=== PATIENT | female | born 1940 | race Caucasian/White ===

== ENCOUNTER 2018-07-18 13:54 | Emergency (ER) | payer MEDICARE, OTHER, SELFPAY ==
[2018-07-18 13:56] VITALS: BP 142/82; PULSE 83; RESP 12; TEMP 36.9; O2SAT 95; BMI 24.3
--- NOTE | 2018-07-18 14:00 | ED_ITS ---
HPI - Extremity Problem <Juliette Christie PA-C - Last Filed: 07/18/18 14:54> General Chief complaint: Extremity Problem,Nontraumatic Stated complaint: right middle toe pain Time Seen by Provider: 07/18/18 13:56 Source: patient Mode of arrival: ambulatory Limitations: no limitations History of Present Illness HPI Narrative: This 78-year-old female comes to ED today with complaints of gradually worsening pain in her right middle toe for the last 3-4 months. She states that she has a history nerve pain in this toe for a long time. She had surgery on the 3rd and 4th toes last year and had improvement. Pain did gradually worsened again and states she had cortisone injections earlier this year to break up the scar tissue and this helped for a long time as well. She describes the pain as shooting down the sides of the toe, sometimes it feels like it moves up a little bit as well, but fairly localized. She states it happens as frequently as every 7 sec. She states it is keeping her up more frequently at night and she got no sleep last night due to the pain. She states she takes Aleve at bedtime for her arthritis pain, has also tried arnica , Aspercreme, Nupercaine, E stim, ice, heat without relief. She denies any new trauma. She has not had any swelling, redness, or fever. She denies any pain elsewhere in the extremities. No new chest pain, dyspnea, or other complaints on systems review. She is wondering about repeating steroid injection. She has a podiatry appointment in the next few weeks Related Data Home Medications Medication Instructions Recorded Confirmed [FIBER THERAPY] #0 04/07/11 [VITAMIN C] #0 04/07/11 CALCIUM CARBONATE (#CALCIUM 600) 1,200 mg PO Q DAY #0 06/01/11 CHOLECALCIFEROL (VITAMIN D3) 400 unit PO QDAY #0 04/04/13 (Vitamin D3) denosumab [Prolia] 60 mg SQ #0 07/20/13 Allergies Allergy/AdvReac Type Severity Reaction Status Date / Time adhesive Allergy Intermediate HIVES Verified 07/18/18 14:01 erythromycin base Allergy Mild RASH Verified 07/18/18 14:01 levofloxacin AdvReac Mild ANXIETY Verified 07/18/18 14:01 Review of Systems <Juliette Christie PA-C - Last Filed: 07/18/18 14:54> Review of Systems All systems reviewed & are unremarkable except as noted in HPI and below Exam <MAMIE Church Last Filed: 07/18/18 14:54> Narrative Exam Narrative: GENERAL APPEARANCE: Patient sitting comfortably, in no distress. LUNGS: Clear to auscultation bilaterally. HEART: Rate and rhythm regular without murmur, normal S1 and S2, no S3 or S4. EXTREMITIES: No cyanosis or edema, R. pedal pulses intact DERMATOLOGIC: Right middle toe no edema or open wounds. There are well-healed surgical scars MUSCULOSKELETAL: She has some DIP flexion deformities of all toes, R. 4th toe most pronounced, minimal on R. middle toe. No joint effusion. Normal AROM NEUROLOGIC: R. foot sensation grossly intact Initial Vital Signs Initial Vital Signs: Vital Signs Temperature 98.4 F 07/18/18 13:56 Pulse Rate 83 07/18/18 13:56 Respiratory Rate 12 07/18/18 13:56 Blood Pressure 142/82 H 07/18/18 13:56 Pulse Oximetry 95 07/18/18 13:56 <Diogo Ashraf DO - Last Filed: 07/18/18 15:05> Initial Vital Signs Initial Vital Signs: Vital Signs Temperature 98.4 F 07/18/18 13:56 Pulse Rate 83 07/18/18 13:56 Respiratory Rate 12 07/18/18 13:56 Blood Pressure 142/82 H 07/18/18 13:56 Pulse Oximetry 95 07/18/18 13:56 Course <MAMIE Church Last Filed: 07/18/18 14:54> Vital Signs - 8 hr 07/18/18 13:56 07/18/18 14:51 Temperature 98.4 F Pulse Rate 83 62 Respiratory Rate 12 15 Blood Pressure 142/82 H 126/68 H Pulse Oximetry 95 96 <DO Asa Larios Last Filed: 07/18/18 15:05> Vital Signs - 8 hr 07/18/18 13:56 07/18/18 14:51 Temperature 98.4 F Pulse Rate 83 62 Respiratory Rate 12 15 Blood Pressure 142/82 H 126/68 H Pulse Oximetry 95 96 Discharge Plan Departure Patient Disposition: Home Clinical Impression: Neuropathic pain of foot Discharge Date/Time: 07/18/18 14:53 Interventions: ED Discharge Assessment Last Done: 07/18/18 14:51 Instructions: Neuropathic Pain Activity Restrictions/Additional Instructions: I agree with you that the pain you described in your toe sounds like nerve pain. It might be related to scar tissue, arthritis, or other inflammation since last time you had a steroid injection it helped, and you should follow up with your podiatry office as planned. In the interim, please try increasing your gabapentin to 2-3 pills at bedtime (6-900 mg). Try 600 mg for a few days 1st to make sure it does not make you sleepy. Do not take any other sleeping pill. You can also try adding capsaicin cream which is available under the brand name Capzasin but there are also a number of drug store brand as well, so you may want to ask your pharmacist. It is also okay to try other over-the- counter topical such as icy Hot Prescriptions: No Action [FIBER THERAPY] Qty: 0 RF: 0 [VITAMIN C] Qty: 0 RF: 0 CALCIUM CARBONATE (#CALCIUM 600) 1,200 mg PO Q DAY Qty: 0 RF: 0 CHOLECALCIFEROL (VITAMIN D3) (Vitamin D3) 400 unit PO QDAY Qty: 0 RF: 0 denosumab [Prolia] 60 MG/1 ML syringe 60 mg SQ Qty: 0 RF: 0 Referrals: [facility] [Provider Group] Grayson Garces DPM [Non-Staff] - Je Davis MD [Primary Care Provider] - <Diogo Ashraf DO - Last Filed: 07/18/18 15:05> Cosign ED Attending Oliver Attestation: I was available for consultation during this patient's emergency department encounter
[2018-07-18 14:51] VITALS: BP 126/68; PULSE 62; RESP 15; O2SAT 96
== END 2018-07-18 14:53 | disposition home or self-care (01) ==
PROVIDERS: Emergency Provider Internal Medicine; PCP Internal Medicine
DX: G57.91 Unspecified mononeuropathy of right lower limb (principal)
CPT/HCPCS: 99282

== ENCOUNTER → 2018-12-13 09:35 | Outpatient (CLI) | payer MEDICARE, OTHER, SELFPAY ==
--- NOTE | 2018-12-13 | DI.MRI.S_ITS ---
BREAST MRI OF BOTH BREASTS: 12/13/2018 CLINICAL: Implant stability. PROCEDURE: MR BREAST BI WO/W CON INDICATIONS: SILICONE IMPLANT RUPTURE. Per chart review, the patient has a history of prior right breast cancer status post bilateral mastectomy and TRAM flap reconstruction in 2001, bilateral augmentation mammoplasty in 2004, and bilateral implant replacement in 2006. TECHNIQUE: The patient was placed prone in a dedicated breast imaging coil. Precontrast axial STIR and 3D FLASH without fat saturation sequences were obtained. Both before and after bolus injection of contrast, sequential 1-minute axial 3D FLASH with fat saturation sequences for 3 time points, with subtraction images and maximum intensity projections (MIP's) generated. Delayed sagittal FLASH images with fat saturation were also obtained. 20 ccs of Prohance intravenous contrast were utilized for this exam. Computer-aided detection, including computer algorithm analysis of MRI image data for lesion detection and characterization, pharmacokinetic analysis, with further physician review for interpretation, was performed. COMPARISON: [facility], CT, THORAX WITHOUT CONTRAST, 07/11/2013, 11:53. FINDINGS: Image quality: Excellent. There is no significant background parenchymal enhancement given post mastectomy status. Right breast: Extensive postsurgical changes of prior mastectomy and reconstruction are noted. There is a silicone implant that appears pre-pectoral and demonstrates intracapsular rupture. There is no STIR hyperintense extracapsular material to suggest extracapsular rupture. No suspicious masses or non-mass enhancement. Left breast: Extensive postsurgical changes of prior mastectomy and reconstruction are noted. There is a silicone implant that appears pre-pectoral and demonstrates intracapsular rupture. There is no STIR hyperintense extracapsular material to suggest extracapsular rupture. No suspicious masses or non-mass enhancement. Miscellaneous: There is a 1.0 cm oval circumscribed STIR hyperintense probable cyst on axial image 22 of series 2 which is difficult to localize but may represent an intrahepatic cyst or intrapulmonary cyst. No convincing correlate is seen on comparison CT of the chest 07/11/13. No axillary or internal mammary lymphadenopathy identified. IMPRESSION: 1. Right breast: Postsurgical changes with intracapsular implant rupture. Negative for malignancy. 2. Left breast: Postsurgical changes with intracapsular implant rupture. Negative for malignancy. 3. No axillary or internal mammary lymphadenopathy. 4. 1.0 cm probable cyst that is difficult to localize and may represent an intrahepatic or intrapulmonary cyst. Consider CT for further evaluation if there is continued clinical concern. BIRADS Right breast: BI-RADS 2. Recommend imaging followup as clinically appropriate. Left breast: BI-RADS 2. Recommend imaging followup as clinically appropriate. COMMENT: The imaging literature indicates that a negative contrast breast MRI examination has a high sensitivity and a moderate specificity for detecting and excluding invasive carcinomas to a detection threshold of 3-5 mm; nonetheless, appropriate clinical and mammographic follow-up are recommended. MRI is not sensitive for detecting DCIS (ductal carcinoma in situ) and may not detect large invasive neoplasms that show only minimal enhancement such as mucinous carcinoma. If there are suspicious calcifications or clinically worrisome palpable masses, then biopsy should still be considered. Invasive neoplasms can be hidden by co-existent and benign enhancement caused by mastitis, hormone therapy effects, radiation therapy, , and recent biopsy or surgery. False positive examinations can occur in a number of circumstances, including breasts that have recently been subject to invasive procedures and those that contain atypical ductal hyperplasia, hormonally stimulated glandular tissue, fat necrosis, or radial scars. This exam was interpreted at Station ID: [id number]. Electronically Signed By: Franko Huerta M.D. ecl/:12/15/2018 13:41:07 Entry: - 12/15/2018 13:41:07 ACR BI-RADS Category 2: Benign Finding(s) [id number]
[2018-12-13 10:25] LABS: Estimated Glomerular Filt Rate > 60.0 mL/min (>60)
== END ==
PROVIDERS: Family Provider Surgery Plastic and Reconstructive Surgery; PCP Internal Medicine; Visit Provider Registered Nurse
DX: Z85.3 Personal history of malignant neoplasm of breast (principal); Z90.13 Acquired absence of bilateral breasts and nipples; Z98.82 Breast implant status; Z98.890 Other specified postprocedural states
CPT/HCPCS: 36415; 77049; 82565; A9579

== ENCOUNTER → 2019-01-12 12:05 | Outpatient (CLI) | payer MEDICARE, OTHER, SELFPAY ==
--- NOTE | 2019-01-12 | DI.CT.S_ITS ---
PROCEDURE: CT ABDOMEN WO/W CON INDICATIONS: BREAST CANCER. LIVER MASS TECHNIQUE: 4 phase scanning was performed. Non-contrast 5 mm axial sections acquired from the diaphragm to the iliac crests. Following the administration of intravenous contrast, 5 mm thick arterial-phase, portal venous-phase, and 5-minute delayed phase images were acquired through the liver. 5 mm thick coronal and sagittal reformats were performed. For radiation dose reduction, the following was used: automated exposure control, adjustment of mA and/or kV according to patient size. COMPARISON: [facility], MR, MR BREAST BI WO/W CON, 12/13/2018, 10:57. [facility], MR, T-SPINE WITHOUT CONTRAST, 04/01/2013, 16:51. Prior pulmonary angiogram chest CT performed 04/18/12 and also prior 07/11/[address] without contrast reviewed.. FINDINGS: Image quality: Excellent. Lung bases: Lung bases are clear. Heart size is normal. There are bilateral intact appearing breast implants, with a very slight degree of fluid along the posterior border of each implant slightly greater on the left than the right. Liver: Within the liver parenchyma no solid mass lesion is seen. There are several scattered hypodensities that measure moderate in radiodensity, and appear to represent small cysts. There is an ovoid cyst measuring up to 1.5 x 0.9 cm at the subcapsular right hepatic dome (series 8 image 7) and more inferiorly within the subcapsular right anterior hepatic segment there is a 7 mm cyst seen on series 8 image 15. More inferiorly within the far posterior inferior border of the right posterior hepatic segment there is a subcapsular 2.3 cm water density cyst, series 8 image 31. Within the left lateral hepatic segment there is a 8mm water density cyst (series 8 image 23) and elsewhere no cystic or solid mass is suspected. Other solid organs: Gallbladder contains multiple hypodensities likely representing cholesterol stones, filling the gallbladder lumen. Biliary distention is not associated.. Biliary system is non dilated. Pancreas is normal in morphology. Spleen is normal in size and enhancement. No adrenal nodules. Both kidneys demonstrate normal size and enhancement, without hydronephrosis or nephrolithiasis. Nodes and vessels: No retroperitoneal or mesenteric adenopathy by size criteria. Aorta and inferior vena cava are normal in size. Bowel and peritoneum: Unenhanced bowel loops are normal in caliber. No free fluid or air. Bones: No suspicious bony lesions. No vertebral body compression fractures. Miscellaneous: No ventral hernias. IMPRESSION: 1. There are scattered hepatic water density cysts generally small in size and no evidence of a hepatic mass lesion is solid. No biliary distention is seen. 2. Gallbladder stone filled. No acute cholecystitis found. 3. Bilateral breast implants, reportedly prior bilateral mastectomy. A very slight degree of fluid is seen at the posterior border of each implant slightly greater on the left than the right without evidence of implant rupture. 4. Along the breast implant margins and within the axillary soft tissues and elsewhere through the chest no adenopathy or evidence of recurrent neoplasm is found. Dictated by: Lupillo Childers M.D. on 01/12/2019 at 15:11 Approved by: Lupillo Childers M.D. on 01/12/2019 at 15:20
--- NOTE | 2019-01-12 12:09 | DI.CT.S_ITS ---
PROCEDURE: CT CHEST W CON INDICATIONS: BREAST CANCER. LIVER MASS. Partial clinical history is available, indicating prior bilateral mastectomy and breast implant placement reportedly in 2000. TECHNIQUE: After the administration of intravenous contrast, 5 mm thick sections acquired from the pulmonary apices to the posterior costophrenic angles. 7 mm thick coronal and sagittal MIP reformats were acquired. For radiation dose reduction, the following was used: automated exposure control, adjustment of mA and/or kV according to patient size. COMPARISON: [facility], CT, THORAX WITHOUT CONTRAST, 07/11/2013, 11:53. [facility], CR, RIBS UNILATERAL WITH PA CXR, 11/09/2010, 18:11. [facility], MR, MR BREAST BI WO/W CON, 12/13/2018, 10:57. [facility], CT, CT ABDOMEN WO/W CON, 01/12/2019, 12:51. [facility], CT, PE STUDY (CTA CHEST), 04/18/2012, 17:00. FINDINGS: Image quality: Excellent. Lungs and pleura: No acute air space opacities. No pleural effusions or pneumothorax. Central and peripheral airways are patent and normal in caliber. Bilateral breast implants are partially visualized, no definite implant rupture is suspected. No breast mass or axillary adenopathy is seen. Mediastinum: Heart size is normal. No pericardial effusion. No mediastinal or hilar adenopathy by size criteria. Thoracic aorta and central pulmonary arteries are normal in size. Esophagus is normal in caliber. No hiatal hernia. Bones and chest wall: No suspicious bony lesions. No vertebral body compression fractures. No axillary or supraclavicular adenopathy by size criteria. Thyroid gland appears normal. Abdomen: Visualized upper abdominal solid organs appear free of solid mass lesion. Within the liver parenchyma there are several cysts, including cysts that have been present faintly visualized on prior noncontrast CT scanning from 07/12/12 and 07/11/13. Upper abdominal bowel loops are normal in caliber. IMPRESSION: 1. The comparison examinations from the past are not all available for review. There is clinical history provided indicates prior mastectomy bilaterally in 2000 with bilateral breast implants. The breast implants currently visualized show no evidence of rupture. No adjacent mass or adenopathy is seen. 2. Within the visualized portion of the upper abdomen the liver is partially included and demonstrates several sharply demarcated hypodensities which appear to have been faintly previously present on noncontrast CT scanning from 2011 and 2012. These appear to represent cysts. Please also refer to the dedicated abdominal CT scanning performed without and with contrast also from today. Dictated by: Lupillo Childers M.D. on 01/12/2019 at 14:57 Approved by: Lupillo Childers M.D. on 01/12/2019 at 15:11
[2019-01-12 12:33] LABS: BUN Creatinine Ratio 26.7 (6-22); Blood Urea Nitrogen 16 mg/dL (7-17); Estimated Glomerular Filt Rate > 60.0 mL/min (>60)
== END ==
PROVIDERS: Family Provider Surgery Plastic and Reconstructive Surgery; PCP Internal Medicine; Visit Provider Internal Medicine
DX: K76.89 Other specified diseases of liver (principal); K80.80 Other cholelithiasis without obstruction; Z85.3 Personal history of malignant neoplasm of breast; Z98.82 Breast implant status
CPT/HCPCS: 36415; 71260; 74170; 82565; 84520; Q9967

== ENCOUNTER 2019-02-03 12:15 | Day surgery (SDC) | payer MEDICARE, OTHER, SELFPAY ==
[2019-02-03] MEDS: PROPARACAINE 0.5% OPHTH SOL 2 DROPS EYE-OP (12:41)
[2019-02-03 12:42] VITALS: BMI 23.6
[2019-02-03 12:49] VITALS: BP 127/70; PULSE 68; RESP 15; TEMP 37; O2SAT 96
[2019-02-03] MEDS: CATARACT EYE COMPOUND (10 DROPS/SYRINGE) 3 DROPS EYE-OP (12:58)
--- NOTE | 2019-02-03 13:17 | PM.PREOP ---
Pre-operative Note Interval Note History & Physical reviewed/Exam performed by Physician: Yes Changes to H&P: No
[2019-02-03] MEDS: PHENYLEPHRINE/LIDOCAINE VIAL (OR) 0.2 ML EYE-OP (13:40)
[2019-02-03] MEDS: MOXIFLOXACIN OPHTH DROPS 3 ML BOTTLE 2 DROPS INJ (13:41)
[2019-02-03] MEDS: BALANCED SALT IRRIG SOLN NO.2 15 ML IRR (13:41)
[2019-02-03] MEDS: CHONDROIDTIN/SOD HYALURONATE 1.05 ML SYRINGE INTRAOCULA (13:41)
[2019-02-03] MEDS: TETRACAINE 0.5% OPHTH DROPS 4 ML 2 DROPS EYE-RIGHT (13:42)
[2019-02-03] MEDS: BALANCED SALT IRRIG SOLN NO.2 500 ML, EPINEPHrine 1 MG IRR (13:42)
[2019-02-03] MEDS: LIDOCAINE 2% INJ SDV 5 ML INJ (13:43)
[2019-02-03] MEDS: NEOMYCIN/POLY/BACITRACIN 3.5 GM OPHTH OINT 1 APPLIC EYE-RIGHT (14:01)
--- NOTE | 2019-02-03 14:09 | PM.OP.1 ---
Procedure & Clinicians Procedure: Cataract extraction with intraocular lens implant, right Indications: Visually significant cataract right Surgeon: Edi Parkinson Click Yes if Unassisted: Yes Anesthesia Type: MAC +/- Operative Notes Procedure in detail: The patient was brought to the operating suite. The correct patient, surgical site and lens were confirmed. 0.5 % tetracaine drops were placed in the right eye. The patient was prepped and draped in the typical sterile manner. A lid speculum was placed in the eye. 2% lidocaine was placed on the eye. A paracentesis port was created with a side-port blade. 0.1 mL of 1% preservative free lidocaine was injected into the anterior chamber. Viscoelastic was injected into the anterior chamber. A 2.6mm keratome was used to create a clear corneal temporal incision. Cystotome and Utrata forceps were used to create a continuous curvilinear capsulorrhexis. Balanced salt solution was used to hydrodissect the nucleus. Phacoemulsification was used to remove the lens. The capsular bag was inflated with viscoelastic. A Anguiano ZBOO +21.0D lens was inserted into the capsule. Viscoelastic was removed and the wound hydrated. The wound was found to be leak free and the eye was assessed to be at normal physiologic pressure. 0.1mL Vigamox was injected into the anterior chamber. The lid speculum was removed and the patient left the operating room in excellent condition. Complications: none Condition: stable Disposition: observation
[2019-02-03 14:12] VITALS: BP 129/85; PULSE 66; RESP 15; TEMP 36.1; O2SAT 97
== END 2019-02-03 14:45 ==
PROVIDERS: PCP Internal Medicine; Visit Provider Ophthalmology
DX: H25.11 Age-related nuclear cataract, right eye (principal); J45.909 Unspecified asthma, uncomplicated
CPT/HCPCS: J0171; J2250; J3010

== ENCOUNTER 2019-02-10 12:59 | Day surgery (SDC) | payer MEDICARE, OTHER, SELFPAY ==
[2019-02-10] MEDS: PROPARACAINE 0.5% OPHTH SOL 2 DROPS EYE-OP (13:45)
[2019-02-10 13:48] VITALS: BMI 23.2
[2019-02-10] MEDS: CATARACT EYE COMPOUND (10 DROPS/SYRINGE) 3 DROPS EYE-OP (13:51)
[2019-02-10 13:52] VITALS: BP 117/70; PULSE 64; RESP 20; TEMP 36.5; O2SAT 97
--- NOTE | 2019-02-10 14:40 | PM.PREOP ---
Pre-operative Note Interval Note History & Physical reviewed/Exam performed by Physician: Yes Changes to H&P: No
[2019-02-10] MEDS: PHENYLEPHRINE/LIDOCAINE VIAL (OR) 0.2 ML EYE-OP (14:53)
[2019-02-10] MEDS: TETRACAINE 0.5% OPHTH DROPS 4 ML 2 DROPS EYE-RIGHT (14:54)
[2019-02-10] MEDS: BALANCED SALT IRRIG SOLN NO.2 15 ML IRR (14:54)
[2019-02-10] MEDS: BALANCED SALT IRRIG SOLN NO.2 500 ML, EPINEPHrine 1 MG IRR (14:54)
--- NOTE | 2019-02-10 15:08 | PM.OP.1 ---
Procedure & Clinicians Procedure: lens repositioning, right eye Same procedure as scheduled: Yes Indications: dislocated lens, right Surgeon: Edi Parkinson Click Yes if Unassisted: Yes Anesthesia Type: MAC +/- Operative Notes Procedure in detail: The patient was brought to the operating suite. The correct patient, surgical site were confirmed. 0.5 % tetracaine drops were placed in the right eye. The patient was prepped and draped in the typical sterile manner. A lid speculum was placed in the eye. 2% lidocaine was placed on the eye. A paracentesis port was created with a 1.0mm side-port blade. 0.1 mL of 1% preservative free lidocaine with phenylephrine was injected into the anterior chamber. BSS on a long cannula was used to reposition the lens. The lens was found to be centered, in good position, and in the bag. The wound was hydrated, the eye was at normal physiologic pressure and the wound sealed. The lid speculum was removed and the patient left the operating room in excellent condition. Complications: none Condition: stable Disposition: same day surgery
[2019-02-10 15:10] VITALS: BP 129/65; PULSE 63; RESP 20; TEMP 36.1; O2SAT 97
== END 2019-02-10 15:25 ==
PROVIDERS: PCP Internal Medicine; Visit Provider Ophthalmology
PROC: (CPT 66825; principal; 2019-02-10 14:45)
DX: T85.22XA Displacement of intraocular lens, initial encounter (principal); J45.909 Unspecified asthma, uncomplicated
CPT/HCPCS: 66825; J0171; J2250; J3010

== ENCOUNTER 2019-02-24 07:29 | Day surgery (SDC) | payer MEDICARE, OTHER, SELFPAY ==
[2019-02-24 07:49] VITALS: BP 122/73; PULSE 76; RESP 16; TEMP 36.9; O2SAT 95; BMI 23.6
[2019-02-24] MEDS: PROPARACAINE 0.5% OPHTH SOL 2 DROPS EYE-OP (07:58)
[2019-02-24] MEDS: CATARACT EYE COMPOUND (10 DROPS/SYRINGE) 3 DROPS EYE-OP (08:00)
--- NOTE | 2019-02-24 09:15 | PM.PREOP ---
Pre-operative Note Interval Note History & Physical reviewed/Exam performed by Physician: Yes Changes to H&P: No
[2019-02-24] MEDS: MOXIFLOXACIN OPHTH DROPS 3 ML BOTTLE 2 DROPS INJ (09:52)
[2019-02-24] MEDS: CHONDROIDTIN/SOD HYALURONATE 1.05 ML SYRINGE INTRAOCULA (09:52)
[2019-02-24] MEDS: PHENYLEPHRINE/LIDOCAINE VIAL (OR) 0.2 ML EYE-OP (09:52)
[2019-02-24] MEDS: BALANCED SALT IRRIG SOLN NO.2 500 ML, EPINEPHrine 1 MG IRR (09:53)
[2019-02-24] MEDS: LIDOCAINE 2% INJ SDV 5 ML INJ (09:54)
--- NOTE | 2019-02-24 09:56 | PM.OP.1 ---
Operative Date/Time/Diagnoses Pre-op diagnosis: Cataract left eye Post-op diagnosis: same Procedure & Clinicians Procedure: Cataract extraction with intraocular lens implant, left Same procedure as scheduled: Yes Indications: Visually significant nuclear sclerosis Click Yes if Unassisted: Yes Anesthesia Type: MAC +/- Operative Notes Procedure in detail: The patient was brought to the operating suite. The correct patient, surgical site and lens were confirmed. 0.5 % tetracaine drops were placed in the left eye. The patient was prepped and draped in the typical sterile manner. A lid speculum was placed in the eye. 2% lidocaine was placed on the eye. A paracentesis port was created with a side-port blade. 0.1 mL of 1% preservative free lidocaine with phenylephrine was injected into the anterior chamber. Viscoelastic was injected into the anterior chamber. A 2.6mm keratome was used to create a clear corneal temporal incision. Cystotome and Utrata forceps were used to create a continuous curvilinear capsulorrhexis. Balanced salt solution was used to hydrodissect the nucleus. Phacoemulsification was used to remove the lens. The capsular bag was inflated with viscoelastic. A Anguiano ZBOO 21.0 D lens was inserted into the capsule. Viscoelastic was removed and the wound hydrated. The wound was found to be leak free and the eye was assessed to be at normal physiologic pressure. 0.1mL Vigamox was injected into the anterior chamber. The lid speculum was removed and the patient left the operating room in excellent condition. Complications: none Condition: stable Disposition: same day surgery
[2019-02-24 10:05] VITALS: BP 135/82; PULSE 72; RESP 15; TEMP 36.4; O2SAT 95
== END 2019-02-24 10:25 ==
LOC: OR 07:30
PROVIDERS: PCP Internal Medicine; Visit Provider Ophthalmology
DX: H25.11 Age-related nuclear cataract, right eye (principal); J45.909 Unspecified asthma, uncomplicated
CPT/HCPCS: J0171; J2250; J3010

== ENCOUNTER → 2019-08-31 18:56 | Outpatient (ROUT) | payer MEDICARE, OTHER, SELFPAY ==
[2019-08-31 19:29] LABS: Add Manual Diff / Slide Review NO; Basophils Absolute Auto 100 /uL (0-100); Basophils Percent Auto 1.2 % (0-2); Eosinophils Absolute Auto 100 /uL (0-450); Eosinophils Percent Auto 1.3 % (2-4); Hemoglobin 14.2 g/dL (12.0-16.0); Lymphocytes Absolute Auto 1100 /uL (1100-4500); Lymphocytes Percent Auto 18.2 % (25-40); Mean Corpuscular HGB Conc 33.9 % (30-36); Mean Corpuscular Hemoglobin 29.4 PG (26-34); Mean Corpuscular Volume 86.9 fL (80-100); Monocytes Absolute Auto 600 /uL (0-900); Neutrophils Absolute Auto 4000 /uL (1500-7000); Neutrophils Percent Auto 69.3 % (50-75); Platelet Count 258 X10^3/uL (150-400); Red Blood Cell Count 4.84 X10^6/uL (4.0-5.2); Red Cell Distribution Width 14.7 % (11.6-14.8); White Blood Cell Count 5.8 X10^3/uL (4.5-11.0)
[2019-08-31 19:36] LABS: Alanine Aminotransferase 25 IU/L (9-52); Albumin 4.3 g/dL (3.5-5.0); Albumin Globulin Ratio 1.7 (1.0-2.8); Alkaline Phosphatase 113 U/L (38-126); Aspartate Aminotransferase 28 IU/L (14-36); Bilirubin Total 0.9 mg/dL (0.2-1.3); Blood Urea Nitrogen 17 mg/dL (7-17); Calcium 10.8 mg/dL (8.4-10.2); Carbon Dioxide 25 mmol/L (22-32); Chloride 99 mmol/L (98-107); Estimated Glomerular Filt Rate > 60.0 mL/min (>60); Globulin 2.5 g/dL (1.7-4.1); Glucose 93 mg/dL (80-110); HEMOLYSIS < 15 (0-50); Potassium 4.3 mmol/L (3.4-5.1); Sodium 136 mmol/L (137-145); Total Protein 6.8 g/dL (6.3-8.2)
[2019-08-31 20:01] LABS: TSH w/ Reflex to FT4 1.71 uIU/mL (0.47-4.68)
== END ==
PROVIDERS: PCP Internal Medicine; Visit Provider Internal Medicine
DX: R63.4 Abnormal weight loss (principal)
CPT/HCPCS: 80053; 84443; 85025

== ENCOUNTER → 2019-09-06 13:37 | Outpatient (CLI) | payer MEDICARE, OTHER, SELFPAY ==
[2019-09-06 14:50] LABS: Add Manual Diff / Slide Review NO; Basophils Absolute Auto 100 /uL (0-100); Basophils Percent Auto 0.8 % (0-2); Eosinophils Absolute Auto 100 /uL (0-450); Eosinophils Percent Auto 1.8 % (2-4); Hematocrit 44.1 % (36-46); Hemoglobin 14.7 g/dL (12.0-16.0); Lymphocytes Absolute Auto 1100 /uL (1100-4500); Lymphocytes Percent Auto 16.1 % (25-40); Mean Corpuscular HGB Conc 33.3 % (30-36); Mean Corpuscular Hemoglobin 29.1 PG (26-34); Mean Corpuscular Volume 87.3 fL (80-100); Monocytes Absolute Auto 700 /uL (0-900); Monocytes Percent Auto 10.8 % (3-14); Neutrophils Absolute Auto 4600 /uL (1500-7000); Neutrophils Percent Auto 70.5 % (50-75); Platelet Count 205 X10^3/uL (150-400); Red Blood Cell Count 5.05 X10^6/uL (4.0-5.2); Red Cell Distribution Width 14.2 % (11.6-14.8); White Blood Cell Count 6.6 X10^3/uL (4.5-11.0)
[2019-09-06 15:29] LABS: Erythrocyte Sedimentation Rate 5 MM/HR (0-20)
[2019-09-06 15:38] LABS: Alanine Aminotransferase 19 IU/L (9-52); Albumin 4.4 g/dL (3.5-5.0); Albumin Globulin Ratio 1.9 (1.0-2.8); Alkaline Phosphatase 111 U/L (38-126); Aspartate Aminotransferase 27 IU/L (14-36); BUN Creatinine Ratio 28.3 (6-22); Bilirubin Total 0.7 mg/dL (0.2-1.3); Blood Urea Nitrogen 17 mg/dL (7-17); C-Reactive Protein Quant 1.1 mg/dL (<1.0); Calcium 9.3 mg/dL (8.4-10.2); Carbon Dioxide 28 mmol/L (22-32); Chloride 99 mmol/L (98-107); Estimated Glomerular Filt Rate > 60.0 mL/min (>60); Globulin 2.3 g/dL (1.7-4.1); Glucose 89 mg/dL (80-110); HEMOLYSIS < 15 (0-50); Potassium 4.5 mmol/L (3.4-5.1); Sodium 137 mmol/L (137-145); Total Protein 6.7 g/dL (6.3-8.2); Uric Acid 4.2 mg/dL (2.5-6.2)
[2019-09-08 14:34] LABS: Parathyroid Hormone Int 45 pg/mL (14-64)
[2019-09-08 15:16] LABS: Ionized Calcium 4.8 mg/dL (4.8-5.6)
== END ==
PROVIDERS: PCP Internal Medicine; Visit Provider Internal Medicine
DX: E83.52 Hypercalcemia (principal); M81.0 Age-related osteoporosis without current pathological fracture; M11.20 Other chondrocalcinosis, unspecified site
CPT/HCPCS: 36415; 80053; 82330; 83970; 84550; 85025; 85651; 86140

== ENCOUNTER → 2019-10-13 12:32 | Outpatient (CLI) | payer MEDICARE, OTHER, SELFPAY ==
[2019-10-13 13:46] LABS: TSH w/ Reflex to FT4 1.88 uIU/mL (0.47-4.68)
== END ==
PROVIDERS: PCP Internal Medicine; Visit Provider Internal Medicine
DX: E03.9 Hypothyroidism, unspecified (principal)
CPT/HCPCS: 36415; 84443

== ENCOUNTER → 2020-02-07 08:08 | Outpatient (CLI) | payer MEDICARE, OTHER, SELFPAY ==
--- NOTE | 2020-02-07 | DI.US.S_ITS ---
PROCEDURE: US ABDOMEN COMPLETE INDICATIONS: GENERALIZED ABDOMINAL PAIN TECHNIQUE: Real-time scanning was performed of the abdominal and retroperitoneal organs, with image documentation. COMPARISON: [facility], CT, CT ABDOMEN WO/W CON, 01/12/2019, 12:51. FINDINGS: Liver: Liver is normal in size at 18 cm craniocaudad, and homogeneous in echotexture (diffusely hyperechoic consistent with relatively prominent hepatic steatosis).. Gallbladder: The gallbladder contains multiple internal stones, the largest of which measures up to approximately 2.2 cm. Biliary ducts: Intrahepatic bile ducts are non-dilated. Extrahepatic bile duct caliber measures 6.0 mm. Normal is 6-7 mm or less in diameter, or 10 mm or less post-cholecystectomy. Pancreas: Visualized portions of the pancreas are sonographically normal. Spleen: Spleen is normal in size and homogeneous in echotexture. Kidneys: Kidneys are normal in size and echotexture. Right kidney measures 10.9 cm long; left kidney measures 11.0 cm long. No hydronephrosis or nephrolithiasis. No solid masses. Aorta: Visualized aorta is normal in caliber at less than 3 cm. Iliacs: Proximal common iliac arteries are normal in caliber at less than 2.5 cm. IVC: Intrahepatic inferior vena cava is patent. Miscellaneous: No free abdominal fluid. IMPRESSION: Prominent generalized hepatic steatosis, causing increased echotexture throughout the liver. No focal liver lesion is seen. Several scattered small hepatic cysts are incidentally noted. Multiple gallstones are present within the gallbladder lumen measuring up to 2.2 cm in maximal dimension, but there is no sign of associated biliary distention or acute cholecystitis. Dictated by: Lupillo Childers M.D. on 02/07/2020 at 12:50 Approved by: Lupillo Childers M.D. on 02/07/2020 at 12:53
== END ==
PROVIDERS: PCP Internal Medicine; Referring Provider Internal Medicine; Visit Provider Internal Medicine Gastroenterology
DX: R10.84 Generalized abdominal pain (principal); K76.0 Fatty (change of) liver, not elsewhere classified; K76.89 Other specified diseases of liver; K80.20 Calculus of gallbladder without cholecystitis without obstruction
CPT/HCPCS: 76700

== ENCOUNTER → 2020-06-20 12:36 | Outpatient (CLI) | payer MEDICARE, OTHER, SELFPAY ==
--- NOTE | 2020-06-20 12:39 | DI.CT.S_ITS ---
PROCEDURE: CT ABDOMEN PELVIS WO CON INDICATIONS: Intra-abdominal and pelvic swelling, mass and lump TECHNIQUE: Noncontrast 5 mm thick sections acquired from the diaphragms to the symphysis. 5 mm coronal and sagittal reformats were then performed. For radiation dose reduction, the following was used: automated exposure control, adjustment of mA and/or kV according to patient size. COMPARISON: [facility], CT, CT ABDOMEN WO/W CON, 01/12/2019, 12:51. FINDINGS: Image quality: Excellent. ABDOMEN: Lung bases: Lung bases are clear. Heart size is normal. Solid organs: Liver is normal in size. Gallbladder contains multiple peripherally calcified gallstones the largest of which measures up to 1.7 cm. . Pancreas is normal in contours. Spleen is normal in size. No adrenal nodules. Kidneys are normal in size, without hydronephrosis or nephrolithiasis. Peritoneum and bowel: Unenhanced bowel loops demonstrate normal wall thickness and caliber. No free fluid or air. Nodes and vessels: No retroperitoneal or mesenteric adenopathy by size criteria. Aorta and inferior vena cava are normal in caliber. Miscellaneous: No ventral hernias. PELVIS: Genitourinary: Bladder wall thickness is normal. Miscellaneous: No inguinal hernias or adenopathy. Bones: No suspicious bony lesions. No vertebral body compression fractures. IMPRESSION: The study is somewhat limited by absence of both oral and intravenous contrast. No abdominal mass or inflammation is found. There is, however, a finding of multiple faintly calcified and peripherally calcified gallstones filling much of the gallbladder lumen. Ultrasound would most accurately assess for gallbladder wall thickening and obtaining ultrasound follow-up may be warranted. Chronic cholecystitis with multiple gallstones within the gallbladder lumen can produce a palpable abnormality on physical examination. The inferior gallbladder extends into the right iliac fossa. Please correlate clinically. Clinical history obtained from the patient indicates some form of mesh repair of upper abdomen presumed hernia. No area of clustered mash or upper abdominal inflammatory change is found. Dictated by: Lupillo Childers M.D. on 06/20/2020 at 14:43 Approved by: Lupillo Childers M.D. on 06/20/2020 at 14:47
== END ==
PROVIDERS: PCP Internal Medicine; Referring Provider Surgery; Visit Provider Surgery
DX: R19.00 Intra-abdominal and pelvic swelling, mass and lump, unspecified site (principal); K80.20 Calculus of gallbladder without cholecystitis without obstruction
CPT/HCPCS: 74176

== ENCOUNTER → 2020-07-08 14:06 | Outpatient (CLI) | payer MEDICARE, OTHER, SELFPAY ==
[2020-07-09 17:47] LABS: COVID19 Sendout Not Detected (Not Detect)
== END ==
PROVIDERS: PCP Internal Medicine; Visit Provider Physician Assistant
DX: Z11.59 Encounter for screening for other viral diseases (principal)
CPT/HCPCS: 87635

== ENCOUNTER 2020-07-11 10:46 | Day surgery (SDC) | payer MEDICARE, OTHER, SELFPAY ==
[2020-07-03 08:04] VITALS: BMI 20.7
[2020-07-11] VITALS (14 sets, daily range): BP systolic 109–144; BP diastolic 55–79; PULSE 55–76; RESP 12–18; TEMP 36.3–36.9; O2SAT 94–100; BMI 20.7
--- NOTE | 2020-07-11 | PATH_ITS ---
[facility] Accession Number: [id number] . 01 Material submitted: . gallbladder - GALLBLADDER AND CONTENTS . 02 Diagnosis: Gallbladder and Contents, Cholecystectomy: Gallbladder with cholelithiasis. MRV 07/13/2020 1046 Local . 02 Electronically signed: . Linda Mejia MD, Pathologist NPI- [id number] . 01 Gross description: . Received in formalin, labeled with the patient's name, MRN and gallbladder and contents, is an intact 15.0 x 4.5 x 4.0 cm gallbladder with a 0.3 cm in length by 0.3 cm in diameter cystic duct. The serosal surface is pink-zimmerman and smooth. The gallbladder is opened to reveal green viscous bile admixed with multiple yellow-brown calculi ranging in size from 0.8 cm to 2.5 cm in greatest dimension. The mucosal surface is zimmerman-green and trabeculated. The gallbladder wall measures 0.2 cm in thickness. No discrete lesion are identified. No lymph nodes are identified. The shave of the cystic duct margin (inked blue) and auto service representative sections from the gallbladder body and gallbladder fundus are submitted in cassette A1. (SD/cmc10 [id number]) /MRV 07/12/2020 1200 Local . 02 Pathologist provided ICD-10: K80.70, K80.20 . 02 CPT . 599035 Performed at: 01 [facility] [address], [place], [place] [id number] MD Finesse Hays MD Phone: [phone] Performed at: 02 [facility] [address] [place], [place] [id number] MD Loli Calderon MD Phone: [phone]
[2020-07-11] MEDS: LACTATED RINGERS 1,000 ML 42 ML IV ×2 (11:25→13:30)
[2020-07-11] MEDS: Non-Formulary Medication (Indocyanine 25 MG) 25 EACH IV (11:32)
--- NOTE | 2020-07-11 12:05 | PM.PREOP ---
Pre-operative Note COVID-19 COVID-19 status: Negative Result date/Date tested (Pos, Neg/Pending): 07/08/20 Interval Note History & Physical reviewed/Exam performed by Physician: Yes Changes to H&P: Yes H&P completed within 30 days and has changed as indicated here:: bloating, constipation
[2020-07-11] MEDS: PIPERACILLIN-TAZO 3.375 GM/50 ML FROZ.PIGGY IV (12:25)
--- NOTE | 2020-07-11 12:49 | SUR.OPER ---
Supine on padded OR bed, head on pillow, arms secured on padded arm boards at <90 degrees abduction, legs uncrossed, safety belt at thigh, tape over blanket over lower legs.
[2020-07-11] MEDS: BUPIVACAINE 0.25% W/ EPI 30 ML VIAL INJ (13:42)
--- NOTE | 2020-07-11 14:30 | PM.OP.1 ---
Operative Date/Time/Diagnoses Date of procedure: 07/11/20 Time of procedure: 14:37 Pre-op diagnosis: Symptomatic cholelithiasis Post-op diagnosis: same Procedure & Clinicians Procedure: Laparoscopic cholecystectomy, indocyanine green cholangiography Same procedure as scheduled: Yes Indications: This is a 80-year-old woman with symptomatic cholelithiasis. She has an elongated gallbladder and 2 cm [address]stones on her CT scan. She has had a previous abdominal wall reconstruction with Marlex mesh many years ago. Surgeon: Gerda Allison Click Yes if Unassisted: Yes Anesthesia Type: General Operative Notes Findings: Elongated gallbladder, thickened gallbladder wall, large gallstones, adhesions Specimen(s): other (Gallbladder) Estimated Blood Loss (mL): 1 Procedure in detail: The patient was brought into the operating room and placed supine on the OR table. Sequential compression devices were placed on both legs and turned on. Appropriate perioperative antibiotics were given prior to the start of surgery. General anesthesia was induced the patient was intubated. The abdomen was prepped and draped in sterile fashion. Surgical time-out was conducted. Local anesthetic was injected under the skin just inferior to the umbilicus and a 5 mm vertical incision was made at this site. The abdominal wall was grasped with a Kris and elevated. A Veress needle was passed through the fascia into proper position. The position was tested with a saline drop test which was appropriate for intra-abdominal Veress needle placement. The abdomen was then insufflated in the usual fashion. Once insufflated to 15 mm Hg the Veress needle was removed and a 5 mm optical trocar was placed under direct vision using a 5 mm 30 degree scope. There was no significant difficulty with passing the port through her abdominal wall, although we did have to put the port through her old mesh. Once the camera was inside the abdomen I took a look around. There was no injury from port placement. I could see that the old mesh reached all the way up to nearly the margin of her ribs. Two additional ports were placed in a similar fashion in the right upper quadrant in the usual position. This required placing them through the old mesh. Additionally a 11 mm port was placed in the epigastrium in the usual fashion. A very large, elongated gallbladder was seen extending below the edge of the liver and down into the pelvis. It was grasped and elevated and pushed over top of the liver in order to view the infundibulum and hilum. There were some overlying omental adhesions, which were taken down with cautery. We were then able to position the gallbladder with atraumatic graspers through the 2 lateral port sites. The gallbladder was elevated cranially and to the patient's right. The infundibulum was grasped and retracted laterally so that the hilum was exposed. Careful dissection was undertaken to expose the cystic duct and cystic artery. The patient was given indocyanine in the preop area, so that at this point were able to turn on the fluorescent camera, and use indocyanine cholangiography to identify the cystic duct and common duct. There was a long narrow cystic duct, and the common duct was not in the immediate vicinity, and so we were able to continue safe dissection of the cystic duct, and ultimately doubly clip the patient's side, and clipped the gallbladder side, and divided between using laparoscopic Metzenbaum scissors. The artery was also identified, running parallel to the duct, with liver seen behind in between with no other structures in the way. This give a good critical view of safety. The artery was doubly clipped on the patient's side and clipped again on the gallbladder side, and divided with laparoscopic Metzenbaum scissors. Dissection was then carried along the gallbladder fossa, dividing the gallbladder away from the liver. Once entirely freed from the liver, the gallbladder was placed inside an Endo-Catch bag. It was a very large gallbladder with very large stones of at least 2 cm in size. Because of this, the epigastric port site had to be enlarged in order to remove the gallbladder inside the Endo-Catch bag from the abdomen. Once it was removed was passed off the field. We then placed the epigastric port back inside and clamp the skin closed with a piercing towel clamp. We went back and took a final look at the subhepatic space. There was no active bleeding, or leaking of bile. The clips were in good position on the cystic duct and artery. Any remaining blood or fluid was suctioned clean from the area. Because the patient's abdominal wall was very thin, and I had to put holes in her old mesh in order to get the ports in, I closed each individual port site using a Josh-Fay and 0 Vicryl suture to reduce the risk of hernia formation at the port sites. The epigastric port site had to be closed anteriorly with an 0 Vicryl suture in the fascia on a UR 6 needle. Additional local anesthetic was given in each port site. 3 O Vicryl suture was used in the subcutaneous layers, and 4 Monocryl in the skin. Each port site was sealed with Dermabond. Local anesthetic was given at each of the port sites and in the fascia. This concluded the procedure. At this point the needle sponge and instrument counts were correct. The gallbladder was passed off the table for pathology. Patient was awakened from anesthesia and extubated. She was transferred to the postanesthesia care unit in stable condition. Complications: none Post-operative Condition: stable Disposition: PACU
[2020-07-11] MEDS: fentaNYL 100 MCG/2 ML INJ IV (14:34)
[2020-07-11] MEDS: LORazepam 2 MG/ML INJ 0.25 MG IV (14:47)
[2020-07-11] MEDS: HYDROCODONE/ACET 5/325 TABLET 1 TAB PO (15:55)
== END 2020-07-11 16:20 | disposition home or self-care (01) ==
LOC: OR 10:57
PROVIDERS: PCP Internal Medicine; Referring Provider Surgery; Visit Provider Surgery
PROC: 0FT44ZZ Resection of Gallbladder, Percutaneous Endoscopic Approach (ICD-10-PCS; CPT 47562; principal; 2020-07-11 12:15)
DX: K80.20 Calculus of gallbladder without cholecystitis without obstruction (principal); K66.0 Peritoneal adhesions (postprocedural) (postinfection); J45.909 Unspecified asthma, uncomplicated
CPT/HCPCS: 47563; J0330; J1100; J2060; J2405; J2543; J2704; J3010

== ENCOUNTER 2020-07-20 11:40 | Emergency (ER) | payer MEDICARE, OTHER, SELFPAY ==
[2020-07-20] VITALS (10 sets, daily range): BP systolic 131–191; BP diastolic 68–113; PULSE 66–88; RESP 12–45; TEMP 37; O2SAT 95–98; BMI 21.4
--- NOTE | 2020-07-20 11:45 | DI.RAD.S_ITS ---
PROCEDURE: XR CHEST 1V INDICATIONS: chest pain TECHNIQUE: One view of the chest was acquired. COMPARISON: [facility], CT, CT CHEST W CON, 01/12/2019, 12:51. [facility], CT, CT ABDOMEN PELVIS WO CON, 06/20/2020, 12:44. [facility], CR, CHEST 2 VIEW, 03/19/2016, 15:44. [facility], CR, CHEST 2 VIEW, 09/27/2015, 15:52. FINDINGS: Surgical changes and devices: Prior bilateral humeral arthroplasty.. Lungs and pleura: Lungs are clear. No pleural effusions or pneumothorax. Mediastinum: Mediastinal contours appear normal. Heart size is normal. Bones and chest wall: No suspicious bony lesions. Overlying soft tissues appear unremarkable. IMPRESSION: Source of chest pain not found. Dictated by: Lupillo Childers M.D. on 07/20/2020 at 13:06 Approved by: Lupillo Childers M.D. on 07/20/2020 at 13:07
[2020-07-20 12:06] LABS: Add Manual Diff / Slide Review NO; Basophils Absolute Auto 100 /uL (0-100); Eosinophils Absolute Auto 100 /uL (0-450); Hematocrit 46.3 % (36-46); Hemoglobin 15.2 g/dL (12.0-16.0); Lymphocytes Absolute Auto 900 /uL (1100-4500); Lymphocytes Percent Auto 15.2 % (25-40); Mean Corpuscular HGB Conc 32.8 % (30-36); Mean Corpuscular Hemoglobin 29.2 PG (26-34); Monocytes Absolute Auto 500 /uL (0-900); Monocytes Percent Auto 8.3 % (3-14); Neutrophils Absolute Auto 4400 /uL (1500-7000); Neutrophils Percent Auto 73.5 % (50-75); Platelet Count 205 X10^3/uL (150-400); Red Blood Cell Count 5.21 X10^6/uL (4.0-5.2)
[2020-07-20 12:13] LABS: PTT Partial Thromboplastin Tim 32 SECONDS (26.4-36.2)
[2020-07-20 12:15] LABS: Alanine Aminotransferase 21 IU/L (<35); Albumin 4.6 g/dL (3.5-5.0); Albumin Globulin Ratio 1.5 (1.0-2.8); Alkaline Phosphatase 93 U/L (38-126); Aspartate Aminotransferase 27 IU/L (14-36); Bilirubin Total 0.7 mg/dL (0.2-1.3); Blood Urea Nitrogen 13 mg/dL (7-17); Calcium 9.3 mg/dL (8.4-10.2); Carbon Dioxide 26 mmol/L (22-32); Chloride 101 mmol/L (98-107); Creatine Kinase 56 U/L (30-135); Estimated Glomerular Filt Rate > 60.0 mL/min (>60); Glucose 139 mg/dL (80-110); HEMOLYSIS < 15 (0-50); Lipase 32 U/L (23-300); Sodium 136 mmol/L (137-145); Total Protein 7.6 g/dL (6.3-8.2)
--- NOTE | 2020-07-20 12:16 | ED_ITS ---
HPI - Chest Pain General Chief Complaint: Chest Pain Stated Complaint: SHORT OF BREATH,CHEST PAIN,RAPID PULSE Time Seen by Provider: 07/20/20 12:16 History of Present Illness HPI narrative: 80-year-old woman with a distant history of breast cancer, asthma and rare PET mall seizures presents with exertional dyspnea that is been present since this morning. She woke when was feeling well but noticed that she had a sensation over the midportion of her chest which she describes as a fullness pressure that was worsened with walking through her house at her usual fairly rapid pace but seem to schuyler as she slow down and was alleviated completely at rest. She has no prior history of chest pain or cardiac disease. Of note she had a laparoscopic cholecystectomy last week and seems to be recovering nicely from that Related Data Home Medications Medication Instructions Recorded Confirmed Vitamin C 1 g PO BID #0 04/07/11 07/05/20 calcium carbonate [Calcium 600] 600 mg PO BID #0 06/01/11 07/11/20 vitamin D3-vitamin K2 1,000 unit PO QDAY #0 04/04/13 07/05/20 Prolia 60 mg SQ DIRECTED #0 07/20/13 07/05/20 Glucosamine Sulf-Chondroitin 1 tab PO BID 02/03/19 07/11/20 PreserVision AREDS 1 tab PO BID 02/03/19 07/11/20 gabapentin 300 mg PO DAILY 02/03/19 07/11/20 montelukast 10 mg PO BEDTIME 02/03/19 07/11/20 multivitamin 1 cap PO DAILY 02/03/19 07/11/20 fluticasone propion-salmeterol 1 puff INHALATION BID 02/10/19 07/05/20 albuterol sulfate [Ventolin HFA] 2 puff INHALATION Q4-6H PRN 07/03/20 07/05/20 fluticasone propionate 1 spray INTRANASAL BID 07/03/20 07/11/20 Previous Rx's Medication Instructions Recorded docusate sodium 100 mg capsule 100 mg PO BID #20 cap 07/09/20 hydrocodone 7.5 mg-acetaminophen 1 tab PO Q4-6H PRN #30 tab 07/09/20 325 mg tablet Allergies Allergy/AdvReac Type Severity Reaction Status Date / Time adhesive Allergy Intermediate HIVES Verified 07/05/20 10:18 erythromycin base Allergy Mild RASH Verified 07/05/20 10:18 levofloxacin AdvReac Mild ANXIETY Verified 07/05/20 10:18 Review of Systems Review of Systems Narrative: Pertinent positive and negative findings as per HPI Remainder of review of systems is otherwise unremarkable for Constitutional: Fevers, chills, weakness ENT: No sore throat, neck pain, ear pain GI: Nausea, vomiting, diarrhea, change in bowel habits, black or bloody stools : Dysuria, hematuria, flank pain MS: Muscle weakness, numbness, joint swelling or warmth Neuro: Syncope, dizziness, tingling Patient History Medical History Anemia (Acute) Anesthesia complication (Acute) Arthritis (Acute) Asthma (Chronic) Breast cancer (Acute) Compression fracture (Acute 2002) Easy bruisability (Acute) Epilepsy (Acute) Former smoker (Acute) History of breast cancer (Resolved) History of transfusion (Acute ~2001) Migraines (Acute) Osteoarthritis (Chronic) Osteoporosis (Chronic) Rib fractures (Acute) Sinus drainage (Acute) Surgical History History of foot surgery (Resolved) History of surgery (Acute 04/2019) Hx of appendectomy (Acute 1961) Hx of arthroscopy of shoulder (Acute 03/2005) Hx of lumpectomy (Acute 04/2001) Hx of repair of right rotator cuff (Acute 06/2006) Hx of toe surgery (Acute) Hx of tonsillectomy (Acute 1948) S/P bilateral mastectomy (Resolved 12/2001) Status post appendectomy (Resolved) Status post breast reconstruction (Resolved 07/2019) Status post replacement of both shoulder joints (Resolved) Status post right knee replacement (Resolved 10/2012) Status post tonsillectomy (Resolved) Social History household members: none Smoking Status: Former smoker Smoking Status: Former smoker alcohol intake frequency: 0-2 drinks per day Substance Use Type: does not use Exam Narrative Exam Narrative: General: Healthy appearing, in no acute distress. Able to give a complete and coherent history. Well-nourished well-developed HEENT: Moist mucous membranes, normal sclera with reactive pupils, Neck: No JVD, supple Respiratory: Lungs are clear to auscultation, no wheezing no rales no rhonchi. Full and symmetrical air movement, no reproducible chest pain with AP compression of the chest lateral compression of the chest or palpation along sternal borders Cardiac: Regular rate and rhythm no murmurs no bruits Abdomen: Soft nontender good bowel tones, no flank pain Skin: Warm and dry, no rashes Neurologic: Grossly neurologically intact with no obvious asymmetries or abnormalities Extremities: No trauma, well perfused Psych: Cooperative, appropriate insight and affect Initial Vital Signs Initial Vital Signs: Vital Signs Temperature 98.6 F 07/20/20 12:00 Pulse Rate 72 07/20/20 12:00 Respiratory Rate 18 07/20/20 12:00 Blood Pressure 191/89 H 07/20/20 12:00 Pulse Oximetry 98 07/20/20 12:00 Course Orders Ordered: ED Orders 07/20/20 11:45 XR chest 1V Stat Complete Blood Count AUTO DIFF Stat Comprehensive Metabolic Panel Stat D Dimer Stat Lipase Stat Partial Thromboplastin Time Stat Prothrombin Time INR Stat Troponin & CK Cardiac Panel Stat EKG-12 Lead Stat 07/20/20 14:40 Troponin I Stat Discontinued Medications Aspirin (Aspirin Chew) 243 mg PO NOW ONE Stop: 07/20/20 12:19 Last Admin: 07/20/20 12:27 Dose: 243 mg Documented by: WATSON Vital Signs Vital signs: Vital Signs - 8 hr 07/20/20 12:00 07/20/20 12:04 07/20/20 12:30 Temperature 98.6 F Pulse Rate 72 79 74 Respiratory Rate 18 45 H 43 H Blood Pressure 191/89 H 147/73 H Pulse Oximetry 98 98 96 07/20/20 12:52 07/20/20 13:00 07/20/20 13:30 Temperature Pulse Rate 69 70 71 Respiratory Rate 19 38 H 12 Blood Pressure 153/113 H 139/74 131/75 Pulse Oximetry 95 96 96 07/20/20 14:00 07/20/20 14:30 Temperature Pulse Rate 67 66 Respiratory Rate 19 22 Blood Pressure 138/75 144/68 H Pulse Oximetry 96 96 MDM - Chest Pain Medical Records Data Attestation: I reviewed the patient's medical records. Lab Data Attestation: I reviewed the patient's lab results. Result diagrams: 07/20/20 11:45 07/20/20 11:45 Labs: Lab Results 07/20/20 07/20/20 07/20/20 Range/Units 11:45 11:45 11:45 WBC 6.0 (4.5-11.0) X10^3/uL RBC 5.21 H (4.0-5.2) X10^6/uL Hgb 15.2 (12.0-16.0) g/dL Hct 46.3 H (36-46) % MCV 89.0 (80-100) fL MCH 29.2 (26-34) PG MCHC 32.8 (30-36) % RDW 14.0 (11.6-14.8) % Plt Count 205 (150-400) X10^3/uL Neut % (Auto) 73.5 (50-75) % Lymph % (Auto) 15.2 L (25-40) % [place] % (Auto) 8.3 (3-14) % Eos % (Auto) 2.0 (2-4) % Baso % (Auto) 1.0 (0-2) % Neut # (Auto) 4400 (6672-1427) /uL Lymph # (Auto) 900 L (1948-2986) /uL [place] # (Auto) 500 (0-900) /uL Eos # (Auto) 100 (0-450) /uL Baso # (Auto) 100 (0-100) /uL PT 11.0 (10.1-12.7) SECONDS INR 1.0 (0.9-1.3) APTT 32 (26.4-36.2) SECONDS D-Dimer (<230) ng/mL Sodium 136 L (137-145) mmol/L Potassium 4.0 (3.4-5.1) mmol/L Chloride 101 (98-107) mmol/L Carbon Dioxide 26 (22-32) mmol/L BUN 13 (7-17) mg/dL Creatinine 0.50 L (0.52-1.04) mg/dL Estimated GFR > 60.0 (>60) mL/min BUN/Creatinine Ratio 26.0 H (6-22) Glucose 139 H (80-110) mg/dL Calcium 9.3 (8.4-10.2) mg/dL Total Bilirubin 0.7 (0.2-1.3) mg/dL AST 27 (14-36) IU/L ALT 21 (<35) IU/L Alkaline Phosphatase 93 (38-126) U/L Total Creatine Kinase 56 (30-135) U/L CK-MB (CK-2) TNP CK-MB (CK-2) Rel Index TNP Troponin I < 0.012 (0.01-0.034) ng/mL Total Protein 7.6 (6.3-8.2) g/dL Albumin 4.6 (3.5-5.0) g/dL Globulin 3.0 (1.7-4.1) g/dL Albumin/Globulin Ratio 1.5 (1.0-2.8) Lipase 32 (23-300) U/L 07/20/20 07/20/20 Range/Units 11:45 14:40 WBC (4.5-11.0) X10^3/uL RBC (4.0-5.2) X10^6/uL Hgb (12.0-16.0) g/dL Hct (36-46) % MCV (80-100) fL MCH (26-34) PG MCHC (30-36) % RDW (11.6-14.8) % Plt Count (150-400) X10^3/uL Neut % (Auto) (50-75) % Lymph % (Auto) (25-40) % [place] % (Auto) (3-14) % Eos % (Auto) (2-4) % Baso % (Auto) (0-2) % Neut # (Auto) (9397-4242) /uL Lymph # (Auto) (4725-3113) /uL [place] # (Auto) (0-900) /uL Eos # (Auto) (0-450) /uL Baso # (Auto) (0-100) /uL PT (10.1-12.7) SECONDS INR (0.9-1.3) APTT (26.4-36.2) SECONDS D-Dimer 386 H (<230) ng/mL Sodium (137-145) mmol/L Potassium (3.4-5.1) mmol/L Chloride (98-107) mmol/L Carbon Dioxide (22-32) mmol/L BUN (7-17) mg/dL Creatinine (0.52-1.04) mg/dL Estimated GFR (>60) mL/min BUN/Creatinine Ratio (6-22) Glucose (80-110) mg/dL Calcium (8.4-10.2) mg/dL Total Bilirubin (0.2-1.3) mg/dL AST (14-36) IU/L ALT (<35) IU/L Alkaline Phosphatase (38-126) U/L Total Creatine Kinase (30-135) U/L CK-MB (CK-2) CK-MB (CK-2) Rel Index Troponin I 0.014 (0.01-0.034) ng/mL Total Protein (6.3-8.2) g/dL Albumin (3.5-5.0) g/dL Globulin (1.7-4.1) g/dL Albumin/Globulin Ratio (1.0-2.8) Lipase (23-300) U/L ECG Data Attestation: I personally reviewed and interpreted this ECG as follows: Interpretation: Sinus rhythm at a rate of 73 Normal axis, normal intervals No acute ischemic changes MDM Narrative Medical decision making narrative: 80-year-old woman with central chest sensatio n and mild exertional dyspnea as of this morning. Presents approximately 3 hours after symptoms started. Completely alleviated with rest. EKG is unremarkable labs are equally reassuring within normal troponin. D-dimer slightly elevated at 386 however that does seem within reason for 80-year-old woman who is 1 week postop. Not currently tachycardic were dyspneic on room air. Initial and repeat troponin are unremarkable. Patient has walked around the emergency department without any dyspnea. At this point there is no evidence of acute coronary syndrome, acute infection, pneumothorax, pulmonary embolism. Her blood pressure remains slightly elevated and I have encouraged her to keep track daily write down numbers in follow-up with Dr. Davis so they can make a reason and decision as to need for treatment. She is safe for home discharge Discharge Plan Departure Patient Disposition: Home Clinical Impression: Atypical chest pain, Blood pressure elevated without history of HTN Instructions: DI for High Blood Pressure, DI for Atypical Chest Pain Activity Restrictions/Additional Instructions: Thank you for coming in today Your workup did not suggest an acute heart attack or heart attack like syndrome. There is no evidence of pneumonia, blood clots in her lungs, collapsed lungs or other infection to be concerned with. Your blood pressure was elevated and did go down slightly with rest. Please check a single blood pressure daily and write the numbers down. Please schedule appointment Dr. Davis within the next 1-2 weeks and review your blood pressures Feel free to return if you have worsening symptoms new pain any numbness or tingling or stroke-like symptoms or other symptoms that concern you. Prescriptions: No Action Vitamin C Powder 1 g PO BID Qty: 0 RF: 0 calcium carbonate [Calcium 600] 600 mg calcium (1,500 mg) Tablet 600 mg PO BID Qty: 0 RF: 0 vitamin D3-vitamin K2 1000-90 unit-mcg Tablet,Disintegrating 1,000 unit PO QDAY Qty: 0 RF: 0 Prolia 60 MG/1 ML syringe 60 mg SQ DIRECTED Qty: 0 RF: 0 docusate sodium 100 mg capsule 100 mg PO BID Qty: 20 RF: 0 hydrocodone-acetaminophen 7.5-325 mg tablet 1 tab PO Q4-6H PRN (Reason: post operative pain) Qty: 30 RF: 0 fluticasone propion-salmeterol 250-50 mcg/dose blister with device 1 puff Inhalation BID RF: 0 gabapentin 300 mg Capsule 300 mg PO DAILY RF: 0 montelukast 10 mg tablet 10 mg PO BEDTIME RF: 0 PreserVision AREDS 7,160-113-100 suhd-vs-vlqa Tablet 1 tab PO BID RF: 0 multivitamin Capsule 1 cap PO DAILY RF: 0 Glucosamine Sulf-Chondroitin 500-400 mg Capsule 1 tab PO BID RF: 0 albuterol sulfate [Ventolin HFA] 90 mcg/actuation Hfa Aerosol Inhaler 2 puff INHALATION Q4-6H PRN (Reason: Shortness Of Breath) RF: 0 fluticasone propionate 50 mcg/actuation [place],Suspension 1 spray INTRANASAL BID RF: 0 Referrals: Je Davis MD [Primary Care Provider] -
[2020-07-20 12:26] LABS: Troponin I < 0.012 ng/mL (0.01-0.034)
[2020-07-20] MEDS: ASPIRIN 81 MG CHEW TAB 243 MG PO (12:27)
[2020-07-20 12:49] LABS: D Dimer 386 ng/mL (<230)
[2020-07-20 15:10] LABS: Troponin I 0.014 ng/mL (0.01-0.034)
== END 2020-07-20 16:07 | disposition home or self-care (01) ==
PROVIDERS: Emergency Provider Emergency Medicine; PCP Internal Medicine
DX: R07.89 Other chest pain (principal); R03.0 Elevated blood-pressure reading, without diagnosis of hypertension; R06.00 Dyspnea, unspecified
CPT/HCPCS: 36415; 71045; 80053; 82550; 83690; 84484; 85025; 85379; 85610; 85730; 93005; 99284

== ENCOUNTER → 2020-12-17 11:42 | Outpatient (CLI) | payer MEDICARE, OTHER, SELFPAY ==
[2020-12-17 13:27] LABS: Alanine Aminotransferase 17 IU/L (<35); Albumin 4.4 g/dL (3.5-5.0); Albumin Globulin Ratio 1.8 (1.0-2.8); Alkaline Phosphatase 98 U/L (38-126); Aspartate Aminotransferase 27 IU/L (14-36); BUN Creatinine Ratio 32.6 (6-22); Bilirubin Total 0.7 mg/dL (0.2-1.3); Blood Urea Nitrogen 14 mg/dL (7-17); Calcium 9.1 mg/dL (8.4-10.2); Carbon Dioxide 27 mmol/L (22-32); Chloride 101 mmol/L (98-107); Cholesterol 195 mg/dL (140-199); Estimated Glomerular Filt Rate > 60.0 mL/min (>60); Globulin 2.5 g/dL (1.7-4.1); Glucose 101 mg/dL (80-110); HDL Cholesterol 101 mg/dL (40-60); HEMOLYSIS < 15 (0-50); LDL Cholesterol Calculated 85 mg/dL (<100); Potassium 4.2 mmol/L (3.4-5.1); Sodium 134 mmol/L (137-145); Total Protein 6.9 g/dL (6.3-8.2); Triglycerides 47 mg/dL (35-150)
== END ==
PROVIDERS: PCP Internal Medicine; Referring Provider Internal Medicine; Visit Provider Internal Medicine
DX: E78.5 Hyperlipidemia, unspecified (principal)
CPT/HCPCS: 36415; 80053; 80061

== ENCOUNTER → 2020-12-19 11:09 | Outpatient (CLI) | payer MEDICARE, OTHER, SELFPAY ==
[2020-12-19] MEDS: COVID-19 VACC #1, MRNA(MOD) 100 MCG/0.5 ML VIAL IM (11:17)
== END ==
PROVIDERS: PCP Internal Medicine; Visit Provider Internal Medicine
DX: Z23 Encounter for immunization (principal)
CPT/HCPCS: 0011A; 91301

== ENCOUNTER → 2021-01-16 11:17 | Outpatient (CLI) | payer MEDICARE, OTHER, SELFPAY ==
[2021-01-16] MEDS: COVID-19 VACC #2, MRNA(MOD) 100 MCG/0.5 ML VIAL IM (11:28)
== END ==
PROVIDERS: PCP Family Medicine; Visit Provider Internal Medicine
DX: Z23 Encounter for immunization (principal)
CPT/HCPCS: 0012A; 91301

== ENCOUNTER → 2021-03-08 15:56 | Outpatient (CLI) | payer MEDICARE, OTHER, SELFPAY ==
--- NOTE | 2021-03-08 | DI.RAD.S_ITS ---
PROCEDURE: XR HAND LT MIN 3V INDICATIONS: Pseudogout TECHNIQUE: 3 views of the hand(s) acquired. COMPARISON: [facility], , HAND 3V LEFT, 02/05/2018, 15:23. FINDINGS: Bones: No fractures or dislocations. Carpal bones are normally aligned. No periarticular osteopenia. Second, 3rd, 4th, 5th DIP joint central osseous erosions with joint space narrowing and marginal osteophytosis unchanged compared to prior exam. Severe 1st CMC joint osteoarthritis. Radiocarpal joint and 1st CMC joint chondrocalcinosis. Soft tissues: No suspicious soft tissue calcifications. IMPRESSION: 1. Stable examination compared to February 05, 2018. 2. Stable 2nd through 5th DIP joint erosive osteoarthritis. 3. Stable 1st CMC joint severe osteoarthritis. 4. 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 Dictated by: Helga Perez MD, PhD on 03/08/2021 at 17:27 Approved by: Helga Perez MD, PhD on 03/08/2021 at 17:30
--- NOTE | 2021-03-08 | DI.RAD.S_ITS ---
PROCEDURE: XR HAND RT MIN 3V INDICATIONS: Pseudogout TECHNIQUE: 3 views of the hand(s) acquired. COMPARISON: [facility], , HAND 3V RIGHT, 02/05/2018, 15:23. FINDINGS: Bones: No fractures or dislocations. Carpal bones are normally aligned. Fourth and 5th T8 P joint central osseous erosions with joint space narrowing and peripheral osteophytes. Severe 1st CMC joint osteoarthritis. Moderate radiocarpal joint and distal radial ulnar joint osteoarthritis. No periarticular osteopenia. Soft tissues: 1st CMC joint and radiocarpal joint chondrocalcinosis stable compared to prior examination. IMPRESSION: 1. Stable examination compared to February 05, 2018. 2. 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 3. 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 4. Moderate radiocarpal joint and distal radioulnar joint osteoarthritis. Dictated by: Helga Perez MD, PhD on 03/08/2021 at 17:24 Approved by: Helga Perez MD, PhD on 03/08/2021 at 17:27
== END ==
PROVIDERS: PCP Family Medicine; Referring Provider Internal Medicine Rheumatology; Visit Provider Internal Medicine Rheumatology
DX: M11.242 Other chondrocalcinosis, left hand (principal); M11.241 Other chondrocalcinosis, right hand; M15.4 Erosive (osteo)arthritis; M11.232 Other chondrocalcinosis, left wrist; M11.231 Other chondrocalcinosis, right wrist
CPT/HCPCS: 73130

== ENCOUNTER → 2021-04-17 10:54 | Outpatient (CLI) | payer MEDICARE, OTHER, SELFPAY ==
[2021-04-17 12:22] LABS: Cholesterol 207 mg/dL (140-199); HDL Cholesterol 99 mg/dL (40-60); LDL Cholesterol Calculated 99 mg/dL (<100); Triglycerides 47 mg/dL (35-150)
== END ==
PROVIDERS: PCP Family Medicine; Referring Provider Family Medicine; Visit Provider Family Medicine
DX: I10 Essential (primary) hypertension (principal); I49.9 Cardiac arrhythmia, unspecified; R79.89 Other specified abnormal findings of blood chemistry
CPT/HCPCS: 36415; 80061

== ENCOUNTER → 2021-06-12 16:48 | Outpatient (CLI) | payer MEDICARE, OTHER, SELFPAY ==
--- NOTE | 2021-06-12 16:51 | DI.RAD.S_ITS ---
PROCEDURE: XR CERVICAL SPINE 2V OR 3V INDICATIONS: Neck degeneration TECHNIQUE: 3 views of the cervical spine were acquired. COMPARISON: None. FINDINGS: Bones: No acute fractures or dislocations to the C7 level. The lateral masses of C1 appear intact on the odontoid view. No suspicious bony lesions. There is mild grade 1 anterolisthesis of C4 on C5 with loss of normal cervical lordosis. Extensive disc space narrowing and degenerative endplate changes are seen throughout the cervical spine. There is uncovertebral joint and facet hypertrophy throughout the cervical spine. There are no cervical ribs. Bilateral shoulder arthroplasties are noted. Soft tissues: No prevertebral soft tissue swelling. Atherosclerotic calcifications are seen projecting over the carotid bulbs. IMPRESSION: 1. Moderate to severe multilevel spondylosis throughout the cervical spine. 2. Grade 1 anterolisthesis of C4 on C5 is most likely degenerative. Dictated by: Blaise Patterson M.D. on 06/12/2021 at 16:03 Approved by: Blaise Patterson M.D. on 06/12/2021 at 16:07
== END ==
PROVIDERS: PCP Family Medicine; Referring Provider Family Medicine; Visit Provider Family Medicine
DX: M99.01 Segmental and somatic dysfunction of cervical region (principal); M47.812 Spondylosis without myelopathy or radiculopathy, cervical region
CPT/HCPCS: 72040

== ENCOUNTER → 2021-10-21 15:45 | Outpatient (CLI) | payer MEDICARE, OTHER, SELFPAY ==
--- NOTE | 2021-10-21 15:47 | DI.MRI.S_ITS ---
PROCEDURE: MR CERVICAL SPINE WO CON INDICATIONS: cervical radiculopathy TECHNIQUE: Noncontrast sagittal T1 spin echo and T2 fast spin echo, sagittal STIR, foraminal oblique sagittal T2 fast spin echo, and axial gradient echo or T2 fast spin echo through the cervical spine. COMPARISON: None. FINDINGS: Image quality: This examination is limited by involuntary motion artifact. Alignment and Curvature: There is grade 1 anterolisthesis seen at the C4-C5 level. Bone Marrow: Marrow demonstrates normal overall signal. Spinal Cord: Visualized spinal cord has normal size and signal. No cerebellar tonsillar herniation. Paraspinous Soft Tissues: No paravertebral masses. Prevertebral soft tissues are normal in thickness. C2-C3: Moderate loss of disc height is seen. Loss of disc signal is seen. Moderate generalized disc osteophyte complex is seen, which is slightly eccentric to the right there is moderate right-sided and mild left-sided facet hypertrophy seen. There is moderate to severe bilateral neural foraminal narrowing seen. Mild central canal narrowing is seen. C3-C4: Reactive marrow endplate changes are seen, which are hyperintense on T1-weighted and T2-weighted imaging and most consistent with fatty metaplasia (Modic type II changes). At least moderate disc osteophyte complex is seen at this level. Uncovertebral joint hypertrophy is seen at this level. At least moderate facet hypertrophy is seen. There is moderate to severe bilateral neural foraminal narrowing seen. Moderate central canal narrowing is seen. There is associated mass effect upon the ventral spinal cord. C4-C5: Moderate to severe loss of disc height and disc signal can be seen. At least moderate disc osteophyte complex is seen at this level. There is moderate right-sided and moderate to prominent left-sided facet hypertrophy seen. There is moderate to severe bilateral neural foraminal narrowing seen. Moderate central canal narrowing is seen. There is associated mass effect upon the ventral spinal cord. C5-C6: Moderate loss of disc height is seen. Loss of disc signal is seen. Reactive marrow endplate changes are seen, which are hyperintense on T1-weighted and T2-weighted imaging and most consistent with fatty metaplasia (Modic type II changes). Bridging endplate osteophytes are seen. At least moderate facet hypertrophy is seen, right worse than left. There is moderate to severe bilateral neural foraminal narrowing seen, right worse than left. Mild central canal narrowing is seen. C6-C7: Moderate loss of disc height is seen. Loss of disc signal is seen. Bridging endplate osteophytes are seen. At least moderate disc osteophyte complex is seen at this level. Moderate facet joint hypertrophy is seen. Moderate to severe bilateral neural foraminal narrowing can be seen at this level. Mild to moderate central canal narrowing is seen at this level. C7-T1: Moderate loss of disc height is seen. Loss of disc signal is seen. A mild degree of generalized disc osteophyte complex is seen. Mild facet joint hypertrophy is seen. No significant neural foraminal or central canal narrowing can be seen. IMPRESSION: Multiple levels of cervical spine degenerative change are seen, which are overall worst throughout the mid cervical spine. Grade 1 anterolisthesis is seen at C4-C5. Dictated by: Armando Black M.D. on 10/21/2021 at 15:42 Approved by: Armando Black M.D. on 10/21/2021 at 15:47
== END ==
PROVIDERS: PCP Family Medicine; Referring Provider Family Medicine; Visit Provider Family Medicine
DX: M47.22 Other spondylosis with radiculopathy, cervical region (principal); M43.12 Spondylolisthesis, cervical region
CPT/HCPCS: 72141

== ENCOUNTER → 2021-12-03 17:16 | Outpatient (CLI) | payer MEDICARE, OTHER, SELFPAY ==
[2021-12-03 18:17] LABS: Alanine Aminotransferase 20 IU/L (<35); Albumin 4.7 g/dL (3.5-5.0); Albumin Globulin Ratio 1.5 (1.0-2.8); Alkaline Phosphatase 95 U/L (38-126); Aspartate Aminotransferase 31 IU/L (14-36); BUN Creatinine Ratio 28.3 (6-22); Bilirubin Total 0.5 mg/dL (0.2-1.3); Blood Urea Nitrogen 15 mg/dL (7-17); Calcium 9.9 mg/dL (8.4-10.2); Carbon Dioxide 30 mmol/L (22-32); Chloride 100 mmol/L (98-107); Cholesterol 190 mg/dL (140-199); Estimated Glomerular Filt Rate > 60.0 mL/min (>60); Globulin 3.1 g/dL (1.7-4.1); Glucose 106 mg/dL (80-110); HDL Cholesterol 83 mg/dL (40-60); HEMOLYSIS < 15 (0-50); LDL Cholesterol Calculated 74 mg/dL (<100); Potassium 4.2 mmol/L (3.4-5.1); Sodium 137 mmol/L (137-145); Total Protein 7.8 g/dL (6.3-8.2); Triglycerides 164 mg/dL (35-150)
[2021-12-03 18:21] LABS: Add Manual Diff / Slide Review NO; Basophils Absolute Auto 100 /uL (0-100); Basophils Percent Auto 0.9 % (0-2); Eosinophils Absolute Auto 100 /uL (0-450); Eosinophils Percent Auto 2.3 % (2-4); Hematocrit 41.8 % (36-46); Hemoglobin 14.2 g/dL (12.0-16.0); Lymphocytes Absolute Auto 1100 /uL (1100-4500); Lymphocytes Percent Auto 17.7 % (25-40); Mean Corpuscular Hemoglobin 29.8 PG (26-34); Mean Corpuscular Volume 87.8 fL (80-100); Monocytes Absolute Auto 700 /uL (0-900); Monocytes Percent Auto 10.7 % (3-14); Neutrophils Absolute Auto 4300 /uL (1500-7000); Neutrophils Percent Auto 68.4 % (50-75); Platelet Count 181 X10^3/uL (150-400); Red Blood Cell Count 4.75 X10^6/uL (4.0-5.2); Red Cell Distribution Width 13.5 % (11.6-14.8); White Blood Cell Count 6.3 X10^3/uL (4.5-11.0)
[2021-12-03 19:05] LABS: Vitamin B12 693 pg/mL (239-931)
== END ==
PROVIDERS: PCP Family Medicine; Referring Provider Family Medicine; Visit Provider Family Medicine
DX: I25.10 Atherosclerotic heart disease of native coronary artery without angina pectoris (principal); I47.1 Supraventricular tachycardia
CPT/HCPCS: 36415; 80053; 80061; 82607; 85025

== ENCOUNTER → 2022-03-13 15:47 | Outpatient (CLI) | payer MEDICARE, OTHER, SELFPAY | PROVIDERS: PCP Family Medicine; Referring Provider Internal Medicine Rheumatology; Visit Provider Internal Medicine Rheumatology | DX: M81.0 Age-related osteoporosis without current pathological fracture (principal) | CPT/HCPCS: 36415; 82306 ==

== ENCOUNTER → 2022-04-30 15:52 | Outpatient (CLI) | payer MEDICARE, OTHER, SELFPAY ==
--- NOTE | 2022-04-30 15:53 | DI.CT.S_ITS ---
PROCEDURE: CT ABDOMEN PELVIS WO CON INDICATIONS: abdominal pain TECHNIQUE: After the administration of oral contrast, 5 mm thick sections acquired from the diaphragms to the symphysis. 5 mm coronal and sagittal reformats were performed. For radiation dose reduction, the following was used: automated exposure control, adjustment of mA and/or kV according to patient size. COMPARISON: [facility], CT, CT ABDOMEN PELVIS WO [facility], 06/20/2020, 12:44. FINDINGS: Lower thorax: The lung bases are clear. Heart size normal. No hiatal hernia. Liver: Normal in size and attenuation. No contour deformity present. 2.7 cm right hepatic simple cyst noted. Biliary system: Cholecystectomy. No intra or extrahepatic bile duct dilation. Pancreas: Unremarkable without mass or inflammation evident. Spleen: Normal in size and density. Adrenals: Normal morphology and density. Reproductive system: Unremarkable as visualized. Urinary system: Normal renal size and attenuation. No renal calculi, hydronephrosis, or solid mass present. Urinary bladder unremarkable. Gastrointestinal system: The bowel is unremarkable without evidence of bowel obstruction or inflammation. The stomach appears unremarkable. Multiple diverticula arise from the sigmoid colon without evidence of diverticulitis. Moderate fecal debris in the transverse colon Appendix: No findings to suggest acute appendicitis. Peritoneal spaces: No mesenteric or retroperitoneal adenopathy. No free air. No free fluid. Vasculature: Aortic atherosclerotic vascular calcification noted without evidence of aneurysm. Abdominal wall: Abdominal wall intact. Bilateral inguinal surgical clips noted without evidence of recurrence or residual hernia. Musculoskeletal: Normal bone mineralization. Degenerative disc disease and arthropathy noted in lower lumbar spine. No acute fractures. IMPRESSION: 1. Bilateral inguinal clips without evidence of recurrent or residual ventral hernia 2. Moderate fecal debris in the transverse colon. Diverticulosis without evidence of diverticulitis. Approved by: Navi Carrillo M.D. on 04/30/2022 at 16:54
== END ==
PROVIDERS: PCP Family Medicine; Referring Provider Family Medicine; Visit Provider Family Medicine
DX: K57.30 Diverticulosis of large intestine without perforation or abscess without bleeding (principal); R10.31 Right lower quadrant pain
CPT/HCPCS: 74176

== ENCOUNTER → 2022-07-11 19:31 | Outpatient (CLI) | payer MEDICARE, OTHER, SELFPAY ==
--- NOTE | 2022-07-11 19:33 | DI.RAD.S_ITS ---
PROCEDURE: XR FOOT LT MIN 3V INDICATIONS: fall, foot injury, great toe ecchymosis TECHNIQUE: 3 views of the foot were acquired. COMPARISON: [facility], CR, XR FOOT MIN 3VW WT [place]ARING LT, 11/28/2015, 13:14. [facility], CR, FOOT 3V LEFT, 05/07/2009, 16:52. [facility], CR, XR KNEE LT 3V, 07/11/2022, 19:50. [facility], CR, FOOT 3V RIGHT, 02/11/2017, 16:00. FINDINGS: Bones: In this patient with this given history, scrutiny is given to the great toe. On 1 image, there is an apparent nondisplaced fracture involving distal phalanx of the great toe No additional fractures or dislocations. Minimal erosions can be seen involving the distal 1st metatarsal. Age-appropriate bony degenerative changes are seen. Toe alignment abnormalities are seen. A plantar calcaneal spur is seen. Soft tissues: Soft tissue calcification can be seen adjacent to the distal 1st metatarsal, which have clearly worsened over time. Generalized soft tissue swelling is seen distally. IMPRESSION: There is an apparent minimally displaced fracture seen involving the distal phalanx of the great toe. Please consider underlying gout. Dictated by: Armando Black M.D. on 07/11/2022 at 19:27 Approved by: Armando Black M.D. on 07/11/2022 at 19:30
--- NOTE | 2022-07-11 19:33 | DI.RAD.S_ITS ---
PROCEDURE: XR KNEE LT 3V INDICATIONS: left knee injury 2 days ago TECHNIQUE: 3 views of the knee were acquired. COMPARISON: [facility], CR, KNEE 3V LEFT, 02/05/2018, 15:23. [facility], CR, XR FOOT LT MIN 3V, 07/11/2022, 19:50. [facility], , KNEE 3V RIGHT, 02/05/2018, 15:23. FINDINGS: Bones: No fractures or dislocations. No suspicious bony lesions. There is mild medial and lateral femorotibial joint space narrowing seen, with associated remodeling changes including subchondral sclerosis and osteophyte formation along the jointline. On the sunrise view, there is mild patellofemoral joint space narrowing seen. Osteophyte formation can be seen along the margins of the patella. Soft tissues: There is a [id number] joint effusion. Calcification can be seen along the joint line laterally. IMPRESSION: Eoac-[id number] joint effusion. No acute bony abnormality is seen. Underlying degenerative changes are seen. If it would be helpful for clinical management decision making, please consider a dedicated, scheduled knee MRI for further evaluation (assuming that there is no contraindication). Dictated by: Armando Black M.D. on 07/11/2022 at 19:30 Approved by: Armando Black M.D. on 07/11/2022 at 19:31
== END ==
PROVIDERS: PCP Family Medicine; Referring Provider Nurse Practitioner Critical Care Medicine; Visit Provider Nurse Practitioner Critical Care Medicine
DX: S89.92XA Unspecified injury of left lower leg, initial encounter; M25.762 Osteophyte, left knee; S90.112A Contusion of left great toe without damage to nail, initial encounter; M25.462 Effusion, left knee; M79.89 Other specified soft tissue disorders; W19.XXXA Unspecified fall, initial encounter
CPT/HCPCS: 73562; 73630

== ENCOUNTER → 2022-07-24 14:16 | Outpatient (CLI) | payer MEDICARE, OTHER, SELFPAY ==
--- NOTE | 2022-07-24 14:17 | DI.US.S_ITS ---
ULTRASOUND OF LEFT BREAST: 07/24/2022 CLINICAL: Palpable left breast lump. Comparison is made to exam dated: 12/13/2018 breast [facility]. Real-time ultrasound of the left breast was performed on the areas of interest. Mclain scale images of the real-time examination were reviewed. There is a 0.9 cm x 0.7 cm x 1.1 cm oval mass in the left chest wall. This oval mass is hypoechoic with a well-defined boundary, posterior acoustic shadowing and enhancement. There are related rim calcifications. Color flow imaging demonstrates that there is no vascularity present. This corresponds as palpable. There also is a 0.5 cm oval mass in the left chest wall at 11 o'clock posterior depth which has similar ultrasound characteristics. IMPRESSION: PROBABLY BENIGN The masses at the left chest wall are most consistent with fat necrosis and are probably benign. A follow-up ultrasound in 6 months is recommended to demonstrate stability. This exam was interpreted at Station ID: [id number]. Electronically Signed By: Karolina villalta/:07/24/2022 15:03:53 letter sent: Followup Recommended Ultrasound BI-RADS: 3 Probably benign
== END ==
PROVIDERS: PCP Family Medicine; Referring Provider Pediatrics; Visit Provider Pediatrics
DX: N63.20 Unspecified lump in the left breast, unspecified quadrant (principal)
CPT/HCPCS: 76642

== ENCOUNTER → 2022-09-03 17:01 | Outpatient (CLI) | payer MEDICARE, OTHER, SELFPAY ==
--- NOTE | 2022-09-03 17:03 | DI.US.S_ITS ---
PROCEDURE: US ARTERIAL DUPLEX LE LT INDICATIONS: Chronic edema and discoloration TECHNIQUE: Color and pulse Doppler interrogation was performed of the left lower extremity arterial system, with image documentation. COMPARISON: None. FINDINGS: Common femoral artery: 134 cm/sec, with triphasic flow. Deep femoral artery: 104 cm/sec, with triphasic flow. Proximal superficial femoral artery: 128 cm/sec, with triphasic flow. Mid superficial femoral artery: 158 cm/sec, with triphasic flow. Distal superficial femoral artery: 109 cm/sec, with triphasic flow. Popliteal artery: 91 cm/sec, with triphasic flow. Posterior tibial artery: 90 cm/sec, with triphasic flow. Anterior tibial artery/dorsalis pedis: 102 cm/sec, with triphasic flow. Mclain-scale imaging description: Mild plaque in the SFA and dorsalis pedis artery. IMPRESSION: Mild plaque in the SFA and dorsalis pedis with no significant focal stenosis. Dictated by: Wilder Feliz M.D. on 09/04/2022 at 16:46 Approved by: Wilder Feliz M.D. on 09/04/2022 at 16:47
== END ==
PROVIDERS: PCP Family Medicine; Referring Provider Family Medicine; Visit Provider Family Medicine
DX: I70.202 Unspecified atherosclerosis of native arteries of extremities, left leg (principal); R60.0 Localized edema; L81.9 Disorder of pigmentation, unspecified
CPT/HCPCS: 93926

== ENCOUNTER → 2022-09-11 17:03 | Outpatient (CLI) | payer MEDICARE, OTHER, SELFPAY ==
--- NOTE | 2022-09-11 17:06 | DI.US.S_ITS ---
PROCEDURE: US PERIPH VENOUS LOW EXTREM LT INDICATIONS: Chronic edema and discoloration TECHNIQUE: Real-time imaging, as well as color and pulse Doppler interrogation, were performed of the lower extremity deep veins from the inguinal ligament to the popliteal fossa. COMPARISON: [facility], , PVE UNILATERAL RIGHT, 01/10/2011, 23:46. [facility], , US ARTERIAL DUPLEX LE LT, 09/03/2022, 17:08. FINDINGS: The common femoral, femoral and popliteal veins are normally compressible, and free of intraluminal thrombus. Color and pulse Doppler demonstrate normal phasic intraluminal flow. There is normal augmentation response to distal compression maneuver. IMPRESSION: Negative for deep venous thrombosis. Dictated by: Armando Black M.D. on 09/11/2022 at 16:37 Approved by: Armando Black M.D. on 09/11/2022 at 16:38
== END ==
PROVIDERS: PCP Family Medicine; Referring Provider Family Medicine; Visit Provider Family Medicine
DX: R60.0 Localized edema (principal); L81.9 Disorder of pigmentation, unspecified
CPT/HCPCS: 93971

== ENCOUNTER → 2022-12-05 09:42 | Outpatient (CLI) | payer MEDICARE, OTHER, SELFPAY ==
[2022-12-05 10:12] LABS: Add Manual Diff / Slide Review NO; Basophils Absolute Auto 0 /uL (0-100); Basophils Percent Auto 0.7 % (0-2); Eosinophils Absolute Auto 200 /uL (0-450); Eosinophils Percent Auto 2.7 % (2-4); Hematocrit 44.5 % (36-46); Hemoglobin 15.1 g/dL (12.0-16.0); Lymphocytes Absolute Auto 1200 /uL (1100-4500); Lymphocytes Percent Auto 21.9 % (25-40); Mean Corpuscular HGB Conc 33.8 % (30-36); Mean Corpuscular Hemoglobin 30.1 PG (26-34); Monocytes Absolute Auto 700 /uL (0-900); Monocytes Percent Auto 11.8 % (3-14); Neutrophils Absolute Auto 3500 /uL (1500-7000); Neutrophils Percent Auto 62.9 % (50-75); Platelet Count 175 X10^3/uL (150-400); Red Blood Cell Count 5.01 X10^6/uL (4.0-5.2); Red Cell Distribution Width 13.6 % (11.6-14.8); White Blood Cell Count 5.6 X10^3/uL (4.5-11.0)
[2022-12-05 10:51] LABS: Alanine Aminotransferase 18 IU/L (<35); Albumin 4.3 g/dL (3.5-5.0); Albumin Globulin Ratio 1.7 (1.0-2.8); Alkaline Phosphatase 100 U/L (38-126); Aspartate Aminotransferase 24 IU/L (14-36); BUN Creatinine Ratio 29.8 (6-22); Bilirubin Total 0.8 mg/dL (0.2-1.3); Blood Urea Nitrogen 14 mg/dL (7-17); Calcium 9.1 mg/dL (8.4-10.2); Carbon Dioxide 27 mmol/L (22-32); Chloride 101 mmol/L (98-107); Cholesterol 212 mg/dL (140-199); Estimated Glomerular Filt Rate > 60 mL/min (>60); Globulin 2.6 g/dL (1.7-4.1); Glucose 96 mg/dL (80-110); HEMOLYSIS < 15 (0-50); Potassium 4.4 mmol/L (3.4-5.1); Sodium 136 mmol/L (137-145); Total Protein 6.9 g/dL (6.3-8.2); Triglycerides 82 mg/dL (35-150)
[2022-12-05 11:07] LABS: HDL Cholesterol 91 mg/dL (40-60); LDL Cholesterol Calculated 105 mg/dL (<100)
== END ==
PROVIDERS: PCP Family Medicine; Referring Provider Family Medicine; Visit Provider Family Medicine
DX: I25.10 Atherosclerotic heart disease of native coronary artery without angina pectoris (principal); R79.89 Other specified abnormal findings of blood chemistry
CPT/HCPCS: 36415; 80053; 80061; 85025

== ENCOUNTER → 2023-01-14 15:02 | Outpatient (CLI) | payer MEDICARE, OTHER, SELFPAY ==
--- NOTE | 2023-01-14 15:05 | DI.US.S_ITS ---
ULTRASOUND OF LEFT BREAST: 01/14/2023 CLINICAL: 6 month follow-up of cysts. Comparison is made to exam dated: 07/24/2022 [facility]. Color flow and real-time ultrasound of the left breast were performed. Mlcain scale images of the real-time examination were reviewed. There is a stable 0.9 cm x 0.7 cm x 0.9 cm oval mass in the left breast central to the nipple middle depth. This oval mass is hypoechoic with a well-defined boundary, posterior acoustic shadowing and enhancement. There are related rim calcifications. Color flow imaging demonstrates that there is no vascularity present. There also is a 0.5 cm x 0.4 cm x 0.4 cm oval mass in the left breast at 11 o'clock posterior depth. This abnormality is not significantly changed. IMPRESSION: PROBABLY BENIGN The stable 0.9 cm x 0.7 cm x 0.9 cm oval mass in the left breast central to the nipple middle depth is consistent with fat necrosis and is probably benign. The 0.5 cm x 0.4 cm x 0.4 cm oval mass in the left breast at 11 o'clock posterior depth most likely is fat necrosis and is probably benign. A follow-up left ultrasound in 6 months is recommended to demonstrate stability. Findings and recommendations were conveyed to the patient during today's evaluation. This exam was interpreted at Station ID: [id number]. Electronically Signed By: Cody Velasquez M.D. aty/:01/14/2023 16:09:37 letter sent: Followup Recommended Ultrasound BI-RADS: 3 Probably benign
== END ==
PROVIDERS: PCP Family Medicine; Referring Provider Family Medicine; Visit Provider Family Medicine
DX: N63.25 Unspecified lump in the left breast, overlapping quadrants; R92.8 Other abnormal and inconclusive findings on diagnostic imaging of breast; N63.22 Unspecified lump in the left breast, upper inner quadrant
CPT/HCPCS: 76642

== ENCOUNTER → 2023-04-06 16:03 | Outpatient (CLI) | payer MEDICARE, OTHER, SELFPAY ==
[2023-04-06 17:20] LABS: Hemoglobin 13.7 g/dL (12.0-16.0)
== END ==
PROVIDERS: PCP Family Medicine; Referring Provider Family Medicine; Visit Provider Family Medicine
DX: J44.9 Chronic obstructive pulmonary disease, unspecified (principal); R06.02 Shortness of breath
CPT/HCPCS: 36415; 85018

== ENCOUNTER → 2023-04-16 16:22 | Outpatient (CLI) | payer MEDICARE, OTHER, SELFPAY ==
--- NOTE | 2023-04-16 16:25 | DI.RAD.S_ITS ---
PROCEDURE: XR CHEST 2V INDICATIONS: SHORTNESS OF BREATH TECHNIQUE: 2 views of the chest were acquired. COMPARISON: [facility], , XR CHEST 1V, 07/20/2020, 12:32. FINDINGS: Surgical changes and devices: None. Lungs and pleura: Lungs are clear. No pleural effusions or pneumothorax. The lung volumes are large and the diaphragms are flattened suggesting emphysema. Mediastinum: Mediastinal contours are normal. Heart size is normal. Bones and chest wall: No suspicious bony abnormalities. Soft tissues appear unremarkable. IMPRESSION: No acute cardiopulmonary findings. Emphysematous change. Dictated by: Karolina Coto M.D. on 04/16/2023 at 17:39 Approved by: Karolina Coto M.D. on 04/16/2023 at 17:40
== END ==
PROVIDERS: PCP Family Medicine; Referring Provider Internal Medicine; Visit Provider Internal Medicine
DX: R06.09 Other forms of dyspnea (principal); R06.02 Shortness of breath
CPT/HCPCS: 71046

== ENCOUNTER → 2023-04-29 15:31 | Outpatient (CLI) | payer MEDICARE, OTHER, SELFPAY | PROVIDERS: PCP Family Medicine; Visit Provider Nurse Practitioner Family | DX: N89.8 Other specified noninflammatory disorders of vagina (principal) | CPT/HCPCS: 87210 ==

== ENCOUNTER → 2023-04-30 11:56 | Outpatient (CLI) | payer MEDICARE, OTHER, SELFPAY ==
--- NOTE | 2023-05-07 09:58 | PM.PFT.1 ---
Pulmonary Function Test Referral & Results Date Patient Seen: 04/30/23 Results: The spirometry demonstrates an FVC of 2.39 L which is 77% of predicted. The FEV1 was measured at 1.4 L which is 64% of predicted. The FEV1/FVC ratio was 62 which is 85% of predicted. Following the administration of bronchodilator there was no notable change. Lung volumes show an SVC of 2.27 L which is 73% of predicted. The diffusing capacity was measured at 16.74 which is 55% of predicted. No hemoglobin value was provided, so no correction for potential anemia could be made, if appropriate. The maximum voluntary ventilation was minimally reduced Interpretation: This study demonstrates moderate obstructive lung disease based on reduction FEV1 although FEV1/FVC ratio is relatively preserved There is also mild reduction in lung volumes suggesting the presence of mild restrictive lung disease, which may explain some of the abnormality in the FEV1 above There is also moderate reduction diffusing capacity suggesting the presence of disease at the capillary alveolar level Clinical correlation suggested
== END ==
PROVIDERS: PCP Family Medicine; Referring Provider Family Medicine; Visit Provider Family Medicine
DX: R06.02 Shortness of breath (principal); R05.3 Chronic cough; Z87.891 Personal history of nicotine dependence; J98.8 Other specified respiratory disorders
CPT/HCPCS: 94060; 94726; 94729

== ENCOUNTER → 2023-05-08 09:29 | Outpatient (CLI) | payer MEDICARE, OTHER, SELFPAY ==
--- NOTE | 2023-05-08 | DI.ECHO.S_ITS ---
[place] [facility]---------+ [facility] +---------+ : : [address] : : : : [id number] : : : : Phone: [phone]+ Echocardiogram Report + + :Name: PINA CSAH Study Date: 05/08/2023 Height: 68.5 in: :[facility] ReadingLocation: Weight: 130 lb : : Gender: Female BSA: 1.7 m2 : :: 1940 Age: 83 yrs BP: 119/72 mmHg: :Reason For Study: SHORTNESS OF BREATH : :Ordering Physician: SHARRON, : :KRYSTAL Performed By: Mecca Pederson : :Referring: KRYSTAL MCDERMOTT : + + Interpretation Summary The left ventricle is normal in size and wall thickness. Left ventricular systolic function is low normal. The ejection fraction is estimated to be 50- 55%. The right ventricle is normal in size and function. The right ventricular systolic pressure is estimated to be at least 27 mmHg based on an estimated right atrial pressure of 3 mm Hg. The left atrium is mildly dilated. Right atrial size is normal. There is borderline mitral valve prolapse. There is moderate mitral regurgitation. There is mild aortic regurgitation. There is no other significant valvular heart disease. The aortic root is normal size. Procedure: A two-dimensional transthoracic echocardiogram with color flow and Doppler was performed. The study quality was technically adequate. There is no prior echocardiogram noted for this patient. The patient was in sinus rhythm with heart rates between 64-80 bpm during the exam. Left Ventricle: The left ventricle is normal in size and wall thickness. Left ventricular systolic function is low normal. The ejection fraction is estimated to be 50-55%. Diastolic function could not be accurately assessed due to contradictory data. Right Ventricle: The right ventricle is normal in size and function. Atria: The left atrium is mildly dilated. Right atrial size is normal. There is no Doppler evidence for an interatrial shunt. Mitral Valve: The mitral valve leaflets appear mildly thickened, but open well. There is borderline mitral valve prolapse. There is moderate mitral regurgitation. Aortic Valve: The aortic valve is trileaflet. The aortic valve opens well. There is no aortic valve stenosis. There is mild aortic regurgitation. Tricuspid Valve: The tricuspid valve is normal in structure and function. There is mild tricuspid regurgitation. The right ventricular systolic pressure is estimated to be at least 27 mmHg based on an estimated right atrial pressure of 3 mm Hg. Pulmonic Valve: The pulmonic valve is not well seen, but is grossly normal. There is no pulmonic valvular regurgitation. There is no other significant valvular heart disease. Great Vessels: The aortic root is normal size. The dimensions of the ascending aorta are normal. The IVC is of normal diameter and collapses greater than 50% with a sniff. This suggests a low right atrial pressure of 3 mm Hg. Pericardium/ Pleura There is no pericardial effusion. There is no pleural effusion. MMode/2D Measurements & Calculations LVIDd: 5.2 cm LVOT diam: 2.2 cm LVIDs: 3.6 cm Ao root diam: 2.9 cm FS: 30.1 % asc Aorta Diam: 3.5 cm EPSS: 0.56 cm Ao Arch Diam (Prox Trans): 2.5 cm IVSd: 0.70 cm LVPWd: 0.70 cm LV munoz. diameter/BSA (cm/m^2): 3.0 LV sys. diameter/BSA (cm/m^2): 2.1 LA A2 area: 19.4 cm2 RA long axis: 4.4 cm LA A4 area: 16.6 cm2 RA area: 12.4 cm2 LA length (vol): 4.4 cm RA vol: 29.4 ml LA vol: 62.3 ml RA : 17.2 ml/m2 LA vol index: 36.4 ml/m2 IVC diam: 1.4 cm RVD1 (basal): 3.8 cm TAPSE: 2.3 cm Doppler Measurements & Calculations Ao V2 max: 123.4 cm/sec LVOT Max Jesus: 82.5 cm/sec Ao V2 mean: 90.6 cm/sec LV V1 max P.7 mmHg Ao max P.1 mmHg LV V1 VTI: 18.2 cm Ao mean P.6 mmHg MARY ALICE(I,D): 2.6 cm2 Ao V2 VTI: 25.2 cm MARY ALICE(V,D): 2.4 cm2 sev ratio: 0.72 MARY ALICE indexed to BSA (cm^2/m^2): 1.5 MV E max jesus: 69.5 cm/sec TR max jesus: 243.4 cm/sec MV A max jesus: 99.0 cm/sec TR max P.7 mmHg MV E/A: 0.70 PA V2 max: 74.1 cm/sec Med Peak E' Jesus: 5.6 cm/sec PA V2 mean: 51.9 cm/sec E/E' med: 12.4 PA mean P.2 mmHg Lat Peak E' Jesus: 4.4 cm/sec PA pr(Accel): 25.9 mmHg E/E' lat: 15.9 E/e' average: 14.2 MV dec time: 0.20 sec SV(LVOT): 66.5 ml Reading Physician:10:52 AM
== END ==
PROVIDERS: PCP Family Medicine; Referring Provider Internal Medicine; Visit Provider Internal Medicine
DX: I08.3 Combined rheumatic disorders of mitral, aortic and tricuspid valves (principal); R06.02 Shortness of breath; R20.2 Paresthesia of skin
CPT/HCPCS: 36415; 86038; 86235; 93306

== ENCOUNTER → 2023-05-08 09:31 | Outpatient (CLI) | payer MEDICARE, OTHER, SELFPAY ==
[2023-05-11 17:07] LABS: SS A Ro Sjogrens Antibody < 0.2 AI (0.0-0.9); SS B La Sjogrens Antibody < 0.2 AI (0.0-0.9)
[2023-05-13 17:07] LABS: ANA Screen, IFA Negative (.)
== END ==
PROVIDERS: PCP Family Medicine; Referring Provider Internal Medicine; Visit Provider Internal Medicine
DX: R20.2 Paresthesia of skin (principal)
CPT/HCPCS: 36415; 86038; 86235

== ENCOUNTER → 2023-07-02 15:59 | Outpatient (CLI) | payer MEDICARE, OTHER, SELFPAY ==
[2023-07-02 16:42] LABS: Add Manual Diff / Slide Review NO; Basophils Absolute Auto 0 /uL (0-100); Basophils Percent Auto 0.6 % (0-2); Eosinophils Absolute Auto 100 /uL (0-450); Eosinophils Percent Auto 1.9 % (2-4); Hematocrit 41.4 % (36-46); Hemoglobin 14.2 g/dL (12.0-16.0); Lymphocytes Absolute Auto 1100 /uL (1100-4500); Lymphocytes Percent Auto 16.3 % (25-40); Mean Corpuscular HGB Conc 34.2 % (30-36); Mean Corpuscular Hemoglobin 30.1 PG (26-34); Mean Corpuscular Volume 87.9 fL (80-100); Monocytes Absolute Auto 600 /uL (0-900); Monocytes Percent Auto 8.2 % (3-14); Neutrophils Absolute Auto 4900 /uL (1500-7000); Platelet Count 183 X10^3/uL (150-400); Red Blood Cell Count 4.71 X10^6/uL (4.0-5.2); Red Cell Distribution Width 13.4 % (11.6-14.8); White Blood Cell Count 6.8 X10^3/uL (4.5-11.0)
[2023-07-02 16:55] LABS: Alanine Aminotransferase 20 IU/L (<35); Albumin Globulin Ratio 1.7 (1.0-2.8); Alkaline Phosphatase 114 U/L (38-126); Aspartate Aminotransferase 28 IU/L (14-36); BUN Creatinine Ratio 37.3 (6-22); Bilirubin Total 0.4 mg/dL (0.2-1.3); Blood Urea Nitrogen 19 mg/dL (7-17); Calcium 9.2 mg/dL (8.4-10.2); Carbon Dioxide 25 mmol/L (22-32); Chloride 102 mmol/L (98-107); Estimated Glomerular Filt Rate > 60 mL/min (>60); Globulin 2.3 g/dL (1.7-4.1); Glucose 148 mg/dL (80-110); HEMOLYSIS < 15 (0-50); Potassium 3.9 mmol/L (3.4-5.1); Sodium 136 mmol/L (137-145); Total Protein 6.3 g/dL (6.3-8.2)
== END ==
PROVIDERS: PCP Family Medicine; Referring Provider Family Medicine; Visit Provider Family Medicine
DX: Z01.818 Encounter for other preprocedural examination (principal)
CPT/HCPCS: 36415; 80053; 85025; 93005; 93010

== ENCOUNTER → 2023-07-11 17:30 | Outpatient (CLI) | payer MEDICARE, OTHER, SELFPAY ==
--- NOTE | 2023-07-11 17:32 | DI.RAD.S_ITS ---
PROCEDURE: XR KNEE RT 3V INDICATIONS: Right knee pain TECHNIQUE: 3 views of the knee were acquired. COMPARISON: [facility], , XR KNEE LT 3V, 07/11/2022, 19:50. FINDINGS: Bones: Total right knee arthroplasty in good position. No joint effusion. No fracture or loosening Soft tissues: No joint effusion. No suspicious soft tissue calcifications. IMPRESSION: Total right knee arthroplasty in good position Approved by: Navi Carrillo M.D. on 07/11/2023 at 18:34
== END ==
PROVIDERS: PCP Family Medicine; Referring Provider Physician Assistant; Visit Provider Physician Assistant
DX: M25.561 Pain in right knee (principal); Z96.651 Presence of right artificial knee joint
CPT/HCPCS: 73562

== ENCOUNTER 2023-09-03 12:30 | Outpatient (RCR) | payer MEDICARE, OTHER, SELFPAY | END 2023-09-03 14:30 | LOC: PUL 12:30 | PROVIDERS: PCP Family Medicine; Referring Provider Family Medicine; Visit Provider Family Medicine | DX: J44.9 Chronic obstructive pulmonary disease, unspecified (principal) | CPT/HCPCS: 94625; 94626 ==

== ENCOUNTER → 2023-11-19 17:11 | Outpatient (CLI) | payer MEDICARE, OTHER, SELFPAY ==
--- NOTE | 2023-11-19 17:14 | DI.RAD.S_ITS ---
PROCEDURE: XR CHEST 2V INDICATIONS: unintentional weight loss TECHNIQUE: 2 views of the chest were acquired. COMPARISON: [facility], CR, XR CHEST 2V, 04/16/2023, 16:39. FINDINGS: Surgical changes and devices: Bilateral shoulder arthroplasties. Bilateral axillary clips. Lungs and pleura: Lungs are clear. No pleural effusions or pneumothorax. Mediastinum: Mediastinal contours are normal. Heart size is normal. Bones and chest wall: No suspicious bony abnormalities. Prior lower thoracic compression fracture. Soft tissues appear unremarkable. IMPRESSION: No acute cardiopulmonary abnormality is seen. Dictated by: Arnie Castillo M.D. on 11/20/2023 at 9:44 Approved by: Arnie Castillo M.D. on 11/20/2023 at 9:45
[2023-11-19 18:12] LABS: Add Manual Diff / Slide Review NO; Basophils Absolute Auto 100 /uL (0-100); Eosinophils Absolute Auto 100 /uL (0-450); Eosinophils Percent Auto 1.6 % (2-4); Lymphocytes Absolute Auto 1100 /uL (1100-4500); Lymphocytes Percent Auto 12.9 % (25-40); Mean Corpuscular HGB Conc 33.4 % (30-36); Mean Corpuscular Hemoglobin 28.8 PG (26-34); Mean Corpuscular Volume 86.2 fL (80-100); Monocytes Absolute Auto 800 /uL (0-900); Neutrophils Absolute Auto 6100 /uL (1500-7000); Neutrophils Percent Auto 74.5 % (50-75); Platelet Count 237 X10^3/uL (150-400); Red Blood Cell Count 4.87 X10^6/uL (4.0-5.2); Red Cell Distribution Width 14.9 % (11.6-14.8); White Blood Cell Count 8.2 X10^3/uL (4.5-11.0)
[2023-11-19 18:25] LABS: Alanine Aminotransferase 16 IU/L (<35); Albumin 4.3 g/dL (3.5-5.0); Albumin Globulin Ratio 1.5 (1.0-2.8); Alkaline Phosphatase 109 U/L (38-126); Aspartate Aminotransferase 27 IU/L (14-36); BUN Creatinine Ratio 51.2 (6-22); Bilirubin Total 0.5 mg/dL (0.2-1.3); Blood Urea Nitrogen 22 mg/dL (7-17); Calcium 9.4 mg/dL (8.4-10.2); Carbon Dioxide 27 mmol/L (22-32); Chloride 101 mmol/L (98-107); Estimated Glomerular Filt Rate > 60 mL/min (>60); Globulin 2.9 g/dL (1.7-4.1); Glucose 100 mg/dL (80-110); HEMOLYSIS < 15 (0-50); Potassium 4.2 mmol/L (3.4-5.1); Sodium 136 mmol/L (137-145); Total Protein 7.2 g/dL (6.3-8.2)
[2023-11-19 18:56] LABS: TSH w/ Reflex to FT4 1.38 uIU/mL (0.47-4.68)
[2023-11-19 19:14] LABS: Vitamin B12 982 pg/mL (239-931)
== END ==
PROVIDERS: PCP Family Medicine; Referring Provider Physician Assistant; Visit Provider Physician Assistant
DX: R63.4 Abnormal weight loss (principal)
CPT/HCPCS: 36415; 71046; 80053; 82607; 84443; 85025

== ENCOUNTER → 2023-12-03 10:42 | Outpatient (CLI) | payer MEDICARE, OTHER, SELFPAY ==
--- NOTE | 2023-12-03 10:43 | DI.US.S_ITS ---
LIMITED ULTRASOUND OF LEFT BREAST: 12/03/2023 CLINICAL: Patient returns today to evaluate two focal asymmetries in the left breast. Comparison is made to exams dated: 01/14/2023 ultrasound, 07/24/2022 ultrasound, and 12/13/2018 breast MRI - [facility]. Color flow ultrasound of the left breast 11 o'clock, and retroareolar regions was performed. Mclain scale images of the real-time examination were reviewed. There is a stable 0.9 cm x 0.7 cm x 0.9 cm oval mass in the left breast central to the nipple middle depth. This oval mass is hypoechoic with a well-defined boundary, posterior acoustic shadowing and enhancement. There are related rim calcifications. Color flow imaging demonstrates that there is no vascularity present. There also is a 0.5 cm x 0.4 cm x 0.4 cm oval mass in the left breast at 11 o'clock posterior depth. This abnormality is not significantly changed. IMPRESSION: PROBABLY BENIGN The stable 0.9 cm x 0.7 cm x 0.9 cm oval mass in the left breast central to the nipple middle depth is consistent with fat necrosis and is probably benign. The 0.5 cm x 0.4 cm x 0.4 cm oval mass in the left breast at 11 o'clock posterior depth most likely is fat necrosis and is probably benign. A follow-up left ultrasound in 6-8 months is recommended to demonstrate stability. This exam was interpreted at Station ID: [id number]. Electronically Signed By: Blaise Patterson M.D. ar/:12/03/2023 11:41:00 letter sent: Followup Recommended Ultrasound BI-RADS: 3 Probably benign
--- NOTE | 2023-12-03 10:43 | DI.US.S_ITS ---
PROCEDURE: US ABDOMEN LIMITED INDICATIONS: RIGHT LOWER QUADRANT LUMP TECHNIQUE: Real-time scanning was performed of the abdominal and retroperitoneal organs, with image documentation. COMPARISON: [facility], US, US ABDOMEN COMPLETE, 02/07/2020, 8:35. FINDINGS: Liver: The liver is diffusely echogenic. Simple hepatic cysts are incidentally noted. Miscellaneous: There is no sonographic evidence for a hernia within the right lower quadrant. Herniorrhaphy mesh is noted in the area of interest. IMPRESSION: 1. Increased hepatic echogenicity noted likely related to fatty infiltration of the liver but other sources of hepatocellular disease cannot be excluded. 2. No sonographic evidence for hernia within the right lower quadrant. Dictated by: Karolina Coto M.D. on 12/03/2023 at 13:03 Approved by: Karolina Coto M.D. on 12/03/2023 at 13:04
== END ==
LOC: US 10:42
PROVIDERS: PCP Family Medicine; Referring Provider Family Medicine; Visit Provider Family Medicine
DX: N63.25 Unspecified lump in the left breast, overlapping quadrants (principal); N63.22 Unspecified lump in the left breast, upper inner quadrant; R19.03 Right lower quadrant abdominal swelling, mass and lump; K76.89 Other specified diseases of liver
CPT/HCPCS: 76642; 76705

== ENCOUNTER → 2023-12-17 14:22 | Outpatient (CLI) | payer MEDICARE, OTHER, SELFPAY ==
[2023-12-17 17:57] LABS: Urine Volume 10mL (spun)
[2023-12-17 21:29] LABS: Amorphous Sediment Urine 2+; Bacteria Urine Occasional (0-1); RBC Urine None Seen (0-5/HPF); Squamous Epithelial Cell Urine None Seen (0-5/HPF); WBC Urine None Seen (0-5/HPF)
== END ==
PROVIDERS: PCP Family Medicine; Referring Provider Surgery; Visit Provider Surgery
DX: R82.90 Unspecified abnormal findings in urine (principal); R10.31 Right lower quadrant pain
CPT/HCPCS: 81015; 99213

== ENCOUNTER 2024-03-10 14:15 | Outpatient (RCR) | payer MEDICARE, OTHER, SELFPAY | END 2024-03-10 16:15 | LOC: PUL 14:15 | PROVIDERS: PCP Family Medicine; Referring Provider Family Medicine; Visit Provider Family Medicine | DX: J43.2 Centrilobular emphysema (principal) | CPT/HCPCS: 94625; G0237; G0238 ==

== ENCOUNTER → 2024-03-14 16:52 | Outpatient (CLI) | payer MEDICARE, OTHER, SELFPAY ==
[2024-03-15 17:36] LABS: SS A Ro Sjogrens Antibody < 0.2 AI (0.0-0.9); SS B La Sjogrens Antibody < 0.2 AI (0.0-0.9)
== END ==
PROVIDERS: PCP Family Medicine; Referring Provider Dentist; Visit Provider Dentist
DX: K14.6 Glossodynia (principal); R68.2 Dry mouth, unspecified
CPT/HCPCS: 36415; 86235

== ENCOUNTER → 2024-04-15 18:31 | Outpatient (CLI) | payer MEDICARE, OTHER, SELFPAY ==
--- NOTE | 2024-04-15 18:38 | DI.RAD.S_ITS ---
PROCEDURE: XR CHEST 2V INDICATIONS: COPD TECHNIQUE: 2 views of the chest were acquired. COMPARISON: [facility], CR, XR CHEST 2V, 11/19/2023, 17:18. FINDINGS: Surgical changes and devices: Bilateral shoulder arthroplasty. Lungs and pleura: Lungs are clear. No pleural effusions or pneumothorax. Lungs are hyperexpanded with mild flattening of the hemidiaphragm, consistent with COPD s. Mediastinum: Mediastinal contours are normal. Heart size is enlarged. Bones and chest wall: No suspicious bony abnormalities. Soft tissues appear unremarkable. IMPRESSION: COPD changes without consolidation. Dictated by: Zari Cat M.D. on 04/17/2024 at 12:39 Approved by: Zari Cat M.D. on 04/17/2024 at 12:39
== END ==
PROVIDERS: PCP Family Medicine; Referring Provider Internal Medicine Pulmonary Disease; Visit Provider Internal Medicine Pulmonary Disease
DX: J44.89 Other specified chronic obstructive pulmonary disease (principal)
CPT/HCPCS: 71046

== ENCOUNTER → 2024-04-22 10:54 | Outpatient (CLI) | payer MEDICARE, OTHER, SELFPAY ==
--- NOTE | 2024-04-22 10:55 | DI.CT.S_ITS ---
PROCEDURE: CT CHEST WO CON INDICATIONS: Chronic cough TECHNIQUE: Noncontrast 5 mm thick sections acquired from the pulmonary apices to the posterior costophrenic angles. 1 mm lung window, 5 mm thick coronal and sagittal and 7 mm axial MIP reformats were then acquired. For radiation dose reduction, the following was used: automated exposure control, adjustment of mA and/or kV according to patient size. COMPARISON: [facility], CT, CT CHEST W CON, 01/12/2019, 12:51. [facility], CR, XR CHEST 2V, 04/15/2024, 18:41. FINDINGS: Image quality: Diagnostic. Lower Neck: No enlarged lymph nodes. Thyroid: No thyroid nodules which require sonographic follow up, per consensus guidelines. Axillae: No enlarged lymph nodes. Chest Wall: Previously seen bilateral breast implants have been removed. Bones: Status post bilateral shoulder arthroplasty.. No acute fracture identified. No acute compression fracture. Multilevel spondylosis of the imaged spine. Chronic appearing anterior compression deformities of the lower thoracic spine. Lungs and Pleura: No pneumothorax or pleural effusions. No dense consolidation. Mild upper lobe predominant pulmonary emphysematous changes. There are a few scattered patchy ground-glass and part solid nodules noted in the right upper lobe with largest measuring approximately 1.9 x 2.5 cm in axial cross-sectional dimension (68/series 3). Another example is noted in the more inferior aspect of the right upper lobe, perihilar region measuring 1.1 cm in size (124/series 3). No septal thickening or nodularity. Mild dependent atelectasis. Heart: Heart size is normal. No pericardial effusion. Coronary atherosclerotic vascular calcifications are noted. Thoracic Vessels: The aorta and pulmonary arteries demonstrate normal size. Mediastinum and Tiffany: No enlarged lymph nodes. Esophagus: No wall thickening. No hiatal hernia. Upper Abdomen: Visualized upper abdomen solid organs and bowel loops appear normal. IMPRESSION: 1. Scattered patchy ground-glass/part-solid nodules in the right upper lobe with largest measuring 1.9 x 2.5 cm in size. These may be infectious or inflammatory in etiology. Recommend follow-up chest CT in 3-6 months to document stability versus resolution. 2. Atherosclerosis. Other chronic findings as above. Dictated by: Cody Velasquez M.D. on 04/22/2024 at 17:56 Approved by: Cody Velasquez M.D. on 04/22/2024 at 18:07
== END ==
PROVIDERS: PCP Family Medicine; Referring Provider Internal Medicine Pulmonary Disease; Visit Provider Internal Medicine Pulmonary Disease
DX: R05.3 Chronic cough (principal); R91.8 Other nonspecific abnormal finding of lung field; I25.10 Atherosclerotic heart disease of native coronary artery without angina pectoris
CPT/HCPCS: 71250

== ENCOUNTER → 2024-05-12 10:01 | Outpatient (CLI) | payer MEDICARE, OTHER, SELFPAY ==
[2024-05-12 10:44] LABS: Add Manual Diff / Slide Review NO; Basophils Absolute Auto 0 /uL (0-100); Basophils Percent Auto 0.8 % (0-2); Eosinophils Absolute Auto 200 /uL (0-450); Eosinophils Percent Auto 3.1 % (2-4); Hematocrit 43.2 % (36-46); Hemoglobin 14.6 g/dL (12.0-16.0); Lymphocytes Absolute Auto 900 /uL (1100-4500); Lymphocytes Percent Auto 18.8 % (25-40); Mean Corpuscular HGB Conc 33.8 % (30-36); Mean Corpuscular Hemoglobin 29.8 PG (26-34); Mean Corpuscular Volume 88.1 fL (80-100); Monocytes Absolute Auto 500 /uL (0-900); Monocytes Percent Auto 9.5 % (3-14); Neutrophils Absolute Auto 3400 /uL (1500-7000); Neutrophils Percent Auto 67.8 % (50-75); Platelet Count 205 X10^3/uL (150-400)
[2024-05-12 11:00] LABS: Alanine Aminotransferase 16 IU/L (<35); Albumin 3.9 g/dL (3.5-5.0); Albumin Globulin Ratio 1.6 (1.0-2.8); Alkaline Phosphatase 103 U/L (38-126); Aspartate Aminotransferase 25 IU/L (14-36); BUN Creatinine Ratio 27.7 (6-22); Bilirubin Total 0.8 mg/dL (0.2-1.3); Blood Urea Nitrogen 13 mg/dL (7-17); Calcium 8.9 mg/dL (8.4-10.2); Carbon Dioxide 29 mmol/L (22-32); Chloride 105 mmol/L (98-107); Cholesterol 217 mg/dL (140-199); Estimated Glomerular Filt Rate > 60 mL/min (>60); Globulin 2.4 g/dL (1.7-4.1); Glucose 96 mg/dL (80-110); HDL Cholesterol 105 mg/dL (40-60); HEMOLYSIS < 15 (0-50); LDL Cholesterol Calculated 100 mg/dL (<100); Potassium 4.5 mmol/L (3.4-5.1); Sodium 137 mmol/L (137-145); Total Protein 6.3 g/dL (6.3-8.2); Triglycerides 58 mg/dL (35-150)
[2024-05-12 11:17] LABS: Free T3, Triiodothyronine Free 3.48 pg/mL (2.77-5.27); Free T4, Direct Thyroxine 1.14 ng/dL (0.78-2.19)
[2024-05-12 11:47] LABS: Vitamin B12 952 pg/mL (239-931)
== END ==
PROVIDERS: PCP Family Medicine; Referring Provider Family Medicine; Visit Provider Family Medicine
DX: R79.89 Other specified abnormal findings of blood chemistry (principal); I25.10 Atherosclerotic heart disease of native coronary artery without angina pectoris; E87.1 Hypo-osmolality and hyponatremia; D72.810 Lymphocytopenia; E78.00 Pure hypercholesterolemia, unspecified; R53.83 Other fatigue
CPT/HCPCS: 36415; 80053; 80061; 82607; 84439; 84443; 84481; 85025

== ENCOUNTER → 2024-05-18 13:28 | Outpatient (CLI) | payer MEDICARE, OTHER, SELFPAY | LOC: RESP 13:29 | PROVIDERS: PCP Family Medicine; Referring Provider Internal Medicine Pulmonary Disease; Visit Provider Internal Medicine Pulmonary Disease | DX: J44.89 Other specified chronic obstructive pulmonary disease (principal); Z87.891 Personal history of nicotine dependence; R94.2 Abnormal results of pulmonary function studies | CPT/HCPCS: 94060; 94070; 94618; 94726; 94729 ==

== ENCOUNTER → 2024-06-02 13:15 | Outpatient (CLI) | payer MEDICARE, OTHER, SELFPAY ==
[2024-06-02 14:35] LABS: Erythrocyte Sedimentation Rate 7 MM/HR (0-20)
[2024-06-02 17:20] LABS: C-Reactive Protein Quant 0.9 mg/dL (<1.0)
== END ==
PROVIDERS: PCP Family Medicine; Referring Provider Student in an Organized Health Care Education/Training Program; Visit Provider Student in an Organized Health Care Education/Training Program
DX: M17.12 Unilateral primary osteoarthritis, left knee (principal); Z79.890 Hormone replacement therapy
CPT/HCPCS: 36415; 85651; 86140

== ENCOUNTER → 2024-06-20 | Outpatient (CLI) | payer MEDICARE, OTHER, SELFPAY ==
--- NOTE | 2024-06-20 14:30 | DI.US.S_ITS ---
PROCEDURE: US BREAST LT LIMITED COMPARISON: [facility], , BREAST LT LIMITED, 12/03/2023, 11:03. INDICATIONS: Follow-up abnormal ultrasound FINDINGS: IMPRESSION: Dictated by: Conner Cheng M.D. on 06/20/2024 at 15:16 Approved by: Conner Cheng M.D. on 06/20/2024 at 15:23
--- NOTE | 2024-06-20 15:04 | DI.US.S_ITS ---
Patient Name: PINA CASH date: 1940 Sex: F Attending Physician: Andrea Indications: Date: 06/20/2024 15:23 At the request of: BRETT HENDRICKS Procedure: US breast LT limited LIMITED ULTRASOUND OF LEFT BREAST: 06/20/2024 CLINICAL: Follow up from addtional views. Comparison is made to exams dated: 12/13/2018 breast MRI, 07/24/2022 ultrasound, 01/14/2023 ultrasound, and 12/03/2023 ultrasound - [facility]. Color flow and real-time ultrasound of the left breast 11 o'clock region were performed. There is a stable 0.8 cm x 0.9 cm x 0.6 cm oval mass in the left breast at 11 o'clock middle depth. This oval mass is hypoechoic. There are related rim calcifications. There also is a similar 0.4 cm x 0.4 cm x 0.4 cm oval mass in the left breast at 11 o'clock posterior depth. This abnormality is not significantly changed. IMPRESSION: BENIGN There is no sonographic evidence of malignancy. The stable 0.8 cm x 0.9 cm x 0.6 cm oval mass in the left breast at 11 o'clock middle depth is likely fat necrosis and is benign. The 0.4 cm x 0.4 cm x 0.4 cm oval mass in the left breast at 11 o'clock posterior depth is likely fat necrosis and is benign. These have been stable for 2 years Clinical followup and evalution recommended. If there are any new or enlarging symptoms, repeat imaging is recommended. This exam was interpreted at Station ID: [id number]. Continued Report - Page 2 of 2 Patient Name: PINA CASH date: 1940 Sex: F Attending Physician: Andrea Indications: Date: 06/20/2024 15:23 At the request of: BRETT HENDRICKS Procedure: US breast LT limited Electronically Signed By: Conner Cheng M.D. /:06/20/2024 15:23:49 letter sent: Clinical Evaluation Ultrasound BI-RADS: 2 Benign
== END ==
PROVIDERS: PCP Family Medicine; Referring Provider Family Medicine; Visit Provider Family Medicine
DX: N63.22 Unspecified lump in the left breast, upper inner quadrant (principal)
CPT/HCPCS: 76642

== ENCOUNTER → 2024-07-27 11:20 | Outpatient (CLI) | payer MEDICARE, OTHER, SELFPAY ==
--- NOTE | 2024-07-27 | DI.CT.S_ITS ---
PROCEDURE: CT CHEST WO CON INDICATIONS: Solitary pulmonary nodule TECHNIQUE: Noncontrast 5 mm thick sections acquired from the pulmonary apices to the posterior costophrenic angles. 1 mm lung window, 5 mm thick coronal and sagittal and 7 mm axial MIP reformats were then acquired. For radiation dose reduction, the following was used: automated exposure control, adjustment of mA and/or kV according to patient size. COMPARISON: [facility], CT, CT CHEST WO CON, 04/22/2024, 11:06. FINDINGS: Image quality: Diagnostic Lungs and pleura: Previous ground-glass opacities are less conspicuous. No overtly suspicious solid nodule over 6 mm. No scattered scarring and atelectasis is seen. No pleural effusions. Scattered granulomas and micro nodules are present. For example in the right image Mediastinum, heart, and esophagus: Patulous distal esophagus. Borderline enlarged heart. Annular and coronary calcifications. No pathologic lymph nodes by size criteria. Chest wall and thyroid: Similar possible left breast fat necrosis and post procedural changes. Thyroid is obscured by metallic artifact, no gross abnormality. Upper abdomen: No gross abnormality on these limited non-contrast images. Similar hypoattenuation of the liver dome, possibly a cyst or hemangioma, but not well characterized on this study. Bones: Degenerative changes. Left shoulder arthroplasty. Right shoulder arthroplasty. There is surrounding metallic artifact. Possible old right anterior rib fractures. Mild vertebral endplate deformities at the thoracolumbar junction, similar to prior IMPRESSION: Previously identified right upper lobe ground-glass nodules are less conspicuous, probably infectious/inflammatory. No new or enlarging nodules or suspicious solid nodule over 6 mm. If the patient is considered high risk for malignancy, consider enrollment in low-dose lung cancer screening versus follow-up imaging in 1 year. Small micro nodules/granulomas are present. Other findings above. Dictated by: Conner Cheng M.D. on 07/27/2024 at 16:38 Approved by: Conner Cheng M.D. on 07/27/2024 at 16:44
== END ==
LOC: CT 11:21
PROVIDERS: PCP Family Medicine; Referring Provider Internal Medicine Pulmonary Disease; Visit Provider Internal Medicine Pulmonary Disease
DX: R91.1 Solitary pulmonary nodule (principal)
CPT/HCPCS: 71250

== ENCOUNTER → 2024-08-11 13:22 | Outpatient (CLI) | payer MEDICARE, OTHER, SELFPAY ==
[2024-08-11 14:41] LABS: Clostridium Difficile Tox PCR Negative for C. diff (Negative)
[2024-08-11 15:08] LABS: Adenovirus F 40/41 Not Detected (Not Detect); Astrovirus Not Detected (Not Detect); Campylobacter Not Detected (Not Detect); Clostridium difficile toxin AB Not Detected (Not Detect); Cryptosporidium Not Detected (Not Detect); Cyclospora cayetanensis Not Detected (Not Detect); Entamoeba histolytica Not Detected (Not Detect); Enteroaggregative E.coli Not Detected (Not Detect); Enteropathogenic E.coli Not Detected (Not Detect); Enterotoxigenic E.coli It/st Not Detected (Not Detect); Giardia lamblia Not Detected (Not Detect); Norovirus GI/GII Not Detected (Not Detect); Plesiomonsa shigelloides Not Detected (Not Detect); Rotavirus A Not Detected (Not Detect); Salmonella Not Detected (Not Detect); Sapovirus Not Detected (Not Detect); Shiga-like toxin-prod E.coli Not Detected (Not Detect); Shigella/Enteroinvasive E.coli Not Detected (Not Detect); Vibrio Not Detected (Not Detect); Vibrio cholerae Not Detected (Not Detect); Yersinia enterocolitica Not Detected (Not Detect)
== END ==
PROVIDERS: Family Provider Family Medicine; PCP Family Medicine; Referring Provider Internal Medicine Gastroenterology; Visit Provider Internal Medicine Gastroenterology
DX: R19.7 Diarrhea, unspecified (principal)
CPT/HCPCS: 83993; 87177; 87329; 87493; 87507

== ENCOUNTER → 2024-12-15 16:22 | Outpatient (CLI) | payer MEDICARE, OTHER, SELFPAY ==
[2024-12-15 17:26] LABS: Add Manual Diff / Slide Review NO; Basophils Absolute Auto 0 /uL (0-100); Basophils Percent Auto 0.6 % (0-2); Eosinophils Absolute Auto 100 /uL (0-450); Eosinophils Percent Auto 1.4 % (2-4); Hematocrit 42.2 % (36-46); Hemoglobin 14.1 g/dL (12.0-16.0); Lymphocytes Absolute Auto 1000 /uL (1100-4500); Lymphocytes Percent Auto 15.5 % (25-40); Mean Corpuscular HGB Conc 33.5 % (30-36); Mean Corpuscular Hemoglobin 29.8 PG (26-34); Mean Corpuscular Volume 88.9 fL (80-100); Monocytes Absolute Auto 600 /uL (0-900); Monocytes Percent Auto 9.3 % (3-14); Neutrophils Absolute Auto 4600 /uL (1500-7000); Neutrophils Percent Auto 73.2 % (50-75); Platelet Count 188 X10^3/uL (150-400); Red Blood Cell Count 4.74 X10^6/uL (4.0-5.2); Red Cell Distribution Width 13.4 % (11.6-14.8); White Blood Cell Count 6.3 X10^3/uL (4.5-11.0)
[2024-12-15 17:51] LABS: Erythrocyte Sedimentation Rate 3 MM/HR (0-20)
[2024-12-15 17:57] LABS: Alanine Aminotransferase 19 IU/L (<35); Albumin 4.2 g/dL (3.5-5.0); Alkaline Phosphatase 110 U/L (38-126); Aspartate Aminotransferase 31 IU/L (14-36); BUN Creatinine Ratio 27.4 (6-22); Bilirubin Total 0.5 mg/dL (0.2-1.3); Blood Urea Nitrogen 20 mg/dL (7-17); C-Reactive Protein Quant 0.5 mg/dL (<1.0); Calcium 9.9 mg/dL (8.4-10.2); Carbon Dioxide 29 mmol/L (22-32); Chloride 99 mmol/L (98-107); Estimated Glomerular Filt Rate > 60 mL/min (>60); Globulin 2.1 g/dL (1.7-4.1); Glucose 121 mg/dL (80-110); HEMOLYSIS < 15 (0-50); Potassium 4.2 mmol/L (3.4-5.1); Sodium 135 mmol/L (137-145); Total Protein 6.3 g/dL (6.3-8.2)
== END ==
PROVIDERS: Family Provider Family Medicine; PCP Family Medicine; Referring Provider Internal Medicine Rheumatology; Visit Provider Internal Medicine Rheumatology
DX: M11.20 Other chondrocalcinosis, unspecified site (principal)
CPT/HCPCS: 36415; 80053; 85025; 85651; 86140

== ENCOUNTER → 2025-01-10 14:03 | Outpatient (CLI) | payer MEDICARE, OTHER, SELFPAY ==
--- NOTE | 2025-01-10 14:04 | DI.CT.S_ITS ---
PROCEDURE: CT CHEST WO CON INDICATIONS: LUNG NODULE TECHNIQUE: Noncontrast 5 mm thick sections acquired from the pulmonary apices to the posterior costophrenic angles. 1 mm lung window, 5 mm thick coronal and sagittal and 7 mm axial MIP reformats were then acquired. For radiation dose reduction, the following was used: automated exposure control, adjustment of mA and/or kV according to patient size. COMPARISON: [facility], CT, CT CHEST WO CON, 07/27/2024, 11:25. FINDINGS: Image quality: Streak metal artifact from bilateral shoulder arthroplasty limits evaluation of surrounding soft tissues. Lower Neck: No enlarged lymph nodes. Thyroid: No thyroid nodules which require sonographic follow up, per consensus guidelines. Axillae: No enlarged lymph nodes. Chest Wall: Unremarkable. Bones: Status post bilateral shoulder arthroplasty. Multilevel degenerative changes without acute vertebral body compression fracture. Exaggerated thoracic kyphosis.. Lungs and Pleura: No pneumothorax or pleural effusions. Mild centrilobular emphysema. There is new left upper lobe 7 mm nodule (3/178, MIP image 90). Heart: Heart size is normal. No pericardial effusion. Coronary artery calcifications. Thoracic Vessels: The aorta and pulmonary arteries demonstrate normal size. Mediastinum and Tiffany: No enlarged lymph nodes. Esophagus: No wall thickening. No hiatal hernia. Upper Abdomen: Visualized upper abdomen solid organs and bowel loops appear normal. IMPRESSION: Compared to prior CT 07/27/2024, new 7 mm solid nodule in left upper lobe. Recommend follow-up CT chest in 3 months to demonstrate stability. Approved by: Fatou Marcial M.D.,Ph.D. on 01/12/2025 at 4:46
== END ==
PROVIDERS: Family Provider Family Medicine; PCP Family Medicine; Referring Provider Internal Medicine Pulmonary Disease; Visit Provider Internal Medicine Pulmonary Disease
DX: R91.1 Solitary pulmonary nodule (principal); I25.10 Atherosclerotic heart disease of native coronary artery without angina pectoris; J43.2 Centrilobular emphysema; M40.204 Unspecified kyphosis, thoracic region; Z96.612 Presence of left artificial shoulder joint; Z96.611 Presence of right artificial shoulder joint
CPT/HCPCS: 71250

== ENCOUNTER 2025-01-22 02:16 | Emergency (ER) | payer MEDICARE, OTHER, SELFPAY ==
[2025-01-22] VITALS (8 sets, daily range): BP systolic 107–127; BP diastolic 56–85; PULSE 86–148; RESP 11–30; TEMP 35; O2SAT 91–96; BMI 19.1
--- NOTE | 2025-01-22 02:20 | ED_ITS ---
HPI - Arrhythmia/Palpitations General Chief Complaint: Arrhythmia/Palpitations Stated Complaint: Tachycardia, shakey x 2 hrs Time Seen by Provider: 01/22/25 02:20 History of Present Illness HPI narrative: 84-year-old female past medical history of hypertension asthma, hyperlipidemia macular degeneration, comes into the ED from home for evaluation of palpitations, shakiness. States it started spontaneously and has been waxing and waning in nature for the past several hours she denies any actual chest pain shortness of breath. She states that she just feels ?off/shakey. Patient states she did take full-dose aspirin prior to arrival. She denies any other symptoms has a headache chest pain shortness breath fever chills nausea vomiting abdominal pain or any other GI/ symptoms time. Related Data Home Medications Medication Instructions Recorded Confirmed ascorbic acid (vitamin C) (Vitamin 1 g PO BID ##0 04/07/11 01/19/25 C oral powder) denosumab 60 mg/mL subcutaneous 60 mg SQ DIRECTED ##0 07/20/13 01/19/25 syringe (Prolia) vit C 250 mg-E 90 mg-zinc 40 1 tab PO QAM AND QPM 04/15/22 01/19/25 mg-copper 1 [id number] chew tablet (PreserVision AREDS-2) calcium carbonate 600 mg PO BID 05/11/24 01/19/25 cholecalciferol (vitamin D3) 25 25 mcg PO DAILY 05/11/24 01/19/25 mcg (1,000 unit) capsule [id number] 8 mg-folic 400 1 tab PO DAILY 05/11/24 01/19/25 mcg-K 50 mcg-lutein 300 mcg tablet (Centrum Silver Women) vitamin K2 45 mcg capsule 45 mcg PO DAILY 05/11/24 01/19/25 boswellia 2 cap PO BID 06/29/24 01/19/25 turmeric (bulk) [Curcumin] 1 ea miscellaneous 06/29/24 01/19/25 Saccharomyces boulardii [Daily PO 08/18/24 01/19/25 Probiotic (S. boulardii)] methotrexate 2.5 mg PO 6XW 01/19/25 01/19/25 Previous Rx's Medication Instructions Recorded LEFT KNEE BRACE #1 ea 04/03/23 fluticasone propionate 50 1 spray intranasal BID PRN allergy 02/04/24 mcg/actuation nasal symptoms #16 mL spray,suspension cyanocobalamin (vitamin B-12) 1,000 mcg IM QWEEK #12 mL 03/30/24 1,000 mcg/mL injection solution doxycycline hyclate 100 mg tablet 100 mg PO BID #16 tabs 08/18/24 albuterol sulfate 90 mcg/actuation 2 puff inhalation Q4-6H PRN 09/27/24 aerosol inhaler (Ventolin HFA) shortness of breath or wheezing #17 grams fluocinolone acetonide oil 0.01 % 5 drp otic (ear) BID #20 mL 10/06/24 ear drops gabapentin 300 mg capsule See Rx Instructions .Route 10/14/24 .COMPLEX #270 caps amlodipine 2.5 mg tablet 2.5 mg PO DAILY #90 tabs 10/18/24 montelukast 10 mg tablet See Rx Instructions .Route 11/14/24 .COMPLEX #90 tabs fluticasone fur. 200 mcg-umeclid 1 inh inhalation DAILY #90 ea 01/04/25 62.5 mcg-vilant 25 mcg inhalat.powder (Trelegy Ellipta) Allergies Allergy/AdvReac Type Severity Reaction Status Date / Time adhesive Allergy Intermediate HIVES Verified 01/19/25 14:39 erythromycin base Allergy Mild RASH Verified 01/19/25 14:39 cefuroxime AdvReac Intermediate Abdominal Verified 01/19/25 14:39 Pain colchicine AdvReac Intermediate Diarrhea Verified 01/19/25 14:39 hydroxychloroquine AdvReac Intermediate Diarrhea Verified 01/19/25 14:39 levofloxacin AdvReac Mild ANXIETY Verified 01/19/25 14:39 Review of Systems Review of Systems Narrative: General: Denies fever, chills, weight loss HEENT: Denies headache, eye drainage, eye irritation, head trauma, sore throat, voice change Cardiovascular: Positive palpitations, Denies any chest pain, shortness of breath, tachycardia Respiratory: Denies any shortness of breath, cough, wheeze, stridor GI/: Denies any abdominal pain, nausea, vomiting, diarrhea, bright red blood per rectum, melanotic stools, urinary frequency, urinary retention, dysuria, hematuria MSK: Denies any joint pain, muscle pains, swelling Skin: Denies any rashes, lesions, discoloration Neuro: Denies any headache, lightheadedness, dizziness, fainting, weakness Psych: Denies SI/HI Patient History Medical History (Updated 01/22/25 @ 03:55 by Higinio Vasquez DO) 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 Left elbow pain Rib pain Meralgia paraesthetica Acute right hip pain Tension headache Postoperative pain of left knee Strain of right shoulder Sacral back pain Cellulitis Medication side effect Constipation Has end of life care plan Chronic cough Postoperative edema Abdominal wall hernia Weight loss, unintentional Nausea in adult patient Diarrhea due to drug Chronic GERD Choking due to phlegm Phlegm in throat Chronic pain of left knee Hemorrhoid Vagina itching Low serum creatinine Hyponatremia Lymphopenia Pure hypercholesterolemia Discoloration of skin of lower leg Edema of left lower extremity Somatic dysfunction of lower extremity Edema of right lower extremity Oral candidiasis Right lower quadrant abdominal pain Lichen planus Arthralgia Fatigue Coronary artery disease All medications reviewed SVT (supraventricular tachycardia) Premature atrial contractions Chronic diarrhea Cervical radiculopathy Cranial somatic dysfunction Stiff neck Pelvic somatic dysfunction Sacral region somatic dysfunction Lumbar region somatic dysfunction COVID-19 vaccine series completed Leg cramps, sleep related Osteoarthritis cervical spine Problems related to lack of adequate sleep Memory changes Cervical somatic dysfunction Body posture problem Thoracic region somatic dysfunction Ear drainage right H/O supraventricular tachycardia High serum high density lipoprotein (HDL) Abnormal heart rhythms Upper extremity somatic dysfunction Segmental and somatic dysfunction of rib cage Bilateral hand pain Blood pressure instability Rib fractures Compression fracture (2002) Easy bruisability Breast cancer Sinus drainage Arthritis Former smoker History of transfusion (~2001) Symptomatic cholelithiasis Osteoporosis History of breast cancer Osteoarthritis Asthma Surgical History Status post total left knee replacement Status post laparoscopic cholecystectomy Hx of appendectomy (1961) Hx of tonsillectomy (1948) Hx of toe surgery Hx of lumpectomy (04/2001) Hx of arthroscopy of shoulder (03/2005) Hx of repair of right rotator cuff (06/2006) History of surgery (04/2019) Status post tonsillectomy Status post appendectomy History of foot surgery Status post breast reconstruction (07/2019) Status post replacement of both shoulder joints Status post right knee replacement (10/2012) S/P bilateral mastectomy (12/2001) Social History household members: none Smoking Status: Former smoker Smoking Status: Former smoker alcohol intake frequency: 0-2 drinks per day Exam Narrative Exam Narrative: General: Cooperative, comfortable, well-developed, not in acute distress HEENT: Normocephalic, atraumatic, PERRLA, normal sclera, eyelids normal, Neck: Active full range of motion, atraumatic Chest: Normal to inspection, negative crepitus, no overlying erythema ecchymosis Respiratory: Normal respiratory effort, not in acute respiratory distress, clear to auscultation bilaterally negative cough, wheeze, tachypnea, rhonchi, rales Cardiology: Intermittent Tachycardia, regular rhythm negative gallop, murmur, rubs GI/: Normal to inspection, soft, nonrigid, no tenderness to palpation, exam deferred MSK: Full range of active range of motion of all 4 extremities, atraumatic Skin: No rashes lesions noted Neuro: Alert awake oriented x3, moves all 4 extremities spontaneously, cranial nerves intact, able to answer all questions appropriately follows commands appropriately Psych: Cooperative, negative suicidal or homicidal ideations Initial Vital Signs Initial Vital Signs: Vital Signs Pulse Rate 144 H 01/22/25 02:25 Respiratory Rate 30 H 01/22/25 02:25 Pulse Oximetry 96 01/22/25 02:25 Course Orders Ordered: ED Orders 01/22/25 02:19 EKG-12 Lead Stat 01/22/25 02:30 XR chest 1V Stat Complete Blood Count AUTO DIFF Stat Comprehensive Metabolic Panel Stat Lipase Stat Troponin & CK Cardiac Panel Stat EKG-12 Lead Stat 01/22/25 02:31 Covid-19 + FLU A/B + RSV - PCR Stat MAG [Magnesium] Stat TSH [Thyroid Stimulating Hormone] Stat Discontinued Medications Magnesium Sulfate (Magnesium Sulfate) 2 gm in 50 mls @ 150 mls/hr IV NOW ONE Stop: 01/22/25 02:48 Last Infusion: 01/22/25 03:05 Dose: Infused Sodium Chloride (Normal Saline 0.9%) 1,000 mls @ 1,000 mls/hr IV BOLUS ONE Stop: 01/22/25 03:31 Last Admin: 01/22/25 02:45 Dose: 1,000 mls/hr Vital Signs Vital signs: Vital Signs - 8 hr 01/22/25 02:25 01/22/25 02:29 01/22/25 02:29 Temperature Pulse Rate 144 H 145 H Respiratory Rate 30 H 19 Blood Pressure 127/85 Pulse Oximetry 96 95 Oxygen Delivery Method 01/22/25 02:30 01/22/25 02:30 01/22/25 02:31 Temperature 95 F L Pulse Rate 148 H 148 H Respiratory Rate 26 H 16 Blood Pressure 121/77 127/85 Pulse Oximetry 94 95 Oxygen Delivery Method Room Air 01/22/25 02:32 01/22/25 02:32 01/22/25 03:00 Temperature Pulse Rate 147 H 96 H Respiratory Rate 23 12 Blood Pressure 111/71 Pulse Oximetry 95 91 Oxygen Delivery Method 01/22/25 03:00 Temperature Pulse Rate Respiratory Rate Blood Pressure 111/59 L Pulse Oximetry Oxygen Delivery Method MDM - Arrhythmia/Palpitations Differential Diagnosis Differential diagnosis: Likely anxiety, sinus tachycardia, artial fibrillation, artial flutter, ventricular premature beats, supraventricular tachycardia and other (ACS, pneumonia, electrolyte abnormality, COVID, flu, RSV) Lab Data 01/22/25 02:35 01/22/25 02:35 Labs: Lab Results 01/22/25 01/22/25 Range/Units 02:35 02:45 WBC 5.5 (4.5-11.0) X10^3/uL RBC 4.70 (4.0-5.2) X10^6/uL Hgb 14.1 (12.0-16.0) g/dL Hct 41.5 (36-46) % MCV 88.3 (80-100) fL MCH 30.1 (26-34) PG MCHC 34.1 (30-36) % RDW 14.4 (11.6-14.8) % Plt Count 207 (150-400) X10^3/uL Neut % (Auto) 63.3 (50-75) % Lymph % (Auto) 25.2 (25-40) % [place] % (Auto) 7.6 (3-14) % Eos % (Auto) 2.8 (2-4) % Baso % (Auto) 1.1 (0-2) % Neut # (Auto) 3500 (0358-9075) /uL Lymph # (Auto) 1400 (1489-8597) /uL [place] # (Auto) 400 (0-900) /uL Eos # (Auto) 200 (0-450) /uL Baso # (Auto) 100 (0-100) /uL Sodium 139 (137-145) mmol/L Potassium 3.5 (3.4-5.1) mmol/L Chloride 104 (98-107) mmol/L Carbon Dioxide 25 (22-32) mmol/L BUN 18 H (7-17) mg/dL Creatinine 0.55 (0.52-1.04) mg/dL Estimated GFR > 60 (>60) mL/min BUN/Creatinine Ratio 32.7 H (6-22) Glucose 104 (80-110) mg/dL Calcium 9.5 (8.4-10.2) mg/dL Magnesium 1.7 (1.6-2.3) mg/dL Total Bilirubin 0.2 (0.2-1.3) mg/dL AST 34 (14-36) IU/L ALT 22 (<35) IU/L Alkaline Phosphatase 111 (38-126) U/L Total Creatine Kinase 58 (30-135) U/L Troponin I < 0.012 (0.01-0.034) ng/mL Total Protein 6.6 (6.3-8.2) g/dL Albumin 4.2 (3.5-5.0) g/dL Globulin 2.4 (1.7-4.1) g/dL Albumin/Globulin Ratio 1.8 (1.0-2.8) Lipase 61 (23-300) U/L TSH 3.55 (0.47-4.68) uIU/mL SARS-CoV-2 (PCR) Negative (Negative) Influenza A (RT-PCR) Flu a negative (NEGATIVE) Influenza B (RT-PCR) Flu b negative (NEGATIVE) RSV (PCR) Negative (Negative) Imaging Data Chest x-ray: My Impression: Nonacute, no signs of consolidation no pneumothorax Radiologist's Impresson: Preliminary read showing no acute cardiopulmonary abnormalities ECG Data Interpretation: EKG interpreted ED physician sinus tachycardia at 148 beats per minute QTC 521, normal axis, nonspecific ST changes, no STEMI MDM Narrative Medical decision making narrative: 84-year-old female with a past medical history of hypertension, SVT, GERD, COPD not requiring supplemental oxygen at baseline, macular degeneration presents for palpitations, shakiness. States it started spontaneously and intermittent several hours prior to arrival states that given persistent symptoms decided come into the ED for further evaluation treatment. Patient denies any actual headache chest pain shortness of breath did take full-dose aspirin prior to arrival. Patient EKG showing sinus tachycardia, nonischemic. While initial assessment was being performed patient with nonsustained sinus tachycardia, blood pressure stable 2 g magnesium administered. Lab work imaging performed here. Patient follows with Cardiology Dr. Chase at [facility]. Review of records show that patient did see Dr. Castaneda on 12/30/2024, was diagnosed with symptomatic PVCs but at that time no change in medication was recommended. Lab work without any leukocytosis Chem panel unremarkable troponin negative. TSH normal. Patient has been monitored here since presentation she has remained in sinus in the 80-90 range she states that she has not having any of her symptoms at this time. She was given strict return precautions and instructed to follow up with Cardiology and primary care in outpatient setting she verbalized understanding of this and agrees to being discharged home with outpatient follow up Review of records show that patient had a echo on 12/17/2023 that showed 60% left ventricular ejection fraction. 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 Disease processes change and evolve, if your symptoms worsen or if you develop any new symptoms that are concerning to you please return for evaluation. Your evaluation today does not show any evidence of any life- threatening/serious illnesses requiring admission to the hospital or surgery. Please follow-up with your doctor for re-evaluation in approximately 1 day. Seek immediate medical attention for any worrisome symptoms. *If you do not have a primary care provider please contact the [facility] Resource line at [phone]. They will ask some questions about your medical history and help get you set up with a doctor in the community. Prescriptions: No Action Vitamin C Powder 1 g PO BID Qty: 0 Prolia 60 MG/1 ML syringe 60 mg SQ DIRECTED Qty: 0 Rx Instructions: Twice yearly (DME) LEFT KNEE BRACE See Rx Instructions .Route .MEDSUPPLY Qty: 1 0RF Rx Instructions: left knee OA unloading brace, Donjoy brand cyanocobalamin (vitamin B-12) 1,000 mcg/mL solution 1,000 mcg IM QWEEK Qty: 12 12RF albuterol sulfate [Ventolin HFA] 90 mcg/actuation HFA aerosol inhaler 2 puff inhalation Q4-6H PRN (Reason: shortness of breath or wheezing) Qty: 17 3RF fluocinolone acetonide oil 0.01 % drops 5 drp otic (ear) BID Qty: 20 3RF gabapentin 300 mg capsule See Rx Instructions .ROUTE .COMPLEX Qty: 270 3RF Dose Instruction: take 1 capsule by mouth every morning and 2 capsules every evening Rx Instructions: take 1 capsule by mouth every morning and 2 capsules every evening amlodipine 2.5 mg tablet 2.5 mg PO DAILY Qty: 90 0RF montelukast 10 mg tablet See Rx Instructions .ROUTE .COMPLEX Qty: 90 3RF Dose Instruction: take 1 tablet by mouth every evening Rx Instructions: take 1 tablet by mouth every evening fluticasone propionate 50 mcg/actuation spray,suspension 1 spray INTRANASAL BID PRN (Reason: allergy symptoms) Qty: 16 12RF turmeric (bulk) [Curcumin] 1 ea miscellaneous Rx Instructions: 665mg po daily boswellia 500 mg 2 cap PO BID cholecalciferol (vitamin D3) 25 mcg (1,000 unit) capsule 25 mcg PO DAILY vitamin K2 45 mcg capsule 45 mcg PO DAILY calcium carbonate 600 mg calcium (1,500 mg) tablet 600 mg PO BID Centrum Silver Women 8 mg iron-400 mcg-50 mcg tablet 1 tab PO DAILY Saccharomyces boulardii [Daily Probiotic (S. boulardii)] PO doxycycline hyclate 100 mg tablet 100 mg PO BID Qty: 16 0RF Trelegy Ellipta 200-62.5-25 mcg blister with device 1 inh inhalation DAILY Qty: 90 3RF Rx Instructions: Stop Advair. Take 1 puff daily methotrexate 2.5 mg PO 6XW PreserVision AREDS-2 250-90-40-1 mg tablet,chewable 1 tab PO QAM AND QPM Referrals: Henry Mendez DO [Primary Care Provider] - Stand Alone Forms: Patient Portal/API/Survey
--- NOTE | 2025-01-22 02:26 | EKG_ITS ---
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
--- NOTE | 2025-01-22 02:30 | DI.RAD.S_ITS ---
PROCEDURE: XR CHEST 1V INDICATIONS: palpitations TECHNIQUE: One view of the chest was acquired. COMPARISON: [facility], CR, XR CHEST 2V, 04/15/2024, 18:41. FINDINGS: Surgical changes and devices: Bilateral shoulder arthroplasty axillary surgical clips Lungs and pleura: Lungs are clear. No pleural effusions or pneumothorax. Mediastinum: Mediastinal contours appear normal. Heart size is normal. Bones and chest wall: No suspicious bony lesions. Overlying soft tissues appear unremarkable. IMPRESSION: No acute cardiopulmonary abnormality is seen. Approved by: Navi Carrillo M.D. on 01/22/2025 at 9:04
[2025-01-22] MEDS: MAGNESIUM SULFATE 2 GM/50 ML PIGGYBACK IV (02:45)
[2025-01-22] MEDS: SODIUM CHLORIDE 0.9% 1,000 ML 1000 ML IV (02:45)
[2025-01-22 02:47] LABS: Add Manual Diff / Slide Review NO; Basophils Absolute Auto 100 /uL (0-100); Basophils Percent Auto 1.1 % (0-2); Eosinophils Absolute Auto 200 /uL (0-450); Eosinophils Percent Auto 2.8 % (2-4); Hematocrit 41.5 % (36-46); Hemoglobin 14.1 g/dL (12.0-16.0); Lymphocytes Absolute Auto 1400 /uL (1100-4500); Lymphocytes Percent Auto 25.2 % (25-40); Mean Corpuscular HGB Conc 34.1 % (30-36); Mean Corpuscular Hemoglobin 30.1 PG (26-34); Mean Corpuscular Volume 88.3 fL (80-100); Monocytes Absolute Auto 400 /uL (0-900); Monocytes Percent Auto 7.6 % (3-14); Neutrophils Absolute Auto 3500 /uL (1500-7000); Neutrophils Percent Auto 63.3 % (50-75); Platelet Count 207 X10^3/uL (150-400); Red Cell Distribution Width 14.4 % (11.6-14.8); White Blood Cell Count 5.5 X10^3/uL (4.5-11.0)
[2025-01-22 03:01] LABS: Alanine Aminotransferase 22 IU/L (<35); Albumin 4.2 g/dL (3.5-5.0); Albumin Globulin Ratio 1.8 (1.0-2.8); Alkaline Phosphatase 111 U/L (38-126); Aspartate Aminotransferase 34 IU/L (14-36); BUN Creatinine Ratio 32.7 (6-22); Bilirubin Total 0.2 mg/dL (0.2-1.3); Blood Urea Nitrogen 18 mg/dL (7-17); Calcium 9.5 mg/dL (8.4-10.2); Carbon Dioxide 25 mmol/L (22-32); Chloride 104 mmol/L (98-107); Creatine Kinase 58 U/L (30-135); Estimated Glomerular Filt Rate > 60 mL/min (>60); Globulin 2.4 g/dL (1.7-4.1); Glucose 104 mg/dL (80-110); HEMOLYSIS < 15 (0-50); Lipase 61 U/L (23-300); Potassium 3.5 mmol/L (3.4-5.1); Sodium 139 mmol/L (137-145); Total Protein 6.6 g/dL (6.3-8.2)
[2025-01-22 03:02] LABS: Magnesium 1.7 mg/dL (1.6-2.3)
[2025-01-22 03:13] LABS: Troponin I < 0.012 ng/mL (0.01-0.034)
[2025-01-22 03:28] LABS: Influenza A - CEPHEID Flu A NEGATIVE (NEGATIVE); Influenza B - CEPHEID Flu B NEGATIVE (NEGATIVE); Respiratory Syncytial Virus Negative (Negative)
[2025-01-22 03:32] LABS: COVID-19 CEPHEID 4-PLEX PCR Negative (Negative)
[2025-01-22 03:33] LABS: Thyroid Stimulating Hormone 3.55 uIU/mL (0.47-4.68)
== END 2025-01-22 04:26 | disposition home or self-care (01) ==
PROVIDERS: Emergency Provider Student in an Organized Health Care Education/Training Program; Family Provider Family Medicine; PCP Family Medicine
DX: R00.2 Palpitations (principal); R00.0 Tachycardia, unspecified
CPT/HCPCS: 0241U; 36415; 71045; 80053; 82550; 83690; 83735; 84443; 84484; 85025; 93005; 96361; 96365; 99284; J3475

== ENCOUNTER 2025-01-25 13:00 | Outpatient (RCR) | payer MEDICARE, OTHER, SELFPAY ==
--- NOTE | 2024-09-01 17:20 | PT.OIE ---
Current Diagnoses Unilateral primary osteoarthritis, left knee (09/01/24) Soft tissue disorder, unspecified (09/01/24) Difficulty in walking, not elsewhere classified (09/01/24) Past Medical History (Last Updated 08/18/24 @ 13:22 by Henry Mendez DO) Abdominal wall hernia Abnormal heart rhythms All medications reviewed Arthralgia Arthritis Asthma Bilateral hand pain Blood pressure instability Body posture problem Breast cancer Cellulitis Cervical radiculopathy Cervical somatic dysfunction Choking due to phlegm Chronic cough Chronic diarrhea Chronic GERD Chronic pain of left knee Compression fracture (2002) Constipation Coronary artery disease COVID-19 vaccine series completed Cranial somatic dysfunction Diarrhea due to drug Discoloration of skin of lower leg Ear drainage right Easy bruisability Edema of left lower extremity Edema of right lower extremity Fatigue Former smoker H/O supraventricular tachycardia Has end of life care plan Hemorrhoid High serum high density lipoprotein (HDL) History of breast cancer History of transfusion (~2001) Hyponatremia Leg cramps, sleep related Lichen planus Low serum creatinine Lumbar region somatic dysfunction Lymphopenia Medication side effect Memory changes Nausea in adult patient Oral candidiasis Osteoarthritis Osteoarthritis cervical spine Osteoporosis Pelvic somatic dysfunction Phlegm in throat Postoperative edema Premature atrial contractions Problems related to lack of adequate sleep Pure hypercholesterolemia Rib fractures Right lower quadrant abdominal pain Sacral back pain Sacral region somatic dysfunction Segmental and somatic dysfunction of rib cage Sinus drainage Somatic dysfunction of lower extremity Stiff neck SVT (supraventricular tachycardia) Symptomatic cholelithiasis Thoracic region somatic dysfunction Upper extremity somatic dysfunction Vagina itching Weight loss, unintentional Past Surgical History (Last Reviewed 12/22/23 @ 17:59 by Charles Mora MD) History of foot surgery History of surgery (04/2019) Hx of appendectomy (1961) Hx of arthroscopy of shoulder (03/2005) Hx of lumpectomy (04/2001) Hx of repair of right rotator cuff (06/2006) Hx of toe surgery Hx of tonsillectomy (1948) S/P bilateral mastectomy (12/2001) Status post appendectomy Status post breast reconstruction (07/2019) Status post laparoscopic cholecystectomy Status post replacement of both shoulder joints Status post right knee replacement (10/2012) Status post tonsillectomy Status post total left knee replacement Visit Care Team Role Provider Type Henry Mendez DO Family Provider Physician Primary Care Provider Specialty: Family Practice Address: [address] [place] [address], [address] Email: Danie Meyer MD Attending Provider Non-Staff Referring Provider Specialty: Orthopedic Surgery Address: [address], [place], [address] Email: Physical Therapy Initial Evaluation PT-OP-A Visit Information Start: 08/31/24 16:40 Freq: Status: Active Protocol: Document 09/01/24 13:45 [facility]AK (Rec: 09/01/24 14:32 SAK [id number]) Out-Patient Physical Therapy Visit Information Visit Information Visit Type Initial Evaluation Visit Start Time 13:46 Visit Stop Time 14:35 Visit Number 1 Evaluation Information Evaluation Date 09/01/24 PT-OP-B Current Condition Start: 08/31/24 16:40 Freq: Status: Active Protocol: Document 09/01/24 13:45 SAK (Rec: 09/01/24 14:32 SAK [id number]) Current Condition History of Current Condition Onset Date 08/31/24 Current Complaints concern for left knee recovery . History of Current Condition arthroscopy for scar tissue removal yesterday left knee approx 1 year since TKA, states surgeon reported especially significant scarring proximal patella and lateral and medial knee. Before surgery 110 deg flexion , under anesthesia 130 deg. Taking Hydrocodone q 6 hrs and added baby aspirin 1 2x/day as instructed by physician. Minimal pain. Walking with cane mostly due to medication for stability. Has done a little exercise so far. Has iced a couple times. Denies N /T. 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, complicated recovery with continued pain, limited motion due to scar tissue Future Testing and Treatments Planned follow up with physician Treatment Goals Patient/Caregiver Goals Regain full active use of her left knee Prior Functional Status Baseline Function- ADL's Independent Baseline Function- Mobility Independent Baseline Function- Work/School ret Current Functional Impairments (Reported) Functional Limitations- ADL's limited ADL's Functional Limitations- Mobility/Gait WBOS sit to stand Personal Factors Other Personal Factors That May Effect lives alone Therapy/Recovery PT-OP-C Subjective Start: 08/31/24 16:40 Freq: Status: Active Protocol: Document 09/01/24 13:45 SAK (Rec: 09/01/24 16:56 SAK [id number]) Patient Questionnaires Lower Extremity Functional Scale LEFS Impairment 0% Impaired (Score 80) OP-PT Pain Assessment Location left knee Intensity 3 Description Aching,Pressure Home Pain Medication Use Pain Medications Used Yes Home Pain Medication Frequency Hydrocodone q 6h PT-OP-G Mobility & Gait Start: 08/31/24 16:40 Freq: Status: Active Protocol: Document 09/01/24 13:45 [facility] (Rec: 09/01/24 16:56 [facility] [id number]) OP Mobility Evaluation Transfers Sit to Stand very wide JEANNINE OP Gait Assessment Gait Gait Assistance Required: Independent Assistive Devices Assistive Device Straight Cane Orthotic/Prosthetic Devices or Brace: No Gait Deviations General Gait Pattern Decreased Stride Length, Decreased Feet Clearance Factors Limiting Gait Function Factors Limiting Gait Function Decreased Strength,Pain PT-OP-H Neuro Start: 08/31/24 16:40 Freq: Status: Active Protocol: Document 09/01/24 13:45 [facility] (Rec: 09/01/24 16:56 [facility] [id number]) Sensation Evaluation Gross Sensation Gross Sensation WNL PT-OP-J Posture/Palpation/Skin Start: 08/31/24 16:40 Freq: Status: Active Protocol: Document 09/01/24 13:45 [facility] (Rec: 09/01/24 16:56 [facility] [id number]) Skin Assessment Edema Assessment left knee Edema Degree 2+ Edema Appearance Puffy Subjective Edema Description Tightness Incisional Assessment Incision Appearance/Comments left knee arthroscopy incisions present, sutures in place, no signs or symptoms of infection Other Assessments Skin Assessment Comments Patient had blood on outer elastic bandage, soaked through post-op cast padding and gauze, removed and rebandaged by PT. PT-OP-K Range of Motion Start: 08/31/24 16:40 Freq: Status: Active Protocol: Document 09/01/24 13:45 [facility] (Rec: 09/01/24 16:56 [facility] [id number]) Knee Goniometric Range of Motion Knee Left Flexion Active (degrees) 100 Flexion Passive (degrees) 114 Extension Active (degrees) 0 Extension Passive (degrees) 0 right knee Flexion Active (degrees) 122 Extension Active (degrees) 0 Knee ROM Limitations Knee ROM Limitations Soft Tissue Tightness,Swelling Ankle and Foot Goniometric Range of Motion Ankle and Foot dominique Ankle/Foot ROM WFL Yes PT-OP-M Strength Start: 08/31/24 16:40 Freq: Status: Active Protocol: Document 09/01/24 13:45 [facility] (Rec: 09/01/24 16:56 [facility] [id number]) Knee Strength Knee Manual Muscle Testing Left Flexion (S2) 3+ Fair+ Extension (L3) 3- Fair- Comments no MMT due to recent surgery Right Flexion (S2) 5 Normal Extension (L3) 5 Normal PT-OP-R Modalities Start: 08/31/24 16:40 Freq: Status: Active Protocol: Document 09/01/24 13:45 [facility] (Rec: 09/01/24 16:56 [facility] [id number]) Hot Pack/Cold Pack Treatment left knee Location top and bottom Patient Position Hooklying Comments leg elevated via table and bolster elevation above her heart PT-OP-T Assessment and Plan Start: 08/31/24 16:40 Freq: Status: Active Protocol: Document 09/01/24 13:45 [facility] (Rec: 09/01/24 16:56 [facility] [id number]) Physical Therapy Assessment Rehab Potential Rehabilitation Potential Good Evaluation Complexity Number of Personal Factors/Comorbidities 1-2 Number of Body Systems Impaired 3 Clinical Presentation at Evaluation Evolving Impairments Impairments Gait,ROM Goals Three Impairment gait dysfunction Short Term Goal (STG) Patient will be able to ambulate on level surfaces without assistive device safely demonstrating normal flexion of knee and no limp STG Duration 10/02/24 Clay Puddler Goal (LTG) Patient will be able to ambulate on stairs with alternating pattern LTG Duration 11/01/24 Two Impairment Lower extremity functional scale 24% Short Term Goal (STG) Improve LEFS score to at least 50% as measure of improved left knee function and activity tolerance STG Duration 10/02/24 Clay Puddler Goal (LTG) Improve LEFS score to at least 75% as measure of improved left knee function and activity tolerance LTG Duration 11/01/24 One Impairment limited ROM and strength left knee Short Term Goal (STG) Patient to be instructed in HEP for purposes of ROM and strengthening left knee STG Duration 10/02/24 Assisted Goal (LTG) Patient to be independent and compliant with HEP and demonstrate full AROM 0-120, and strength at least 4+/5 left knee and fucntionally be able to transfer sit to stand with neutral alignment without use of UE's LTG Duration 11/01/24 Assessment Summary Assessment Patient presents to PT 1 day s /p scar tissue removal left knee. She is taking pain medication regularly and reports minimal pain, using cane primarily due to slight unsteadiness from medication. Dried blood evident on outer elasticized wrap, this was removed and bandaging noted to be fully soaked with blood in front, still moist inside bandaging though didn't appear to be actively bleeding . Bandaging replaced and elasticized bandage replaced. Called to inform surgeon. Patient scheduled to return to PT tomorrow to continue with early ROM exercises post op and check bandaging status as well. Patient initated on ROM exercises today, issued written instructions and her left knee was elevated and iced after session. Right knee active extension 0, active flexion 102, AAROM flexion 114 . Instructed to contact physician or go to ER if noted excess bleeding. Patient demonstrated good understanding. Denied increase in pain after PT. Appears highly motivated. POC was discussed and she was in agreement. Physical Therapy Plan Frequency and Duration Frequency of Treatment 2x/Week Duration of treatment (weeks) 8 Plan of Care Start Date 09/01/24 Plan of Care End Date 11/01/24 Therapeutic Interventions Therapeutic Interventions Gait Training,Home Exercise Program,Manual Therapy,Patient /Caregiver Education,Self-Care /Home Management,Soft Tissue Mobilization,Taping, Therapeutic Activities, Therapeutic Exercises Modalities Cold Pack/Ice Massage,Electric Stimulation Next Visit Focus/Plan Next Note Type Treatment Note Next Visit Plan Check bandage and incision status, rebandage as necessary . Left knee ROM exercises starting on recumbant bicycle, gait training, sit to stand starting with high mat table, lowering as tolerated
--- NOTE | 2024-09-02 17:13 | PT.OTN ---
Current Diagnoses Unilateral primary osteoarthritis, left knee (09/02/24) Soft tissue disorder, unspecified (09/02/24) Difficulty in walking, not elsewhere classified (09/02/24) Physical Therapy Treatment Note PT-OP-A Visit Information Start: 08/31/24 16:40 Freq: Status: Active Protocol: Document 09/02/24 15:30 NBM (Rec: 09/02/24 17:12 NBM [id number]) Out-Patient Physical Therapy Visit Information Visit Information Visit Type Treatment Note Visit Start Time 15:30 Visit Stop Time 16:20 Visit Number 2 Number of ASPARAGUS CUTTER Visits 1 Evaluation Information Evaluation Date 09/01/24 PT-OP-B Current Condition Start: 08/31/24 16:40 Freq: Status: Active Protocol: Document 09/01/24 13:45 SAK (Rec: 09/01/24 14:32 SAK [id number]) Current Condition History of Current Condition Onset Date 08/31/24 Current Complaints concern for left knee recovery . History of Current Condition arthroscopy for scar tissue removal yesterday left knee approx 1 year since TKA, states surgeon reported especially significant scarring proximal patella and lateral and medial knee. Before surgery 110 deg flexion , under anesthesia 130 deg. Taking Hydrocodone q 6 hrs and added baby aspirin 1 2x/day as instructed by physician. Minimal pain. Walking with cane mostly due to medication for stability. Has done a little exercise so far. Has iced a couple times. Denies N /T. 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, complicated recovery with continued pain, limited motion due to scar tissue Future Testing and Treatments Planned follow up with physician Treatment Goals Patient/Caregiver Goals Regain full active use of her left knee Prior Functional Status Baseline Function- ADL's Independent Baseline Function- Mobility Independent Baseline Function- Work/School ret Current Functional Impairments (Reported) Functional Limitations- ADL's limited ADL's Functional Limitations- Mobility/Gait WBOS sit to stand Personal Factors Other Personal Factors That May Effect lives alone Therapy/Recovery PT-OP-C Subjective Start: 08/31/24 16:40 Freq: Status: Active Protocol: Document 09/02/24 15:30 NBM (Rec: 09/02/24 17:12 NBM [id number]) OP-PT Subjective Patient Comments Patient Comments Katerina reports she is surprised she has no pain and has gone from taking pain medication from every 6 hours to every 8 hours today without issue. She was able to get in and out of car multiple times without issue so thinks her range is better but she did miss her cane walking from car to clinic. She hasn't had any bleeding through bandage and her surgeon's office called her to follow up in response to PT's message about bleeding through yesterday. She has post-op 09/13 and f/u with DO on 10/09, and reports issues controlling edema with past surgeries. She was surprised how swollen her leg got yesterday at home and tried re -wrapping the [place] bandage but it was still uncomfortable behind her leg. She brings list of ex's and has questions . Patient Reported Progress Improving PT-OP-G Mobility & Gait Start: 08/31/24 16:40 Freq: Status: Active Protocol: Document 09/01/24 13:45 SAK (Rec: 09/01/24 16:56 [facility] [id number]) OP Mobility Evaluation Transfers Sit to Stand very wide JEANNINE OP Gait Assessment Gait Gait Assistance Required: Independent Assistive Devices Assistive Device Straight Cane Orthotic/Prosthetic Devices or Brace: No Gait Deviations General Gait Pattern Decreased Stride Length, Decreased Feet Clearance Factors Limiting Gait Function Factors Limiting Gait Function Decreased Strength,Pain PT-OP-H Neuro Start: 08/31/24 16:40 Freq: Status: Active Protocol: Document 09/01/24 13:45 SAK (Rec: 09/01/24 16:56 [facility] [id number]) Sensation Evaluation Gross Sensation Gross Sensation WNL PT-OP-J Posture/Palpation/Skin Start: 08/31/24 16:40 Freq: Status: Active Protocol: Document 09/01/24 13:45 SAK (Rec: 09/01/24 16:56 [facility] [id number]) Skin Assessment Edema Assessment left knee Edema Degree 2+ Edema Appearance Puffy Subjective Edema Description Tightness Incisional Assessment Incision Appearance/Comments left knee arthroscopy incisions present, sutures in place, no signs or symptoms of infection Other Assessments Skin Assessment Comments Patient had blood on outer elastic bandage, soaked through post-op cast padding and gauze, removed and rebandaged by PT. PT-OP-K Range of Motion Start: 08/31/24 16:40 Freq: Status: Active Protocol: Document 09/01/24 13:45 SAK (Rec: 09/01/24 16:56 [facility] [id number]) Knee Goniometric Range of Motion Knee Left Flexion Active (degrees) 100 Flexion Passive (degrees) 114 Extension Active (degrees) 0 Extension Passive (degrees) 0 right knee Flexion Active (degrees) 122 Extension Active (degrees) 0 Knee ROM Limitations Knee ROM Limitations Soft Tissue Tightness,Swelling Ankle and Foot Goniometric Range of Motion Ankle and Foot dominique Ankle/Foot ROM WFL Yes PT-OP-M Strength Start: 08/31/24 16:40 Freq: Status: Active Protocol: Document 09/01/24 13:45 SAK (Rec: 09/01/24 16:56 SAK [id number]) Knee Strength Knee Manual Muscle Testing Left Flexion (S2) 3+ Fair+ Extension (L3) 3- Fair- Comments no MMT due to recent surgery Right Flexion (S2) 5 Normal Extension (L3) 5 Normal PT-OP-Q Treatments Start: 08/31/24 16:40 Freq: Status: Active Protocol: Document 09/02/24 15:30 NBM (Rec: 09/02/24 17:12 NBM [id number]) Self-Care/Home Management Treatment Education Patient Education Home Exercise Program,Joint Protection,Safety Other Education -Bandage is inspected and appears dry, and pt also reports feels dry on inside, so guaze bandage not replaced today. [place] bandage re-wrapped prior to HEP review. -HEP review. -Significant time spent discussing pt's home setup for elevating L lower limb above heart, and using ankle pumps followed by quad sets for edema control. PT-OP-R Modalities Start: 08/31/24 16:40 Freq: Status: Active Protocol: Document 09/01/24 13:45 [facility] (Rec: 09/01/24 16:56 [facility] [id number]) Hot Pack/Cold Pack Treatment left knee Location top and bottom Patient Position Hooklying Comments leg elevated via table and bolster elevation above her heart PT-OP-T Assessment and Plan Start: 08/31/24 16:40 Freq: Status: Active Protocol: Document 09/02/24 15:30 NBM (Rec: 09/02/24 17:12 NBM [id number]) Physical Therapy Assessment Goals Three Impairment gait dysfunction Short Term Goal (STG) Patient will be able to ambulate on level surfaces without assistive device safely demonstrating normal flexion of knee and no limp STG Duration 10/02/24 Prison Goal (LTG) Patient will be able to ambulate on stairs with alternating pattern LTG Duration 11/01/24 Two Impairment Lower extremity functional scale 24% Short Term Goal (STG) Improve LEFS score to at least 50% as measure of improved left knee function and activity tolerance STG Duration 10/02/24 Prison Goal (LTG) Improve LEFS score to at least 75% as measure of improved left knee function and activity tolerance LTG Duration 11/01/24 One Impairment limited ROM and strength left knee Short Term Goal (STG) Patient to be instructed in HEP for purposes of ROM and strengthening left knee STG Duration 10/02/24 Prison Goal (LTG) Patient to be independent and compliant with HEP and demonstrate full AROM 0-120, and strength at least 4+/5 left knee and fucntionally be able to transfer sit to stand with neutral alignment without use of UE's LTG Duration 11/01/24 Assessment Summary Assessment Katerina presents without AD and with list of ex's. Treatment session focus on examiniation of bandaging, education for edema control and HEP review. Bandage is inspected and appears dry, and pt also reports feels dry on inside, so guaze bandage not replaced today. [place] bandage re-wrapped prior to HEP review. Significant time spent discussing pt's home setup for elevating L lower limb above heart, and using ankle pumps followed by quad sets for edema control. She is advised to perform 10 reps of each ex on list provided 10 except Seated knee bend and gravity- assisted knee bends to be performed 2-3 x/day as indicated. Katerina requires cues for quad set prior to Straight Leg Raise but performance improves with initial cueing. She also requires initial cue for maintaining LE alignment with seated knee bend. Heel slide ROM observably improves with cueing for breathwork; ROM improves to 114 deg active and 116 passive in hooklying. Ice applied anteriorly and posteriorly in 90/90 position end of session for pain management and edema control. Physical Therapy Plan Frequency and Duration Frequency of Treatment 2x/Week Duration of treatment (weeks) 8 Plan of Care Start Date 09/01/24 Plan of Care End Date 11/01/24 Therapeutic Interventions Therapeutic Interventions Gait Training,Home Exercise Program,Manual Therapy,Patient /Caregiver Education,Self-Care /Home Management,Soft Tissue Mobilization,Taping, Therapeutic Activities, Therapeutic Exercises Modalities Cold Pack/Ice Massage,Electric Stimulation Next Visit Focus/Plan Next Note Type Treatment Note Next Visit Plan Check bandage and incision status, rebandage as necessary . Left knee ROM exercises starting on recumbant bicycle, gait training, sit to stand starting with high mat table, lowering as tolerated
--- NOTE | 2024-09-06 17:10 | PT.OTN ---
Current Diagnoses Unilateral primary osteoarthritis, left knee (09/06/24) Soft tissue disorder, unspecified (09/06/24) Difficulty in walking, not elsewhere classified (09/06/24) Physical Therapy Treatment Note PT-OP-A Visit Information Start: 08/31/24 16:40 Freq: Status: Active Protocol: Document 09/06/24 15:58 SAK (Rec: 09/06/24 17:09 SAK [id number]) Out-Patient Physical Therapy Visit Information Visit Information Visit Type Treatment Note Visit Start Time 16:00 Visit Number 4 Number of EXAMINING OFFICER Visits 0 PT-OP-B Current Condition Start: 08/31/24 16:40 Freq: Status: Active Protocol: Document 09/01/24 13:45 SAK (Rec: 09/01/24 14:32 SAK [id number]) Current Condition History of Current Condition Onset Date 08/31/24 Current Complaints concern for left knee recovery . History of Current Condition arthroscopy for scar tissue removal yesterday left knee approx 1 year since TKA, states surgeon reported especially significant scarring proximal patella and lateral and medial knee. Before surgery 110 deg flexion , under anesthesia 130 deg. Taking Hydrocodone q 6 hrs and added baby aspirin 1 2x/day as instructed by physician. Minimal pain. Walking with cane mostly due to medication for stability. Has done a little exercise so far. Has iced a couple times. Denies N /T. 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, complicated recovery with continued pain, limited motion due to scar tissue Future Testing and Treatments Planned follow up with physician Treatment Goals Patient/Caregiver Goals Regain full active use of her left knee Prior Functional Status Baseline Function- ADL's Independent Baseline Function- Mobility Independent Baseline Function- Work/School ret Current Functional Impairments (Reported) Functional Limitations- ADL's limited ADL's Functional Limitations- Mobility/Gait WBOS sit to stand Personal Factors Other Personal Factors That May Effect lives alone Therapy/Recovery PT-OP-C Subjective Start: 08/31/24 16:40 Freq: Status: Active Protocol: Document 09/06/24 15:58 SAK (Rec: 09/06/24 17:09 SAK [id number]) OP-PT Subjective Patient Comments Patient Comments Patient reports no pain medication, loosening and sliding of bandages. Follow up with physician 09/14/24 PT-OP-G Mobility & Gait Start: 08/31/24 16:40 Freq: Status: Active Protocol: Document 09/01/24 13:45 [facility] (Rec: 09/01/24 16:56 [facility] [id number]) OP Mobility Evaluation Transfers Sit to Stand very wide JEANNINE OP Gait Assessment Gait Gait Assistance Required: Independent Assistive Devices Assistive Device Straight Cane Orthotic/Prosthetic Devices or Brace: No Gait Deviations General Gait Pattern Decreased Stride Length, Decreased Feet Clearance Factors Limiting Gait Function Factors Limiting Gait Function Decreased Strength,Pain PT-OP-H Neuro Start: 08/31/24 16:40 Freq: Status: Active Protocol: Document 09/01/24 13:45 SAK (Rec: 09/01/24 16:56 [facility] [id number]) Sensation Evaluation Gross Sensation Gross Sensation WNL PT-OP-J Posture/Palpation/Skin Start: 08/31/24 16:40 Freq: Status: Active Protocol: Document 09/01/24 13:45 SAK (Rec: 09/01/24 16:56 [facility] [id number]) Skin Assessment Edema Assessment left knee Edema Degree 2+ Edema Appearance Puffy Subjective Edema Description Tightness Incisional Assessment Incision Appearance/Comments left knee arthroscopy incisions present, sutures in place, no signs or symptoms of infection Other Assessments Skin Assessment Comments Patient had blood on outer elastic bandage, soaked through post-op cast padding and gauze, removed and rebandaged by PT. PT-OP-K Range of Motion Start: 08/31/24 16:40 Freq: Status: Active Protocol: Document 09/01/24 13:45 [facility] (Rec: 09/01/24 16:56 [facility] [id number]) Knee Goniometric Range of Motion Knee Left Flexion Active (degrees) 100 Flexion Passive (degrees) 114 Extension Active (degrees) 0 Extension Passive (degrees) 0 right knee Flexion Active (degrees) 122 Extension Active (degrees) 0 Knee ROM Limitations Knee ROM Limitations Soft Tissue Tightness,Swelling Ankle and Foot Goniometric Range of Motion Ankle and Foot dominique Ankle/Foot ROM WFL Yes PT-OP-M Strength Start: 08/31/24 16:40 Freq: Status: Active Protocol: Document 09/01/24 13:45 SAK (Rec: 09/01/24 16:56 [facility] [id number]) Knee Strength Knee Manual Muscle Testing Left Flexion (S2) 3+ Fair+ Extension (L3) 3- Fair- Comments no MMT due to recent surgery Right Flexion (S2) 5 Normal Extension (L3) 5 Normal PT-OP-Q Treatments Start: 08/31/24 16:40 Freq: Status: Active Protocol: Document 09/06/24 15:58 [facility] (Rec: 09/06/24 17:09 [facility] [id number]) Cardio Equipment Bicycle (Upright) Duration (Minutes) 5 Resistance 0 Seat Position 7-6 Therapeutic Exercises Supine Exercises SLR Reps/Minutes 10x gravity assisted knee flex Reps/Minutes 5x10 heel slide Reps/Minutes 10x Comments 55 cm therapy ball and gait belt quads sets Reps/Minutes 10x Sitting Exercises chair scoot stretch Reps/Minutes 5x10 Self-Care/Home Management Treatment Education Patient Education Home Exercise Program Other Education ice and elevate above heart. Bandaging replaced with 2 4x4' s and Kerlix wrap, topped by elastic wrap. Replaced due to bandaging sliding down and causing discomfort. Importance of early ROM stressed to patient, consider taking pain meds prior to PT. PT-OP-R Modalities Start: 08/31/24 16:40 Freq: Status: Active Protocol: Document 09/06/24 15:58 [facility] (Rec: 09/06/24 17:09 [facility] [id number]) Hot Pack/Cold Pack Treatment left knee Location top and bottom Patient Position Hooklying Comments leg elevated via table and bolster elevation above her heart PT-OP-T Assessment and Plan Start: 08/31/24 16:40 Freq: Status: Active Protocol: Document 09/06/24 15:58 [facility] (Rec: 09/06/24 17:09 [facility] [id number]) Physical Therapy Assessment Goals Three Impairment gait dysfunction Short Term Goal (STG) Patient will be able to ambulate on level surfaces without assistive device safely demonstrating normal flexion of knee and no limp STG Duration 10/02/24 Tank House Supervisor Goal (LTG) Patient will be able to ambulate on stairs with alternating pattern LTG Duration 11/01/24 Two Impairment Lower extremity functional scale 24% Short Term Goal (STG) Improve LEFS score to at least 50% as measure of improved left knee function and activity tolerance STG Duration 10/02/24 Tank House Supervisor Goal (LTG) Improve LEFS score to at least 75% as measure of improved left knee function and activity tolerance LTG Duration 11/01/24 One Impairment limited ROM and strength left knee Short Term Goal (STG) Patient to be instructed in HEP for purposes of ROM and strengthening left knee STG Duration 10/02/24 Correction Goal (LTG) Patient to be independent and compliant with HEP and demonstrate full AROM 0-120, and strength at least 4+/5 left knee and fucntionally be able to transfer sit to stand with neutral alignment without use of UE's LTG Duration 11/01/24 Assessment Summary Assessment Knee flexion 118 deg with chair scoot end of session. updated written HEP (patient writing down for self due to computer issues for PT) Physical Therapy Plan Frequency and Duration Frequency of Treatment 2x/Week Duration of treatment (weeks) 8 Plan of Care Start Date 09/01/24 Plan of Care End Date 11/01/24 Therapeutic Interventions Therapeutic Interventions Gait Training,Home Exercise Program,Manual Therapy,Patient /Caregiver Education,Self-Care /Home Management,Soft Tissue Mobilization,Taping, Therapeutic Activities, Therapeutic Exercises Modalities Cold Pack/Ice Massage,Electric Stimulation Next Visit Focus/Plan Next Note Type Treatment Note Next Visit Plan Start with upright bicycle, dec height as able for stretch 10 min. Stair lunge, shuttle leg press dominique and unil, wall slide for knee flex on shuttle leg press
--- NOTE | 2024-09-08 16:32 | PT.OTN ---
Current Diagnoses Unilateral primary osteoarthritis, left knee (09/08/24) Soft tissue disorder, unspecified (09/08/24) Difficulty in walking, not elsewhere classified (09/08/24) Physical Therapy Treatment Note PT-OP-A Visit Information Start: 08/31/24 16:40 Freq: Status: Active Protocol: Document 09/08/24 12:12 AB (Rec: 09/08/24 16:31 AB [id number]) Out-Patient Physical Therapy Visit Information Visit Information Visit Type Treatment Note Visit Start Time 13:47 Visit Stop Time 14:44 Visit Number 4 Number of HAT SIZER Visits 1 Evaluation Information Evaluation Date 09/01/24 PT-OP-B Current Condition Start: 08/31/24 16:40 Freq: Status: Active Protocol: Document 09/01/24 13:45 SAK (Rec: 09/01/24 14:32 SAK [id number]) Current Condition History of Current Condition Onset Date 08/31/24 Current Complaints concern for left knee recovery . History of Current Condition arthroscopy for scar tissue removal yesterday left knee approx 1 year since TKA, states surgeon reported especially significant scarring proximal patella and lateral and medial knee. Before surgery 110 deg flexion , under anesthesia 130 deg. Taking Hydrocodone q 6 hrs and added baby aspirin 1 2x/day as instructed by physician. Minimal pain. Walking with cane mostly due to medication for stability. Has done a little exercise so far. Has iced a couple times. Denies N /T. 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, complicated recovery with continued pain, limited motion due to scar tissue Future Testing and Treatments Planned follow up with physician Treatment Goals Patient/Caregiver Goals Regain full active use of her left knee Prior Functional Status Baseline Function- ADL's Independent Baseline Function- Mobility Independent Baseline Function- Work/School ret Current Functional Impairments (Reported) Functional Limitations- ADL's limited ADL's Functional Limitations- Mobility/Gait WBOS sit to stand Personal Factors Other Personal Factors That May Effect lives alone Therapy/Recovery PT-OP-C Subjective Start: 08/31/24 16:40 Freq: Status: Active Protocol: Document 09/08/24 12:12 AB (Rec: 09/08/24 16:31 AB [id number]) OP-PT Subjective Patient Comments Patient Comments Patient reports she was only able to perform HEP once yesterday. 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 PT-OP-G Mobility & Gait Start: 08/31/24 16:40 Freq: Status: Active Protocol: Document 09/01/24 13:45 [facility] (Rec: 09/01/24 16:56 [facility] [id number]) OP Mobility Evaluation Transfers Sit to Stand very wide JEANNINE OP Gait Assessment Gait Gait Assistance Required: Independent Assistive Devices Assistive Device Straight Cane Orthotic/Prosthetic Devices or Brace: No Gait Deviations General Gait Pattern Decreased Stride Length, Decreased Feet Clearance Factors Limiting Gait Function Factors Limiting Gait Function Decreased Strength,Pain PT-OP-H Neuro Start: 08/31/24 16:40 Freq: Status: Active Protocol: Document 09/01/24 13:45 [facility] (Rec: 09/01/24 16:56 [facility] [id number]) Sensation Evaluation Gross Sensation Gross Sensation WNL PT-OP-J Posture/Palpation/Skin Start: 08/31/24 16:40 Freq: Status: Active Protocol: Document 09/01/24 13:45 [facility] (Rec: 09/01/24 16:56 [facility] [id number]) Skin Assessment Edema Assessment left knee Edema Degree 2+ Edema Appearance Puffy Subjective Edema Description Tightness Incisional Assessment Incision Appearance/Comments left knee arthroscopy incisions present, sutures in place, no signs or symptoms of infection Other Assessments Skin Assessment Comments Patient had blood on outer elastic bandage, soaked through post-op cast padding and gauze, removed and rebandaged by PT. PT-OP-K Range of Motion Start: 08/31/24 16:40 Freq: Status: Active Protocol: Document 09/01/24 13:45 [facility] (Rec: 09/01/24 16:56 [facility] [id number]) Knee Goniometric Range of Motion Knee Left Flexion Active (degrees) 100 Flexion Passive (degrees) 114 Extension Active (degrees) 0 Extension Passive (degrees) 0 right knee Flexion Active (degrees) 122 Extension Active (degrees) 0 Knee ROM Limitations Knee ROM Limitations Soft Tissue Tightness,Swelling Ankle and Foot Goniometric Range of Motion Ankle and Foot dominique Ankle/Foot ROM WFL Yes PT-OP-M Strength Start: 08/31/24 16:40 Freq: Status: Active Protocol: Document 09/01/24 13:45 SAK (Rec: 09/01/24 16:56 SAK [id number]) Knee Strength Knee Manual Muscle Testing Left Flexion (S2) 3+ Fair+ Extension (L3) 3- Fair- Comments no MMT due to recent surgery Right Flexion (S2) 5 Normal Extension (L3) 5 Normal PT-OP-Q Treatments Start: 08/31/24 16:40 Freq: Status: Active Protocol: Document 09/08/24 12:12 AB (Rec: 09/08/24 16:31 AB [id number]) Cardio Equipment Recumbent Elliptical (Biodex) Duration (Minutes) 5 Resistance 1 Seat Position 12,13 Bicycle (Upright) Duration (Minutes) 10 Resistance 0 Seat Position 7-6 Therapeutic Exercises Supine Exercises ankle pumps Reps/Minutes X20 short arc quad Reps/Minutes X10 SLR Reps/Minutes 10x gravity assisted knee flex Reps/Minutes 2X10 on press board 2 min hang then X10 X2 heel slide Supine Exercise Name AROM Reps/Minutes x12 PT-OP-R Modalities Start: 08/31/24 16:40 Freq: Status: Active Protocol: Document 09/08/24 12:12 AB (Rec: 09/08/24 16:31 AB [id number]) Hot Pack/Cold Pack Treatment left knee Location top and bottom Patient Position Hooklying Comments leg elevated via table and bolster elevation above her heart PT-OP-T Assessment and Plan Start: 08/31/24 16:40 Freq: Status: Active Protocol: Document 09/08/24 12:12 AB (Rec: 09/08/24 16:31 AB [id number]) Physical Therapy Assessment Goals Three Impairment gait dysfunction Short Term Goal (STG) Patient will be able to ambulate on level surfaces without assistive device safely demonstrating normal flexion of knee and no limp STG Duration 10/02/24 Corrections Sergeant Goal (LTG) Patient will be able to ambulate on stairs with alternating pattern LTG Duration 11/01/24 Two Impairment Lower extremity functional scale 24% Short Term Goal (STG) Improve LEFS score to at least 50% as measure of improved left knee function and activity tolerance STG Duration 10/02/24 Corrections Sergeant Goal (LTG) Improve LEFS score to at least 75% as measure of improved left knee function and activity tolerance LTG Duration 11/01/24 One Impairment limited ROM and strength left knee Short Term Goal (STG) Patient to be instructed in HEP for purposes of ROM and strengthening left knee STG Duration 10/02/24 Corrections Sergeant Goal (LTG) Patient to be independent and compliant with HEP and demonstrate full AROM 0-120, and strength at least 4+/5 left knee and fucntionally be able to transfer sit to stand with neutral alignment without use of UE's LTG Duration 11/01/24 Assessment Summary Assessment 117 deg AROM left knee flexion end of session rating pain 0/ 10. Physical Therapy Plan Frequency and Duration Frequency of Treatment 2x/Week Duration of treatment (weeks) 8 Plan of Care Start Date 09/01/24 Plan of Care End Date 11/01/24 Next Visit Focus/Plan Next Note Type Treatment Note Next Visit Plan Start with upright bicycle, dec height as able for stretch 10 min. Stair lunge, shuttle leg press dominique and unil, wall slide for knee flex on shuttle leg press
--- NOTE | 2024-09-12 16:30 | PT.OTN ---
Current Diagnoses Unilateral primary osteoarthritis, left knee (09/12/24) Soft tissue disorder, unspecified (09/12/24) Difficulty in walking, not elsewhere classified (09/12/24) Physical Therapy Treatment Note PT-OP-A Visit Information Start: 08/31/24 16:40 Freq: Status: Active Protocol: Document 09/12/24 13:51 SAK (Rec: 09/12/24 14:32 [facility] [id number]) Out-Patient Physical Therapy Visit Information Visit Information Visit Type Treatment Note Visit Start Time 13:47 Visit Stop Time 14:40 Visit Number 5 Number of TRAFFIC RATE COMPUTER Visits 0 Evaluation Information Evaluation Date 09/01/24 PT-OP-B Current Condition Start: 08/31/24 16:40 Freq: Status: Active Protocol: Document 09/12/24 13:51 SAK (Rec: 09/12/24 14:32 [facility] [id number]) Current Condition History of Current Condition Onset Date 08/31/24 Current Complaints concern for left knee recovery . History of Current Condition arthroscopy for scar tissue removal yesterday left knee approx 1 year since TKA, states surgeon reported especially significant scarring proximal patella and lateral and medial knee. Before surgery 110 deg flexion , under anesthesia 130 deg. Taking Hydrocodone q 6 hrs and added baby aspirin 1 2x/day as instructed by physician. Minimal pain. Walking with cane mostly due to medication for stability. Has done a little exercise so far. Has iced a couple times. Denies N /T. 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, complicated recovery with continued pain, limited motion due to scar tissue Future Testing and Treatments Planned follow up with physician PT-OP-C Subjective Start: 08/31/24 16:40 Freq: Status: Active Protocol: Document 09/12/24 13:51 SAK (Rec: 09/12/24 14:32 SAK [id number]) OP-PT Subjective Patient Comments Patient Comments Sees ortho PA on . Reports feeling knee doing well, was able to take shower, covered incision. PT-OP-G Mobility & Gait Start: 08/31/24 16:40 Freq: Status: Active Protocol: Document 09/01/24 13:45 SAK (Rec: 09/01/24 16:56 SAK [id number]) OP Mobility Evaluation Transfers Sit to Stand very wide JEANNINE OP Gait Assessment Gait Gait Assistance Required: Independent Assistive Devices Assistive Device Straight Cane Orthotic/Prosthetic Devices or Brace: No Gait Deviations General Gait Pattern Decreased Stride Length, Decreased Feet Clearance Factors Limiting Gait Function Factors Limiting Gait Function Decreased Strength,Pain PT-OP-H Neuro Start: 08/31/24 16:40 Freq: Status: Active Protocol: Document 09/01/24 13:45 SAK (Rec: 09/01/24 16:56 [facility] [id number]) Sensation Evaluation Gross Sensation Gross Sensation WNL PT-OP-J Posture/Palpation/Skin Start: 08/31/24 16:40 Freq: Status: Active Protocol: Document 09/01/24 13:45 [facility] (Rec: 09/01/24 16:56 [facility] [id number]) Skin Assessment Edema Assessment left knee Edema Degree 2+ Edema Appearance Puffy Subjective Edema Description Tightness Incisional Assessment Incision Appearance/Comments left knee arthroscopy incisions present, sutures in place, no signs or symptoms of infection Other Assessments Skin Assessment Comments Patient had blood on outer elastic bandage, soaked through post-op cast padding and gauze, removed and rebandaged by PT. PT-OP-K Range of Motion Start: 08/31/24 16:40 Freq: Status: Active Protocol: Document 09/01/24 13:45 [facility] (Rec: 09/01/24 16:56 [facility] [id number]) Knee Goniometric Range of Motion Knee Left Flexion Active (degrees) 100 Flexion Passive (degrees) 114 Extension Active (degrees) 0 Extension Passive (degrees) 0 right knee Flexion Active (degrees) 122 Extension Active (degrees) 0 Knee ROM Limitations Knee ROM Limitations Soft Tissue Tightness,Swelling Ankle and Foot Goniometric Range of Motion Ankle and Foot dominique Ankle/Foot ROM WFL Yes PT-OP-M Strength Start: 08/31/24 16:40 Freq: Status: Active Protocol: Document 09/01/24 13:45 [facility] (Rec: 09/01/24 16:56 [facility] [id number]) Knee Strength Knee Manual Muscle Testing Left Flexion (S2) 3+ Fair+ Extension (L3) 3- Fair- Comments no MMT due to recent surgery Right Flexion (S2) 5 Normal Extension (L3) 5 Normal PT-OP-Q Treatments Start: 08/31/24 16:40 Freq: Status: Active Protocol: Document 09/12/24 13:51 SAK (Rec: 09/12/24 14:32 [facility] [id number]) Cardio Equipment Bicycle (Upright) Duration (Minutes) 10 Resistance 0 Seat Position 7-6 Gym Equipment Shuttle Recovery Unilateral Squats Resistance 25 Reps/Time 10x1 Bilateral Squats Resistance 50 Reps/Time 10x1 Therapeutic Exercises Supine Exercises ankle pumps Supine Exercise Name HEP short arc quad Supine Exercise Name HEP SLR Supine Exercise Name HEP gravity assisted knee flex Equipment Used 2#, 3# Reps/Minutes 5x30 heel slide Supine Exercise Name HEP Sitting Exercises hamstring curl Equipment Used L1 TB Reps/Minutes 12x5 sit to stand Reps/Minutes 5x chair scoot stretch Reps/Minutes 2x10 Standing Exercises stair lunge Comments next session quad stretch Standing Exercise Name chair Comments Next session Manual Therapy Treatment Consent Patient gave verbal consent for manual Yes treatment Soft Tissue Mobilization 1 Body Location left quad, IT band Mobilization Type Instrument Assisted,Myofascial Release,Strumming Intensity/Depth Moderate Body Position Hooklying Comments rolling pin; shown how to use at home Joint Mobilizations patellar Comments next session Other Other Manual Treatments contract/relax to increase knee flex Self-Care/Home Management Treatment Education Patient Education Home Exercise Program PT-OP-R Modalities Start: 08/31/24 16:40 Freq: Status: Active Protocol: Document 09/12/24 13:51 [facility] (Rec: 09/12/24 14:32 [facility] [id number]) Hot Pack/Cold Pack Treatment left knee Location top and bottom Patient Position Hooklying Comments leg elevated via table and bolster elevation above her heart PT-OP-T Assessment and Plan Start: 08/31/24 16:40 Freq: Status: Active Protocol: Document 09/12/24 13:51 [facility] (Rec: 09/12/24 14:32 [facility] [id number]) Physical Therapy Assessment Goals Three Impairment gait dysfunction Short Term Goal (STG) Patient will be able to ambulate on level surfaces without assistive device safely demonstrating normal flexion of knee and no limp STG Duration 10/02/24 Fpc Goal (LTG) Patient will be able to ambulate on stairs with alternating pattern LTG Duration 11/01/24 Two Impairment Lower extremity functional scale 24% Short Term Goal (STG) Improve LEFS score to at least 50% as measure of improved left knee function and activity tolerance STG Duration 10/02/24 Fpc Goal (LTG) Improve LEFS score to at least 75% as measure of improved left knee function and activity tolerance LTG Duration 11/01/24 One Impairment limited ROM and strength left knee Short Term Goal (STG) Patient to be instructed in HEP for purposes of ROM and strengthening left knee STG Duration 10/02/24 Fpc Goal (LTG) Patient to be independent and compliant with HEP and demonstrate full AROM 0-120, and strength at least 4+/5 left knee and fucntionally be able to transfer sit to stand with neutral alignment without use of UE's LTG Duration 11/01/24 Assessment Summary Assessment left knee PROM 121 end of session. Benefited from contract relax technique. Compliant to HEP Physical Therapy Plan Frequency and Duration Frequency of Treatment 2x/Week Duration of treatment (weeks) 8 Plan of Care Start Date 09/01/24 Plan of Care End Date 11/01/24 Therapeutic Interventions Therapeutic Interventions Gait Training,Home Exercise Program,Manual Therapy,Patient /Caregiver Education,Self-Care /Home Management,Soft Tissue Mobilization,Taping, Therapeutic Activities, Therapeutic Exercises Modalities Cold Pack/Ice Massage,Electric Stimulation Next Visit Focus/Plan Next Note Type Treatment Note Next Visit Plan Continue PT for left knee to maximize ROM and strengthen in new ROM.
--- NOTE | 2024-09-15 16:20 | PT.OTN ---
Current Diagnoses Unilateral primary osteoarthritis, left knee (09/15/24) Soft tissue disorder, unspecified (09/15/24) Difficulty in walking, not elsewhere classified (09/15/24) Physical Therapy Treatment Note PT-OP-A Visit Information Start: 08/31/24 16:40 Freq: Status: Active Protocol: Document 09/15/24 13:12 AB (Rec: 09/15/24 16:19 AB [id number]) Out-Patient Physical Therapy Visit Information Visit Information Visit Type Treatment Note Visit Start Time 13:50 Visit Stop Time 14:44 Visit Number 6 Number of DECAL CUTTER Visits 1 Evaluation Information Evaluation Date 09/01/24 PT-OP-B Current Condition Start: 08/31/24 16:40 Freq: Status: Active Protocol: Document 09/12/24 13:51 [facility] (Rec: 09/12/24 14:32 SAK [id number]) Current Condition History of Current Condition Onset Date 08/31/24 Current Complaints concern for left knee recovery . History of Current Condition arthroscopy for scar tissue removal yesterday left knee approx 1 year since TKA, states surgeon reported especially significant scarring proximal patella and lateral and medial knee. Before surgery 110 deg flexion , under anesthesia 130 deg. Taking Hydrocodone q 6 hrs and added baby aspirin 1 2x/day as instructed by physician. Minimal pain. Walking with cane mostly due to medication for stability. Has done a little exercise so far. Has iced a couple times. Denies N /T. 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, complicated recovery with continued pain, limited motion due to scar tissue Future Testing and Treatments Planned follow up with physician PT-OP-C Subjective Start: 08/31/24 16:40 Freq: Status: Active Protocol: Document 09/15/24 13:12 AB (Rec: 09/15/24 16:19 AB [id number]) OP-PT Subjective Patient Comments Patient Comments Patient reports she is better, swelling is less post OMT treatment. AROM lacking 1 deg ext to 106 deg flexion left knee start of session. Patient reports area of swelling under band aid is to be massaged per Ortho PA. Pt reports using 4.4 lb for gravity assisted stretch. PT-OP-G Mobility & Gait Start: 08/31/24 16:40 Freq: Status: Active Protocol: Document 09/01/24 13:45 [facility] (Rec: 09/01/24 16:56 SAK [id number]) OP Mobility Evaluation Transfers Sit to Stand very wide JEANNINE OP Gait Assessment Gait Gait Assistance Required: Independent Assistive Devices Assistive Device Straight Cane Orthotic/Prosthetic Devices or Brace: No Gait Deviations General Gait Pattern Decreased Stride Length, Decreased Feet Clearance Factors Limiting Gait Function Factors Limiting Gait Function Decreased Strength,Pain PT-OP-H Neuro Start: 08/31/24 16:40 Freq: Status: Active Protocol: Document 09/01/24 13:45 [facility] (Rec: 09/01/24 16:56 [facility] [id number]) Sensation Evaluation Gross Sensation Gross Sensation WNL PT-OP-J Posture/Palpation/Skin Start: 08/31/24 16:40 Freq: Status: Active Protocol: Document 09/01/24 13:45 [facility] (Rec: 09/01/24 16:56 [facility] [id number]) Skin Assessment Edema Assessment left knee Edema Degree 2+ Edema Appearance Puffy Subjective Edema Description Tightness Incisional Assessment Incision Appearance/Comments left knee arthroscopy incisions present, sutures in place, no signs or symptoms of infection Other Assessments Skin Assessment Comments Patient had blood on outer elastic bandage, soaked through post-op cast padding and gauze, removed and rebandaged by PT. PT-OP-K Range of Motion Start: 08/31/24 16:40 Freq: Status: Active Protocol: Document 09/01/24 13:45 [facility] (Rec: 09/01/24 16:56 [facility] [id number]) Knee Goniometric Range of Motion Knee Left Flexion Active (degrees) 100 Flexion Passive (degrees) 114 Extension Active (degrees) 0 Extension Passive (degrees) 0 right knee Flexion Active (degrees) 122 Extension Active (degrees) 0 Knee ROM Limitations Knee ROM Limitations Soft Tissue Tightness,Swelling Ankle and Foot Goniometric Range of Motion Ankle and Foot dominique Ankle/Foot ROM WFL Yes PT-OP-M Strength Start: 08/31/24 16:40 Freq: Status: Active Protocol: Document 09/01/24 13:45 [facility] (Rec: 09/01/24 16:56 [facility] [id number]) Knee Strength Knee Manual Muscle Testing Left Flexion (S2) 3+ Fair+ Extension (L3) 3- Fair- Comments no MMT due to recent surgery Right Flexion (S2) 5 Normal Extension (L3) 5 Normal PT-OP-Q Treatments Start: 08/31/24 16:40 Freq: Status: Active Protocol: Document 09/15/24 13:12 AB (Rec: 09/15/24 16:19 AB [id number]) Cardio Equipment Recumbent Bicycle Duration (Minutes) 5 Resistance 0 Seat Position 4 Other unable to make full revolution Therapeutic Exercises Supine Exercises HS stretch Supine Exercise Name from hooklying Side left Reps/Minutes 60 sec X 2 Comments verbal cues gravity assisted knee flex Side left Equipment Used 5lb Reps/Minutes one minute X 2 heel slide Supine Exercise Name 1. on green polish ball 2 AROM Side bilateral Comments bilat on polish ball, AROM X 10 Sitting Exercises Mini squat Sitting Exercise Name HEP Reps/Minutes X10 X 2 Comments monitored for pain, VC to squat partially to chair hamstring curl Sitting Exercise Name HEP Equipment Used 2 lb Reps/Minutes 12 without band X 10 Manual Therapy Treatment Soft Tissue Mobilization 1 Body Location left quad, IT band Mobilization Type Cross-Friction,Myofascial Release,Rolling,Strumming Intensity/Depth Moderate Body Position Hooklying Joint Mobilizations patellar Joint left Direction inf, sup, lat, med CW CCW Grade III Body Position Supine Reps/Duration X10 each PT-OP-R Modalities Start: 08/31/24 16:40 Freq: Status: Active Protocol: Document 09/15/24 13:12 AB (Rec: 09/15/24 16:19 AB [id number]) Hot Pack/Cold Pack Treatment left knee Location top and bottom Patient Position Hooklying Comments leg elevated via table and bolster elevation above her heart PT-OP-T Assessment and Plan Start: 08/31/24 16:40 Freq: Status: Active Protocol: Document 09/15/24 13:12 AB (Rec: 09/15/24 16:19 AB [id number]) Physical Therapy Assessment Goals Three Impairment gait dysfunction Short Term Goal (STG) Patient will be able to ambulate on level surfaces without assistive device safely demonstrating normal flexion of knee and no limp STG Duration 10/02/24 Residential Goal (LTG) Patient will be able to ambulate on stairs with alternating pattern LTG Duration 11/01/24 Two Impairment Lower extremity functional scale 24% Short Term Goal (STG) Improve LEFS score to at least 50% as measure of improved left knee function and activity tolerance STG Duration 10/02/24 Airport Clerk Goal (LTG) Improve LEFS score to at least 75% as measure of improved left knee function and activity tolerance LTG Duration 11/01/24 One Impairment limited ROM and strength left knee Short Term Goal (STG) Patient to be instructed in HEP for purposes of ROM and strengthening left knee STG Duration 10/02/24 Residential Goal (LTG) Patient to be independent and compliant with HEP and demonstrate full AROM 0-120, and strength at least 4+/5 left knee and fucntionally be able to transfer sit to stand with neutral alignment without use of UE's LTG Duration 11/01/24 Assessment Summary Assessment 112 deg AROM left knee flexion end of session ration pain 0/ 10 pain Physical Therapy Plan Frequency and Duration Frequency of Treatment 2x/Week Duration of treatment (weeks) 8 Plan of Care Start Date 09/01/24 Plan of Care End Date 11/01/24 Next Visit Focus/Plan Next Note Type Treatment Note Next Visit Plan Continue PT for left knee to maximize ROM and strengthen in new ROM.
--- NOTE | 2024-09-19 16:14 | PT.OTN ---
Current Diagnoses Unilateral primary osteoarthritis, left knee (09/19/24) Soft tissue disorder, unspecified (09/19/24) Difficulty in walking, not elsewhere classified (09/19/24) Physical Therapy Treatment Note PT-OP-A Visit Information Start: 08/31/24 16:40 Freq: Status: Active Protocol: Document 09/19/24 13:08 AB (Rec: 09/19/24 16:14 AB [id number]) Out-Patient Physical Therapy Visit Information Visit Information Visit Type Treatment Note Visit Note Access Code: [email or web address] Visit Start Time 13:49 Visit Stop Time 14:34 Visit Number 7 Number of INSTRUCTOR PILOT Visits 2 Evaluation Information Evaluation Date 09/01/24 PT-OP-B Current Condition Start: 08/31/24 16:40 Freq: Status: Active Protocol: Document 09/12/24 13:51 SAK (Rec: 09/12/24 14:32 SAK [id number]) Current Condition History of Current Condition Onset Date 08/31/24 Current Complaints concern for left knee recovery . History of Current Condition arthroscopy for scar tissue removal yesterday left knee approx 1 year since TKA, states surgeon reported especially significant scarring proximal patella and lateral and medial knee. Before surgery 110 deg flexion , under anesthesia 130 deg. Taking Hydrocodone q 6 hrs and added baby aspirin 1 2x/day as instructed by physician. Minimal pain. Walking with cane mostly due to medication for stability. Has done a little exercise so far. Has iced a couple times. Denies N /T. 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, complicated recovery with continued pain, limited motion due to scar tissue Future Testing and Treatments Planned follow up with physician PT-OP-C Subjective Start: 08/31/24 16:40 Freq: Status: Active Protocol: Document 09/19/24 13:08 AB (Rec: 09/19/24 16:14 AB [id number]) OP-PT Subjective Patient Comments Patient Comments Patient reports she had a set back and increased pain left knee post using two 2.2lb weights for gravity assisted knee flexion, butt kicks and SLR, now is performing 4.4 lb for gravity assist only. Patient rates pain 0/10 left knee start of session. AROM 111 deg left knee flexion start session. PT-OP-G Mobility & Gait Start: 08/31/24 16:40 Freq: Status: Active Protocol: Document 09/01/24 13:45 [facility] (Rec: 09/01/24 16:56 [facility] [id number]) OP Mobility Evaluation Transfers Sit to Stand very wide JEANNINE OP Gait Assessment Gait Gait Assistance Required: Independent Assistive Devices Assistive Device Straight Cane Orthotic/Prosthetic Devices or Brace: No Gait Deviations General Gait Pattern Decreased Stride Length, Decreased Feet Clearance Factors Limiting Gait Function Factors Limiting Gait Function Decreased Strength,Pain PT-OP-H Neuro Start: 08/31/24 16:40 Freq: Status: Active Protocol: Document 09/01/24 13:45 [facility] (Rec: 09/01/24 16:56 [facility] [id number]) Sensation Evaluation Gross Sensation Gross Sensation WNL PT-OP-J Posture/Palpation/Skin Start: 08/31/24 16:40 Freq: Status: Active Protocol: Document 09/01/24 13:45 [facility] (Rec: 09/01/24 16:56 [facility] [id number]) Skin Assessment Edema Assessment left knee Edema Degree 2+ Edema Appearance Puffy Subjective Edema Description Tightness Incisional Assessment Incision Appearance/Comments left knee arthroscopy incisions present, sutures in place, no signs or symptoms of infection Other Assessments Skin Assessment Comments Patient had blood on outer elastic bandage, soaked through post-op cast padding and gauze, removed and rebandaged by PT. PT-OP-K Range of Motion Start: 08/31/24 16:40 Freq: Status: Active Protocol: Document 09/01/24 13:45 [facility] (Rec: 09/01/24 16:56 [facility] [id number]) Knee Goniometric Range of Motion Knee Left Flexion Active (degrees) 100 Flexion Passive (degrees) 114 Extension Active (degrees) 0 Extension Passive (degrees) 0 right knee Flexion Active (degrees) 122 Extension Active (degrees) 0 Knee ROM Limitations Knee ROM Limitations Soft Tissue Tightness,Swelling Ankle and Foot Goniometric Range of Motion Ankle and Foot dominique Ankle/Foot ROM WFL Yes PT-OP-M Strength Start: 08/31/24 16:40 Freq: Status: Active Protocol: Document 09/01/24 13:45 [facility] (Rec: 09/01/24 16:56 [facility] [id number]) Knee Strength Knee Manual Muscle Testing Left Flexion (S2) 3+ Fair+ Extension (L3) 3- Fair- Comments no MMT due to recent surgery Right Flexion (S2) 5 Normal Extension (L3) 5 Normal PT-OP-Q Treatments Start: 08/31/24 16:40 Freq: Status: Active Protocol: Document 09/19/24 13:08 AB (Rec: 09/19/24 16:14 AB [id number]) Cardio Equipment Bicycle (Upright) Duration (Minutes) 5 Resistance 0 Seat Position 7 Therapeutic Exercises Supine Exercises SLR Supine Exercise Name HEP Side left Reps/Minutes 10 X Comments monitored for pain heel slide Supine Exercise Name 1. on green moz[place] ball 2 AROM Side bilateral Comments bilat on [place] ball, AROM X 10 Sitting Exercises seated hip abduction with band Side bilateral Resistance level 3 green band Reps/Minutes X22 and X 10 without hold X one one minute hold sit to stand Sitting Exercise Name with UE use from a raised seat height Reps/Minutes X10 Comments reports no increased pain Manual Therapy Treatment Consent Patient gave verbal consent for manual Yes treatment Soft Tissue Mobilization 1 Body Location left quad, IT band Mobilization Type Cross-Friction,Myofascial Release,Rolling,Strumming Intensity/Depth Moderate Body Position Hooklying Joint Mobilizations patellar Joint left Direction inf, sup, lat, med CW CCW Grade III Body Position Supine Reps/Duration X10 each PT-OP-R Modalities Start: 08/31/24 16:40 Freq: Status: Active Protocol: Document 09/15/24 13:12 AB (Rec: 09/15/24 16:19 AB [id number]) Hot Pack/Cold Pack Treatment left knee Location top and bottom Patient Position Hooklying Comments leg elevated via table and bolster elevation above her heart PT-OP-T Assessment and Plan Start: 08/31/24 16:40 Freq: Status: Active Protocol: Document 09/19/24 13:08 AB (Rec: 09/19/24 16:14 AB [id number]) Physical Therapy Assessment Goals Three Impairment gait dysfunction Short Term Goal (STG) Patient will be able to ambulate on level surfaces without assistive device safely demonstrating normal flexion of knee and no limp STG Duration 10/02/24 Senior Care Goal (LTG) Patient will be able to ambulate on stairs with alternating pattern LTG Duration 11/01/24 Two Impairment Lower extremity functional scale 24% Short Term Goal (STG) Improve LEFS score to at least 50% as measure of improved left knee function and activity tolerance STG Duration 10/02/24 Control Systems Engineer Goal (LTG) Improve LEFS score to at least 75% as measure of improved left knee function and activity tolerance LTG Duration 11/01/24 One Impairment limited ROM and strength left knee Short Term Goal (STG) Patient to be instructed in HEP for purposes of ROM and strengthening left knee STG Duration 10/02/24 Senior Care Goal (LTG) Patient to be independent and compliant with HEP and demonstrate full AROM 0-120, and strength at least 4+/5 left knee and fucntionally be able to transfer sit to stand with neutral alignment without use of UE's LTG Duration 11/01/24 Assessment Summary Assessment 117 deg AROM left knee end of session rating pain 0/10 end of session. Significant increase in SLS left LE post seated hip abduction with band Physical Therapy Plan Frequency and Duration Frequency of Treatment 2x/Week Duration of treatment (weeks) 8 Plan of Care Start Date 09/01/24 Plan of Care End Date 11/01/24 Next Visit Focus/Plan Next Note Type Treatment Note Next Visit Plan Continue PT for left knee to maximize ROM and strengthen in new ROM. Review stairs and hills next session.
--- NOTE | 2024-09-22 16:31 | PT.OTN ---
Current Diagnoses Unilateral primary osteoarthritis, left knee (09/22/24) Soft tissue disorder, unspecified (09/22/24) Difficulty in walking, not elsewhere classified (09/22/24) Physical Therapy Treatment Note PT-OP-A Visit Information Start: 08/31/24 16:40 Freq: Status: Active Protocol: Document 09/22/24 14:08 AB (Rec: 09/22/24 16:30 AB [id number]) Out-Patient Physical Therapy Visit Information Visit Information Visit Type Treatment Note Visit Note Access Code: [email or web address] Visit Start Time 15:19 Visit Stop Time 16:06 Visit Number 8 Number of TALENT ACQUISITION RELATIONSHIP MANAGER Visits 3 Evaluation Information Evaluation Date 09/01/24 PT-OP-B Current Condition Start: 08/31/24 16:40 Freq: Status: Active Protocol: Document 09/12/24 13:51 SAK (Rec: 09/12/24 14:32 SAK [id number]) Current Condition History of Current Condition Onset Date 08/31/24 Current Complaints concern for left knee recovery . History of Current Condition arthroscopy for scar tissue removal yesterday left knee approx 1 year since TKA, states surgeon reported especially significant scarring proximal patella and lateral and medial knee. Before surgery 110 deg flexion , under anesthesia 130 deg. Taking Hydrocodone q 6 hrs and added baby aspirin 1 2x/day as instructed by physician. Minimal pain. Walking with cane mostly due to medication for stability. Has done a little exercise so far. Has iced a couple times. Denies N /T. 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, complicated recovery with continued pain, limited motion due to scar tissue Future Testing and Treatments Planned follow up with physician PT-OP-C Subjective Start: 08/31/24 16:40 Freq: Status: Active Protocol: Document 09/22/24 14:08 AB (Rec: 09/22/24 16:30 AB [id number]) OP-PT Subjective Patient Comments Patient Comments Patient rates pain 0/10 Left knee. Patient reports having a tender area medial to patella . AROM left knee 0 to 107 ( no warm up on bike this session. PT-OP-G Mobility & Gait Start: 08/31/24 16:40 Freq: Status: Active Protocol: Document 09/01/24 13:45 SAK (Rec: 09/01/24 16:56 SAK [id number]) OP Mobility Evaluation Transfers Sit to Stand very wide JEANNINE OP Gait Assessment Gait Gait Assistance Required: Independent Assistive Devices Assistive Device Straight Cane Orthotic/Prosthetic Devices or Brace: No Gait Deviations General Gait Pattern Decreased Stride Length, Decreased Feet Clearance Factors Limiting Gait Function Factors Limiting Gait Function Decreased Strength,Pain PT-OP-H Neuro Start: 08/31/24 16:40 Freq: Status: Active Protocol: Document 09/01/24 13:45 SAK (Rec: 09/01/24 16:56 SAK [id number]) Sensation Evaluation Gross Sensation Gross Sensation WNL PT-OP-J Posture/Palpation/Skin Start: 08/31/24 16:40 Freq: Status: Active Protocol: Document 09/01/24 13:45 SAK (Rec: 09/01/24 16:56 [facility] [id number]) Skin Assessment Edema Assessment left knee Edema Degree 2+ Edema Appearance Puffy Subjective Edema Description Tightness Incisional Assessment Incision Appearance/Comments left knee arthroscopy incisions present, sutures in place, no signs or symptoms of infection Other Assessments Skin Assessment Comments Patient had blood on outer elastic bandage, soaked through post-op cast padding and gauze, removed and rebandaged by PT. PT-OP-K Range of Motion Start: 08/31/24 16:40 Freq: Status: Active Protocol: Document 09/01/24 13:45 SAK (Rec: 09/01/24 16:56 [facility] [id number]) Knee Goniometric Range of Motion Knee Left Flexion Active (degrees) 100 Flexion Passive (degrees) 114 Extension Active (degrees) 0 Extension Passive (degrees) 0 right knee Flexion Active (degrees) 122 Extension Active (degrees) 0 Knee ROM Limitations Knee ROM Limitations Soft Tissue Tightness,Swelling Ankle and Foot Goniometric Range of Motion Ankle and Foot dominique Ankle/Foot ROM WFL Yes PT-OP-M Strength Start: 08/31/24 16:40 Freq: Status: Active Protocol: Document 09/01/24 13:45 SAK (Rec: 09/01/24 16:56 [facility] [id number]) Knee Strength Knee Manual Muscle Testing Left Flexion (S2) 3+ Fair+ Extension (L3) 3- Fair- Comments no MMT due to recent surgery Right Flexion (S2) 5 Normal Extension (L3) 5 Normal PT-OP-Q Treatments Start: 08/31/24 16:40 Freq: Status: Active Protocol: Document 09/22/24 14:08 AB (Rec: 09/22/24 16:30 AB [id number]) Cardio Equipment Bicycle (Upright) Duration (Minutes) 5 Resistance 0 Seat Position 7 Gym Equipment Shuttle Recovery Unilateral Squats Resistance 25 Reps/Time X10 each LE Bilateral Squats Resistance 50 Reps/Time X15 Therapeutic Exercises Supine Exercises heel slide Supine Exercise Name 1. on green macedonian ball 2 AROM Side bilateral Equipment Used AROM HS to HEP Comments bilat on macedonian ball, AROM X x210 Sitting Exercises seated hip abduction with band Side bilateral Resistance level 3 green band Reps/Minutes X15and X 10 without hold X one one minute hold Comments verbal cues for tying band Manual Therapy Treatment Consent Patient gave verbal consent for manual Yes treatment Soft Tissue Mobilization 1 Body Location left quad, IT band, scar tissue medial knee Mobilization Type Cross-Friction,Myofascial Release,Rolling,Strumming Intensity/Depth Moderate Joint Mobilizations patellar Joint left Direction inf, sup, lat, med CW CCW Grade III Body Position Supine Reps/Duration X10 each PT-OP-R Modalities Start: 08/31/24 16:40 Freq: Status: Active Protocol: Document 09/15/24 13:12 AB (Rec: 09/15/24 16:19 AB [id number]) Hot Pack/Cold Pack Treatment left knee Location top and bottom Patient Position Hooklying Comments leg elevated via table and bolster elevation above her heart PT-OP-T Assessment and Plan Start: 08/31/24 16:40 Freq: Status: Active Protocol: Document 09/22/24 14:08 AB (Rec: 09/22/24 16:30 AB [id number]) Physical Therapy Assessment Goals Three Impairment gait dysfunction Short Term Goal (STG) Patient will be able to ambulate on level surfaces without assistive device safely demonstrating normal flexion of knee and no limp STG Duration 10/02/24 Railway Switchman Goal (LTG) Patient will be able to ambulate on stairs with alternating pattern LTG Duration 11/01/24 Two Impairment Lower extremity functional scale 24% Short Term Goal (STG) Improve LEFS score to at least 50% as measure of improved left knee function and activity tolerance STG Duration 10/02/24 Railway Switchman Goal (LTG) Improve LEFS score to at least 75% as measure of improved left knee function and activity tolerance LTG Duration 12/10/24 One Impairment limited ROM and strength left knee Short Term Goal (STG) Patient to be instructed in HEP for purposes of ROM and strengthening left knee STG Duration 10/02/24 Railway Switchman Goal (LTG) Patient to be independent and compliant with HEP and demonstrate full AROM 0-120, and strength at least 4+/5 left knee and fucntionally be able to transfer sit to stand with neutral alignment without use of UE's LTG Duration 11/01/24 Assessment Summary Assessment 117 deg AROM end of session, rating pain 0/10 end of session. Physical Therapy Plan Frequency and Duration Frequency of Treatment 2x/Week Duration of treatment (weeks) 8 Plan of Care Start Date 09/01/24 Plan of Care End Date 11/01/24 Next Visit Focus/Plan Next Note Type Treatment Note Next Visit Plan Continue PT for left knee to maximize ROM and strengthen in new ROM. Review stairs and hills next session.
--- NOTE | 2024-09-29 13:46 | PT.OTN ---
Current Diagnoses Unilateral primary osteoarthritis, left knee (09/29/24) Soft tissue disorder, unspecified (09/29/24) Difficulty in walking, not elsewhere classified (09/29/24) Physical Therapy Treatment Note PT-OP-A Visit Information Start: 08/31/24 16:40 Freq: Status: Active Protocol: Document 09/29/24 12:57 SAK (Rec: 09/29/24 13:46 [facility] [id number]) Out-Patient Physical Therapy Visit Information Visit Information Visit Type Treatment Note Visit Note Access Code: [email or web address] Visit Start Time 13:00 Visit Stop Time 13:54 Visit Number 9 Number of FASHION JOURNALIST Visits 0 Evaluation Information Evaluation Date 09/01/24 PT-OP-B Current Condition Start: 08/31/24 16:40 Freq: Status: Active Protocol: Document 09/12/24 13:51 SAK (Rec: 09/12/24 14:32 [facility] [id number]) Current Condition History of Current Condition Onset Date 08/31/24 Current Complaints concern for left knee recovery . History of Current Condition arthroscopy for scar tissue removal yesterday left knee approx 1 year since TKA, states surgeon reported especially significant scarring proximal patella and lateral and medial knee. Before surgery 110 deg flexion , under anesthesia 130 deg. Taking Hydrocodone q 6 hrs and added baby aspirin 1 2x/day as instructed by physician. Minimal pain. Walking with cane mostly due to medication for stability. Has done a little exercise so far. Has iced a couple times. Denies N /T. 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, complicated recovery with continued pain, limited motion due to scar tissue Future Testing and Treatments Planned follow up with physician PT-OP-C Subjective Start: 08/31/24 16:40 Freq: Status: Active Protocol: Document 09/29/24 12:57 SAK (Rec: 09/29/24 13:46 [facility] [id number]) OP-PT Subjective Patient Comments Patient Comments No new c/o, Saw Dr. Mendez yesterday, states he did some OMT. Has post-op with surgeon next week. PT-OP-G Mobility & Gait Start: 08/31/24 16:40 Freq: Status: Active Protocol: Document 09/01/24 13:45 SAK (Rec: 09/01/24 16:56 [facility] [id number]) OP Mobility Evaluation Transfers Sit to Stand very wide JEANNINE OP Gait Assessment Gait Gait Assistance Required: Independent Assistive Devices Assistive Device Straight Cane Orthotic/Prosthetic Devices or Brace: No Gait Deviations General Gait Pattern Decreased Stride Length, Decreased Feet Clearance Factors Limiting Gait Function Factors Limiting Gait Function Decreased Strength,Pain PT-OP-H Neuro Start: 08/31/24 16:40 Freq: Status: Active Protocol: Document 09/01/24 13:45 SAK (Rec: 09/01/24 16:56 SAK [id number]) Sensation Evaluation Gross Sensation Gross Sensation WNL PT-OP-J Posture/Palpation/Skin Start: 08/31/24 16:40 Freq: Status: Active Protocol: Document 09/01/24 13:45 SAK (Rec: 09/01/24 16:56 [facility] [id number]) Skin Assessment Edema Assessment left knee Edema Degree 2+ Edema Appearance Puffy Subjective Edema Description Tightness Incisional Assessment Incision Appearance/Comments left knee arthroscopy incisions present, sutures in place, no signs or symptoms of infection Other Assessments Skin Assessment Comments Patient had blood on outer elastic bandage, soaked through post-op cast padding and gauze, removed and rebandaged by PT. PT-OP-K Range of Motion Start: 08/31/24 16:40 Freq: Status: Active Protocol: Document 09/01/24 13:45 SAK (Rec: 09/01/24 16:56 [facility] [id number]) Knee Goniometric Range of Motion Knee Left Flexion Active (degrees) 100 Flexion Passive (degrees) 114 Extension Active (degrees) 0 Extension Passive (degrees) 0 right knee Flexion Active (degrees) 122 Extension Active (degrees) 0 Knee ROM Limitations Knee ROM Limitations Soft Tissue Tightness,Swelling Ankle and Foot Goniometric Range of Motion Ankle and Foot dominique Ankle/Foot ROM WFL Yes PT-OP-M Strength Start: 08/31/24 16:40 Freq: Status: Active Protocol: Document 09/01/24 13:45 SAK (Rec: 09/01/24 16:56 [facility] [id number]) Knee Strength Knee Manual Muscle Testing Left Flexion (S2) 3+ Fair+ Extension (L3) 3- Fair- Comments no MMT due to recent surgery Right Flexion (S2) 5 Normal Extension (L3) 5 Normal PT-OP-Q Treatments Start: 08/31/24 16:40 Freq: Status: Active Protocol: Document 09/29/24 12:57 SAK (Rec: 11/07/24 13:46 [facility] [id number]) Cardio Equipment Bicycle (Upright) Duration (Minutes) 6 Resistance 0 Seat Position 7-5 Gym Equipment Shuttle Recovery Unilateral Squats Resistance 25 Reps/Time X10 each LE Bilateral Squats Resistance 50 Reps/Time 10x2 Therapeutic Exercises Supine Exercises gravity assisted knee flex Side left Equipment Used 5lb Reps/Minutes one minute X 2 heel slide Supine Exercise Name 1. on green senegalese ball 2 AROM Side bilateral Equipment Used AROM HS to HEP Comments bilat on senegalese ball, AROM X x210 Sitting Exercises stool scoot Reps/Minutes 10 ft x 3 seated hip abduction with band Side bilateral Resistance level 3 green band Reps/Minutes X15and X 10 without hold X one one minute hold Comments verbal cues for tying band hamstring curl Sitting Exercise Name HEP Equipment Used L3 TB Reps/Minutes 10x, 6x Standing Exercises stair lunge Comments next session Manual Therapy Treatment Soft Tissue Mobilization 1 Body Location left quad, IT band, scar tissue medial knee Mobilization Type Cross-Friction,Instrument Assisted,Myofascial Release, Rolling,Strumming Intensity/Depth Moderate Comments dycem Joint Mobilizations patellar Joint left Direction inf, sup, lat, med CW CCW Grade III Body Position Supine Reps/Duration X10 each PT-OP-R Modalities Start: 08/31/24 16:40 Freq: Status: Active Protocol: Document 09/15/24 13:12 AB (Rec: 09/15/24 16:19 AB [id number]) Hot Pack/Cold Pack Treatment left knee Location top and bottom Patient Position Hooklying Comments leg elevated via table and bolster elevation above her heart PT-OP-T Assessment and Plan Start: 08/31/24 16:40 Freq: Status: Active Protocol: Document 09/29/24 12:57 [facility] (Rec: 09/29/24 13:46 [facility] [id number]) Physical Therapy Assessment Goals Three Impairment gait dysfunction Short Term Goal (STG) Patient will be able to ambulate on level surfaces without assistive device safely demonstrating normal flexion of knee and no limp STG Duration 10/02/24 Halfway Goal (LTG) Patient will be able to ambulate on stairs with alternating pattern LTG Duration 11/01/24 Two Impairment Lower extremity functional scale 24% Short Term Goal (STG) Improve LEFS score to at least 50% as measure of improved left knee function and activity tolerance STG Duration 10/02/24 Manager Family Goal (LTG) Improve LEFS score to at least 75% as measure of improved left knee function and activity tolerance LTG Duration 11/01/24 One Impairment limited ROM and strength left knee Short Term Goal (STG) Patient to be instructed in HEP for purposes of ROM and strengthening left knee STG Duration 10/02/24 Manager Family Goal (LTG) Patient to be independent and compliant with HEP and demonstrate full AROM 0-120, and strength at least 4+/5 left knee and fucntionally be able to transfer sit to stand with neutral alignment without use of UE's LTG Duration 11/01/24 Assessment Summary Assessment AAROM left knee flex 120 after exercise and manual. Added seated hamstring curl with TB to HEP. Physical Therapy Plan Frequency and Duration Frequency of Treatment 2x/Week Duration of treatment (weeks) 8 Plan of Care Start Date 09/01/24 Plan of Care End Date 11/01/24 Next Visit Focus/Plan Next Note Type Treatment Note Next Visit Plan Continue PT for left knee to maximize ROM and strengthen in new ROM. Review stairs and hills next session. Suction tool for soft tissue mobilization
--- NOTE | 2024-10-05 12:59 | PT.OTN ---
Current Diagnoses Unilateral primary osteoarthritis, left knee (10/05/24) Soft tissue disorder, unspecified (10/05/24) Difficulty in walking, not elsewhere classified (10/05/24) Physical Therapy Treatment Note PT-OP-A Visit Information Start: 08/31/24 16:40 Freq: Status: Active Protocol: Document 10/05/24 11:02 AB (Rec: 10/05/24 12:54 AB [id number]) Out-Patient Physical Therapy Visit Information Visit Information Visit Type Treatment Note Visit Note Access Code: [email or web address] Visit Start Time 11:32 Visit Stop Time 12:23 Visit Number 10 Number of UNIT OPERATOR Visits 1 Evaluation Information Evaluation Date 09/01/24 PT-OP-B Current Condition Start: 08/31/24 16:40 Freq: Status: Active Protocol: Document 09/12/24 13:51 SAK (Rec: 09/12/24 14:32 SAK [id number]) Current Condition History of Current Condition Onset Date 08/31/24 Current Complaints concern for left knee recovery . History of Current Condition arthroscopy for scar tissue removal yesterday left knee approx 1 year since TKA, states surgeon reported especially significant scarring proximal patella and lateral and medial knee. Before surgery 110 deg flexion , under anesthesia 130 deg. Taking Hydrocodone q 6 hrs and added baby aspirin 1 2x/day as instructed by physician. Minimal pain. Walking with cane mostly due to medication for stability. Has done a little exercise so far. Has iced a couple times. Denies N /T. 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, complicated recovery with continued pain, limited motion due to scar tissue Future Testing and Treatments Planned follow up with physician PT-OP-C Subjective Start: 08/31/24 16:40 Freq: Status: Active Protocol: Document 10/05/24 11:02 AB (Rec: 10/05/24 12:54 AB [id number]) OP-PT Subjective Patient Comments Patient Comments Patient reports having no pain start of session, request measuring knee prior to using bike this session. Patient into session in jeans reciprocal 2 rails quad dom inch knee flex bilat. Patient reports a stinging sensation lateral right thigh that wakes her up when sleeping, started post previous session Patient Questionnaires Lower Extremity Functional Scale LEFS Score 45 LEFS Impairment 40 to 59% Impaired (Score 32- 47) PT-OP-G Mobility & Gait Start: 08/31/24 16:40 Freq: Status: Active Protocol: Document 09/01/24 13:45 SAK (Rec: 09/01/24 16:56 SAK [id number]) OP Mobility Evaluation Transfers Sit to Stand very wide JEANNINE OP Gait Assessment Gait Gait Assistance Required: Independent Assistive Devices Assistive Device Straight Cane Orthotic/Prosthetic Devices or Brace: No Gait Deviations General Gait Pattern Decreased Stride Length, Decreased Feet Clearance Factors Limiting Gait Function Factors Limiting Gait Function Decreased Strength,Pain PT-OP-H Neuro Start: 08/31/24 16:40 Freq: Status: Active Protocol: Document 09/01/24 13:45 SAK (Rec: 09/01/24 16:56 SAK [id number]) Sensation Evaluation Gross Sensation Gross Sensation WNL PT-OP-J Posture/Palpation/Skin Start: 08/31/24 16:40 Freq: Status: Active Protocol: Document 09/01/24 13:45 SAK (Rec: 09/01/24 16:56 SAK [id number]) Skin Assessment Edema Assessment left knee Edema Degree 2+ Edema Appearance Puffy Subjective Edema Description Tightness Incisional Assessment Incision Appearance/Comments left knee arthroscopy incisions present, sutures in place, no signs or symptoms of infection Other Assessments Skin Assessment Comments Patient had blood on outer elastic bandage, soaked through post-op cast padding and gauze, removed and rebandaged by PT. PT-OP-K Range of Motion Start: 08/31/24 16:40 Freq: Status: Active Protocol: Document 10/05/24 11:02 AB (Rec: 10/05/24 12:56 AB [id number]) Knee Goniometric Range of Motion Knee Left Knee ROM WFL No Patient Position Supine Flexion Active (degrees) 120 Extension Active (degrees) 0 Comments Patient into session with 106 deg AROM PT-OP-M Strength Start: 08/31/24 16:40 Freq: Status: Active Protocol: Document 10/05/24 11:02 AB (Rec: 10/05/24 12:56 AB [id number]) Knee Strength Knee Manual Muscle Testing Left Flexion (S2) 3+ Fair+ Extension (L3) 4- Good- Comments flexion tested seated 3+ within limited ROM PT-OP-Q Treatments Start: 08/31/24 16:40 Freq: Status: Active Protocol: Document 10/05/24 11:02 AB (Rec: 10/05/24 12:54 AB [id number]) Therapeutic Exercises Supine Exercises gravity assisted knee flex Side left Equipment Used 2lb Reps/Minutes 2 min heel slide Supine Exercise Name 1. on green [place] ball 2 AROM Side bilateral Equipment Used AROM HS to HEP Comments bilat on [place] ball, AROM X10 X2 Therapeutic Activity Therapeutic Activity stairs Name 4 six inch stairs with rails Comments Verbal and visual cues for descending with a less quad dominant pattern. Manual Therapy Treatment Consent Patient gave verbal consent for manual Yes treatment Soft Tissue Mobilization 1 Body Location left quad, IT band, scar tissue medial knee Mobilization Type Cross-Friction,Instrument Assisted,Myofascial Release, Rolling,Strumming Intensity/Depth Moderate Comments increased focus on quad and peripatellar area, Unable to perform suction tool as patient into session in [facility] PT-OP-R Modalities Start: 08/31/24 16:40 Freq: Status: Active Protocol: Document 09/15/24 13:12 AB (Rec: 09/15/24 16:19 AB [id number]) Hot Pack/Cold Pack Treatment left knee Location top and bottom Patient Position Hooklying Comments leg elevated via table and bolster elevation above her heart PT-OP-T Assessment and Plan Start: 08/31/24 16:40 Freq: Status: Active Protocol: Document 10/05/24 11:02 AB (Rec: 10/05/24 12:54 AB [id number]) Physical Therapy Assessment Goals Three Impairment gait dysfunction Short Term Goal (STG) Patient will be able to ambulate on level surfaces without assistive device safely demonstrating normal flexion of knee and no limp 10/05/2024 Patient ambulates into session without device STG Duration 10/02/24 Residential Child Care Counselor Goal (LTG) Patient will be able to ambulate on stairs with alternating pattern Patient ascends and descends 6 inch stairs with 2 rails using a reciprocal pattern ( quad dominant pattern) Patient ambulates without device increased knee flexion on heel strike and toe off bilaterally. LTG Duration 11/01/24 Two Impairment Lower extremity functional scale 24% Short Term Goal (STG) Improve LEFS score to at least 50% as measure of improved left knee function and activity tolerance STG Duration 10/02/24 Penitentiary Goal (LTG) Improve LEFS score to at least 75% as measure of improved left knee function and activity tolerance 10/05/2024 LEFS 45 LTG Duration 11/01/24 One Impairment limited ROM and strength left knee Short Term Goal (STG) Patient to be instructed in HEP for purposes of ROM and strengthening left knee STG Duration 10/02/24 Penitentiary Goal (LTG) Patient to be independent and compliant with HEP and demonstrate full AROM 0-120, and strength at least 4+/5 left knee and fucntionally be able to transfer sit to stand with neutral alignment without use of UE's 10/05/2024 AROM left knee 0 to 106 start of session to 120 deg post manual and exercise ) left quad 4-/5 HS (seated 3+ within limited ROM ) LTG Duration 11/01/24 Assessment Summary Assessment AROM 120 deg post manual therapy and exercise. Patient given written instructions to perform AROM heel slide post gravity assisted knee flexion and knee flexion with strap. Physical Therapy Plan Frequency and Duration Frequency of Treatment 2x/Week Duration of treatment (weeks) 8 Plan of Care Start Date 09/01/24 Plan of Care End Date 11/01/24 Next Visit Focus/Plan Next Note Type Treatment Note Next Visit Plan Continue PT for left knee to maximize ROM and strengthen in new ROM. Review stairs and hills next session. Suction tool for soft tissue mobilization
--- NOTE | 2024-10-05 15:31 | PT.OPPN ---
Current Diagnoses Unilateral primary osteoarthritis, left knee (10/05/24) Soft tissue disorder, unspecified (10/05/24) Difficulty in walking, not elsewhere classified (10/05/24) Physical Therapy Progress Note PT-OP-A Visit Information Start: 08/31/24 16:40 Freq: Status: Active Protocol: Document 10/05/24 11:02 AB (Rec: 10/05/24 12:54 AB [id number]) Out-Patient Physical Therapy Visit Information Visit Information Visit Type Treatment Note Visit Note Access Code: [email or web address] Visit Start Time 11:32 Visit Stop Time 12:23 Visit Number 10 Number of CUSTODIAN ATHLETIC EQUIPMENT Visits 1 Evaluation Information Evaluation Date 09/01/24 PT-OP-B Current Condition Start: 08/31/24 16:40 Freq: Status: Active Protocol: Document 09/12/24 13:51 SAK (Rec: 09/12/24 14:32 SAK [id number]) Current Condition History of Current Condition Onset Date 08/31/24 Current Complaints concern for left knee recovery . History of Current Condition arthroscopy for scar tissue removal yesterday left knee approx 1 year since TKA, states surgeon reported especially significant scarring proximal patella and lateral and medial knee. Before surgery 110 deg flexion , under anesthesia 130 deg. Taking Hydrocodone q 6 hrs and added baby aspirin 1 2x/day as instructed by physician. Minimal pain. Walking with cane mostly due to medication for stability. Has done a little exercise so far. Has iced a couple times. Denies N /T. 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, complicated recovery with continued pain, limited motion due to scar tissue Future Testing and Treatments Planned follow up with physician PT-OP-C Subjective Start: 08/31/24 16:40 Freq: Status: Active Protocol: Document 10/05/24 11:02 AB (Rec: 10/05/24 12:54 AB [id number]) OP-PT Subjective Patient Comments Patient Comments Patient reports having no pain start of session, request measuring knee prior to using bike this session. Patient into session in jeans reciprocal 2 rails quad dom inch knee flex bilat. Patient reports a stinging sensation lateral right thigh that wakes her up when sleeping, started post previous session Patient Questionnaires Lower Extremity Functional Scale LEFS Score 45 LEFS Impairment 40 to 59% Impaired (Score 32- 47) PT-OP-G Mobility & Gait Start: 08/31/24 16:40 Freq: Status: Active Protocol: Document 09/01/24 13:45 SAK (Rec: 09/01/24 16:56 SAK [id number]) OP Mobility Evaluation Transfers Sit to Stand very wide JEANNINE OP Gait Assessment Gait Gait Assistance Required: Independent Assistive Devices Assistive Device Straight Cane Orthotic/Prosthetic Devices or Brace: No Gait Deviations General Gait Pattern Decreased Stride Length, Decreased Feet Clearance Factors Limiting Gait Function Factors Limiting Gait Function Decreased Strength,Pain PT-OP-H Neuro Start: 08/31/24 16:40 Freq: Status: Active Protocol: Document 09/01/24 13:45 SAK (Rec: 09/01/24 16:56 SAK [id number]) Sensation Evaluation Gross Sensation Gross Sensation WNL PT-OP-J Posture/Palpation/Skin Start: 08/31/24 16:40 Freq: Status: Active Protocol: Document 09/01/24 13:45 SAK (Rec: 09/01/24 16:56 SAK [id number]) Skin Assessment Edema Assessment left knee Edema Degree 2+ Edema Appearance Puffy Subjective Edema Description Tightness Incisional Assessment Incision Appearance/Comments left knee arthroscopy incisions present, sutures in place, no signs or symptoms of infection Other Assessments Skin Assessment Comments Patient had blood on outer elastic bandage, soaked through post-op cast padding and gauze, removed and rebandaged by PT. PT-OP-K Range of Motion Start: 08/31/24 16:40 Freq: Status: Active Protocol: Document 10/05/24 11:02 AB (Rec: 10/05/24 12:56 AB [id number]) Knee Goniometric Range of Motion Knee Measured in Degrees Left Knee ROM WFL No Patient Position Supine Flexion Active (degrees) 120 Extension Active (degrees) 0 Comments Patient into session with 106 deg AROM PT-OP-M Strength Start: 08/31/24 16:40 Freq: Status: Active Protocol: Document 10/05/24 11:02 AB (Rec: 10/05/24 12:56 AB [id number]) Knee Strength Knee Manual Muscle Testing Left Flexion (S2) 3+ Fair+ Extension (L3) 4- Good- Comments flexion tested seated 3+ within limited ROM PT-OP-T Assessment and Plan Start: 08/31/24 16:40 Freq: Status: Active Protocol: Document 10/05/24 15:26 SAK (Rec: 10/05/24 15:31 [facility] [id number]) Physical Therapy Assessment Goals Three Impairment gait dysfunction Short Term Goal (STG) Patient will be able to ambulate on level surfaces without assistive device safely demonstrating normal flexion of knee and no limp 10/05/2024 Patient ambulates into session without device STG Duration goal met [facility]dc Goal (LTG) Patient will be able to ambulate on stairs with alternating pattern Patient ascends and descends 6 inch stairs with 2 rails using a reciprocal pattern ( quad dominant pattern) Patient ambulates without device increased knee flexion on heel strike and toe off bilaterally. LTG Duration 11/01/24 Two Impairment Lower extremity functional scale 24% Short Term Goal (STG) Improve LEFS score to at least 50% as measure of improved left knee function and activity tolerance 10/05/2024 LEFS 56% STG Duration 10/02/24 Animal Skinner Goal (LTG) Improve LEFS score to at least 75% as measure of improved left knee function and activity tolerance LTG Duration 11/01/24 One Impairment limited ROM and strength left knee Short Term Goal (STG) Patient to be instructed in HEP for purposes of ROM and strengthening left knee 10/05/24: goal met STG Duration goal met Animal Skinner Goal (LTG) Patient to be independent and compliant with HEP and demonstrate full AROM 0-120, and strength at least 4+/5 left knee and fucntionally be able to transfer sit to stand with neutral alignment without use of UE's 10/05/2024 AROM left knee 0 to 106 start of session to 120 deg post manual and exercise ) left quad 4-/5 HS (seated 3+ within limited ROM ) LTG Duration 11/01/24 Assessment Summary Assessment Patient only able to flex to 107 to start session, worked to problem-solve why loses ground in between PT sessions. AROM 120 deg post manual therapy and exercise. Patient given written instructions to perform AROM heel slide post gravity assisted knee flexion and knee flexion with strap. Needs to strengthen into full ROM Physical Therapy Plan Frequency and Duration Frequency of Treatment 2x/Week Duration of treatment (weeks) 8 Plan of Care Start Date 09/01/24 Plan of Care End Date 11/01/24 Next Visit Focus/Plan Next Note Type Treatment Note Next Visit Plan Continue PT for left knee to maximize ROM and strengthen in new ROM. Review stairs and hills next session. Suction tool for soft tissue mobilization. Hamstring curls with theraband into full ROM.
--- NOTE | 2024-10-07 11:58 | PT-OP ANOTE ---
Phoned patient and spoke to patient who commented she thought this was the week she only had one appointment. Patient made aware of no show policy and given time and date of next appointment. Of note patient reports she was doing her exercises when she answered the phone.
--- NOTE | 2024-10-12 12:25 | PT.OTN ---
Current Diagnoses Unilateral primary osteoarthritis, left knee (10/12/24) Soft tissue disorder, unspecified (10/12/24) Difficulty in walking, not elsewhere classified (10/12/24) Physical Therapy Treatment Note PT-OP-A Visit Information Start: 08/31/24 16:40 Freq: Status: Active Protocol: Document 10/12/24 10:42 AB (Rec: 10/12/24 12:25 AB [id number]) Out-Patient Physical Therapy Visit Information Visit Information Visit Type Treatment Note Visit Note Access Code: [email or web address] Visit Start Time 11:31 Visit Stop Time 12:18 Visit Number 11 Number of ADJUSTMENT CLERK Visits 2 PT-OP-B Current Condition Start: 08/31/24 16:40 Freq: Status: Active Protocol: Document 09/12/24 13:51 SAK (Rec: 09/12/24 14:32 SAK [id number]) Current Condition History of Current Condition Onset Date 08/31/24 Current Complaints concern for left knee recovery . History of Current Condition arthroscopy for scar tissue removal yesterday left knee approx 1 year since TKA, states surgeon reported especially significant scarring proximal patella and lateral and medial knee. Before surgery 110 deg flexion , under anesthesia 130 deg. Taking Hydrocodone q 6 hrs and added baby aspirin 1 2x/day as instructed by physician. Minimal pain. Walking with cane mostly due to medication for stability. Has done a little exercise so far. Has iced a couple times. Denies N /T. 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, complicated recovery with continued pain, limited motion due to scar tissue Future Testing and Treatments Planned follow up with physician PT-OP-C Subjective Start: 08/31/24 16:40 Freq: Status: Active Protocol: Document 10/12/24 10:42 AB (Rec: 10/12/24 12:25 AB [id number]) OP-PT Subjective Patient Comments Patient Comments Patient reports having discomfort under her knee cap post previous session, which lasted a few hours. Patient rates pain 0/10 start of session. AROM 115 deg left knee flexion start of session. Patient reports Ortho appointment is tomorrow. PT-OP-G Mobility & Gait Start: 08/31/24 16:40 Freq: Status: Active Protocol: Document 09/01/24 13:45 SAK (Rec: 09/01/24 16:56 SAK [id number]) OP Mobility Evaluation Transfers Sit to Stand very wide JEANNINE OP Gait Assessment Gait Gait Assistance Required: Independent Assistive Devices Assistive Device Straight Cane Orthotic/Prosthetic Devices or Brace: No Gait Deviations General Gait Pattern Decreased Stride Length, Decreased Feet Clearance Factors Limiting Gait Function Factors Limiting Gait Function Decreased Strength,Pain PT-OP-H Neuro Start: 08/31/24 16:40 Freq: Status: Active Protocol: Document 09/01/24 13:45 SAK (Rec: 09/01/24 16:56 SAK [id number]) Sensation Evaluation Gross Sensation Gross Sensation WNL PT-OP-J Posture/Palpation/Skin Start: 08/31/24 16:40 Freq: Status: Active Protocol: Document 09/01/24 13:45 SAK (Rec: 09/01/24 16:56 SAK [id number]) Skin Assessment Edema Assessment left knee Edema Degree 2+ Edema Appearance Puffy Subjective Edema Description Tightness Incisional Assessment Incision Appearance/Comments left knee arthroscopy incisions present, sutures in place, no signs or symptoms of infection Other Assessments Skin Assessment Comments Patient had blood on outer elastic bandage, soaked through post-op cast padding and gauze, removed and rebandaged by PT. PT-OP-K Range of Motion Start: 08/31/24 16:40 Freq: Status: Active Protocol: Document 10/05/24 11:02 AB (Rec: 10/05/24 12:56 AB [id number]) Knee Goniometric Range of Motion Knee Left Knee ROM WFL No Patient Position Supine Flexion Active (degrees) 120 Extension Active (degrees) 0 Comments Patient into session with 106 deg AROM PT-OP-M Strength Start: 08/31/24 16:40 Freq: Status: Active Protocol: Document 10/05/24 11:02 AB (Rec: 10/05/24 12:56 AB [id number]) Knee Strength Knee Manual Muscle Testing Left Flexion (S2) 3+ Fair+ Extension (L3) 4- Good- Comments flexion tested seated 3+ within limited ROM PT-OP-Q Treatments Start: 08/31/24 16:40 Freq: Status: Active Protocol: Document 10/12/24 10:42 AB (Rec: 10/12/24 12:25 AB [id number]) Therapeutic Exercises Supine Exercises hip flexor stretch edge of bend Side left Comments one minute with AROM knee flexion gravity assisted knee flex Side left Equipment Used 0 # then 2lb Reps/Minutes 1. one min without weight 2 min heel slide Supine Exercise Name 1. on green [place] ball 2 AROM Side bilateral Equipment Used AROM HS to HEP Comments bilat on [place] ball one min X 2 post stretches AROM X10 X2 Sitting Exercises hamstring curl Sitting Exercise Name HEP Equipment Used no band, and 2 lb Reps/Minutes 10x2 Manual Therapy Treatment Consent Patient gave verbal consent for manual Yes treatment Soft Tissue Mobilization 1 Body Location left quad, IT band, scar tissue medial knee Mobilization Type Cross-Friction,Instrument Assisted,Myofascial Release, Rolling,Strumming Intensity/Depth Moderate Comments increased focus on quad and peripatellar area, suction tool this session on scar tissue PT-OP-R Modalities Start: 08/31/24 16:40 Freq: Status: Active Protocol: Document 09/15/24 13:12 AB (Rec: 09/15/24 16:19 AB [id number]) Hot Pack/Cold Pack Treatment left knee Location top and bottom Patient Position Hooklying Comments leg elevated via table and bolster elevation above her heart PT-OP-T Assessment and Plan Start: 08/31/24 16:40 Freq: Status: Active Protocol: Document 10/12/24 10:42 AB (Rec: 10/12/24 12:25 AB [id number]) Physical Therapy Assessment Goals Three Impairment gait dysfunction Short Term Goal (STG) Patient will be able to ambulate on level surfaces without assistive device safely demonstrating normal flexion of knee and no limp 10/05/2024 Patient ambulates into session without device STG Duration goal met Radiological Metallurgist Goal (LTG) Patient will be able to ambulate on stairs with alternating pattern Patient ascends and descends 6 inch stairs with 2 rails using a reciprocal pattern ( quad dominant pattern) Patient ambulates without device increased knee flexion on heel strike and toe off bilaterally. LTG Duration 11/01/24 Two Impairment Lower extremity functional scale 24% Short Term Goal (STG) Improve LEFS score to at least 50% as measure of improved left knee function and activity tolerance 10/05/2024 LEFS 56% STG Duration 10/02/24 Radiological Metallurgist Goal (LTG) Improve LEFS score to at least 75% as measure of improved left knee function and activity tolerance LTG Duration 11/01/24 One Impairment limited ROM and strength left knee Short Term Goal (STG) Patient to be instructed in HEP for purposes of ROM and strengthening left knee 10/05/24: goal met STG Duration goal met Jail Goal (LTG) Patient to be independent and compliant with HEP and demonstrate full AROM 0-120, and strength at least 4+/5 left knee and fucntionally be able to transfer sit to stand with neutral alignment without use of UE's 10/05/2024 AROM left knee 0 to 106 start of session to 120 deg post manual and exercise ) left quad 4-/5 HS (seated 3+ within limited ROM ) LTG Duration 11/01/24 Assessment Summary Assessment AROM left knee flexion 121 deg end of session and patient into session with increased AROM ie 115 vs 107 previous session. Patient reports having no pain end of session. Physical Therapy Plan Frequency and Duration Frequency of Treatment 2x/Week Duration of treatment (weeks) 8 Plan of Care Start Date 09/01/24 Plan of Care End Date 11/01/24 Next Visit Focus/Plan Next Note Type Treatment Note Next Visit Plan Continue PT for left knee to maximize ROM and strengthen in new ROM. Review stairs and hills next session. Suction tool for soft tissue mobilization. Hamstring curls with theraband into full ROM.
--- NOTE | 2024-10-14 13:01 | PT.OTN ---
Current Diagnoses Unilateral primary osteoarthritis, left knee (10/14/24) Soft tissue disorder, unspecified (10/14/24) Difficulty in walking, not elsewhere classified (10/14/24) Physical Therapy Treatment Note PT-OP-A Visit Information Start: 08/31/24 16:40 Freq: Status: Active Protocol: Document 10/14/24 10:44 AB (Rec: 10/14/24 13:00 AB [id number]) Out-Patient Physical Therapy Visit Information Visit Information Visit Type Treatment Note Visit Note Access Code: [email or web address] Visit Start Time 11:30 Visit Stop Time 12:23 Visit Number 12 Number of [employer]IVERSITY [employer]OLLER Visits 3 PT-OP-B Current Condition Start: 08/31/24 16:40 Freq: Status: Active Protocol: Document 09/12/24 13:51 SAK (Rec: 09/12/24 14:32 SAK [id number]) Current Condition History of Current Condition Onset Date 08/31/24 Current Complaints concern for left knee recovery . History of Current Condition arthroscopy for scar tissue removal yesterday left knee approx 1 year since TKA, states surgeon reported especially significant scarring proximal patella and lateral and medial knee. Before surgery 110 deg flexion , under anesthesia 130 deg. Taking Hydrocodone q 6 hrs and added baby aspirin 1 2x/day as instructed by physician. Minimal pain. Walking with cane mostly due to medication for stability. Has done a little exercise so far. Has iced a couple times. Denies N /T. 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, complicated recovery with continued pain, limited motion due to scar tissue Future Testing and Treatments Planned follow up with physician PT-OP-C Subjective Start: 08/31/24 16:40 Freq: Status: Active Protocol: Document 10/14/24 10:44 AB (Rec: 10/14/24 13:00 AB [id number]) OP-PT Subjective Patient Comments Patient Comments Patient reports MD says he wants her to continue until we see consistent progress ie not up and down. Patient into session with picture of her knee flexion post op, measured on screen with small goiniometer 146 deg flexion left knee post op. AROM left knee flexion post warm up on bike 118 deg flexion PT-OP-G Mobility & Gait Start: 08/31/24 16:40 Freq: Status: Active Protocol: Document 09/01/24 13:45 SAK (Rec: 09/01/24 16:56 [facility] [id number]) OP Mobility Evaluation Transfers Sit to Stand very wide JEANNINE OP Gait Assessment Gait Gait Assistance Required: Independent Assistive Devices Assistive Device Straight Cane Orthotic/Prosthetic Devices or Brace: No Gait Deviations General Gait Pattern Decreased Stride Length, Decreased Feet Clearance Factors Limiting Gait Function Factors Limiting Gait Function Decreased Strength,Pain PT-OP-H Neuro Start: 08/31/24 16:40 Freq: Status: Active Protocol: Document 09/01/24 13:45 [facility] (Rec: 09/01/24 16:56 [facility] [id number]) Sensation Evaluation Gross Sensation Gross Sensation WNL PT-OP-J Posture/Palpation/Skin Start: 08/31/24 16:40 Freq: Status: Active Protocol: Document 09/01/24 13:45 [facility] (Rec: 09/01/24 16:56 [facility] [id number]) Skin Assessment Edema Assessment left knee Edema Degree 2+ Edema Appearance Puffy Subjective Edema Description Tightness Incisional Assessment Incision Appearance/Comments left knee arthroscopy incisions present, sutures in place, no signs or symptoms of infection Other Assessments Skin Assessment Comments Patient had blood on outer elastic bandage, soaked through post-op cast padding and gauze, removed and rebandaged by PT. PT-OP-K Range of Motion Start: 08/31/24 16:40 Freq: Status: Active Protocol: Document 10/05/24 11:02 AB (Rec: 10/05/24 12:56 AB [id number]) Knee Goniometric Range of Motion Knee Left Knee ROM WFL No Patient Position Supine Flexion Active (degrees) 120 Extension Active (degrees) 0 Comments Patient into session with 106 deg AROM PT-OP-M Strength Start: 08/31/24 16:40 Freq: Status: Active Protocol: Document 10/05/24 11:02 AB (Rec: 10/05/24 12:56 AB [id number]) Knee Strength Knee Manual Muscle Testing Left Flexion (S2) 3+ Fair+ Extension (L3) 4- Good- Comments flexion tested seated 3+ within limited ROM PT-OP-Q Treatments Start: 08/31/24 16:40 Freq: Status: Active Protocol: Document 10/14/24 10:44 AB (Rec: 10/14/24 13:00 AB [id number]) Cardio Equipment Bicycle (Upright) Duration (Minutes) 6 Resistance 0 Seat Position 7-5 Gym Equipment Cable Column (Body Solid) knee flexion Details Seated left LE Resistance 2 plates X15 one plate X 10 Therapeutic Exercises Supine Exercises hip flexor stretch edge of bend Side left Comments one minute X2 with AROM knee flexion gravity assisted knee flex Side left Equipment Used then 2lb Reps/Minutes one minute X 2 heel slide Supine Exercise Name AROM Side left Equipment Used AROM HS to HEP Reps/Minutes AROM X 3 and X 10 X2 Comments post manual and HS strengthening Manual Therapy Treatment Consent Patient gave verbal consent for manual Yes treatment Soft Tissue Mobilization 1 Body Location left quad, IT band, scar tissue medial knee Mobilization Type Cross-Friction,Instrument Assisted,Myofascial Release, Rolling,Strumming Intensity/Depth Moderate Comments and superficial Joint Mobilizations patellar Joint left Direction inf, sup, lat, med CW CCW Grade III Body Position Supine Reps/Duration X10 each Manual Techniques Contract relax into knee flexion Type right Body Position seated Reps/Duration X2 15-30 sec X1 60 sec PT-OP-R Modalities Start: 08/31/24 16:40 Freq: Status: Active Protocol: Document 09/15/24 13:12 AB (Rec: 09/15/24 16:19 AB [id number]) Hot Pack/Cold Pack Treatment left knee Location top and bottom Patient Position Hooklying Comments leg elevated via table and bolster elevation above her heart PT-OP-T Assessment and Plan Start: 08/31/24 16:40 Freq: Status: Active Protocol: Document 10/14/24 10:44 AB (Rec: 10/14/24 13:00 AB [id number]) Physical Therapy Assessment Goals Three Impairment gait dysfunction Short Term Goal (STG) Patient will be able to ambulate on level surfaces without assistive device safely demonstrating normal flexion of knee and no limp 10/05/2024 Patient ambulates into session without device STG Duration goal met Livestock Producer Goal (LTG) Patient will be able to ambulate on stairs with alternating pattern Patient ascends and descends 6 inch stairs with 2 rails using a reciprocal pattern ( quad dominant pattern) Patient ambulates without device increased knee flexion on heel strike and toe off bilaterally. LTG Duration 11/01/24 Two Impairment Lower extremity functional scale 24% Short Term Goal (STG) Improve LEFS score to at least 50% as measure of improved left knee function and activity tolerance 10/05/2024 LEFS 56% STG Duration 10/02/24 Livestock Producer Goal (LTG) Improve LEFS score to at least 75% as measure of improved left knee function and activity tolerance LTG Duration 11/01/24 One Impairment limited ROM and strength left knee Short Term Goal (STG) Patient to be instructed in HEP for purposes of ROM and strengthening left knee 10/05/24: goal met STG Duration goal met Usp Goal (LTG) Patient to be independent and compliant with HEP and demonstrate full AROM 0-120, and strength at least 4+/5 left knee and fucntionally be able to transfer sit to stand with neutral alignment without use of UE's 10/05/2024 AROM left knee 0 to 106 start of session to 120 deg post manual and exercise ) left quad 4-/5 HS (seated 3+ within limited ROM ) LTG Duration 11/01/24 Assessment Summary Assessment AROM 110 deg left knee flexion , likely due to fatigue, end of session. Patient did reach 120 during session, but decreased post AROM and seated knee flexion with weight exercises. Physical Therapy Plan Frequency and Duration Frequency of Treatment 2x/Week Duration of treatment (weeks) 8 Plan of Care Start Date 09/01/24 Plan of Care End Date 11/01/24 Therapeutic Interventions Therapeutic Interventions Gait Training,Home Exercise Program,Manual Therapy,Patient /Caregiver Education,Self-Care /Home Management,Soft Tissue Mobilization,Taping, Therapeutic Activities, Therapeutic Exercises Modalities Cold Pack/Ice Massage,Electric Stimulation Next Visit Focus/Plan Next Note Type Treatment Note Next Visit Plan Continue PT for left knee to maximize ROM and strengthen in new ROM. Review stairs and hills next session. Suction tool for soft tissue mobilization. Hamstring curls with theraband into full ROM.
--- NOTE | 2024-10-18 15:38 | PT.OTN ---
Current Diagnoses Unilateral primary osteoarthritis, left knee (10/18/24) Soft tissue disorder, unspecified (10/18/24) Difficulty in walking, not elsewhere classified (10/18/24) Physical Therapy Treatment Note PT-OP-A Visit Information Start: 08/31/24 16:40 Freq: Status: Active Protocol: Document 10/18/24 13:04 [facility] (Rec: 10/18/24 13:46 [facility] [id number]) Out-Patient Physical Therapy Visit Information Visit Information Visit Type Treatment Note Visit Start Time 13:05 Visit Stop Time 13:55 Visit Number 13 Number of VENTILATING EQUIPMENT INSTALLER Visits 0 Evaluation Information Evaluation Date 09/01/24 PT-OP-B Current Condition Start: 08/31/24 16:40 Freq: Status: Active Protocol: Document 10/18/24 13:04 [facility] (Rec: 10/18/24 13:46 [facility] [id number]) Current Condition History of Current Condition Onset Date 08/31/24 Current Complaints concern for left knee recovery . History of Current Condition arthroscopy for scar tissue removal yesterday left knee approx 1 year since TKA, states surgeon reported especially significant scarring proximal patella and lateral and medial knee. Before surgery 110 deg flexion , under anesthesia 130 deg. Taking Hydrocodone q 6 hrs and added baby aspirin 1 2x/day as instructed by physician. Minimal pain. Walking with cane mostly due to medication for stability. Has done a little exercise so far. Has iced a couple times. Denies N /T. 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, complicated recovery with continued pain, limited motion due to scar tissue Future Testing and Treatments Planned follow up with physician PT-OP-C Subjective Start: 08/31/24 16:40 Freq: Status: Active Protocol: Document 10/18/24 13:04 [facility] (Rec: 10/18/24 13:46 [facility] [id number]) OP-PT Subjective Patient Comments Patient Comments Knee feeling tight. Feeling tired due to company. PT-OP-G Mobility & Gait Start: 08/31/24 16:40 Freq: Status: Active Protocol: Document 09/01/24 13:45 SAK (Rec: 09/01/24 16:56 SAK [id number]) OP Mobility Evaluation Transfers Sit to Stand very wide JEANNINE OP Gait Assessment Gait Gait Assistance Required: Independent Assistive Devices Assistive Device Straight Cane Orthotic/Prosthetic Devices or Brace: No Gait Deviations General Gait Pattern Decreased Stride Length, Decreased Feet Clearance Factors Limiting Gait Function Factors Limiting Gait Function Decreased Strength,Pain PT-OP-H Neuro Start: 08/31/24 16:40 Freq: Status: Active Protocol: Document 09/01/24 13:45 SAK (Rec: 09/01/24 16:56 SAK [id number]) Sensation Evaluation Gross Sensation Gross Sensation WNL PT-OP-J Posture/Palpation/Skin Start: 08/31/24 16:40 Freq: Status: Active Protocol: Document 09/01/24 13:45 SAK (Rec: 09/01/24 16:56 SAK [id number]) Skin Assessment Edema Assessment left knee Edema Degree 2+ Edema Appearance Puffy Subjective Edema Description Tightness Incisional Assessment Incision Appearance/Comments left knee arthroscopy incisions present, sutures in place, no signs or symptoms of infection Other Assessments Skin Assessment Comments Patient had blood on outer elastic bandage, soaked through post-op cast padding and gauze, removed and rebandaged by PT. PT-OP-K Range of Motion Start: 08/31/24 16:40 Freq: Status: Active Protocol: Document 10/05/24 11:02 AB (Rec: 10/05/24 12:56 AB [id number]) Knee Goniometric Range of Motion Knee Left Knee ROM WFL No Patient Position Supine Flexion Active (degrees) 120 Extension Active (degrees) 0 Comments Patient into session with 106 deg AROM PT-OP-M Strength Start: 08/31/24 16:40 Freq: Status: Active Protocol: Document 10/05/24 11:02 AB (Rec: 10/05/24 12:56 AB [id number]) Knee Strength Knee Manual Muscle Testing Left Flexion (S2) 3+ Fair+ Extension (L3) 4- Good- Comments flexion tested seated 3+ within limited ROM PT-OP-Q Treatments Start: 08/31/24 16:40 Freq: Status: Active Protocol: Document 10/18/24 13:04 SAK (Rec: 10/18/24 13:46 SAK [id number]) Cardio Equipment Bicycle (Upright) Duration (Minutes) 6 Resistance 0 Seat Position 6-5 Gym Equipment Cable Column (Body Solid) knee flexion Details Seated left LE Resistance 2 plates X15 Therapeutic Exercises Supine Exercises hip flexor stretch edge of bend Side left Comments one minute X2 with AAROM with strap gravity assisted knee flex Side left Equipment Used 2lb Reps/Minutes one minute X 2 Sitting Exercises stool scoot Reps/Minutes 10 ft x 3 Standing Exercises stair lunge Reps/Minutes 10x5 Manual Therapy Treatment Soft Tissue Mobilization 1 Body Location left quad, IT band, scar tissue medial knee Mobilization Type Cross-Friction,Instrument Assisted,Myofascial Release, Rolling,Strumming Intensity/Depth Moderate Comments and superficial Manual Techniques Contract relax into knee flexion Type right Body Position seated Reps/Duration 3x 5 sec, then end range stretch PT-OP-R Modalities Start: 08/31/24 16:40 Freq: Status: Active Protocol: Document 10/18/24 13:04 [facility] (Rec: 10/18/24 15:38 [facility] [id number]) Hot Pack/Cold Pack Treatment left knee Location top and bottom Patient Position Hooklying Comments leg elevated via table and bolster elevation above her heart PT-OP-T Assessment and Plan Start: 08/31/24 16:40 Freq: Status: Active Protocol: Document 10/18/24 13:04 [facility] (Rec: 10/18/24 13:46 [facility] [id number]) Physical Therapy Assessment Goals Three Impairment gait dysfunction Short Term Goal (STG) Patient will be able to ambulate on level surfaces without assistive device safely demonstrating normal flexion of knee and no limp 10/05/2024 Patient ambulates into session without device STG Duration goal met Skilled Nursing Goal (LTG) Patient will be able to ambulate on stairs with alternating pattern Patient ascends and descends 6 inch stairs with 2 rails using a reciprocal pattern ( quad dominant pattern) Patient ambulates without device increased knee flexion on heel strike and toe off bilaterally. LTG Duration 11/01/24 Two Impairment Lower extremity functional scale 24% Short Term Goal (STG) Improve LEFS score to at least 50% as measure of improved left knee function and activity tolerance 10/05/2024 LEFS 56% 10/18/24: goal met STG Duration goal met Associate Professor [employer] Art [employer] Goal (LTG) Improve LEFS score to at least 75% as measure of improved left knee function and activity tolerance LTG Duration 11/01/24 One Impairment limited ROM and strength left knee Short Term Goal (STG) Patient to be instructed in HEP for purposes of ROM and strengthening left knee 10/05/24: goal met STG Duration goal met Associate Professor [employer] Art [employer] Goal (LTG) Patient to be independent and compliant with HEP and demonstrate full AROM 0-120, and strength at least 4+/5 left knee and fucntionally be able to transfer sit to stand with neutral alignment without use of UE's 10/05/2024 AROM left knee 0 to 106 start of session to 120 deg post manual and exercise ) left quad 4-/5 HS (seated 3+ within limited ROM ) LTG Duration 11/01/24 Assessment Summary Assessment End of session seated AAROM 130 after contract relax technique, active 118. Patient encouraged cont HEP, strengthening into new ROM for improved consistency of motion. Physical Therapy Plan Frequency and Duration Frequency of Treatment 2x/Week Duration of treatment (weeks) 8 Plan of Care Start Date 09/01/24 Plan of Care End Date 11/01/24 Therapeutic Interventions Therapeutic Interventions Gait Training,Home Exercise Program,Manual Therapy,Patient /Caregiver Education,Self-Care /Home Management,Soft Tissue Mobilization,Taping, Therapeutic Activities, Therapeutic Exercises Modalities Cold Pack/Ice Massage,Electric Stimulation Next Visit Focus/Plan Next Note Type Treatment Note Next Visit Plan Continue left knee rehab, emphasis improving left knee flexion ROM and strength. Use suction tool for scar and soft tissue mobilization and scapular mobilization to improve knee mobility.
--- NOTE | 2024-10-18 15:46 | PT.OTN ---
Current Diagnoses Unilateral primary osteoarthritis, left knee (10/18/24) Soft tissue disorder, unspecified (10/18/24) Difficulty in walking, not elsewhere classified (10/18/24) Physical Therapy Treatment Note PT-OP-A Visit Information Start: 08/31/24 16:40 Freq: Status: Active Protocol: Document 10/18/24 13:04 [facility] (Rec: 10/18/24 13:46 [facility] [id number]) Out-Patient Physical Therapy Visit Information Visit Information Visit Type Treatment Note Visit Start Time 13:05 Visit Stop Time 13:55 Visit Number 13 Number of COMMUNITY ORGANIZATION WORKER Visits 0 Evaluation Information Evaluation Date 09/01/24 PT-OP-B Current Condition Start: 08/31/24 16:40 Freq: Status: Active Protocol: Document 10/18/24 13:04 [facility] (Rec: 10/18/24 13:46 [facility] [id number]) Current Condition History of Current Condition Onset Date 08/31/24 Current Complaints concern for left knee recovery . History of Current Condition arthroscopy for scar tissue removal yesterday left knee approx 1 year since TKA, states surgeon reported especially significant scarring proximal patella and lateral and medial knee. Before surgery 110 deg flexion , under anesthesia 130 deg. Taking Hydrocodone q 6 hrs and added baby aspirin 1 2x/day as instructed by physician. Minimal pain. Walking with cane mostly due to medication for stability. Has done a little exercise so far. Has iced a couple times. Denies N /T. 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 Feeling tired due to company. PT-OP-G Mobility & Gait Start: 08/31/24 16:40 Freq: Status: Active Protocol: Document 09/01/24 13:45 [facility] (Rec: 09/01/24 16:56 [facility] [id number]) OP Mobility Evaluation Transfers Sit to Stand very wide JEANNINE OP Gait Assessment Gait Gait Assistance Required: Independent Assistive Devices Assistive Device Straight Cane Orthotic/Prosthetic Devices or Brace: No Gait Deviations General Gait Pattern Decreased Stride Length, Decreased Feet Clearance Factors Limiting Gait Function Factors Limiting Gait Function Decreased Strength,Pain PT-OP-H Neuro Start: 08/31/24 16:40 Freq: Status: Active Protocol: Document 09/01/24 13:45 [facility] (Rec: 09/01/24 16:56 [facility] [id number]) Sensation Evaluation Gross Sensation Gross Sensation WNL PT-OP-J Posture/Palpation/Skin Start: 08/31/24 16:40 Freq: Status: Active Protocol: Document 09/01/24 13:45 [facility] (Rec: 09/01/24 16:56 [facility] [id number]) Skin Assessment Edema Assessment left knee Edema Degree 2+ Edema Appearance Puffy Subjective Edema Description Tightness Incisional Assessment Incision Appearance/Comments left knee arthroscopy incisions present, sutures in place, no signs or symptoms of infection Other Assessments Skin Assessment Comments Patient had blood on outer elastic bandage, soaked through post-op cast padding and gauze, removed and rebandaged by PT. PT-OP-K Range of Motion Start: 08/31/24 16:40 Freq: Status: Active Protocol: Document 10/05/24 11:02 AB (Rec: 10/05/24 12:56 AB [id number]) Knee Goniometric Range of Motion Knee Left Knee ROM WFL No Patient Position Supine Flexion Active (degrees) 120 Extension Active (degrees) 0 Comments Patient into session with 106 deg AROM PT-OP-M Strength Start: 08/31/24 16:40 Freq: Status: Active Protocol: Document 10/05/24 11:02 AB (Rec: 10/05/24 12:56 AB [id number]) Knee Strength Knee Manual Muscle Testing Left Flexion (S2) 3+ Fair+ Extension (L3) 4- Good- Comments flexion tested seated 3+ within limited ROM PT-OP-Q Treatments Start: 08/31/24 16:40 Freq: Status: Active Protocol: Document 10/18/24 13:04 [facility] (Rec: 10/18/24 13:46 SAK [id number]) Cardio Equipment Bicycle (Upright) Duration (Minutes) 6 Resistance 0 Seat Position 6-5 Gym Equipment Cable Column (Body Solid) knee flexion Details Seated left LE Resistance 2 plates X15 Therapeutic Exercises Supine Exercises hip flexor stretch edge of bend Side left Comments one minute X2 with AAROM with strap gravity assisted knee flex Side left Equipment Used 2lb Reps/Minutes one minute X 2 Sitting Exercises stool scoot Reps/Minutes 10 ft x 3 Standing Exercises stair lunge Reps/Minutes 10x5 Manual Therapy Treatment Soft Tissue Mobilization 1 Body Location left quad, IT band, scar tissue medial knee Mobilization Type Cross-Friction,Instrument Assisted,Myofascial Release, Rolling,Strumming Intensity/Depth Moderate Comments and superficial Manual Techniques Contract relax into knee flexion Type right Body Position seated Reps/Duration 3x 5 sec, then end range stretch PT-OP-R Modalities Start: 08/31/24 16:40 Freq: Status: Active Protocol: Document 10/18/24 13:04 [facility] (Rec: 10/18/24 15:38 [facility] [id number]) Hot Pack/Cold Pack Treatment left knee Location top and bottom Patient Position Hooklying Comments leg elevated via table and bolster elevation above her heart PT-OP-T Assessment and Plan Start: 08/31/24 16:40 Freq: Status: Active Protocol: Document 10/18/24 13:04 [facility] (Rec: 10/18/24 13:46 [facility] [id number]) Physical Therapy Assessment Impairments Impairments Gait,ROM Goals Three Impairment gait dysfunction Short Term Goal (STG) Patient will be able to ambulate on level surfaces without assistive device safely demonstrating normal flexion of knee and no limp 10/05/2024 Patient ambulates into session without device STG Duration goal met Compensation Business Partner Goal (LTG) Patient will be able to ambulate on stairs with alternating pattern Patient ascends and descends 6 inch stairs with 2 rails using a reciprocal pattern ( quad dominant pattern) Patient ambulates without device increased knee flexion on heel strike and toe off bilaterally. 10/18/24: good goal progress; can do on 4 stairs, requires heavy UE use on 6 stairs. LTG Duration 11/22/24 Two Impairment Lower extremity functional scale 24% Short Term Goal (STG) Improve LEFS score to at least 50% as measure of improved left knee function and activity tolerance 10/05/2024 LEFS 56% 10/18/24: goal met STG Duration goal met Compensation Business Partner Goal (LTG) Improve LEFS score to at least 75% as measure of improved left knee function and activity tolerance 10/18/24: good goal progress to 64% LTG Duration 11/22/24 One Impairment limited ROM and strength left knee Short Term Goal (STG) Patient to be instructed in HEP for purposes of ROM and strengthening left knee 10/05/24: goal met STG Duration goal met Mcc Goal (LTG) Patient to be independent and compliant with HEP and demonstrate full AROM 0-135, and strength at least 4+/5 left knee and fucntionally be able to transfer sit to stand with neutral alignment without use of UE's 10/05/2024 AROM left knee 0 to 106 start of session to 120 deg post manual and exercise ) left quad 4-/5 HS (seated 3+ within limited ROM ) 10/18/24: left knee AROM end of session 0-118, AAROM 0-130 deg. Decreased but still requires use of UE's for sit to stand transfers LTG Duration 11/22/24 Assessment Summary Assessment End of session seated AAROM 130 after contract relax technique, active 118. Patient encouraged cont HEP, strengthening into new ROM for improved consistency of motion. Will benefit from continued PT to help her left knee ROM and strength to meet above goals, consistently have ROM left knee above 120 degrees without taking full PT session to achieve. Manual techniques and progression of ther ex will be utilized. POC discussed and patient in agreement. Physical Therapy Plan Frequency and Duration Frequency of Treatment 2x/Week Duration of treatment (weeks) 5 Plan of Care Start Date 10/18/24 Plan of Care End Date 11/22/24 Therapeutic Interventions Therapeutic Interventions Gait Training,Home Exercise Program,Manual Therapy,Patient /Caregiver Education,Self-Care /Home Management,Soft Tissue Mobilization,Taping, Therapeutic Activities, Therapeutic Exercises Modalities Cold Pack/Ice Massage,Electric Stimulation Next Visit Focus/Plan Next Note Type Treatment Note Next Visit Plan Continue left knee rehab, emphasis improving left knee flexion ROM and strength. Use suction tool for scar and soft tissue mobilization and scapular mobilization to improve knee mobility.
--- NOTE | 2024-10-24 12:23 | PT.OTN ---
Current Diagnoses Unilateral primary osteoarthritis, left knee (10/24/24) Soft tissue disorder, unspecified (10/24/24) Difficulty in walking, not elsewhere classified (10/24/24) Physical Therapy Treatment Note PT-OP-A Visit Information Start: 08/31/24 16:40 Freq: Status: Active Protocol: Document 10/24/24 08:19 AB (Rec: 10/24/24 12:23 AB [id number]) Out-Patient Physical Therapy Visit Information Visit Information Visit Type Treatment Note Visit Note Access Code: [email or web address] Visit Start Time 11:34 Visit Stop Time 12:17 Visit Number 14 Number of CLARIFIER OPERATOR HELPER Visits 1 Evaluation Information Evaluation Date 09/01/24 PT-OP-B Current Condition Start: 08/31/24 16:40 Freq: Status: Active Protocol: Document 10/18/24 13:04 [facility] (Rec: 10/18/24 13:46 SAK [id number]) Current Condition History of Current Condition Onset Date 08/31/24 Current Complaints concern for left knee recovery . History of Current Condition arthroscopy for scar tissue removal yesterday left knee approx 1 year since TKA, states surgeon reported especially significant scarring proximal patella and lateral and medial knee. Before surgery 110 deg flexion , under anesthesia 130 deg. Taking Hydrocodone q 6 hrs and added baby aspirin 1 2x/day as instructed by physician. Minimal pain. Walking with cane mostly due to medication for stability. Has done a little exercise so far. Has iced a couple times. Denies N /T. 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, complicated recovery with continued pain, limited motion due to scar tissue Future Testing and Treatments Planned follow up with physician PT-OP-C Subjective Start: 08/31/24 16:40 Freq: Status: Active Protocol: Document 10/24/24 08:19 AB (Rec: 10/24/24 12:23 AB [id number]) OP-PT Subjective Patient Comments Patient Comments Patient reports she only did exercises since previous session due to company for holidays. 114 deg AROM left knee flexion start of session. Patient made aware of importance of HEP now for increasing ROM. Patient comments during session she can now david her sock. PT-OP-G Mobility & Gait Start: 08/31/24 16:40 Freq: Status: Active Protocol: Document 09/01/24 13:45 [facility] (Rec: 09/01/24 16:56 SAK [id number]) OP Mobility Evaluation Transfers Sit to Stand very wide JEANNINE OP Gait Assessment Gait Gait Assistance Required: Independent Assistive Devices Assistive Device Straight Cane Orthotic/Prosthetic Devices or Brace: No Gait Deviations General Gait Pattern Decreased Stride Length, Decreased Feet Clearance Factors Limiting Gait Function Factors Limiting Gait Function Decreased Strength,Pain PT-OP-H Neuro Start: 08/31/24 16:40 Freq: Status: Active Protocol: Document 09/01/24 13:45 [facility] (Rec: 09/01/24 16:56 [facility] [id number]) Sensation Evaluation Gross Sensation Gross Sensation WNL PT-OP-J Posture/Palpation/Skin Start: 08/31/24 16:40 Freq: Status: Active Protocol: Document 09/01/24 13:45 [facility] (Rec: 09/01/24 16:56 [facility] [id number]) Skin Assessment Edema Assessment left knee Edema Degree 2+ Edema Appearance Puffy Subjective Edema Description Tightness Incisional Assessment Incision Appearance/Comments left knee arthroscopy incisions present, sutures in place, no signs or symptoms of infection Other Assessments Skin Assessment Comments Patient had blood on outer elastic bandage, soaked through post-op cast padding and gauze, removed and rebandaged by PT. PT-OP-K Range of Motion Start: 08/31/24 16:40 Freq: Status: Active Protocol: Document 10/05/24 11:02 AB (Rec: 10/05/24 12:56 AB [id number]) Knee Goniometric Range of Motion Knee Left Knee ROM WFL No Patient Position Supine Flexion Active (degrees) 120 Extension Active (degrees) 0 Comments Patient into session with 106 deg AROM PT-OP-M Strength Start: 08/31/24 16:40 Freq: Status: Active Protocol: Document 10/05/24 11:02 AB (Rec: 10/05/24 12:56 AB [id number]) Knee Strength Knee Manual Muscle Testing Left Flexion (S2) 3+ Fair+ Extension (L3) 4- Good- Comments flexion tested seated 3+ within limited ROM PT-OP-Q Treatments Start: 08/31/24 16:40 Freq: Status: Active Protocol: Document 10/24/24 08:19 AB (Rec: 10/24/24 12:23 AB [id number]) Cardio Equipment Bicycle (Upright) Duration (Minutes) 7 Resistance 3,1 Seat Position 7-5 Therapeutic Exercises Supine Exercises hip flexor stretch edge of bend Side left Comments one minute X1 with AAROM with strap gravity assisted knee flex Side left Reps/Minutes one minute heel slide Supine Exercise Name AROM Side left Equipment Used AROM HS to HEP Reps/Minutes AROM HS X10 X 4 post stretches , then X 10 with level one band Comments post manual and HS strengthening Sitting Exercises hamstring curl Sitting Exercise Name HEP Equipment Used 2 lb Reps/Minutes X10 Standing Exercises stair lunge Reps/Minutes X15 Comments verbal cues Manual Therapy Treatment Consent Patient gave verbal consent for manual Yes treatment Soft Tissue Mobilization 1 Body Location left quad, IT band, scar tissue medial knee Mobilization Type Cross-Friction,Instrument Assisted,Myofascial Release, Rolling,Strumming Intensity/Depth Moderate Comments and superficial Manual Techniques Contract relax into knee flexion Type right Body Position seated Reps/Duration 30 sec X 3 PT-OP-R Modalities Start: 08/31/24 16:40 Freq: Status: Active Protocol: Document 10/18/24 13:04 [facility] (Rec: 10/18/24 15:38 SAK [id number]) Hot Pack/Cold Pack Treatment left knee Location top and bottom Patient Position Hooklying Comments leg elevated via table and bolster elevation above her heart PT-OP-T Assessment and Plan Start: 08/31/24 16:40 Freq: Status: Active Protocol: Document 10/24/24 08:19 AB (Rec: 10/24/24 12:23 AB [id number]) Physical Therapy Assessment Goals Three Impairment gait dysfunction Short Term Goal (STG) Patient will be able to ambulate on level surfaces without assistive device safely demonstrating normal flexion of knee and no limp 10/05/2024 Patient ambulates into session without device STG Duration goal met Correction Goal (LTG) Patient will be able to ambulate on stairs with alternating pattern Patient ascends and descends 6 inch stairs with 2 rails using a reciprocal pattern ( quad dominant pattern) Patient ambulates without device increased knee flexion on heel strike and toe off bilaterally. 10/18/24: good goal progress; can do on 4 stairs, requires heavy UE use on 6 stairs. LTG Duration 11/22/24 Two Impairment Lower extremity functional scale 24% Short Term Goal (STG) Improve LEFS score to at least 50% as measure of improved left knee function and activity tolerance 10/05/2024 LEFS 56% 10/18/24: goal met STG Duration goal met Leader Writer Goal (LTG) Improve LEFS score to at least 75% as measure of improved left knee function and activity tolerance 10/18/24: good goal progress to 64% LTG Duration 11/22/24 One Impairment limited ROM and strength left knee Short Term Goal (STG) Patient to be instructed in HEP for purposes of ROM and strengthening left knee 10/05/24: goal met STG Duration goal met Leader Writer Goal (LTG) Patient to be independent and compliant with HEP and demonstrate full AROM 0-135, and strength at least 4+/5 left knee and fucntionally be able to transfer sit to stand with neutral alignment without use of UE's 10/05/2024 AROM left knee 0 to 106 start of session to 120 deg post manual and exercise ) left quad 4-/5 HS (seated 3+ within limited ROM ) 10/18/24: left knee AROM end of session 0-118, AAROM 0-130 deg. Decreased but still requires use of UE's for sit to stand transfers LTG Duration 11/22/24 Assessment Summary Assessment AROM left knee flexion to 117 deg post manual and exercise. Patient reports having no pain end of session. Physical Therapy Plan Frequency and Duration Frequency of Treatment 2x/Week Duration of treatment (weeks) 5 Plan of Care Start Date 10/18/24 Plan of Care End Date 11/22/24 Next Visit Focus/Plan Next Note Type Treatment Note Next Visit Plan Continue left knee rehab, emphasis improving left knee flexion ROM and strength. Use suction tool for scar and soft tissue mobilization and scapular mobilization to improve knee mobility.
--- NOTE | 2024-10-31 16:28 | PT.OTN ---
Addendum entered and electronically signed by Carol Shook 11/14/24 16:55: Plan Patellar mobilization, not scapular Original Note: Current Diagnoses Unilateral primary osteoarthritis, left knee (10/31/24) Soft tissue disorder, unspecified (10/31/24) Difficulty in walking, not elsewhere classified (10/31/24) Physical Therapy Treatment Note PT-OP-A Visit Information Start: 08/31/24 16:40 Freq: Status: Active Protocol: Document 10/31/24 13:01 AB (Rec: 10/31/24 16:28 AB [id number]) Out-Patient Physical Therapy Visit Information Visit Information Visit Type Treatment Note Visit Note Access Code: [email or web address] Visit Start Time 14:33 Visit Stop Time 15:16 Visit Number 15 Number of DIRECTOR OF INSTRUCTION Visits 2 PT-OP-B Current Condition Start: 08/31/24 16:40 Freq: Status: Active Protocol: Document 10/18/24 13:04 SAK (Rec: 10/18/24 13:46 SAK [id number]) Current Condition History of Current Condition Onset Date 08/31/24 Current Complaints concern for left knee recovery . History of Current Condition arthroscopy for scar tissue removal yesterday left knee approx 1 year since TKA, states surgeon reported especially significant scarring proximal patella and lateral and medial knee. Before surgery 110 deg flexion , under anesthesia 130 deg. Taking Hydrocodone q 6 hrs and added baby aspirin 1 2x/day as instructed by physician. Minimal pain. Walking with cane mostly due to medication for stability. Has done a little exercise so far. Has iced a couple times. Denies N /T. 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, complicated recovery with continued pain, limited motion due to scar tissue Future Testing and Treatments Planned follow up with physician PT-OP-C Subjective Start: 08/31/24 16:40 Freq: Status: Active Protocol: Document 10/31/24 13:01 AB (Rec: 10/31/24 16:28 AB [id number]) OP-PT Subjective Patient Comments Patient Comments Patient reports her bed isn't high enough to do the Bobo stretch with knee flexion at home. Patient reports performing HEP daily when questioned. Patient rates left hip pain 1/10 attributes to planting [place] today. AROM left knee post bike 116 deg. PT-OP-G Mobility & Gait Start: 08/31/24 16:40 Freq: Status: Active Protocol: Document 09/01/24 13:45 SAK (Rec: 09/01/24 16:56 SAK [id number]) OP Mobility Evaluation Transfers Sit to Stand very wide JEANNINE OP Gait Assessment Gait Gait Assistance Required: Independent Assistive Devices Assistive Device Straight Cane Orthotic/Prosthetic Devices or Brace: No Gait Deviations General Gait Pattern Decreased Stride Length, Decreased Feet Clearance Factors Limiting Gait Function Factors Limiting Gait Function Decreased Strength,Pain PT-OP-H Neuro Start: 08/31/24 16:40 Freq: Status: Active Protocol: Document 09/01/24 13:45 SAK (Rec: 09/01/24 16:56 SAK [id number]) Sensation Evaluation Gross Sensation Gross Sensation WNL PT-OP-J Posture/Palpation/Skin Start: 08/31/24 16:40 Freq: Status: Active Protocol: Document 09/01/24 13:45 SAK (Rec: 09/01/24 16:56 SAK [id number]) Skin Assessment Edema Assessment left knee Edema Degree 2+ Edema Appearance Puffy Subjective Edema Description Tightness Incisional Assessment Incision Appearance/Comments left knee arthroscopy incisions present, sutures in place, no signs or symptoms of infection Other Assessments Skin Assessment Comments Patient had blood on outer elastic bandage, soaked through post-op cast padding and gauze, removed and rebandaged by PT. PT-OP-K Range of Motion Start: 08/31/24 16:40 Freq: Status: Active Protocol: Document 10/05/24 11:02 AB (Rec: 10/05/24 12:56 AB [id number]) Knee Goniometric Range of Motion Knee Left Knee ROM WFL No Patient Position Supine Flexion Active (degrees) 120 Extension Active (degrees) 0 Comments Patient into session with 106 deg AROM PT-OP-M Strength Start: 08/31/24 16:40 Freq: Status: Active Protocol: Document 10/05/24 11:02 AB (Rec: 10/05/24 12:56 AB [id number]) Knee Strength Knee Manual Muscle Testing Left Flexion (S2) 3+ Fair+ Extension (L3) 4- Good- Comments flexion tested seated 3+ within limited ROM PT-OP-Q Treatments Start: 08/31/24 16:40 Freq: Status: Active Protocol: Document 10/31/24 13:01 AB (Rec: 10/31/24 16:28 AB [id number]) Cardio Equipment Bicycle (Upright) Duration (Minutes) 7 Seat Position 7-5 Therapeutic Exercises Supine Exercises hip flexor stretch edge of bend Side left Comments one minute X1 (+30 sec noted in manual below)with AAROM with strap heel slide Supine Exercise Name AROM Side left Equipment Used AROM HS to HEP Reps/Minutes AROM HS X10 post stretches, then X 10 with level one band Comments post manual and HS strengthening Standing Exercises AROM knee flexion Side left Reps/Minutes X10 Comments verbal cues, post manual Manual Therapy Treatment Consent Patient gave verbal consent for manual Yes treatment Soft Tissue Mobilization 1 Body Location left quad, IT band, scar tissue medial knee Mobilization Type Cross-Friction,Instrument Assisted,Myofascial Release, Rolling,Strumming Intensity/Depth Moderate Comments and superficial small suction to scar tissue Manual Techniques Contract relax into knee flexion Type right Body Position seated Reps/Duration 60 sec X 2 Comments then X 2 with 30 sec hold in Bobo stretch position PT-OP-R Modalities Start: 08/31/24 16:40 Freq: Status: Active Protocol: Document 10/18/24 13:04 [facility] (Rec: 10/18/24 15:38 SAK [id number]) Hot Pack/Cold Pack Treatment left knee Location top and bottom Patient Position Hooklying Comments leg elevated via table and bolster elevation above her heart PT-OP-T Assessment and Plan Start: 08/31/24 16:40 Freq: Status: Active Protocol: Document 10/31/24 13:01 AB (Rec: 10/31/24 16:28 AB [id number]) Physical Therapy Assessment Goals Three Impairment gait dysfunction Short Term Goal (STG) Patient will be able to ambulate on level surfaces without assistive device safely demonstrating normal flexion of knee and no limp 10/05/2024 Patient ambulates into session without device STG Duration goal met Nursing Home Goal (LTG) Patient will be able to ambulate on stairs with alternating pattern Patient ascends and descends 6 inch stairs with 2 rails using a reciprocal pattern ( quad dominant pattern) Patient ambulates without device increased knee flexion on heel strike and toe off bilaterally. 10/18/24: good goal progress; can do on 4 stairs, requires heavy UE use on 6 stairs. LTG Duration 11/22/24 Two Impairment Lower extremity functional scale 24% Short Term Goal (STG) Improve LEFS score to at least 50% as measure of improved left knee function and activity tolerance 10/05/2024 LEFS 56% 10/18/24: goal met STG Duration goal met Nursing Home Goal (LTG) Improve LEFS score to at least 75% as measure of improved left knee function and activity tolerance 10/18/24: good goal progress to 64% LTG Duration 11/22/24 One Impairment limited ROM and strength left knee Short Term Goal (STG) Patient to be instructed in HEP for purposes of ROM and strengthening left knee 10/05/24: goal met STG Duration goal met [employer] Goal (LTG) Patient to be independent and compliant with HEP and demonstrate full AROM 0-135, and strength at least 4+/5 left knee and fucntionally be able to transfer sit to stand with neutral alignment without use of UE's 10/05/2024 AROM left knee 0 to 106 start of session to 120 deg post manual and exercise ) left quad 4-/5 HS (seated 3+ within limited ROM ) 10/18/24: left knee AROM end of session 0-118, AAROM 0-130 deg. Decreased but still requires use of UE's for sit to stand transfers LTG Duration 11/22/24 Assessment Summary Assessment AROM left knee flexion 121 deg end of session. Patient Physical Therapy Plan Frequency and Duration Frequency of Treatment 2x/Week Duration of treatment (weeks) 5 Plan of Care Start Date 10/18/24 Plan of Care End Date 11/22/24 Next Visit Focus/Plan Next Note Type Treatment Note Next Visit Plan scapular mobilization to improve knee mobility. Continue left knee rehab, emphasis improving left knee flexion ROM and strength. Use suction tool for scar and soft tissue mobilization and scapular mobilization to improve knee mobility.
--- NOTE | 2024-11-10 17:50 | PT.OTN ---
Current Diagnoses Unilateral primary osteoarthritis, left knee (11/10/24) Soft tissue disorder, unspecified (11/10/24) Difficulty in walking, not elsewhere classified (11/10/24) Physical Therapy Treatment Note PT-OP-A Visit Information Start: 08/31/24 16:40 Freq: Status: Active Protocol: Document 11/10/24 13:07 SW (Rec: 11/10/24 13:49 SW [id number]) Out-Patient Physical Therapy Visit Information Visit Information Visit Type Treatment Note Visit Note Access Code: [email or web address] Visit Start Time 13:02 Visit Stop Time 13:12 Visit Number 16 Number of CROZER Visits 3 PT-OP-B Current Condition Start: 08/31/24 16:40 Freq: Status: Active Protocol: Document 10/18/24 13:04 SAK (Rec: 10/18/24 13:46 SAK [id number]) Current Condition History of Current Condition Onset Date 08/31/24 Current Complaints concern for left knee recovery . History of Current Condition arthroscopy for scar tissue removal yesterday left knee approx 1 year since TKA, states surgeon reported especially significant scarring proximal patella and lateral and medial knee. Before surgery 110 deg flexion , under anesthesia 130 deg. Taking Hydrocodone q 6 hrs and added baby aspirin 1 2x/day as instructed by physician. Minimal pain. Walking with cane mostly due to medication for stability. Has done a little exercise so far. Has iced a couple times. Denies N /T. 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, complicated recovery with continued pain, limited motion due to scar tissue Future Testing and Treatments Planned follow up with physician PT-OP-C Subjective Start: 08/31/24 16:40 Freq: Status: Active Protocol: Document 11/10/24 13:07 (Rec: 11/10/24 13:49 [id number]) OP-PT Subjective Patient Comments Patient Comments Pt reports progress able to get left knee over and put on right sock, unable to get shoe on, still slides on floor to get foot in shoe. PT-OP-G Mobility & Gait Start: 08/31/24 16:40 Freq: Status: Active Protocol: Document 09/01/24 13:45 SAK (Rec: 09/01/24 16:56 SAK [id number]) OP Mobility Evaluation Transfers Sit to Stand very wide JEANNINE OP Gait Assessment Gait Gait Assistance Required: Independent Assistive Devices Assistive Device Straight Cane Orthotic/Prosthetic Devices or Brace: No Gait Deviations General Gait Pattern Decreased Stride Length, Decreased Feet Clearance Factors Limiting Gait Function Factors Limiting Gait Function Decreased Strength,Pain PT-OP-H Neuro Start: 08/31/24 16:40 Freq: Status: Active Protocol: Document 09/01/24 13:45 SAK (Rec: 09/01/24 16:56 SAK [id number]) Sensation Evaluation Gross Sensation Gross Sensation WNL PT-OP-J Posture/Palpation/Skin Start: 08/31/24 16:40 Freq: Status: Active Protocol: Document 09/01/24 13:45 SAK (Rec: 09/01/24 16:56 SAK [id number]) Skin Assessment Edema Assessment left knee Edema Degree 2+ Edema Appearance Puffy Subjective Edema Description Tightness Incisional Assessment Incision Appearance/Comments left knee arthroscopy incisions present, sutures in place, no signs or symptoms of infection Other Assessments Skin Assessment Comments Patient had blood on outer elastic bandage, soaked through post-op cast padding and gauze, removed and rebandaged by PT. PT-OP-K Range of Motion Start: 08/31/24 16:40 Freq: Status: Active Protocol: Document 10/05/24 11:02 AB (Rec: 10/05/24 12:56 AB [id number]) Knee Goniometric Range of Motion Knee Left Knee ROM WFL No Patient Position Supine Flexion Active (degrees) 120 Extension Active (degrees) 0 Comments Patient into session with 106 deg AROM PT-OP-M Strength Start: 08/31/24 16:40 Freq: Status: Active Protocol: Document 10/05/24 11:02 AB (Rec: 10/05/24 12:56 AB [id number]) Knee Strength Knee Manual Muscle Testing Left Flexion (S2) 3+ Fair+ Extension (L3) 4- Good- Comments flexion tested seated 3+ within limited ROM PT-OP-Q Treatments Start: 08/31/24 16:40 Freq: Status: Active Protocol: Document 11/10/24 13:07 SW (Rec: 11/10/24 13:49 SW [id number]) Cardio Equipment Bicycle (Upright) Duration (Minutes) 10 Seat Position 6-4 Other Gradual seat lowered for increased Knee ROM, good LE alignment Therapeutic Exercises Supine Exercises hip flexor stretch edge of bend Supine Exercise Name verbal review heel slide Supine Exercise Name AROM Side left Equipment Used AROM HS to HEP Reps/Minutes AROM HS X10 post stretches, then X 10 with strap assist Comments post manual Standing Exercises Calf stretch Standing Exercise Name Plan to initiate next session as able Comments verbal review quad stretch Standing Exercise Name verbal review Other Exercises Stairs Other Exercise Name step up/down to reinforce length post stretching Side bilateral Equipment Used 6 stair Comments pain free, BUE support for balance Manual Therapy Treatment Soft Tissue Mobilization 1 Body Location left quad, IT band, scar tissue medial knee Mobilization Type Cross-Friction,Instrument Assisted,Myofascial Release, Rolling,Strumming Intensity/Depth Moderate Comments superficial small suction to scar tissue Joint Mobilizations patellar Joint left Direction inf, sup, lat, med CW CCW Grade III Body Position Supine Reps/Duration X10 each Manual Techniques Contract relax into knee flexion Type right Body Position seated Reps/Duration 5 x 5 contract w/ 10 flex stretch Self-Care/Home Management Treatment Education Patient Education Home Exercise Program,Pain Management Other Education Pt education on stretching/ massage for cramps in calf muscle, discussed water intake with pt. Pt education on HEP. PT-OP-R Modalities Start: 08/31/24 16:40 Freq: Status: Active Protocol: Document 10/18/24 13:04 SAK (Rec: 10/18/24 15:38 SAK [id number]) Hot Pack/Cold Pack Treatment left knee Location top and bottom Patient Position Hooklying Comments leg elevated via table and bolster elevation above her heart PT-OP-T Assessment and Plan Start: 08/31/24 16:40 Freq: Status: Active Protocol: Document 11/10/24 13:07 SW (Rec: 11/10/24 13:49 SW [id number]) Physical Therapy Assessment Goals Three Impairment gait dysfunction Short Term Goal (STG) Patient will be able to ambulate on level surfaces without assistive device safely demonstrating normal flexion of knee and no limp 10/05/2024 Patient ambulates into session without device STG Duration goal met Snf Goal (LTG) Patient will be able to ambulate on stairs with alternating pattern Patient ascends and descends 6 inch stairs with 2 rails using a reciprocal pattern ( quad dominant pattern) Patient ambulates without device increased knee flexion on heel strike and toe off bilaterally. 10/18/24: good goal progress; can do on 4 stairs, requires heavy UE use on 6 stairs. LTG Duration 11/22/24 Two Impairment Lower extremity functional scale 24% Short Term Goal (STG) Improve LEFS score to at least 50% as measure of improved left knee function and activity tolerance 10/05/2024 LEFS 56% 10/18/24: goal met STG Duration goal met Snf Goal (LTG) Improve LEFS score to at least 75% as measure of improved left knee function and activity tolerance 10/18/24: good goal progress to 64% LTG Duration 11/22/24 One Impairment limited ROM and strength left knee Short Term Goal (STG) Patient to be instructed in HEP for purposes of ROM and strengthening left knee 10/05/24: goal met STG Duration goal met [employer] Goal (LTG) Patient to be independent and compliant with HEP and demonstrate full AROM 0-135, and strength at least 4+/5 left knee and fucntionally be able to transfer sit to stand with neutral alignment without use of UE's 10/05/2024 AROM left knee 0 to 106 start of session to 120 deg post manual and exercise ) left quad 4-/5 HS (seated 3+ within limited ROM ) 10/18/24: left knee AROM end of session 0-118, AAROM 0-130 deg. Decreased but still requires use of UE's for sit to stand transfers LTG Duration 11/22/24 Assessment Summary Assessment Continued manual work today and stretching/ROM to increase knee mobility. Start of session pt measured AROM 111 degrees of L knee flexion, post session pt measured AROM 117 degrees of Left knee flexion, and 120 degrees of passive flexion w/strap. Ended session with stairs for strengthening on 6 step to reinforce ROM gains this session. Physical Therapy Plan Frequency and Duration Frequency of Treatment 2x/Week Duration of treatment (weeks) 5 Plan of Care Start Date 10/18/24 Plan of Care End Date 11/22/24 Therapeutic Interventions Therapeutic Interventions Gait Training,Home Exercise Program,Manual Therapy,Patient /Caregiver Education,Self-Care /Home Management,Soft Tissue Mobilization,Taping, Therapeutic Activities, Therapeutic Exercises Modalities Cold Pack/Ice Massage,Electric Stimulation Next Visit Focus/Plan Next Note Type Treatment Note Next Visit Plan Patellar mobilization to improve knee mobility. Progress L knee strength as able. Calf stretch. Continue left knee rehab, emphasis improving left knee flexion ROM and strength. Use suction tool for scar and soft tissue mobilization and scapular mobilization to improve knee mobility.
--- NOTE | 2024-11-15 12:55 | PT.OTN ---
Current Diagnoses Unilateral primary osteoarthritis, left knee (11/15/24) Soft tissue disorder, unspecified (11/15/24) Difficulty in walking, not elsewhere classified (11/15/24) Physical Therapy Treatment Note PT-OP-A Visit Information Start: 08/31/24 16:40 Freq: Status: Active Protocol: Document 11/15/24 09:45 SAK (Rec: 11/15/24 10:44 SAK [id number]) Out-Patient Physical Therapy Visit Information Visit Information Visit Type Treatment Note Visit Note Pt 5 min late Visit Start Time 09:40 Visit Stop Time 10:30 Visit Number 17 Number of RECYCLING MANAGER Visits 0 Evaluation Information Evaluation Date 09/01/24 PT-OP-B Current Condition Start: 08/31/24 16:40 Freq: Status: Active Protocol: Document 11/15/24 09:45 SAK (Rec: 11/15/24 10:44 SAK [id number]) Current Condition History of Current Condition Onset Date 08/31/24 Current Complaints concern for left knee recovery . History of Current Condition arthroscopy for scar tissue removal yesterday left knee approx 1 year since TKA, [facility] surgeon reported especially significant scarring proximal patella and lateral and medial knee. Before surgery 110 deg flexion , under anesthesia 130 deg. Taking Hydrocodone q 6 hrs and added baby aspirin 1 2x/day as instructed by physician. Minimal pain. Walking with cane mostly due to medication for stability. Has done a little exercise so far. Has iced a couple times. Denies N /T. 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 States concerned about leg weakness, feels progressively worse. States has more difficulty getting up of toilet and low chairs, no arms. Has added bridging to her HEP, asking about wall slides. PT-OP-G Mobility & Gait Start: 08/31/24 16:40 Freq: Status: Active Protocol: Document 09/01/24 13:45 SAK (Rec: 09/01/24 16:56 SAK [id number]) OP Mobility Evaluation Transfers Sit to Stand very wide JEANNINE OP Gait Assessment Gait Gait Assistance Required: Independent Assistive Devices Assistive Device Straight Cane Orthotic/Prosthetic Devices or Brace: No Gait Deviations General Gait Pattern Decreased Stride Length, Decreased Feet Clearance Factors Limiting Gait Function Factors Limiting Gait Function Decreased Strength,Pain PT-OP-H Neuro Start: 08/31/24 16:40 Freq: Status: Active Protocol: Document 09/01/24 13:45 SAK (Rec: 09/01/24 16:56 [facility] [id number]) Sensation Evaluation Gross Sensation Gross Sensation WNL PT-OP-J Posture/Palpation/Skin Start: 08/31/24 16:40 Freq: Status: Active Protocol: Document 09/01/24 13:45 SAK (Rec: 09/01/24 16:56 SAK [id number]) Skin Assessment Edema Assessment left knee Edema Degree 2+ Edema Appearance Puffy Subjective Edema Description Tightness Incisional Assessment Incision Appearance/Comments left knee arthroscopy incisions present, sutures in place, no signs or symptoms of infection Other Assessments Skin Assessment Comments Patient had blood on outer elastic bandage, soaked through post-op cast padding and gauze, removed and rebandaged by PT. PT-OP-K Range of Motion Start: 08/31/24 16:40 Freq: Status: Active Protocol: Document 10/05/24 11:02 AB (Rec: 10/05/24 12:56 AB [id number]) Knee Goniometric Range of Motion Knee Left Knee ROM WFL No Patient Position Supine Flexion Active (degrees) 120 Extension Active (degrees) 0 Comments Patient into session with 106 deg AROM PT-OP-M Strength Start: 08/31/24 16:40 Freq: Status: Active Protocol: Document 10/05/24 11:02 AB (Rec: 10/05/24 12:56 AB [id number]) Knee Strength Knee Manual Muscle Testing Left Flexion (S2) 3+ Fair+ Extension (L3) 4- Good- Comments flexion tested seated 3+ within limited ROM PT-OP-Q Treatments Start: 08/31/24 16:40 Freq: Status: Active Protocol: Document 11/15/24 09:45 SAK (Rec: 11/15/24 10:44 SAK [id number]) Cardio Equipment Bicycle (Upright) Duration (Minutes) 8 Resistance 3 Seat Position 5-4 Other seat lowered to increase knee ROM Gym Equipment Shuttle Recovery Unilateral Squats Resistance 25 Reps/Time X10 each LE Bilateral Squats Details trial 62#, patient unable Resistance 50 Reps/Time 10x2 Therapeutic Exercises Supine Exercises gravity assisted knee flex Side left Equipment Used slider sheet Reps/Minutes 4x10 Comments on shuttle leg press Sitting Exercises hamstring curl Sitting Exercise Name HEP Equipment Used L2 TB Reps/Minutes X10 sit to stand Sitting Exercise Name cues for LE alignment, hip hinge, dec UE use, gluteal activation Reps/Minutes X10 Comments variable heights Standing Exercises resisted walking Equipment Used L1 TB Comments next session chair squat Reps/Minutes 10x Calf stretch Reps/Minutes 2x30 Other Exercises Stairs Other Exercise Name cues for gluteal activation, dec UE use Side bilateral Equipment Used 4 stair Reps/Minutes 2 flights 10 stairs Comments pain free, 1 UE support for balance Manual Therapy Treatment Soft Tissue Mobilization 1 Body Location left quad, IT band, scar tissue Mobilization Type Cross-Friction,Instrument Assisted,Myofascial Release, Rolling,Strumming Intensity/Depth Moderate Comments Dycem for MFR Joint Mobilizations tib/fem Joint PA glide Grade III Body Position Supine Comments knee flexed patellar Joint left Direction inf, sup, lat, med Grade III Body Position Supine Reps/Duration X10 each Taping left knee Treatment Focus edema reduction Type of Tape KT Skin Inspection intact Comments paper off tension 2 fan strips crossing anterior knee Advised remove if irritating, otherwise leave on up to 5 days, remove night before next PT session for sure. Manual Techniques quad, ITB Body Location left Tibia Type AP Body Position Supine and seated Comments knee Contract relax into knee flexion Type right Body Position seated Reps/Duration 5 x 5 contract w/ 10 flex stretch Self-Care/Home Management Treatment Education Patient Education Home Exercise Program,Pain Management Other Education Emphasis on consistency with [facility] for knee ROM and LE strength. PT-OP-R Modalities Start: 08/31/24 16:40 Freq: Status: Active Protocol: Document 10/18/24 13:04 [facility] (Rec: 10/18/24 15:38 [facility] [id number]) Hot Pack/Cold Pack Treatment left knee Location top and bottom Patient Position Hooklying Comments leg elevated via table and bolster elevation above her heart PT-OP-T Assessment and Plan Start: 08/31/24 16:40 Freq: Status: Active Protocol: Document 11/15/24 09:45 SAK (Rec: 11/15/24 10:44 SAK [id number]) Physical Therapy Assessment Impairments Impairments Gait,ROM Goals Three Impairment gait dysfunction Short Term Goal (STG) Patient will be able to ambulate on level surfaces without assistive device safely demonstrating normal flexion of knee and no limp 10/05/2024 Patient ambulates into session without device STG Duration goal met Live In Caregiver Goal (LTG) Patient will be able to ambulate on stairs with alternating pattern Patient ascends and descends 6 inch stairs with 2 rails using a reciprocal pattern ( quad dominant pattern) Patient ambulates without device increased knee flexion on heel strike and toe off bilaterally. 10/18/24: good goal progress; can do on 4 stairs, requires heavy UE use on 6 stairs. LTG Duration 11/22/24 Two Impairment Lower extremity functional scale 24% Short Term Goal (STG) Improve LEFS score to at least 50% as measure of improved left knee function and activity tolerance 10/05/2024 LEFS 56% 10/18/24: goal met STG Duration goal met Live In Caregiver Goal (LTG) Improve LEFS score to at least 75% as measure of improved left knee function and activity tolerance 10/18/24: good goal progress to 64% LTG Duration 11/22/24 One Impairment limited ROM and strength left knee Short Term Goal (STG) Patient to be instructed in HEP for purposes of ROM and strengthening left knee 10/05/24: goal met STG Duration goal met Skilled Nursing Goal (LTG) Patient to be independent and compliant with HEP and demonstrate full AROM 0-135, and strength at least 4+/5 left knee and fucntionally be able to transfer sit to stand with neutral alignment without use of UE's 10/05/2024 AROM left knee 0 to 106 start of session to 120 deg post manual and exercise ) left quad 4-/5 HS (seated 3+ within limited ROM ) 10/18/24: left knee AROM end of session 0-118, AAROM 0-130 deg. Decreased but still requires use of UE's for sit to stand transfers LTG Duration 11/22/24 Assessment Summary Assessment AROM 117 degrees left knee to start session, 124 passively end of treatment. Patient continues to have difficulty with sit to stand, use of mirror plus verbal and tactile cues today to cue correct alignment with squat and sit to stand. PT emphasizsed need for consistent exercise to see strength and flexibility gains. Poor gluteal activation. Physical Therapy Plan Frequency and Duration Frequency of Treatment 2x/Week Duration of treatment (weeks) 5 Plan of Care Start Date 10/18/24 Plan of Care End Date 11/22/24 Therapeutic Interventions Therapeutic Interventions Gait Training,Home Exercise Program,Manual Therapy,Patient /Caregiver Education,Self-Care /Home Management,Soft Tissue Mobilization,Taping, Therapeutic Activities, Therapeutic Exercises Modalities Cold Pack/Ice Massage,Electric Stimulation Next Visit Focus/Plan Next Note Type Treatment Note Next Visit Plan LE strengthening, further sit to stand practive. Knee ROM, patellar and tibial mobilization, soft tissue mobilization including use of tools to improve soft tissue mobility. KT tape if beneficial.
--- NOTE | 2024-11-17 18:17 | PT.OTN ---
Current Diagnoses Unilateral primary osteoarthritis, left knee (11/17/24) Soft tissue disorder, unspecified (11/17/24) Difficulty in walking, not elsewhere classified (11/17/24) Physical Therapy Treatment Note PT-OP-A Visit Information Start: 08/31/24 16:40 Freq: Status: Active Protocol: Document 11/17/24 17:10 [facility] (Rec: 11/17/24 18:17 [facility] [id number]) Out-Patient Physical Therapy Visit Information Visit Information Visit Type Progress Note Visit Start Time 17:07 Visit Stop Time 17:52 Visit Number 18 Number of IT SERVICE CONTINUITY SUPERVISOR Visits 0 PT-OP-B Current Condition Start: 08/31/24 16:40 Freq: Status: Active Protocol: Document 11/15/24 09:45 SAK (Rec: 11/15/24 10:44 SAK [id number]) Current Condition History of Current Condition Onset Date 08/31/24 Current Complaints concern for left knee recovery . History of Current Condition arthroscopy for scar tissue removal yesterday left knee approx 1 year since TKA, states surgeon reported especially significant scarring proximal patella and lateral and medial knee. Before surgery 110 deg flexion , under anesthesia 130 deg. Taking Hydrocodone q 6 hrs and added baby aspirin 1 2x/day as instructed by physician. Minimal pain. Walking with cane mostly due to medication for stability. Has done a little exercise so far. Has iced a couple times. Denies N /T. 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, complicated recovery with continued pain, limited motion due to scar tissue Future Testing and Treatments Planned follow up with physician Treatment Goals Patient/Caregiver Goals Regain full active use of her left knee PT-OP-C Subjective Start: 08/31/24 16:40 Freq: Status: Active Protocol: Document 11/17/24 17:10 [facility] (Rec: 11/17/24 18:17 [facility] [id number]) OP-PT Subjective Patient Comments Patient Comments Pt reports doing exercises yesterday but not today prior to PT. Feels like tape helped PT-OP-G Mobility & Gait Start: 08/31/24 16:40 Freq: Status: Active Protocol: Document 09/01/24 13:45 SAK (Rec: 09/01/24 16:56 SAK [id number]) OP Mobility Evaluation Transfers Sit to Stand very wide JEANNINE OP Gait Assessment Gait Gait Assistance Required: Independent Assistive Devices Assistive Device Straight Cane Orthotic/Prosthetic Devices or Brace: No Gait Deviations General Gait Pattern Decreased Stride Length, Decreased Feet Clearance Factors Limiting Gait Function Factors Limiting Gait Function Decreased Strength,Pain PT-OP-H Neuro Start: 08/31/24 16:40 Freq: Status: Active Protocol: Document 09/01/24 13:45 SAK (Rec: 09/01/24 16:56 SAK [id number]) Sensation Evaluation Gross Sensation Gross Sensation WNL PT-OP-J Posture/Palpation/Skin Start: 08/31/24 16:40 Freq: Status: Active Protocol: Document 09/01/24 13:45 SAK (Rec: 09/01/24 16:56 SAK [id number]) Skin Assessment Edema Assessment left knee Edema Degree 2+ Edema Appearance Puffy Subjective Edema Description Tightness Incisional Assessment Incision Appearance/Comments left knee arthroscopy incisions present, sutures in place, no signs or symptoms of infection Other Assessments Skin Assessment Comments Patient had blood on outer elastic bandage, soaked through post-op cast padding and gauze, removed and rebandaged by PT. PT-OP-K Range of Motion Start: 08/31/24 16:40 Freq: Status: Active Protocol: Document 10/05/24 11:02 AB (Rec: 10/05/24 12:56 AB [id number]) Knee Goniometric Range of Motion Knee Left Knee ROM WFL No Patient Position Supine Flexion Active (degrees) 120 Extension Active (degrees) 0 Comments Patient into session with 106 deg AROM PT-OP-M Strength Start: 08/31/24 16:40 Freq: Status: Active Protocol: Document 10/05/24 11:02 AB (Rec: 10/05/24 12:56 AB [id number]) Knee Strength Knee Manual Muscle Testing Left Flexion (S2) 3+ Fair+ Extension (L3) 4- Good- Comments flexion tested seated 3+ within limited ROM PT-OP-Q Treatments Start: 08/31/24 16:40 Freq: Status: Active Protocol: Document 11/17/24 17:10 [facility] (Rec: 11/17/24 18:17 [facility] [id number]) Manual Therapy Treatment Consent Patient gave verbal consent for manual Yes treatment Soft Tissue Mobilization 1 Body Location left quad, scar tissue, HS, ITB Mobilization Type Myofascial Release,Rolling, Strumming Intensity/Depth Moderate Comments plunger also Joint Mobilizations tib fib Comments PA fib w/APs tib/fem Joint PA glide of tibia and femur Grade III Body Position Hooklying Comments knee flexed w/APs patellar Joint left Direction inf, sup, med Grade III Body Position Supine Taping left knee Treatment Focus edema reduction Type of Tape KT Skin Inspection intact Comments paper off tension 2 fan strips crossing anterior knee Advised remove if irritating, otherwise leave on up to 5 days, remove night before next PT session for sure. PT-OP-R Modalities Start: 08/31/24 16:40 Freq: Status: Active Protocol: Document 10/18/24 13:04 SAK (Rec: 10/18/24 15:38 SAK [id number]) Hot Pack/Cold Pack Treatment left knee Location top and bottom Patient Position Hooklying Comments leg elevated via table and bolster elevation above her heart PT-OP-T Assessment and Plan Start: 08/31/24 16:40 Freq: Status: Active Protocol: Document 11/17/24 17:10 [facility] (Rec: 11/17/24 18:17 [facility] [id number]) Physical Therapy Assessment Goals squat Halfway Goal (LTG) Pt will be able to do sit to stand w/good form and no knee pain w/o cueing to show improved LE strength. LTG Duration 12/22 Three Impairment gait dysfunction Short Term Goal (STG) Patient will be able to ambulate on level surfaces without assistive device safely demonstrating normal flexion of knee and no limp 10/05/2024 Patient ambulates into session without device STG Duration goal met Station Tender Goal (LTG) Patient will be able to ambulate on stairs with alternating pattern Patient ascends and descends 6 inch stairs with 2 rails using a reciprocal pattern ( quad dominant pattern) Patient ambulates without device increased knee flexion on heel strike and toe off bilaterally. 10/18/24: good goal progress; can do on 4 stairs, requires heavy UE use on 6 stairs. 11/17-able to reciprocate w/ rails for balance minimally LTG Duration 12/02 Two Impairment Lower extremity functional scale 24% Short Term Goal (STG) Improve LEFS score to at least 50% as measure of improved left knee function and activity tolerance 10/05/2024 LEFS 56% 10/18/24: goal met STG Duration goal met Station Tender Goal (LTG) Improve LEFS score to at least 75% as measure of improved left knee function and activity tolerance 10/18/24: good goal progress to 64% 11/17-55% LTG Duration 12/22 One Impairment limited ROM and strength left knee Short Term Goal (STG) Patient to be instructed in HEP for purposes of ROM and strengthening left knee 10/05/24: goal met STG Duration goal met Station Tender Goal (LTG) Patient to be independent and compliant with HEP and demonstrate full AROM 0-135, and strength at least 4+/5 left knee and fucntionally be able to transfer sit to stand with neutral alignment without use of UE's 10/05/2024 AROM left knee 0 to 106 start of session to 120 deg post manual and exercise ) left quad 4-/5 HS (seated 3+ within limited ROM ) 10/18/24: left knee AROM end of session 0-118, AAROM 0-130 deg. Decreased but still requires use of UE's for sit to stand transfers 11/07-0-111 at start progressed to 0-122 AROM LTG Duration 12/22 Assessment Summary Assessment Pt is improving with ROM and function and pain overall. Started with AROM 111 today and improved 122 actively at end of session. She would benefit from cont PT for strength and stability of LEs. Physical Therapy Plan Frequency and Duration Frequency of Treatment 2x/Week Duration of treatment (weeks) 5 Plan of Care Start Date 11/17/24 Plan of Care End Date 12/22/24 Therapeutic Interventions Therapeutic Interventions Balance Training,Gait Training ,Home Exercise Program,Joint Mobilizations,Manual Therapy, Neuromuscular Re-education, Patient/Caregiver Education, Self-Care/Home Management,Soft Tissue Mobilization,Taping, Therapeutic Activities, Therapeutic Exercises Modalities Cold Pack/Ice Massage,Electric Stimulation,Hot Packs Next Visit Focus/Plan Next Note Type Treatment Note Next Visit Plan LE strengthening, further sit to stand practive. Knee ROM, patellar and tibial mobilization, soft tissue mobilization including use of tools to improve soft tissue mobility. KT tape
--- NOTE | 2024-11-17 18:17 | PT.OPPOC ---
Physical, Occupational & Speech Therapy At [facility] Current Diagnoses Unilateral primary osteoarthritis, left knee (11/17/24) Soft tissue disorder, unspecified (11/17/24) Difficulty in walking, not elsewhere classified (11/17/24) Visit Care Team Role Provider Type Henry Menedz DO Family Provider Physician Primary Care Provider Specialty: Family Practice Address: [address] [place] [address], [id number] Email: Danie Meyer MD Attending Provider Non-Staff Referring Provider Specialty: Orthopedic Surgery Address: [address] [place] [address] , [place], [address] Email: Plan Of Care PT-OP-B Current Condition Start: 08/31/24 16:40 Freq: Status: Active Protocol: Document 11/15/24 09:45 SAK (Rec: 11/15/24 10:44 [facility] [id number]) Current Condition History of Current Condition Onset Date 08/31/24 Current Complaints concern for left knee recovery . History of Current Condition arthroscopy for scar tissue removal yesterday left knee approx 1 year since TKA, states surgeon reported especially significant scarring proximal patella and lateral and medial knee. Before surgery 110 deg flexion , under anesthesia 130 deg. Taking Hydrocodone q 6 hrs and added baby aspirin 1 2x/day as instructed by physician. Minimal pain. Walking with cane mostly due to medication for stability. Has done a little exercise so far. Has iced a couple times. Denies N /T. 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, complicated recovery with continued pain, limited motion due to scar tissue Future Testing and Treatments Planned follow up with physician Treatment Goals Patient/Caregiver Goals Regain full active use of her left knee PT-OP-T Assessment and Plan Start: 08/31/24 16:40 Freq: Status: Active Protocol: Document 11/17/24 17:10 [facility] (Rec: 11/17/24 18:17 [facility] [id number]) Physical Therapy Assessment Goals squat Vacuum Furnace Operator Goal (LTG) Pt will be able to do sit to stand w/good form and no knee pain w/o cueing to show improved LE strength. LTG Duration 12/22 Three Impairment gait dysfunction Short Term Goal (STG) Patient will be able to ambulate on level surfaces without assistive device safely demonstrating normal flexion of knee and no limp 10/05/2024 Patient ambulates into session without device STG Duration goal met Mcc Goal (LTG) Patient will be able to ambulate on stairs with alternating pattern Patient ascends and descends 6 inch stairs with 2 rails using a reciprocal pattern ( quad dominant pattern) Patient ambulates without device increased knee flexion on heel strike and toe off bilaterally. 10/18/24: good goal progress; can do on 4 stairs, requires heavy UE use on 6 stairs. 11/17-able to reciprocate w/ rails for balance minimally LTG Duration 12/02 Two Impairment Lower extremity functional scale 24% Short Term Goal (STG) Improve LEFS score to at least 50% as measure of improved left knee function and activity tolerance 10/05/2024 LEFS 56% 10/18/24: goal met STG Duration goal met Vacuum Furnace Operator Goal (LTG) Improve LEFS score to at least 75% as measure of improved left knee function and activity tolerance 10/18/24: good goal progress to 64% 11/17-55% LTG Duration 12/22 One Impairment limited ROM and strength left knee Short Term Goal (STG) Patient to be instructed in HEP for purposes of ROM and strengthening left knee 10/05/24: goal met STG Duration goal met Mcc Goal (LTG) Patient to be independent and compliant with HEP and demonstrate full AROM 0-135, and strength at least 4+/5 left knee and fucntionally be able to transfer sit to stand with neutral alignment without use of UE's 10/05/2024 AROM left knee 0 to 106 start of session to 120 deg post manual and exercise ) left quad 4-/5 HS (seated 3+ within limited ROM ) 10/18/24: left knee AROM end of session 0-118, AAROM 0-130 deg. Decreased but still requires use of UE's for sit to stand transfers 11/07-0-111 at start progressed to 0-122 AROM LTG Duration 12/22 Assessment Summary Assessment Pt is improving with ROM and function and pain overall. Started with AROM 111 today and improved 122 actively at end of session. She would benefit from cont PT for strength and stability of LEs. Physical Therapy Plan Frequency and Duration Frequency of Treatment 2x/Week Duration of treatment (weeks) 5 Plan of Care Start Date 11/17/24 Plan of Care End Date 12/22/24 Therapeutic Interventions Therapeutic Interventions Balance Training,Gait Training ,Home Exercise Program,Joint Mobilizations,Manual Therapy, Neuromuscular Re-education, Patient/Caregiver Education, Self-Care/Home Management,Soft Tissue Mobilization,Taping, Therapeutic Activities, Therapeutic Exercises Modalities Cold Pack/Ice Massage,Electric Stimulation,Hot Packs Next Visit Focus/Plan Next Note Type Treatment Note Next Visit Plan LE strengthening, further sit to stand practive. Knee ROM, patellar and tibial mobilization, soft tissue mobilization including use of tools to improve soft tissue mobility. KT tape Plan of Care Dates Plan of Care Start Date 11/17/24 Plan of Care End Date 12/22/24 Electronically Signed by: Elena Lima, PT 11/17/24 5770 If you are in agreement with this Plan of Care, please return a signed and dated copy. I have reviewed this Plan of Care and certify that the skilled therapy services above are required to meet the patient?s needs. Physician Signature Date Printed Name and Credentials Clinical Instructor Signature Printed Name and Credentials
--- NOTE | 2024-11-24 14:52 | PT.OTN ---
Current Diagnoses Unilateral primary osteoarthritis, left knee (11/24/24) Soft tissue disorder, unspecified (11/24/24) Difficulty in walking, not elsewhere classified (11/24/24) Physical Therapy Treatment Note PT-OP-A Visit Information Start: 08/31/24 16:40 Freq: Status: Active Protocol: Document 11/24/24 12:59 SAK (Rec: 11/24/24 13:48 [facility] [id number]) Out-Patient Physical Therapy Visit Information Visit Information Visit Type Treatment Note Visit Start Time 17:07 Visit Stop Time 17:52 Visit Number 19 Evaluation Information Evaluation Date 09/01/24 PT-OP-B Current Condition Start: 08/31/24 16:40 Freq: Status: Active Protocol: Document 11/24/24 12:59 SAK (Rec: 11/24/24 13:48 [facility] [id number]) Current Condition History of Current Condition Onset Date 08/31/24 Current Complaints concern for left knee recovery . History of Current Condition arthroscopy for scar tissue removal yesterday left knee approx 1 year since TKA, states surgeon reported especially significant scarring proximal patella and lateral and medial knee. Before surgery 110 deg flexion , under anesthesia 130 deg. Taking Hydrocodone q 6 hrs and added baby aspirin 1 2x/day as instructed by physician. Minimal pain. Walking with cane mostly due to medication for stability. Has done a little exercise so far. Has iced a couple times. Denies N /T. 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, complicated recovery with continued pain, limited motion due to scar tissue Future Testing and Treatments Planned follow up with physician Treatment Goals Patient/Caregiver Goals Regain full active use of her left knee PT-OP-C Subjective Start: 08/31/24 16:40 Freq: Status: Active Protocol: Document 11/24/24 12:59 SAK (Rec: 11/24/24 13:48 [facility] [id number]) OP-PT Subjective Patient Comments Patient Comments States she has gotten better at doing her exercises, and is going to get back to doing UE exercises. PT-OP-G Mobility & Gait Start: 08/31/24 16:40 Freq: Status: Active Protocol: Document 09/01/24 13:45 SAK (Rec: 09/01/24 16:56 SAK [id number]) OP Mobility Evaluation Transfers Sit to Stand very wide JEANNINE OP Gait Assessment Gait Gait Assistance Required: Independent Assistive Devices Assistive Device Straight Cane Orthotic/Prosthetic Devices or Brace: No Gait Deviations General Gait Pattern Decreased Stride Length, Decreased Feet Clearance Factors Limiting Gait Function Factors Limiting Gait Function Decreased Strength,Pain PT-OP-H Neuro Start: 08/31/24 16:40 Freq: Status: Active Protocol: Document 09/01/24 13:45 SAK (Rec: 09/01/24 16:56 SAK [id number]) Sensation Evaluation Gross Sensation Gross Sensation WNL PT-OP-J Posture/Palpation/Skin Start: 08/31/24 16:40 Freq: Status: Active Protocol: Document 09/01/24 13:45 SAK (Rec: 09/01/24 16:56 SAK [id number]) Skin Assessment Edema Assessment left knee Edema Degree 2+ Edema Appearance Puffy Subjective Edema Description Tightness Incisional Assessment Incision Appearance/Comments left knee arthroscopy incisions present, sutures in place, no signs or symptoms of infection Other Assessments Skin Assessment Comments Patient had blood on outer elastic bandage, soaked through post-op cast padding and gauze, removed and rebandaged by PT. PT-OP-K Range of Motion Start: 08/31/24 16:40 Freq: Status: Active Protocol: Document 10/05/24 11:02 AB (Rec: 10/05/24 12:56 AB [id number]) Knee Goniometric Range of Motion Knee Left Knee ROM WFL No Patient Position Supine Flexion Active (degrees) 120 Extension Active (degrees) 0 Comments Patient into session with 106 deg AROM PT-OP-M Strength Start: 08/31/24 16:40 Freq: Status: Active Protocol: Document 10/05/24 11:02 AB (Rec: 10/05/24 12:56 AB [id number]) Knee Strength Knee Manual Muscle Testing Left Flexion (S2) 3+ Fair+ Extension (L3) 4- Good- Comments flexion tested seated 3+ within limited ROM PT-OP-Q Treatments Start: 08/31/24 16:40 Freq: Status: Active Protocol: Document 11/24/24 12:59 SAK (Rec: 11/24/24 13:48 SAK [id number]) Cardio Equipment Bicycle (Upright) Duration (Minutes) 8 Resistance 3-4 Seat Position 5-4 Other seat lowered to increase knee ROM Gym Equipment Cable Column (Body Solid) hamstring curl Details single Resistance 25 Reps/Time 10x2 knee flexion Details dominique Resistance 45 Reps/Time 10x2 Shuttle Recovery Unilateral Squats Resistance 25 Reps/Time X10 each LE Bilateral Squats Details trial 62# again , patient unable (reported thoracic pain ) Resistance 50 Reps/Time 10x2 Sport Cord fwd/bck/side Comments next session Therapeutic Exercises Supine Exercises gravity assisted knee flex Side left Equipment Used slider sheet Reps/Minutes 4x10 Comments on shuttle leg press Sidelying Exercises hip abd Reps/Minutes 5 Comments review HEP for form Sitting Exercises sit to stand Sitting Exercise Name cues for LE alignment, hip hinge, dec UE use, gluteal activation Reps/Minutes X10 Comments variable heights Manual Therapy Treatment Soft Tissue Mobilization 1 Comments plunger also Taping left knee Comments tape removed, not reapplied to give skin a break. Will assess need for further taping next session. PT-OP-R Modalities Start: 08/31/24 16:40 Freq: Status: Active Protocol: Document 10/18/24 13:04 [facility] (Rec: 10/18/24 15:38 [facility] [id number]) Hot Pack/Cold Pack Treatment left knee Location top and bottom Patient Position Hooklying Comments leg elevated via table and bolster elevation above her heart PT-OP-T Assessment and Plan Start: 08/31/24 16:40 Freq: Status: Active Protocol: Document 11/24/24 12:59 [facility] (Rec: 11/24/24 13:48 [facility] [id number]) Physical Therapy Assessment Impairments Impairments Gait,ROM,Strength Goals squat Jail Goal (LTG) Pt will be able to do sit to stand w/good form and no knee pain w/o cueing to show improved LE strength. LTG Duration 12/22 Three Impairment gait dysfunction Short Term Goal (STG) Patient will be able to ambulate on level surfaces without assistive device safely demonstrating normal flexion of knee and no limp 10/05/2024 Patient ambulates into session without device STG Duration goal met Jail Goal (LTG) Patient will be able to ambulate on stairs with alternating pattern Patient ascends and descends 6 inch stairs with 2 rails using a reciprocal pattern ( quad dominant pattern) Patient ambulates without device increased knee flexion on heel strike and toe off bilaterally. 10/18/24: good goal progress; can do on 4 stairs, requires heavy UE use on 6 stairs. 11/17-able to reciprocate w/ rails for balance minimally LTG Duration 12/02 Two Impairment Lower extremity functional scale 24% Short Term Goal (STG) Improve LEFS score to at least 50% as measure of improved left knee function and activity tolerance 10/05/2024 LEFS 56% 10/18/24: goal met STG Duration goal met Jail Goal (LTG) Improve LEFS score to at least 75% as measure of improved left knee function and activity tolerance 10/18/24: good goal progress to 64% 11/17-55% LTG Duration 12/22 One Impairment limited ROM and strength left knee Short Term Goal (STG) Patient to be instructed in HEP for purposes of ROM and strengthening left knee 10/05/24: goal met STG Duration goal met Boat Tester Goal (LTG) Patient to be independent and compliant with HEP and demonstrate full AROM 0-135, and strength at least 4+/5 left knee and fucntionally be able to transfer sit to stand with neutral alignment without use of UE's 10/05/2024 AROM left knee 0 to 106 start of session to 120 deg post manual and exercise ) left quad 4-/5 HS (seated 3+ within limited ROM ) 10/18/24: left knee AROM end of session 0-118, AAROM 0-130 deg. Decreased but still requires use of UE's for sit to stand transfers 11/07-0-111 at start progressed to 0-122 AROM LTG Duration 12/22 Assessment Summary Assessment Patient reporting improved compliance to HEP due to fear of loss of function. Knee flex 114 start of session, 123 end of session. Edema appears reduced with use of KT tape but left off today due to fragility of patient skin. Physical Therapy Plan Frequency and Duration Frequency of Treatment 2x/Week Duration of treatment (weeks) 5 Plan of Care Start Date 11/17/24 Plan of Care End Date 12/22/24 Therapeutic Interventions Therapeutic Interventions Balance Training,Gait Training ,Home Exercise Program,Joint Mobilizations,Manual Therapy, Neuromuscular Re-education, Patient/Caregiver Education, Self-Care/Home Management,Soft Tissue Mobilization,Taping, Therapeutic Activities, Therapeutic Exercises Modalities Cold Pack/Ice Massage,Electric Stimulation,Hot Packs Next Visit Focus/Plan Next Note Type Treatment Note Next Visit Plan LE strengthening, further sit to stand practive. Knee ROM, patellar and tibial mobilization, soft tissue mobilization including use of tools to improve soft tissue mobility. KT tape depending on skin status
--- NOTE | 2024-11-28 14:55 | PT.OTN ---
Current Diagnoses Unilateral primary osteoarthritis, left knee (11/28/24) Soft tissue disorder, unspecified (11/28/24) Difficulty in walking, not elsewhere classified (11/28/24) Physical Therapy Treatment Note PT-OP-A Visit Information Start: 08/31/24 16:40 Freq: Status: Active Protocol: Document 11/28/24 13:00 SAK (Rec: 11/28/24 13:44 [facility] [id number]) Out-Patient Physical Therapy Visit Information Visit Information Visit Type Treatment Note Visit Start Time 13:00 Visit Stop Time 14:56 Visit Number 20 Evaluation Information Evaluation Date 09/01/24 PT-OP-B Current Condition Start: 08/31/24 16:40 Freq: Status: Active Protocol: Document 11/28/24 13:00 SAK (Rec: 11/28/24 13:44 SAK [id number]) Current Condition History of Current Condition Onset Date 08/31/24 Current Complaints concern for left knee recovery . History of Current Condition arthroscopy for scar tissue removal yesterday left knee approx 1 year since TKA, states surgeon reported especially significant scarring proximal patella and lateral and medial knee. Before surgery 110 deg flexion , under anesthesia 130 deg. Taking Hydrocodone q 6 hrs and added baby aspirin 1 2x/day as instructed by physician. Minimal pain. Walking with cane mostly due to medication for stability. Has done a little exercise so far. Has iced a couple times. Denies N /T. 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, complicated recovery with continued pain, limited motion due to scar tissue Future Testing and Treatments Planned follow up with physician Treatment Goals Patient/Caregiver Goals Regain full active use of her left knee PT-OP-C Subjective Start: 08/31/24 16:40 Freq: Status: Active Protocol: Document 11/28/24 13:00 SAK (Rec: 11/28/24 13:44 [facility] [id number]) OP-PT Subjective Patient Comments Patient Comments Fair compliance to HEP. Patient states she hasn't been able to get down to the ground and back up for a long time, wants to get stronger to be able to garden this summer . Still challenges sit to stand PT-OP-G Mobility & Gait Start: 08/31/24 16:40 Freq: Status: Active Protocol: Document 09/01/24 13:45 SAK (Rec: 09/01/24 16:56 SAK [id number]) OP Mobility Evaluation Transfers Sit to Stand very wide JEANNINE OP Gait Assessment Gait Gait Assistance Required: Independent Assistive Devices Assistive Device Straight Cane Orthotic/Prosthetic Devices or Brace: No Gait Deviations General Gait Pattern Decreased Stride Length, Decreased Feet Clearance Factors Limiting Gait Function Factors Limiting Gait Function Decreased Strength,Pain PT-OP-H Neuro Start: 08/31/24 16:40 Freq: Status: Active Protocol: Document 09/01/24 13:45 SAK (Rec: 09/01/24 16:56 [facility] [id number]) Sensation Evaluation Gross Sensation Gross Sensation WNL PT-OP-J Posture/Palpation/Skin Start: 08/31/24 16:40 Freq: Status: Active Protocol: Document 09/01/24 13:45 [facility] (Rec: 09/01/24 16:56 [facility] [id number]) Skin Assessment Edema Assessment left knee Edema Degree 2+ Edema Appearance Puffy Subjective Edema Description Tightness Incisional Assessment Incision Appearance/Comments left knee arthroscopy incisions present, sutures in place, no signs or symptoms of infection Other Assessments Skin Assessment Comments Patient had blood on outer elastic bandage, soaked through post-op cast padding and gauze, removed and rebandaged by PT. PT-OP-K Range of Motion Start: 08/31/24 16:40 Freq: Status: Active Protocol: Document 10/05/24 11:02 AB (Rec: 10/05/24 12:56 AB [id number]) Knee Goniometric Range of Motion Knee Left Knee ROM WFL No Patient Position Supine Flexion Active (degrees) 120 Extension Active (degrees) 0 Comments Patient into session with 106 deg AROM PT-OP-M Strength Start: 08/31/24 16:40 Freq: Status: Active Protocol: Document 10/05/24 11:02 AB (Rec: 10/05/24 12:56 AB [id number]) Knee Strength Knee Manual Muscle Testing Left Flexion (S2) 3+ Fair+ Extension (L3) 4- Good- Comments flexion tested seated 3+ within limited ROM PT-OP-Q Treatments Start: 08/31/24 16:40 Freq: Status: Active Protocol: Document 11/28/24 13:00 SAK (Rec: 11/28/24 13:44 SAK [id number]) Cardio Equipment Bicycle (Upright) Duration (Minutes) 9 Resistance 3-5 Seat Position 5-4 Other seat lowered to increase knee ROM Gym Equipment Shuttle Recovery Unilateral Squats Resistance 25 Reps/Time X10 each LE Bilateral Squats Resistance 50 Reps/Time 10x2 Sport Cord fwd/bck/side Comments next session Therapeutic Exercises Supine Exercises gravity assisted knee flex Side left Equipment Used slider sheet Reps/Minutes 4x10 Comments on shuttle leg press Sitting Exercises stool scoot Reps/Minutes 10 ft x 4 hamstring curl Sitting Exercise Name HEP Equipment Used L2 TB Reps/Minutes X10 sit to stand Sitting Exercise Name cues for LE alignment, hip hinge, dec UE use, gluteal activation, hip hinge Reps/Minutes X10 Comments variable heights Standing Exercises stair lunge Reps/Minutes X15 Comments verbal cues Manual Therapy Treatment Joint Mobilizations tib fib Comments PA fib w/APs tib/fem Joint PA glide of tibia and femur Grade III Body Position Hooklying Comments knee flexed w/APs patellar Joint left Direction inf, sup, med Grade III Body Position Supine Self-Care/Home Management Treatment Education Patient Education Home Exercise Program,Pain Management Other Education importance of form with sit to stand with nose over toes and hip hinge for best biomechanical advantage and ease of movement. PT-OP-R Modalities Start: 08/31/24 16:40 Freq: Status: Active Protocol: Document 10/18/24 13:04 [facility] (Rec: 10/18/24 15:38 [facility] [id number]) Hot Pack/Cold Pack Treatment left knee Location top and bottom Patient Position Hooklying Comments leg elevated via table and bolster elevation above her heart PT-OP-T Assessment and Plan Start: 08/31/24 16:40 Freq: Status: Active Protocol: Document 11/28/24 13:00 [facility] (Rec: 11/28/24 13:44 [facility] [id number]) Physical Therapy Assessment Impairments Impairments Gait,ROM,Strength Goals squat Nursing Home Goal (LTG) Pt will be able to do sit to stand w/good form and no knee pain w/o cueing to show improved LE strength. LTG Duration 12/22 Three Impairment gait dysfunction Short Term Goal (STG) Patient will be able to ambulate on level surfaces without assistive device safely demonstrating normal flexion of knee and no limp 10/05/2024 Patient ambulates into session without device STG Duration goal met Nursing Home Goal (LTG) Patient will be able to ambulate on stairs with alternating pattern Patient ascends and descends 6 inch stairs with 2 rails using a reciprocal pattern ( quad dominant pattern) Patient ambulates without device increased knee flexion on heel strike and toe off bilaterally. 10/18/24: good goal progress; can do on 4 stairs, requires heavy UE use on 6 stairs. 11/17-able to reciprocate w/ rails for balance minimally LTG Duration 12/02 Two Impairment Lower extremity functional scale 24% Short Term Goal (STG) Improve LEFS score to at least 50% as measure of improved left knee function and activity tolerance 10/05/2024 LEFS 56% 10/18/24: goal met STG Duration goal met Tape Transferrer Goal (LTG) Improve LEFS score to at least 75% as measure of improved left knee function and activity tolerance 10/18/24: good goal progress to 64% 11/17-55% LTG Duration 12/22 One Impairment limited ROM and strength left knee Short Term Goal (STG) Patient to be instructed in HEP for purposes of ROM and strengthening left knee 10/05/24: goal met STG Duration goal met Tape Transferrer Goal (LTG) Patient to be independent and compliant with HEP and demonstrate full AROM 0-135, and strength at least 4+/5 left knee and fucntionally be able to transfer sit to stand with neutral alignment without use of UE's 10/05/2024 AROM left knee 0 to 106 start of session to 120 deg post manual and exercise ) left quad 4-/5 HS (seated 3+ within limited ROM ) 10/18/24: left knee AROM end of session 0-118, AAROM 0-130 deg. Decreased but still requires use of UE's for sit to stand transfers 11/07-0-111 at start progressed to 0-122 AROM LTG Duration 12/22 Assessment Summary Assessment Knee flexion 113 start of session, 122 degrees end of session. Decreased swelling noted even after not using KT tape last session, no taping today due to this. Patient struggles with correct form for sit to stand, some improved understanding today. Physical Therapy Plan Frequency and Duration Frequency of Treatment 2x/Week Duration of treatment (weeks) 5 Plan of Care Start Date 11/17/24 Plan of Care End Date 12/22/24 Therapeutic Interventions Therapeutic Interventions Balance Training,Gait Training ,Home Exercise Program,Joint Mobilizations,Manual Therapy, Neuromuscular Re-education, Patient/Caregiver Education, Self-Care/Home Management,Soft Tissue Mobilization,Taping, Therapeutic Activities, Therapeutic Exercises Modalities Cold Pack/Ice Massage,Electric Stimulation,Hot Packs Next Visit Focus/Plan Next Note Type Treatment Note Next Visit Plan LE strengthening, further sit to stand practive. Knee ROM, patellar and tibial mobilization, soft tissue mobilization including use of tools to improve soft tissue mobility. KT tape depending on skin status
--- NOTE | 2024-11-30 13:49 | PT.OTN ---
Current Diagnoses Unilateral primary osteoarthritis, left knee (11/30/24) Soft tissue disorder, unspecified (11/30/24) Difficulty in walking, not elsewhere classified (11/30/24) Physical Therapy Treatment Note PT-OP-A Visit Information Start: 08/31/24 16:40 Freq: Status: Active Protocol: Document 11/30/24 13:03 AB (Rec: 11/30/24 13:49 AB [id number]) Out-Patient Physical Therapy Visit Information Visit Information Visit Type Treatment Note Visit Start Time 13:03 Visit Stop Time 13:48 Visit Number 21 Number of GATE AGENT Visits 1 Evaluation Information Evaluation Date 09/01/24 PT-OP-B Current Condition Start: 08/31/24 16:40 Freq: Status: Active Protocol: Document 11/28/24 13:00 SAK (Rec: 11/28/24 13:44 SAK [id number]) Current Condition History of Current Condition Onset Date 08/31/24 Current Complaints concern for left knee recovery . History of Current Condition arthroscopy for scar tissue removal yesterday left knee approx 1 year since TKA, states surgeon reported especially significant scarring proximal patella and lateral and medial knee. Before surgery 110 deg flexion , under anesthesia 130 deg. Taking Hydrocodone q 6 hrs and added baby aspirin 1 2x/day as instructed by physician. Minimal pain. Walking with cane mostly due to medication for stability. Has done a little exercise so far. Has iced a couple times. Denies N /T. 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 Patient reports she did her exercises yesterday. AROM left knee 116 deg start of session. Sit to stand from 24 inch seat height without UE use, pt sets height and coments she has been practicing. PT-OP-G Mobility & Gait Start: 08/31/24 16:40 Freq: Status: Active Protocol: Document 09/01/24 13:45 SAK (Rec: 09/01/24 16:56 [facility] [id number]) OP Mobility Evaluation Transfers Sit to Stand very wide JEANNINE OP Gait Assessment Gait Gait Assistance Required: Independent Assistive Devices Assistive Device Straight Cane Orthotic/Prosthetic Devices or Brace: No Gait Deviations General Gait Pattern Decreased Stride Length, Decreased Feet Clearance Factors Limiting Gait Function Factors Limiting Gait Function Decreased Strength,Pain PT-OP-H Neuro Start: 08/31/24 16:40 Freq: Status: Active Protocol: Document 09/01/24 13:45 [facility] (Rec: 09/01/24 16:56 [facility] [id number]) Sensation Evaluation Gross Sensation Gross Sensation WNL PT-OP-J Posture/Palpation/Skin Start: 08/31/24 16:40 Freq: Status: Active Protocol: Document 09/01/24 13:45 [facility] (Rec: 09/01/24 16:56 [facility] [id number]) Skin Assessment Edema Assessment left knee Edema Degree 2+ Edema Appearance Puffy Subjective Edema Description Tightness Incisional Assessment Incision Appearance/Comments left knee arthroscopy incisions present, sutures in place, no signs or symptoms of infection Other Assessments Skin Assessment Comments Patient had blood on outer elastic bandage, soaked through post-op cast padding and gauze, removed and rebandaged by PT. PT-OP-K Range of Motion Start: 08/31/24 16:40 Freq: Status: Active Protocol: Document 10/05/24 11:02 AB (Rec: 10/05/24 12:56 AB [id number]) Knee Goniometric Range of Motion Knee Left Knee ROM WFL No Patient Position Supine Flexion Active (degrees) 120 Extension Active (degrees) 0 Comments Patient into session with 106 deg AROM PT-OP-M Strength Start: 08/31/24 16:40 Freq: Status: Active Protocol: Document 10/05/24 11:02 AB (Rec: 10/05/24 12:56 AB [id number]) Knee Strength Knee Manual Muscle Testing Left Flexion (S2) 3+ Fair+ Extension (L3) 4- Good- Comments flexion tested seated 3+ within limited ROM PT-OP-Q Treatments Start: 08/31/24 16:40 Freq: Status: Active Protocol: Document 11/30/24 13:03 AB (Rec: 11/30/24 13:49 AB [id number]) Gym Equipment Shuttle Recovery Unilateral Squats Resistance 25 Reps/Time x10 L Bilateral Squats Resistance 50 Reps/Time 10x2 Therapeutic Exercises Supine Exercises bridge with band Side bilateral Resistance level 3 band above knees Reps/Minutes X 15 Comments verbal cues to keep tension on band heel slide Supine Exercise Name AROM Side left Equipment Used AROM HS to HEP Reps/Minutes X10 with level one band X 10 without band Comments post manual Sitting Exercises stool scoot Reps/Minutes 10 ft x3 Comments post quad stretch on step Standing Exercises chair squat Standing Exercise Name 24 inch to 22 inch seated height Reps/Minutes X 3 for 3 ( 3X 2 for 22 inch seat height.) varying heights 24-22 quad stretch Side left Reps/Minutes X30 X 3 Comments 121 deg flexion left knee body over knee mvt Manual Therapy Treatment Consent Patient gave verbal consent for manual Yes treatment Soft Tissue Mobilization 1 Body Location keft knee Mobilization Type Cross-Friction,Myofascial Release,Rolling Intensity/Depth Moderate Joint Mobilizations tib/fem Joint PA AP glide of tibia and femur Grade III Body Position Hooklying Comments knee flexed w/APs patellar Joint left Direction inf, sup, med Grade III Body Position Supine PT-OP-R Modalities Start: 08/31/24 16:40 Freq: Status: Active Protocol: Document 10/18/24 13:04 SAK (Rec: 10/18/24 15:38 SAK [id number]) Hot Pack/Cold Pack Treatment left knee Location top and bottom Patient Position Hooklying Comments leg elevated via table and bolster elevation above her heart PT-OP-T Assessment and Plan Start: 08/31/24 16:40 Freq: Status: Active Protocol: Document 11/30/24 13:03 AB (Rec: 11/30/24 13:49 AB [id number]) Physical Therapy Assessment Goals squat Overnight Associate Goal (LTG) Pt will be able to do sit to stand w/good form and no knee pain w/o cueing to show improved LE strength. LTG Duration 12/22 Assessment Summary Assessment AROM heel slide 120 deg end of session left LE, reports feeling weak, no pain end of session. Physical Therapy Plan Next Visit Focus/Plan Next Note Type Treatment Note Next Visit Plan LE strengthening, further sit to stand practive. Knee ROM, patellar and tibial mobilization, soft tissue mobilization including use of tools to improve soft tissue mobility. KT tape depending on skin status
--- NOTE | 2024-12-05 16:31 | PT.OTN ---
Current Diagnoses Unilateral primary osteoarthritis, left knee (12/05/24) Soft tissue disorder, unspecified (12/05/24) Difficulty in walking, not elsewhere classified (12/05/24) Physical Therapy Treatment Note PT-OP-A Visit Information Start: 08/31/24 16:40 Freq: Status: Active Protocol: Document 12/05/24 13:01 [facility] (Rec: 12/05/24 13:47 [facility] [id number]) Out-Patient Physical Therapy Visit Information Visit Information Visit Type Treatment Note Visit Start Time 13:03 Visit Stop Time 13:48 Visit Number 22 Number of WASHING MACHINE LOADER Visits 0 Evaluation Information Evaluation Date 09/01/24 PT-OP-B Current Condition Start: 08/31/24 16:40 Freq: Status: Active Protocol: Document 12/05/24 13:01 [facility] (Rec: 12/05/24 13:47 [facility] [id number]) Current Condition History of Current Condition Onset Date 08/31/24 Current Complaints concern for left knee recovery . History of Current Condition arthroscopy for scar tissue removal yesterday left knee approx 1 year since TKA, states surgeon reported especially significant scarring proximal patella and lateral and medial knee. Before surgery 110 deg flexion , under anesthesia 130 deg. Taking Hydrocodone q 6 hrs and added baby aspirin 1 2x/day as instructed by physician. Minimal pain. Walking with cane mostly due to medication for stability. Has done a little exercise so far. Has iced a couple times. Denies N /T. 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, complicated recovery with continued pain, limited motion due to scar tissue Future Testing and Treatments Planned follow up with physician PT-OP-C Subjective Start: 08/31/24 16:40 Freq: Status: Active Protocol: Document 12/05/24 13:01 [facility] (Rec: 12/05/24 13:47 [facility] [id number]) OP-PT Subjective Patient Comments Patient Comments Starts PT session 117 degrees: I'm working on it. Has another appointment today in [facility] after PT. Colonoscopy end of week. PT-OP-G Mobility & Gait Start: 08/31/24 16:40 Freq: Status: Active Protocol: Document 09/01/24 13:45 SAK (Rec: 09/01/24 16:56 [facility] [id number]) OP Mobility Evaluation Transfers Sit to Stand very wide JEANNINE OP Gait Assessment Gait Gait Assistance Required: Independent Assistive Devices Assistive Device Straight Cane Orthotic/Prosthetic Devices or Brace: No Gait Deviations General Gait Pattern Decreased Stride Length, Decreased Feet Clearance Factors Limiting Gait Function Factors Limiting Gait Function Decreased Strength,Pain PT-OP-H Neuro Start: 08/31/24 16:40 Freq: Status: Active Protocol: Document 09/01/24 13:45 SAK (Rec: 09/01/24 16:56 SAK [id number]) Sensation Evaluation Gross Sensation Gross Sensation WNL PT-OP-J Posture/Palpation/Skin Start: 08/31/24 16:40 Freq: Status: Active Protocol: Document 09/01/24 13:45 SAK (Rec: 09/01/24 16:56 SAK [id number]) Skin Assessment Edema Assessment left knee Edema Degree 2+ Edema Appearance Puffy Subjective Edema Description Tightness Incisional Assessment Incision Appearance/Comments left knee arthroscopy incisions present, sutures in place, no signs or symptoms of infection Other Assessments Skin Assessment Comments Patient had blood on outer elastic bandage, soaked through post-op cast padding and gauze, removed and rebandaged by PT. PT-OP-K Range of Motion Start: 08/31/24 16:40 Freq: Status: Active Protocol: Document 10/05/24 11:02 AB (Rec: 10/05/24 12:56 AB [id number]) Knee Goniometric Range of Motion Knee Left Knee ROM WFL No Patient Position Supine Flexion Active (degrees) 120 Extension Active (degrees) 0 Comments Patient into session with 106 deg AROM PT-OP-M Strength Start: 08/31/24 16:40 Freq: Status: Active Protocol: Document 10/05/24 11:02 AB (Rec: 10/05/24 12:56 AB [id number]) Knee Strength Knee Manual Muscle Testing Left Flexion (S2) 3+ Fair+ Extension (L3) 4- Good- Comments flexion tested seated 3+ within limited ROM PT-OP-Q Treatments Start: 08/31/24 16:40 Freq: Status: Active Protocol: Document 12/05/24 13:01 SAK (Rec: 12/05/24 13:47 SAK [id number]) Cardio Equipment Bicycle (Upright) Duration (Minutes) 9 Resistance 3-5 Seat Position 4 Other seat lowered to increase knee ROM Gym Equipment Cable Column (Body Solid) hamstring curl Details single Resistance 25 Reps/Time 10x2 knee flexion Details dominique Resistance 50 Reps/Time 10x2 Shuttle Recovery Unilateral Squats Resistance 25 Reps/Time x10 L Bilateral Squats Resistance 50 Reps/Time 10x2 Therapeutic Exercises Supine Exercises bridge with band Side bilateral Resistance level 3 band above knees Reps/Minutes X 15 Comments verbal cues to keep tension on band Standing Exercises chair squat Standing Exercise Name 24 inch to 22 inch seated height Reps/Minutes X 3 for 3 ( 3X 2 for 22 inch seat height.) varying heights 24-22 AROM knee flexion Side left Reps/Minutes X10 Comments verbal cues, post stretch stair lunge Reps/Minutes X15 Comments verbal cues quad stretch Side left Equipment Used chair Reps/Minutes 30 x 2 Manual Therapy Treatment Soft Tissue Mobilization 1 Body Location left knee Mobilization Type Cross-Friction,Myofascial Release,Rolling Intensity/Depth Moderate Joint Mobilizations tib/fem Joint PA AP glide of tibia and femur Grade III Body Position Hooklying Comments knee flexed w/APs patellar Joint left Direction inf, sup, med Grade III Body Position Supine Manual Techniques Contract relax into knee flexion Type right Body Position seated Reps/Duration 5 x 5 contract w/ 10 flex stretch PT-OP-R Modalities Start: 08/31/24 16:40 Freq: Status: Active Protocol: Document 10/18/24 13:04 [facility] (Rec: 10/18/24 15:38 [facility] [id number]) Hot Pack/Cold Pack Treatment left knee Location top and bottom Patient Position Hooklying Comments leg elevated via table and bolster elevation above her heart PT-OP-T Assessment and Plan Start: 08/31/24 16:40 Freq: Status: Active Protocol: Document 12/05/24 13:01 [facility] (Rec: 12/05/24 13:47 [facility] [id number]) Physical Therapy Assessment Impairments Impairments Gait,ROM,Strength Goals squat Mcfp Goal (LTG) Pt will be able to do sit to stand w/good form and no knee pain w/o cueing to show improved LE strength. LTG Duration 12/22/24 Three Impairment gait dysfunction Short Term Goal (STG) Patient will be able to ambulate on level surfaces without assistive device safely demonstrating normal flexion of knee and no limp 10/05/2024 Patient ambulates into session without device STG Duration goal met Mcfp Goal (LTG) Patient will be able to ambulate on stairs with alternating pattern Patient ascends and descends 6 inch stairs with 2 rails using a reciprocal pattern ( quad dominant pattern) Patient ambulates without device increased knee flexion on heel strike and toe off bilaterally. 10/18/24: good goal progress; can do on 4 stairs, requires heavy UE use on 6 stairs. 11/17-able to reciprocate w/ rails for balance minimally LTG Duration 12/22/24 Two Impairment Lower extremity functional scale 24% Short Term Goal (STG) Improve LEFS score to at least 50% as measure of improved left knee function and activity tolerance 10/05/2024 LEFS 56% 10/18/24: goal met STG Duration goal met Operations Specialists Goal (LTG) Improve LEFS score to at least 75% as measure of improved left knee function and activity tolerance 10/18/24: good goal progress to 64% 11/17-55% LTG Duration 12/22/24 One Impairment limited ROM and strength left knee Short Term Goal (STG) Patient to be instructed in HEP for purposes of ROM and strengthening left knee 10/05/24: goal met STG Duration goal met Operations Specialists Goal (LTG) Patient to be independent and compliant with HEP and demonstrate full AROM 0-135, and strength at least 4+/5 left knee and fucntionally be able to transfer sit to stand with neutral alignment without use of UE's 10/05/2024 AROM left knee 0 to 106 start of session to 120 deg post manual and exercise ) left quad 4-/5 HS (seated 3+ within limited ROM ) 10/18/24: left knee AROM end of session 0-118, AAROM 0-130 deg. Decreased but still requires use of UE's for sit to stand transfers 11/07-0-111 at start progressed to 0-122 AROM LTG Duration 12/22/24 Progress Towards Goals Progress Towards Goals Progressing Toward Goals Assessment Summary Assessment Steady progress. Improving compliance to PT. AROM left knee end of session 121, passive 124 degrees. Continued education mechanics of sit to stand with patient improving lunderstanding, but inability to perform without UE's lower than 22 Physical Therapy Plan Frequency and Duration Frequency of Treatment 2x/Week Duration of treatment (weeks) 5 Plan of Care Start Date 11/17/24 Plan of Care End Date 12/22/24 Therapeutic Interventions Therapeutic Interventions Balance Training,Gait Training ,Home Exercise Program,Joint Mobilizations,Manual Therapy, Neuromuscular Re-education, Patient/Caregiver Education, Self-Care/Home Management,Soft Tissue Mobilization,Taping, Therapeutic Activities, Therapeutic Exercises Modalities Cold Pack/Ice Massage,Electric Stimulation,Hot Packs Next Visit Focus/Plan Next Note Type Treatment Note Next Visit Plan Continue strengthening into full knee ROM, sit to stand training and functional retraining. Soft tissue mobilization and joint mobilization.
--- NOTE | 2024-12-12 13:45 | PT.OTN ---
Current Diagnoses Unilateral primary osteoarthritis, left knee (12/12/24) Soft tissue disorder, unspecified (12/12/24) Difficulty in walking, not elsewhere classified (12/12/24) Physical Therapy Treatment Note PT-OP-A Visit Information Start: 08/31/24 16:40 Freq: Status: Active Protocol: Document 12/12/24 13:02 SAK (Rec: 12/12/24 13:45 SAK [id number]) Out-Patient Physical Therapy Visit Information Visit Information Visit Type Treatment Note Visit Note 5 min late Visit Start Time 13:05 Visit Stop Time 13:48 Visit Number 23 Number of POWER ORIGINATOR Visits 0 Evaluation Information Evaluation Date 09/01/24 PT-OP-B Current Condition Start: 08/31/24 16:40 Freq: Status: Active Protocol: Document 12/12/24 13:02 SAK (Rec: 12/12/24 13:45 [facility] [id number]) Current Condition History of Current Condition Onset Date 08/31/24 Current Complaints concern for left knee recovery . History of Current Condition arthroscopy for scar tissue removal yesterday left knee approx 1 year since TKA, states surgeon reported especially significant scarring proximal patella and lateral and medial knee. Before surgery 110 deg flexion , under anesthesia 130 deg. Taking Hydrocodone q 6 hrs and added baby aspirin 1 2x/day as instructed by physician. Minimal pain. Walking with cane mostly due to medication for stability. Has done a little exercise so far. Has iced a couple times. Denies N /T. 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 Busy week and weekend. Sees her doctor tomorrow for results of colonoscopy. Didn't do much exercising. PT-OP-G Mobility & Gait Start: 08/31/24 16:40 Freq: Status: Active Protocol: Document 09/01/24 13:45 SAK (Rec: 09/01/24 16:56 SAK [id number]) OP Mobility Evaluation Transfers Sit to Stand very wide JEANNINE OP Gait Assessment Gait Gait Assistance Required: Independent Assistive Devices Assistive Device Straight Cane Orthotic/Prosthetic Devices or Brace: No Gait Deviations General Gait Pattern Decreased Stride Length, Decreased Feet Clearance Factors Limiting Gait Function Factors Limiting Gait Function Decreased Strength,Pain PT-OP-H Neuro Start: 08/31/24 16:40 Freq: Status: Active Protocol: Document 09/01/24 13:45 SAK (Rec: 09/01/24 16:56 SAK [id number]) Sensation Evaluation Gross Sensation Gross Sensation WNL PT-OP-J Posture/Palpation/Skin Start: 08/31/24 16:40 Freq: Status: Active Protocol: Document 09/01/24 13:45 SAK (Rec: 09/01/24 16:56 SAK [id number]) Skin Assessment Edema Assessment left knee Edema Degree 2+ Edema Appearance Puffy Subjective Edema Description Tightness Incisional Assessment Incision Appearance/Comments left knee arthroscopy incisions present, sutures in place, no signs or symptoms of infection Other Assessments Skin Assessment Comments Patient had blood on outer elastic bandage, soaked through post-op cast padding and gauze, removed and rebandaged by PT. PT-OP-K Range of Motion Start: 08/31/24 16:40 Freq: Status: Active Protocol: Document 10/05/24 11:02 AB (Rec: 10/05/24 12:56 AB [id number]) Knee Goniometric Range of Motion Knee Left Knee ROM WFL No Patient Position Supine Flexion Active (degrees) 120 Extension Active (degrees) 0 Comments Patient into session with 106 deg AROM PT-OP-M Strength Start: 08/31/24 16:40 Freq: Status: Active Protocol: Document 10/05/24 11:02 AB (Rec: 10/05/24 12:56 AB [id number]) Knee Strength Knee Manual Muscle Testing Left Flexion (S2) 3+ Fair+ Extension (L3) 4- Good- Comments flexion tested seated 3+ within limited ROM PT-OP-Q Treatments Start: 08/31/24 16:40 Freq: Status: Active Protocol: Document 12/12/24 13:02 SAK (Rec: 12/12/24 13:45 SAK [id number]) Cardio Equipment Bicycle (Upright) Duration (Minutes) 10 Resistance 3-5 Seat Position 4 Other seat lowered to increase knee ROM Gym Equipment Cable Column (Body Solid) hamstring curl Details single Resistance 25 Reps/Time 10x2 knee flexion Details dominique Resistance 50 Reps/Time 10x2 Shuttle Recovery Unilateral Squats Resistance 25 Reps/Time x10 L Bilateral Squats Resistance 50 Reps/Time 10x2 Therapeutic Exercises Standing Exercises chair squat Standing Exercise Name 24 inch to 22 inch seated height Reps/Minutes X 3 for 3 ( 3X 2 for 22 inch seat height.) varying heights 24-22 stair lunge Reps/Minutes X15 Comments verbal cues quad stretch Side left Equipment Used chair Reps/Minutes 30 x 2 Manual Therapy Treatment Soft Tissue Mobilization 1 Body Location left knee Mobilization Type Cross-Friction,Myofascial Release,Rolling Intensity/Depth Moderate Joint Mobilizations tib/fem Joint PA AP glide of tibia and femur Grade III Body Position Hooklying Comments knee flexed w/APs patellar Joint left Direction inf, sup, med Grade III Body Position Supine Manual Techniques Contract relax into knee flexion Type right Body Position seated Reps/Duration 5 x 5 contract w/ 10 flex stretch PT-OP-R Modalities Start: 08/31/24 16:40 Freq: Status: Active Protocol: Document 10/18/24 13:04 [facility] (Rec: 10/18/24 15:38 [facility] [id number]) Hot Pack/Cold Pack Treatment left knee Location top and bottom Patient Position Hooklying Comments leg elevated via table and bolster elevation above her heart PT-OP-T Assessment and Plan Start: 08/31/24 16:40 Freq: Status: Active Protocol: Document 12/12/24 13:02 [facility] (Rec: 12/12/24 13:45 [facility] [id number]) Physical Therapy Assessment Impairments Impairments Gait,ROM,Strength Goals squat Jail Goal (LTG) Pt will be able to do sit to stand w/good form and no knee pain w/o cueing to show improved LE strength. LTG Duration 12/22/24 Three Impairment gait dysfunction Short Term Goal (STG) Patient will be able to ambulate on level surfaces without assistive device safely demonstrating normal flexion of knee and no limp 10/05/2024 Patient ambulates into session without device STG Duration goal met Oven Technician Goal (LTG) Patient will be able to ambulate on stairs with alternating pattern Patient ascends and descends 6 inch stairs with 2 rails using a reciprocal pattern ( quad dominant pattern) Patient ambulates without device increased knee flexion on heel strike and toe off bilaterally. 10/18/24: good goal progress; can do on 4 stairs, requires heavy UE use on 6 stairs. 11/17-able to reciprocate w/ rails for balance minimally LTG Duration 12/22/24 Two Impairment Lower extremity functional scale 24% Short Term Goal (STG) Improve LEFS score to at least 50% as measure of improved left knee function and activity tolerance 10/05/2024 LEFS 56% 10/18/24: goal met STG Duration goal met Jail Goal (LTG) Improve LEFS score to at least 75% as measure of improved left knee function and activity tolerance 10/18/24: good goal progress to 64% 11/17-55% LTG Duration 12/22/24 One Impairment limited ROM and strength left knee Short Term Goal (STG) Patient to be instructed in HEP for purposes of ROM and strengthening left knee 10/05/24: goal met STG Duration goal met Oven Technician Goal (LTG) Patient to be independent and compliant with HEP and demonstrate full AROM 0-135, and strength at least 4+/5 left knee and fucntionally be able to transfer sit to stand with neutral alignment without use of UE's 10/05/2024 AROM left knee 0 to 106 start of session to 120 deg post manual and exercise ) left quad 4-/5 HS (seated 3+ within limited ROM ) 10/18/24: left knee AROM end of session 0-118, AAROM 0-130 deg. Decreased but still requires use of UE's for sit to stand transfers 11/07-0-111 at start progressed to 0-122 AROM LTG Duration 12/22/24 Assessment Summary Assessment AROM end of session 123 degrees. Patient fatigued quickly today. Lower exercise tolerance. Physical Therapy Plan Frequency and Duration Frequency of Treatment 2x/Week Duration of treatment (weeks) 5 Plan of Care Start Date 11/17/24 Plan of Care End Date 12/22/24 Therapeutic Interventions Therapeutic Interventions Balance Training,Gait Training ,Home Exercise Program,Joint Mobilizations,Manual Therapy, Neuromuscular Re-education, Patient/Caregiver Education, Self-Care/Home Management,Soft Tissue Mobilization,Taping, Therapeutic Activities, Therapeutic Exercises Modalities Cold Pack/Ice Massage,Electric Stimulation,Hot Packs Next Visit Focus/Plan Next Note Type Treatment Note Next Visit Plan Continue strengthening into full knee ROM, sit to stand training and functional retraining. Soft tissue mobilization and joint mobilization.
--- NOTE | 2024-12-14 13:47 | PT.OTN ---
Current Diagnoses Unilateral primary osteoarthritis, left knee (12/14/24) Soft tissue disorder, unspecified (12/14/24) Difficulty in walking, not elsewhere classified (12/14/24) Physical Therapy Treatment Note PT-OP-A Visit Information Start: 08/31/24 16:40 Freq: Status: Active Protocol: Document 12/14/24 12:27 AB (Rec: 12/14/24 13:46 AB [id number]) Out-Patient Physical Therapy Visit Information Visit Information Visit Type Treatment Note Visit Start Time 13:02 Visit Stop Time 13:45 Visit Number 24 Number of PAPER REEL OPERATOR Visits 1 Evaluation Information Evaluation Date 09/01/24 PT-OP-B Current Condition Start: 08/31/24 16:40 Freq: Status: Active Protocol: Document 12/12/24 13:02 SAK (Rec: 12/12/24 13:45 SAK [id number]) Current Condition History of Current Condition Onset Date 08/31/24 Current Complaints concern for left knee recovery . History of Current Condition arthroscopy for scar tissue removal yesterday left knee approx 1 year since TKA, states surgeon reported especially significant scarring proximal patella and lateral and medial knee. Before surgery 110 deg flexion , under anesthesia 130 deg. Taking Hydrocodone q 6 hrs and added baby aspirin 1 2x/day as instructed by physician. Minimal pain. Walking with cane mostly due to medication for stability. Has done a little exercise so far. Has iced a couple times. Denies N /T. 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, complicated recovery with continued pain, limited motion due to scar tissue Future Testing and Treatments Planned follow up with physician PT-OP-C Subjective Start: 08/31/24 16:40 Freq: Status: Active Protocol: Document 12/14/24 12:27 AB (Rec: 12/14/24 13:46 AB [id number]) OP-PT Subjective Patient Comments Patient Comments Patient reports she had a set back, due to colonoscopy and MD appointments. Sit to stand from chair in waiting area with UE use and 2 attempts ie able to stand up on second attempt.Lacking 1 deg ext to 121 deg flexion left knee AROM post bike, pre manual and exercises PT-OP-G Mobility & Gait Start: 08/31/24 16:40 Freq: Status: Active Protocol: Document 09/01/24 13:45 SAK (Rec: 09/01/24 16:56 SAK [id number]) OP Mobility Evaluation Transfers Sit to Stand very wide JEANNINE OP Gait Assessment Gait Gait Assistance Required: Independent Assistive Devices Assistive Device Straight Cane Orthotic/Prosthetic Devices or Brace: No Gait Deviations General Gait Pattern Decreased Stride Length, Decreased Feet Clearance Factors Limiting Gait Function Factors Limiting Gait Function Decreased Strength,Pain PT-OP-H Neuro Start: 08/31/24 16:40 Freq: Status: Active Protocol: Document 09/01/24 13:45 [facility] (Rec: 09/01/24 16:56 [facility] [id number]) Sensation Evaluation Gross Sensation Gross Sensation WNL PT-OP-J Posture/Palpation/Skin Start: 08/31/24 16:40 Freq: Status: Active Protocol: Document 09/01/24 13:45 [facility] (Rec: 09/01/24 16:56 [facility] [id number]) Skin Assessment Edema Assessment left knee Edema Degree 2+ Edema Appearance Puffy Subjective Edema Description Tightness Incisional Assessment Incision Appearance/Comments left knee arthroscopy incisions present, sutures in place, no signs or symptoms of infection Other Assessments Skin Assessment Comments Patient had blood on outer elastic bandage, soaked through post-op cast padding and gauze, removed and rebandaged by PT. PT-OP-K Range of Motion Start: 08/31/24 16:40 Freq: Status: Active Protocol: Document 10/05/24 11:02 AB (Rec: 10/05/24 12:56 AB [id number]) Knee Goniometric Range of Motion Knee Left Knee ROM WFL No Patient Position Supine Flexion Active (degrees) 120 Extension Active (degrees) 0 Comments Patient into session with 106 deg AROM PT-OP-M Strength Start: 08/31/24 16:40 Freq: Status: Active Protocol: Document 10/05/24 11:02 AB (Rec: 10/05/24 12:56 AB [id number]) Knee Strength Knee Manual Muscle Testing Left Flexion (S2) 3+ Fair+ Extension (L3) 4- Good- Comments flexion tested seated 3+ within limited ROM PT-OP-Q Treatments Start: 08/31/24 16:40 Freq: Status: Active Protocol: Document 12/14/24 12:27 AB (Rec: 12/14/24 13:46 AB [id number]) Cardio Equipment Bicycle (Upright) Duration (Minutes) 8 Resistance 3-5 Seat Position 4 Therapeutic Exercises Supine Exercises bridge with band Side bilateral Resistance level 3 band above knees Reps/Minutes X 15 Comments verbal cues to keep tension on band hip flexor stretch edge of bend Side left Reps/Minutes 60 sec X1 Comments with AROM knee flexion Sitting Exercises stool scoot Reps/Minutes 10 ft x3 Comments post quad stretch on step seated hip abduction with band Side bilateral Resistance level 3 green band Reps/Minutes X15and X 10 without hold X one one minute hold Comments verbal cues for tying band Standing Exercises chair squat Standing Exercise Name 23 to 21.5 seat height Reps/Minutes X 3 and 2X 5 Comments with and without UE use ( lower levels with UE use, VC to use lightly) stair lunge Reps/Minutes X15 Comments verbal cues Manual Therapy Treatment Consent Patient gave verbal consent for manual Yes treatment Soft Tissue Mobilization 1 Body Location left knee Mobilization Type Cross-Friction,Myofascial Release,Rolling Intensity/Depth Moderate Joint Mobilizations tib/fem Joint PA AP glide of tibia and femur Grade III Body Position Hooklying Comments knee flexed w/APs patellar Joint left Direction inf, sup, med Grade III Body Position Supine PT-OP-R Modalities Start: 08/31/24 16:40 Freq: Status: Active Protocol: Document 10/18/24 13:04 SAK (Rec: 10/18/24 15:38 SAK [id number]) Hot Pack/Cold Pack Treatment left knee Location top and bottom Patient Position Hooklying Comments leg elevated via table and bolster elevation above her heart PT-OP-T Assessment and Plan Start: 08/31/24 16:40 Freq: Status: Active Protocol: Document 12/14/24 12:27 AB (Rec: 12/14/24 13:46 AB [id number]) Physical Therapy Assessment Goals squat Art Tracer Goal (LTG) Pt will be able to do sit to stand w/good form and no knee pain w/o cueing to show improved LE strength. LTG Duration 12/22/24 Three Impairment gait dysfunction Short Term Goal (STG) Patient will be able to ambulate on level surfaces without assistive device safely demonstrating normal flexion of knee and no limp 10/05/2024 Patient ambulates into session without device STG Duration goal met Usp Goal (LTG) Patient will be able to ambulate on stairs with alternating pattern Patient ascends and descends 6 inch stairs with 2 rails using a reciprocal pattern ( quad dominant pattern) Patient ambulates without device increased knee flexion on heel strike and toe off bilaterally. 10/18/24: good goal progress; can do on 4 stairs, requires heavy UE use on 6 stairs. 11/17-able to reciprocate w/ rails for balance minimally LTG Duration 12/22/24 Two Impairment Lower extremity functional scale 24% Short Term Goal (STG) Improve LEFS score to at least 50% as measure of improved left knee function and activity tolerance 10/05/2024 LEFS 56% 10/18/24: goal met STG Duration goal met Usp Goal (LTG) Improve LEFS score to at least 75% as measure of improved left knee function and activity tolerance 10/18/24: good goal progress to 64% 11/17-55% LTG Duration 12/22/24 One Impairment limited ROM and strength left knee Short Term Goal (STG) Patient to be instructed in HEP for purposes of ROM and strengthening left knee 10/05/24: goal met STG Duration goal met Usp Goal (LTG) Patient to be independent and compliant with HEP and demonstrate full AROM 0-135, and strength at least 4+/5 left knee and fucntionally be able to transfer sit to stand with neutral alignment without use of UE's 10/05/2024 AROM left knee 0 to 106 start of session to 120 deg post manual and exercise ) left quad 4-/5 HS (seated 3+ within limited ROM ) 10/18/24: left knee AROM end of session 0-118, AAROM 0-130 deg. Decreased but still requires use of UE's for sit to stand transfers 11/07-0-111 at start progressed to 0-122 AROM LTG Duration 12/22/24 Assessment Summary Assessment AROM left knee flexion 124 deg end of session. Katerina reports having no pain end of session . Physical Therapy Plan Frequency and Duration Frequency of Treatment 2x/Week Duration of treatment (weeks) 5 Plan of Care Start Date 11/17/24 Plan of Care End Date 12/22/24 Next Visit Focus/Plan Next Note Type Treatment Note Next Visit Plan Continue strengthening into full knee ROM, sit to stand training and functional retraining. Soft tissue mobilization and joint mobilization.
--- NOTE | 2024-12-19 16:44 | PT.OTN ---
Current Diagnoses Unilateral primary osteoarthritis, left knee (12/19/24) Soft tissue disorder, unspecified (12/19/24) Difficulty in walking, not elsewhere classified (12/19/24) Physical Therapy Treatment Note PT-OP-A Visit Information Start: 08/31/24 16:40 Freq: Status: Active Protocol: Document 12/19/24 13:00 SAK (Rec: 12/19/24 13:46 [facility] [id number]) Out-Patient Physical Therapy Visit Information Visit Information Visit Type Treatment Note Visit Start Time 13:01 Visit Stop Time 13:45 Visit Number 25 Evaluation Information Evaluation Date 09/01/24 PT-OP-B Current Condition Start: 08/31/24 16:40 Freq: Status: Active Protocol: Document 12/19/24 13:00 SAK (Rec: 12/19/24 13:46 [facility] [id number]) Current Condition History of Current Condition Onset Date 08/31/24 Current Complaints concern for left knee recovery . History of Current Condition arthroscopy for scar tissue removal yesterday left knee approx 1 year since TKA, states surgeon reported especially significant scarring proximal patella and lateral and medial knee. Before surgery 110 deg flexion , under anesthesia 130 deg. Taking Hydrocodone q 6 hrs and added baby aspirin 1 2x/day as instructed by physician. Minimal pain. Walking with cane mostly due to medication for stability. Has done a little exercise so far. Has iced a couple times. Denies N /T. 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, complicated recovery with continued pain, limited motion due to scar tissue Future Testing and Treatments Planned follow up with physician PT-OP-C Subjective Start: 08/31/24 16:40 Freq: Status: Active Protocol: Document 12/19/24 13:00 SAK (Rec: 12/19/24 13:46 [facility] [id number]) OP-PT Subjective Patient Comments Patient Comments Patient reports some tenderness in her knee to the touch but not with walking. Back to doing her exercises. 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 PT-OP-G Mobility & Gait Start: 08/31/24 16:40 Freq: Status: Active Protocol: Document 09/01/24 13:45 SAK (Rec: 09/01/24 16:56 SAK [id number]) OP Mobility Evaluation Transfers Sit to Stand very wide JEANNINE OP Gait Assessment Gait Gait Assistance Required: Independent Assistive Devices Assistive Device Straight Cane Orthotic/Prosthetic Devices or Brace: No Gait Deviations General Gait Pattern Decreased Stride Length, Decreased Feet Clearance Factors Limiting Gait Function Factors Limiting Gait Function Decreased Strength,Pain PT-OP-H Neuro Start: 08/31/24 16:40 Freq: Status: Active Protocol: Document 09/01/24 13:45 SAK (Rec: 09/01/24 16:56 SAK [id number]) Sensation Evaluation Gross Sensation Gross Sensation WNL PT-OP-J Posture/Palpation/Skin Start: 08/31/24 16:40 Freq: Status: Active Protocol: Document 09/01/24 13:45 SAK (Rec: 09/01/24 16:56 SAK [id number]) Skin Assessment Edema Assessment left knee Edema Degree 2+ Edema Appearance Puffy Subjective Edema Description Tightness Incisional Assessment Incision Appearance/Comments left knee arthroscopy incisions present, sutures in place, no signs or symptoms of infection Other Assessments Skin Assessment Comments Patient had blood on outer elastic bandage, soaked through post-op cast padding and gauze, removed and rebandaged by PT. PT-OP-K Range of Motion Start: 08/31/24 16:40 Freq: Status: Active Protocol: Document 10/05/24 11:02 AB (Rec: 10/05/24 12:56 AB [id number]) Knee Goniometric Range of Motion Knee Left Knee ROM WFL No Patient Position Supine Flexion Active (degrees) 120 Extension Active (degrees) 0 Comments Patient into session with 106 deg AROM PT-OP-M Strength Start: 08/31/24 16:40 Freq: Status: Active Protocol: Document 10/05/24 11:02 AB (Rec: 10/05/24 12:56 AB [id number]) Knee Strength Knee Manual Muscle Testing Left Flexion (S2) 3+ Fair+ Extension (L3) 4- Good- Comments flexion tested seated 3+ within limited ROM PT-OP-Q Treatments Start: 08/31/24 16:40 Freq: Status: Active Protocol: Document 12/19/24 13:00 SAK (Rec: 12/19/24 13:46 SAK [id number]) Cardio Equipment Bicycle (Upright) Duration (Minutes) 8 Resistance 3-5 Seat Position 4 Gym Equipment Cable Column (Body Solid) hamstring curl Details single Resistance 25 Reps/Time 10x2 knee flexion Details dominique Resistance 50 Reps/Time 10x2 Shuttle Recovery Unilateral Squats Resistance 25 Reps/Time x15o L Bilateral Squats Resistance 50 Reps/Time 10x2 Therapeutic Exercises Supine Exercises bridge with band Side bilateral Resistance level 3 band above knees Reps/Minutes X 15 Comments verbal cues to keep tension on band hip flexor stretch edge of bend Side left Reps/Minutes 60 sec X1 Comments with AROM knee flexion Standing Exercises resisted walking Equipment Used L1 TB Comments next session chair squat Standing Exercise Name 23 to 21.5 seat height Reps/Minutes X 3 and 2X 5 Comments with and without UE use ( lower levels with UE use, VC to use lightly) stair lunge Reps/Minutes X15 Comments verbal cues Manual Therapy Treatment Consent Patient gave verbal consent for manual Yes treatment Soft Tissue Mobilization 1 Body Location left knee Mobilization Type Cross-Friction,Myofascial Release,Rolling Intensity/Depth Moderate Joint Mobilizations tib/fem Joint PA AP glide of tibia and femur Grade III Body Position Hooklying Comments knee flexed w/APs patellar Joint left Direction inf, sup, med Grade III Body Position Supine Manual Techniques Contract relax into knee flexion Type right Body Position seated Reps/Duration 5 x 5 contract w/ 10 flex stretch PT-OP-R Modalities Start: 08/31/24 16:40 Freq: Status: Active Protocol: Document 10/18/24 13:04 [facility] (Rec: 10/18/24 15:38 [facility] [id number]) Hot Pack/Cold Pack Treatment left knee Location top and bottom Patient Position Hooklying Comments leg elevated via table and bolster elevation above her heart PT-OP-T Assessment and Plan Start: 08/31/24 16:40 Freq: Status: Active Protocol: Document 12/19/24 13:00 [facility] (Rec: 12/19/24 13:46 [facility] [id number]) Physical Therapy Assessment Goals squat Custodial Goal (LTG) Pt will be able to do sit to stand w/good form and no knee pain w/o cueing to show improved LE strength. LTG Duration 12/22/24 Three Impairment gait dysfunction Short Term Goal (STG) Patient will be able to ambulate on level surfaces without assistive device safely demonstrating normal flexion of knee and no limp 10/05/2024 Patient ambulates into session without device STG Duration goal met Janitor Supervisor Goal (LTG) Patient will be able to ambulate on stairs with alternating pattern Patient ascends and descends 6 inch stairs with 2 rails using a reciprocal pattern ( quad dominant pattern) Patient ambulates without device increased knee flexion on heel strike and toe off bilaterally. 10/18/24: good goal progress; can do on 4 stairs, requires heavy UE use on 6 stairs. 11/17-able to reciprocate w/ rails for balance minimally LTG Duration 12/22/24 Two Impairment Lower extremity functional scale 24% Short Term Goal (STG) Improve LEFS score to at least 50% as measure of improved left knee function and activity tolerance 10/05/2024 LEFS 56% 10/18/24: goal met STG Duration goal met Custodial Goal (LTG) Improve LEFS score to at least 75% as measure of improved left knee function and activity tolerance 10/18/24: good goal progress to 64% 11/17-55% LTG Duration 12/22/24 One Impairment limited ROM and strength left knee Short Term Goal (STG) Patient to be instructed in HEP for purposes of ROM and strengthening left knee 10/05/24: goal met STG Duration goal met Custodial Goal (LTG) Patient to be independent and compliant with HEP and demonstrate full AROM 0-135, and strength at least 4+/5 left knee and fucntionally be able to transfer sit to stand with neutral alignment without use of UE's 10/05/2024 AROM left knee 0 to 106 start of session to 120 deg post manual and exercise ) left quad 4-/5 HS (seated 3+ within limited ROM ) 10/18/24: left knee AROM end of session 0-118, AAROM 0-130 deg. Decreased but still requires use of UE's for sit to stand transfers 11/07-0-111 at start progressed to 0-122 AROM LTG Duration 12/22/24 Assessment Summary Assessment AROM left knee flexion 122 degress, PROM 124 degrees end of session. Patient has not been doing scar massage and was instructed in importance. Palpable tenderness and decreased medial movement distal aspect surgical score notable today. Physical Therapy Plan Frequency and Duration Frequency of Treatment 2x/Week Duration of treatment (weeks) 5 Plan of Care Start Date 11/17/24 Plan of Care End Date 12/22/24 Therapeutic Interventions Therapeutic Interventions Balance Training,Gait Training ,Home Exercise Program,Joint Mobilizations,Manual Therapy, Neuromuscular Re-education, Patient/Caregiver Education, Self-Care/Home Management,Soft Tissue Mobilization,Taping, Therapeutic Activities, Therapeutic Exercises Modalities Cold Pack/Ice Massage,Electric Stimulation,Hot Packs Next Visit Focus/Plan Next Note Type Treatment Note Next Visit Plan Reassessment. Discuss POC. Scar mobilization, joint mobilization, ther ex as indicated.
--- NOTE | 2024-12-21 17:17 | PT.OTRE ---
Current Diagnoses Unilateral primary osteoarthritis, left knee (12/21/24) Soft tissue disorder, unspecified (12/21/24) Difficulty in walking, not elsewhere classified (12/21/24) Past Medical History (Last Updated 12/13/24 @ 15:16 by Henry Mendez DO) Abdominal wall hernia Abnormal heart rhythms Acute right hip pain All medications reviewed Arthralgia Arthritis Asthma Bilateral hand pain Blood pressure instability Body posture problem Breast cancer Cellulitis Cervical radiculopathy Cervical somatic dysfunction Choking due to phlegm Chronic cough Chronic diarrhea Chronic GERD Chronic pain of left knee Compression fracture (2002) Constipation Coronary artery disease COVID-19 vaccine series completed Cranial somatic dysfunction Diarrhea due to drug Discoloration of skin of lower leg Ear drainage right Easy bruisability Edema of left lower extremity Edema of right lower extremity Fatigue Former smoker H/O supraventricular tachycardia Has end of life care plan Hemorrhoid High serum high density lipoprotein (HDL) History of breast cancer History of transfusion (~2001) Hyponatremia Left elbow pain Leg cramps, sleep related Lichen planus Low serum creatinine Lumbar region somatic dysfunction Lymphopenia Medication side effect Memory changes Meralgia paraesthetica Nausea in adult patient Oral candidiasis Osteoarthritis Osteoarthritis cervical spine Osteoporosis Pelvic somatic dysfunction Phlegm in throat Postoperative edema Postoperative pain of left knee Premature atrial contractions Problems related to lack of adequate sleep Pure hypercholesterolemia Rib fractures Rib pain Right lower quadrant abdominal pain Sacral back pain Sacral region somatic dysfunction Segmental and somatic dysfunction of rib cage Sinus drainage Somatic dysfunction of lower extremity Stiff neck Strain of right shoulder SVT (supraventricular tachycardia) Symptomatic cholelithiasis Tension headache Thoracic region somatic dysfunction Upper extremity somatic dysfunction Vagina itching Weight loss, unintentional Surgical History (Last Reviewed 12/22/23 @ 17:59 by Charles Mora MD) History of foot surgery History of surgery (04/2019) Hx of appendectomy (1962) Hx of arthroscopy of shoulder (03/2005) Hx of lumpectomy (04/2001) Hx of repair of right rotator cuff (06/2006) Hx of toe surgery Hx of tonsillectomy (1948) S/P bilateral mastectomy (12/2001) Status post appendectomy Status post breast reconstruction (07/2019) Status post laparoscopic cholecystectomy Status post replacement of both shoulder joints Status post right knee replacement (10/2012) Status post tonsillectomy Status post total left knee replacement Visit Care Team Role Provider Type Henry Mendez DO Family Provider Physician Primary Care Provider Specialty: Family Practice Address: [address] [place] [address], [id number] Email: Danie Meyer MD Attending Provider Non-Staff Referring Provider Specialty: Orthopedic Surgery Address: [address] [place] [address] , [place], [address] Email: Physical Therapy Re-Evaluation PT-OP-A Visit Information Start: 08/31/24 16:40 Freq: Status: Active Protocol: Document 12/21/24 13:02 SAK (Rec: 12/21/24 13:44 SAK [id number]) Out-Patient Physical Therapy Visit Information Visit Information Visit Type Treatment Note Visit Start Time 13:00 Visit Stop Time 13:45 Visit Number 26 Evaluation Information Evaluation Date 09/01/24 PT-OP-B Current Condition Start: 08/31/24 16:40 Freq: Status: Active Protocol: Document 12/21/24 13:02 SAK (Rec: 12/21/24 13:44 [facility] [id number]) Current Condition History of Current Condition Onset Date 08/31/24 Current Complaints concern for left knee recovery . History of Current Condition arthroscopy for scar tissue removal yesterday left knee approx 1 year since TKA, states surgeon reported especially significant scarring proximal patella and lateral and medial knee. Before surgery 110 deg flexion , under anesthesia 130 deg. Taking Hydrocodone q 6 hrs and added baby aspirin 1 2x/day as instructed by physician. Minimal pain. Walking with cane mostly due to medication for stability. Has done a little exercise so far. Has iced a couple times. Denies N /T. 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, complicated recovery with continued pain, limited motion due to scar tissue Future Testing and Treatments Planned follow up with physician PT-OP-C Subjective Start: 08/31/24 16:40 Freq: Status: Active Protocol: Document 12/21/24 13:02 SAK (Rec: 12/21/24 13:44 SAK [id number]) OP-PT Subjective Patient Comments Patient Comments Fatigued from appointments. Hasn't started Methotrexate yet. PT-OP-G Mobility & Gait Start: 08/31/24 16:40 Freq: Status: Active Protocol: Document 09/01/24 13:45 [facility] (Rec: 09/01/24 16:56 [facility] [id number]) OP Mobility Evaluation Transfers Sit to Stand very wide JEANNINE OP Gait Assessment Gait Gait Assistance Required: Independent Assistive Devices Assistive Device Straight Cane Orthotic/Prosthetic Devices or Brace: No Gait Deviations General Gait Pattern Decreased Stride Length, Decreased Feet Clearance Factors Limiting Gait Function Factors Limiting Gait Function Decreased Strength,Pain PT-OP-H Neuro Start: 08/31/24 16:40 Freq: Status: Active Protocol: Document 09/01/24 13:45 SAK (Rec: 09/01/24 16:56 [facility] [id number]) Sensation Evaluation Gross Sensation Gross Sensation WNL PT-OP-J Posture/Palpation/Skin Start: 08/31/24 16:40 Freq: Status: Active Protocol: Document 09/01/24 13:45 SAK (Rec: 09/01/24 16:56 [facility] [id number]) Skin Assessment Edema Assessment left knee Edema Degree 2+ Edema Appearance Puffy Subjective Edema Description Tightness Incisional Assessment Incision Appearance/Comments left knee arthroscopy incisions present, sutures in place, no signs or symptoms of infection Other Assessments Skin Assessment Comments Patient had blood on outer elastic bandage, soaked through post-op cast padding and gauze, removed and rebandaged by PT. PT-OP-K Range of Motion Start: 08/31/24 16:40 Freq: Status: Active Protocol: Document 10/05/24 11:02 AB (Rec: 10/05/24 12:56 AB [id number]) Knee Goniometric Range of Motion Knee Measured in Degrees Left Knee ROM WFL No Patient Position Supine Flexion Active (degrees) 120 Extension Active (degrees) 0 Comments Patient into session with 106 deg AROM PT-OP-M Strength Start: 08/31/24 16:40 Freq: Status: Active Protocol: Document 10/05/24 11:02 AB (Rec: 10/05/24 12:56 AB [id number]) Knee Strength Knee Manual Muscle Testing Left Flexion (S2) 3+ Fair+ Extension (L3) 4- Good- Comments flexion tested seated 3+ within limited ROM PT-OP-Q Treatments Start: 08/31/24 16:40 Freq: Status: Active Protocol: Document 12/21/24 13:02 SAK (Rec: 12/21/24 13:44 SAK [id number]) Cardio Equipment Bicycle (Upright) Duration (Minutes) 8 Resistance 3-5 Seat Position 4 Treadmill Duration (Minutes) 5 Speed 1.5-1.7 Incline 3 Manual Therapy Treatment Consent Patient gave verbal consent for manual Yes treatment Soft Tissue Mobilization 1 Body Location left knee Mobilization Type Cross-Friction,Instrument Assisted,Myofascial Release, Rolling,Strumming,Sustained Pressure Intensity/Depth Moderate Joint Mobilizations tib/fem Joint PA AP glide of tibia and femur Grade III Body Position Hooklying Comments knee flexed w/APs patellar Joint left Direction inf, sup, med Grade III Body Position Supine Manual Techniques Contract relax into knee flexion Type right Body Position seated Reps/Duration 5 x 5 contract w/ 10 flex stretch PT-OP-R Modalities Start: 08/31/24 16:40 Freq: Status: Active Protocol: Document 10/18/24 13:04 [facility] (Rec: 10/18/24 15:38 [facility] [id number]) Hot Pack/Cold Pack Treatment left knee Location top and bottom Patient Position Hooklying Comments leg elevated via table and bolster elevation above her heart PT-OP-T Assessment and Plan Start: 08/31/24 16:40 Freq: Status: Active Protocol: Document 12/21/24 13:02 [facility] (Rec: 12/21/24 13:44 [facility] [id number]) Physical Therapy Assessment Goals squat Slip Caster Goal (LTG) Pt will be able to do sit to stand w/good form and no knee pain w/o cueing to show improved LE strength. 12/21/24: goal progress, able to do from 24 height, any lower patient requires use of hands and uses excessive hip abduction positioning for sit to stand LTG Duration 01/30/25 Three Impairment gait dysfunction Short Term Goal (STG) Patient will be able to ambulate on level surfaces without assistive device safely demonstrating normal flexion of knee and no limp 10/05/2024 Patient ambulates into session without device STG Duration goal met Slip Caster Goal (LTG) Patient will be able to ambulate on stairs with alternating pattern Patient ascends and descends 6 inch stairs with 2 rails using a reciprocal pattern ( quad dominant pattern) Patient ambulates without device increased knee flexion on heel strike and toe off bilaterally. 10/18/24: good goal progress; can do on 4 stairs, requires heavy UE use on 6 stairs. 11/17-able to reciprocate w/ rails for balance minimally LTG Duration goal met Two Impairment Lower extremity functional scale 24% Short Term Goal (STG) Improve LEFS score to at least 50% as measure of improved left knee function and activity tolerance 10/05/2024 LEFS 56% 10/18/24: goal met STG Duration goal met Mcfp Goal (LTG) Improve LEFS score to at least 75% as measure of improved left knee function and activity tolerance 10/18/24: good goal progress to 64% 11/17-55% 12/22/24: 65% LTG Duration 12/22/24 One Impairment limited ROM and strength left knee Short Term Goal (STG) Patient to be instructed in HEP for purposes of ROM and strengthening left knee 10/05/24: goal met STG Duration goal met Mcfp Goal (LTG) Patient to be independent and compliant with HEP and demonstrate full AROM 0-125, and strength at least 4+/5 left knee and fucntionally be able to transfer sit to stand with neutral alignment without use of UE's 10/05/2024 AROM left knee 0 to 106 start of session to 120 deg post manual and exercise ) left quad 4-/5 HS (seated 3+ within limited ROM ) 10/18/24: left knee AROM end of session 0-118, AAROM 0-130 deg. Decreased but still requires use of UE's for sit to stand transfers 11/07-0-111 at start progressed to 0-122 AROM 12/22/24: AROM0-115 start of session, 0-123AAROM end of session. Still requires use of UE's for sit to stand LTG Duration 12/22/24 Assessment Summary Assessment AROM left knee to start 115, end of session AROM 121, PROM 125. Continues to improve exercise tolerance. Functional strength still limited with sit to stand from standard height chair requires use of UEs and uses excessive abduction of LE's. Physical Therapy Plan Frequency and Duration Frequency of Treatment 1x/Week Duration of treatment (weeks) 5 Plan of Care Start Date 12/21/24 Plan of Care End Date 01/30/25 Therapeutic Interventions Therapeutic Interventions Balance Training,Gait Training ,Home Exercise Program,Joint Mobilizations,Manual Therapy, Neuromuscular Re-education, Patient/Caregiver Education, Self-Care/Home Management,Soft Tissue Mobilization,Taping, Therapeutic Activities, Therapeutic Exercises Modalities Cold Pack/Ice Massage,Electric Stimulation,Hot Packs Next Visit Focus/Plan Next Note Type Treatment Note Next Visit Plan Decrease PT frequency to 1x/wk to help patient fully achieve PT goals as above. Progression of therapeutic exercises especially for functional strength sit to stand and hamstring strength in new knee ROM. Scar mobilization.
--- NOTE | 2024-12-21 17:17 | PT.OPPOC ---
Physical, Occupational & Speech Therapy At [facility] Current Diagnoses Unilateral primary osteoarthritis, left knee (12/21/24) Soft tissue disorder, unspecified (12/21/24) Difficulty in walking, not elsewhere classified (12/21/24) Visit Care Team Role Provider Type Henry Mendez DO Family Provider Physician Primary Care Provider Specialty: Family Practice Address: [address] [place] [address], [id number] Email: Danie Meyer MD Attending Provider Non-Staff Referring Provider Specialty: Orthopedic Surgery Address: [address] [place] [address] , [place], [address] Email: Plan Of Care PT-OP-B Current Condition Start: 08/31/24 16:40 Freq: Status: Active Protocol: Document 12/21/24 13:02 SAK (Rec: 12/21/24 13:44 [facility] [id number]) Current Condition History of Current Condition Onset Date 08/31/24 Current Complaints concern for left knee recovery . History of Current Condition arthroscopy for scar tissue removal yesterday left knee approx 1 year since TKA, states surgeon reported especially significant scarring proximal patella and lateral and medial knee. Before surgery 110 deg flexion , under anesthesia 130 deg. Taking Hydrocodone q 6 hrs and added baby aspirin 1 2x/day as instructed by physician. Minimal pain. Walking with cane mostly due to medication for stability. Has done a little exercise so far. Has iced a couple times. Denies N /T. 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, complicated recovery with continued pain, limited motion due to scar tissue Future Testing and Treatments Planned follow up with physician PT-OP-T Assessment and Plan Start: 08/31/24 16:40 Freq: Status: Active Protocol: Document 12/21/24 13:02 SAK (Rec: 12/21/24 13:44 [facility] [id number]) Physical Therapy Assessment Goals squat Advisory Software Engineer Goal (LTG) Pt will be able to do sit to stand w/good form and no knee pain w/o cueing to show improved LE strength. 12/21/24: goal progress, able to do from 24 height, any lower patient requires use of hands and uses excessive hip abduction positioning for sit to stand LTG Duration 01/30/25 Three Impairment gait dysfunction Short Term Goal (STG) Patient will be able to ambulate on level surfaces without assistive device safely demonstrating normal flexion of knee and no limp 10/05/2024 Patient ambulates into session without device STG Duration goal met Fdc Goal (LTG) Patient will be able to ambulate on stairs with alternating pattern Patient ascends and descends 6 inch stairs with 2 rails using a reciprocal pattern ( quad dominant pattern) Patient ambulates without device increased knee flexion on heel strike and toe off bilaterally. 10/18/24: good goal progress; can do on 4 stairs, requires heavy UE use on 6 stairs. 11/17-able to reciprocate w/ rails for balance minimally LTG Duration goal met Two Impairment Lower extremity functional scale 24% Short Term Goal (STG) Improve LEFS score to at least 50% as measure of improved left knee function and activity tolerance 10/05/2024 LEFS 56% 10/18/24: goal met STG Duration goal met Fdc Goal (LTG) Improve LEFS score to at least 75% as measure of improved left knee function and activity tolerance 10/18/24: good goal progress to 64% 11/17-55% 12/22/24: 65% LTG Duration 12/22/24 One Impairment limited ROM and strength left knee Short Term Goal (STG) Patient to be instructed in HEP for purposes of ROM and strengthening left knee 10/05/24: goal met STG Duration goal met Advisory Software Engineer Goal (LTG) Patient to be independent and compliant with HEP and demonstrate full AROM 0-125, and strength at least 4+/5 left knee and fucntionally be able to transfer sit to stand with neutral alignment without use of UE's 10/05/2024 AROM left knee 0 to 106 start of session to 120 deg post manual and exercise ) left quad 4-/5 HS (seated 3+ within limited ROM ) 10/18/24: left knee AROM end of session 0-118, AAROM 0-130 deg. Decreased but still requires use of UE's for sit to stand transfers 11/07-0-111 at start progressed to 0-122 AROM 12/22/24: AROM0-115 start of session, 0-123AAROM end of session. Still requires use of UE's for sit to stand LTG Duration 12/22/24 Assessment Summary Assessment AROM left knee to start 115, end of session AROM 121, PROM 125. Continues to improve exercise tolerance. Functional strength still limited with sit to stand from standard height chair requires use of UEs and uses excessive abduction of LE's. Physical Therapy Plan Frequency and Duration Frequency of Treatment 1x/Week Duration of treatment (weeks) 5 Plan of Care Start Date 12/21/24 Plan of Care End Date 01/30/25 Therapeutic Interventions Therapeutic Interventions Balance Training,Gait Training ,Home Exercise Program,Joint Mobilizations,Manual Therapy, Neuromuscular Re-education, Patient/Caregiver Education, Self-Care/Home Management,Soft Tissue Mobilization,Taping, Therapeutic Activities, Therapeutic Exercises Modalities Cold Pack/Ice Massage,Electric Stimulation,Hot Packs Next Visit Focus/Plan Next Note Type Treatment Note Next Visit Plan Decrease PT frequency to 1x/wk to help patient fully achieve PT goals as above. Progression of therapeutic exercises especially for functional strength sit to stand and hamstring strength in new knee ROM. Scar mobilization. Plan of Care Dates Plan of Care Start Date 12/21/24 Plan of Care End Date 01/30/25 Electronically Signed by: Angie Frias, PT 12/22/24 8525 If you are in agreement with this Plan of Care, please return a signed and dated copy. I have reviewed this Plan of Care and certify that the skilled therapy services above are required to meet the patient?s needs. Physician Signature Date Printed Name and Credentials Clinical Instructor Signature Printed Name and Credentials
--- NOTE | 2025-01-04 15:17 | PT.OTN ---
Current Diagnoses Unilateral primary osteoarthritis, left knee (01/04/25) Soft tissue disorder, unspecified (01/04/25) Difficulty in walking, not elsewhere classified (01/04/25) Physical Therapy Treatment Note PT-OP-A Visit Information Start: 08/31/24 16:40 Freq: Status: Active Protocol: Document 01/04/25 13:02 SAK (Rec: 01/04/25 13:[address] [facility] [id number]) Out-Patient Physical Therapy Visit Information Visit Information Visit Type Treatment Note Visit Start Time 13:00 Visit Stop Time 13:45 Visit Number 27 Evaluation Information Evaluation Date 09/01/24 PT-OP-B Current Condition Start: 08/31/24 16:40 Freq: Status: Active Protocol: Document 01/04/25 13:02 SAK (Rec: 01/04/25 13:47 SAK [id number]) Current Condition History of Current Condition Onset Date 08/31/24 Current Complaints concern for left knee recovery . History of Current Condition arthroscopy for scar tissue removal yesterday left knee approx 1 year since TKA, states surgeon reported especially significant scarring proximal patella and lateral and medial knee. Before surgery 110 deg flexion , under anesthesia 130 deg. Taking Hydrocodone q 6 hrs and added baby aspirin 1 2x/day as instructed by physician. Minimal pain. Walking with cane mostly due to medication for stability. Has done a little exercise so far. Has iced a couple times. Denies N /T. 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, complicated recovery with continued pain, limited motion due to scar tissue Future Testing and Treatments Planned follow up with physician PT-OP-C Subjective Start: 08/31/24 16:40 Freq: Status: Active Protocol: Document 01/04/25 13:02 SAK (Rec: 01/04/25 13:[address] [facility] [id number]) OP-PT Subjective Patient Comments Patient Comments Had a couple days with moer knee pain again sharp, low grade. Hasn't iced her knee for a long time: I'm past that and it's too cold. Compliant to HEP. Has been having allergy testing. Sees Dr. Mendez after PT. Starts Methotrexate tomorrow for CPPD . PT-OP-G Mobility & Gait Start: 08/31/24 16:40 Freq: Status: Active Protocol: Document 09/01/24 13:45 SAK (Rec: 09/01/24 16:[address] [facility] [id number]) OP Mobility Evaluation Transfers Sit to Stand very wide JEANNINE OP Gait Assessment Gait Gait Assistance Required: Independent Assistive Devices Assistive Device Straight Cane Orthotic/Prosthetic Devices or Brace: No Gait Deviations General Gait Pattern Decreased Stride Length, Decreased Feet Clearance Factors Limiting Gait Function Factors Limiting Gait Function Decreased Strength,Pain PT-OP-H Neuro Start: 08/31/24 16:40 Freq: Status: Active Protocol: Document 09/01/24 13:[address] [facility] (Rec: 09/01/24 16:[address] [facility] [id number]) Sensation Evaluation Gross Sensation Gross Sensation WNL PT-OP-J Posture/Palpation/Skin Start: 08/31/24 16:40 Freq: Status: Active Protocol: Document 09/01/24 13:[address] [facility] (Rec: 09/01/24 16:[address] [facility] [id number]) Skin Assessment Edema Assessment left knee Edema Degree 2+ Edema Appearance Puffy Subjective Edema Description Tightness Incisional Assessment Incision Appearance/Comments left knee arthroscopy incisions present, sutures in place, no signs or symptoms of infection Other Assessments Skin Assessment Comments Patient had blood on outer elastic bandage, soaked through post-op cast padding and gauze, removed and rebandaged by PT. PT-OP-K Range of Motion Start: 08/31/24 16:40 Freq: Status: Active Protocol: Document 10/05/24 11:02 AB (Rec: 10/05/24 12:56 AB [id number]) Knee Goniometric Range of Motion Knee Left Knee ROM WFL No Patient Position Supine Flexion Active (degrees) 120 Extension Active (degrees) 0 Comments Patient into session with 106 deg AROM PT-OP-M Strength Start: 08/31/24 16:40 Freq: Status: Active Protocol: Document 10/05/24 11:02 AB (Rec: 10/05/24 12:56 AB [id number]) Knee Strength Knee Manual Muscle Testing Left Flexion (S2) 3+ Fair+ Extension (L3) 4- Good- Comments flexion tested seated 3+ within limited ROM PT-OP-Q Treatments Start: 08/31/24 16:40 Freq: Status: Active Protocol: Document 01/04/25 13:02 SAK (Rec: 01/04/25 13:47 SAK [id number]) Cardio Equipment Bicycle (Upright) Duration (Minutes) 8 Resistance 3-5 Seat Position 4 Treadmill Duration (Minutes) 5 Speed 1.5-1.7 Incline 3 Gym Equipment Cable Column (Body Solid) knee flexion Details dominique Resistance 50 Reps/Time 10x2 Therapeutic Exercises Supine Exercises gravity assisted knee flex Side left Equipment Used slider sheet, then with 2# Reps/Minutes 4x10 Comments on shuttle leg press heel slide Supine Exercise Name AROM Side left Equipment Used therapy ball, strap Standing Exercises chair squat Standing Exercise Name 23 to 21.5 seat height Reps/Minutes X 5 and x5 Comments with and without UE use ( lower levels with UE use, VC to use lightly) Manual Therapy Treatment Soft Tissue Mobilization 1 Body Location left knee Mobilization Type Cross-Friction,Instrument Assisted,Myofascial Release, Rolling,Strumming,Sustained Pressure Intensity/Depth Moderate Joint Mobilizations tib fib Comments PA fib w/APs tib/fem Joint PA AP glide of tibia and femur Grade III Body Position Hooklying Comments knee flexed w/APs patellar Joint left Direction inf, sup, med Grade III Body Position Supine Manual Techniques Contract relax into knee flexion Type right Body Position seated Reps/Duration 5 x 5 contract w/ 10 flex stretch PT-OP-R Modalities Start: 08/31/24 16:40 Freq: Status: Active Protocol: Document 10/18/24 13:[address] [facility] (Rec: 10/18/24 15:[address] [facility] [id number]) Hot Pack/Cold Pack Treatment left knee Location top and bottom Patient Position Hooklying Comments leg elevated via table and bolster elevation above her heart PT-OP-T Assessment and Plan Start: 08/31/24 16:40 Freq: Status: Active Protocol: Document 01/04/25 13:[address] [facility] (Rec: 01/04/25 13:[address] [facility] [id number]) Physical Therapy Assessment Goals squat Shelter Goal (LTG) Pt will be able to do sit to stand w/good form and no knee pain w/o cueing to show improved LE strength. 12/21/24: goal progress, able to do from 24 height, any lower patient requires use of hands and uses excessive hip abduction positioning for sit to stand LTG Duration 01/30/25 Three Impairment gait dysfunction Short Term Goal (STG) Patient will be able to ambulate on level surfaces without assistive device safely demonstrating normal flexion of knee and no limp 10/05/2024 Patient ambulates into session without device STG Duration goal met Shelter Goal (LTG) Patient will be able to ambulate on stairs with alternating pattern Patient ascends and descends 6 inch stairs with 2 rails using a reciprocal pattern ( quad dominant pattern) Patient ambulates without device increased knee flexion on heel strike and toe off bilaterally. 10/18/24: good goal progress; can do on 4 stairs, requires heavy UE use on 6 stairs. 11/17-able to reciprocate w/ rails for balance minimally LTG Duration goal met Two Impairment Lower extremity functional scale 24% Short Term Goal (STG) Improve LEFS score to at least 50% as measure of improved left knee function and activity tolerance 10/05/2024 LEFS 56% 10/18/24: goal met STG Duration goal met Earth Auger Operator Goal (LTG) Improve LEFS score to at least 75% as measure of improved left knee function and activity tolerance 10/18/24: good goal progress to 64% 11/17-55% 12/22/24: 65% LTG Duration 12/22/24 One Impairment limited ROM and strength left knee Short Term Goal (STG) Patient to be instructed in HEP for purposes of ROM and strengthening left knee 10/05/24: goal met STG Duration goal met Earth Auger Operator Goal (LTG) Patient to be independent and compliant with HEP and demonstrate full AROM 0-125, and strength at least 4+/5 left knee and fucntionally be able to transfer sit to stand with neutral alignment without use of UE's 10/05/2024 AROM left knee 0 to 106 start of session to 120 deg post manual and exercise ) left quad 4-/5 HS (seated 3+ within limited ROM ) 10/18/24: left knee AROM end of session 0-118, AAROM 0-130 deg. Decreased but still requires use of UE's for sit to stand transfers 11/07-0-111 at start progressed to 0-122 AROM 12/22/24: AROM0-115 start of session, 0-123AAROM end of session. Still requires use of UE's for sit to stand LTG Duration 12/22/24 Assessment Summary Assessment AROM left knee flex 117, end of session PROM 127. Progressing with sit to stand functional strengthening though very fatigued today from multiple medical appointments. Compliant to HEP. Physical Therapy Plan Frequency and Duration Frequency of Treatment 1x/Week Duration of treatment (weeks) 5 Plan of Care Start Date 12/21/24 Plan of Care End Date 01/30/25 Therapeutic Interventions Therapeutic Interventions Balance Training,Gait Training ,Home Exercise Program,Joint Mobilizations,Manual Therapy, Neuromuscular Re-education, Patient/Caregiver Education, Self-Care/Home Management,Soft Tissue Mobilization,Taping, Therapeutic Activities, Therapeutic Exercises Modalities Cold Pack/Ice Massage,Electric Stimulation,Hot Packs Next Visit Focus/Plan Next Note Type Treatment Note Next Visit Plan scar mobilization, distal quad mobilization, knee joint mobs , LE strengthening. Do stairs in hallway for functional strengthening.
--- NOTE | 2025-01-10 16:23 | PT.OTN ---
Current Diagnoses Unilateral primary osteoarthritis, left knee (01/10/25) Soft tissue disorder, unspecified (01/10/25) Difficulty in walking, not elsewhere classified (01/10/25) Physical Therapy Treatment Note PT-OP-A Visit Information Start: 08/31/24 16:40 Freq: Status: Active Protocol: Document 01/10/25 13:00 AB (Rec: 01/10/25 16:22 AB [id number]) Out-Patient Physical Therapy Visit Information Visit Information Visit Type Treatment Note Visit Start Time 03:19 Visit Stop Time 04:08 Visit Number 28 Number of DESIGN ENGINEER MARINE EQUIPMENT Visits 1 Evaluation Information Evaluation Date 09/01/24 PT-OP-B Current Condition Start: 08/31/24 16:40 Freq: Status: Active Protocol: Document 01/04/25 13:02 SAK (Rec: 01/04/25 13:47 SAK [id number]) Current Condition History of Current Condition Onset Date 08/31/24 Current Complaints concern for left knee recovery . History of Current Condition arthroscopy for scar tissue removal yesterday left knee approx 1 year since TKA, states surgeon reported especially significant scarring proximal patella and lateral and medial knee. Before surgery 110 deg flexion , under anesthesia 130 deg. Taking Hydrocodone q 6 hrs and added baby aspirin 1 2x/day as instructed by physician. Minimal pain. Walking with cane mostly due to medication for stability. Has done a little exercise so far. Has iced a couple times. Denies N /T. 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, complicated recovery with continued pain, limited motion due to scar tissue Future Testing and Treatments Planned follow up with physician PT-OP-C Subjective Start: 08/31/24 16:40 Freq: Status: Active Protocol: Document 01/10/25 13:00 AB (Rec: 01/10/25 16:22 AB [id number]) OP-PT Subjective Patient Comments Patient Comments Katerina reports having pain in the knee cap from the week before. AROM left knee 0 to 117 start of session PT-OP-G Mobility & Gait Start: 08/31/24 16:40 Freq: Status: Active Protocol: Document 09/01/24 13:45 SAK (Rec: 09/01/24 16:56 SAK [id number]) OP Mobility Evaluation Transfers Sit to Stand very wide JEANNINE OP Gait Assessment Gait Gait Assistance Required: Independent Assistive Devices Assistive Device Straight Cane Orthotic/Prosthetic Devices or Brace: No Gait Deviations General Gait Pattern Decreased Stride Length, Decreased Feet Clearance Factors Limiting Gait Function Factors Limiting Gait Function Decreased Strength,Pain PT-OP-H Neuro Start: 08/31/24 16:40 Freq: Status: Active Protocol: Document 09/01/24 13:45 SAK (Rec: 09/01/24 16:56 SAK [id number]) Sensation Evaluation Gross Sensation Gross Sensation WNL PT-OP-J Posture/Palpation/Skin Start: 08/31/24 16:40 Freq: Status: Active Protocol: Document 09/01/24 13:45 SAK (Rec: 09/01/24 16:56 SAK [id number]) Skin Assessment Edema Assessment left knee Edema Degree 2+ Edema Appearance Puffy Subjective Edema Description Tightness Incisional Assessment Incision Appearance/Comments left knee arthroscopy incisions present, sutures in place, no signs or symptoms of infection Other Assessments Skin Assessment Comments Patient had blood on outer elastic bandage, soaked through post-op cast padding and gauze, removed and rebandaged by PT. PT-OP-K Range of Motion Start: 08/31/24 16:40 Freq: Status: Active Protocol: Document 10/05/24 11:02 AB (Rec: 10/05/24 12:56 AB [id number]) Knee Goniometric Range of Motion Knee Left Knee ROM WFL No Patient Position Supine Flexion Active (degrees) 120 Extension Active (degrees) 0 Comments Patient into session with 106 deg AROM PT-OP-M Strength Start: 08/31/24 16:40 Freq: Status: Active Protocol: Document 10/05/24 11:02 AB (Rec: 10/05/24 12:56 AB [id number]) Knee Strength Knee Manual Muscle Testing Left Flexion (S2) 3+ Fair+ Extension (L3) 4- Good- Comments flexion tested seated 3+ within limited ROM PT-OP-Q Treatments Start: 08/31/24 16:40 Freq: Status: Active Protocol: Document 01/10/25 13:00 AB (Rec: 01/10/25 16:22 AB [id number]) Gym Equipment Cable Column (Body Solid) hamstring curl Details single each LE Resistance 22.2 Reps/Time 10x2 knee flexion Details dominique Resistance 50 Reps/Time 10x Therapeutic Exercises Supine Exercises heel slide Supine Exercise Name AROM Side left Equipment Used on ball X 3 min X 10 AROM Sitting Exercises stool scoot Reps/Minutes 10 ft x3 Comments post quad stretch on step seated hip abduction with band Side bilateral Resistance level 3 green band Reps/Minutes X15and X 10 without hold X one one minute hold Comments verbal cues for tying band Mini squat Sitting Exercise Name HEP Reps/Minutes X10 X 2 Comments monitored for pain, VC to squat partially to chair hamstring curl Sitting Exercise Name HEP Equipment Used L2 TB Reps/Minutes X10 chair scoot stretch Reps/Minutes 2x10 Standing Exercises stair lunge Reps/Minutes X15 Comments verbal cues Other Exercises Stairs Other Exercise Name Vc for hip hinge descending Side bilateral Equipment Used 4 stair Reps/Minutes 2 flights 10 stairs Comments pain free, 1 UE support for balance Manual Therapy Treatment Soft Tissue Mobilization 1 Body Location left knee Mobilization Type Cross-Friction,Instrument Assisted,Myofascial Release, Rolling,Strumming Intensity/Depth Moderate Body Position Hooklying Taping left knee Treatment Focus unload fat pad and to improve tracking medially Type of Tape Kinesio Tape Skin Inspection WNL Comments I strip peripatella one 50% superiorly medially one 50% superiorly laterally, and one I strip to improve tracking medially. Manual Techniques Contract relax into knee flexion Type L Body Position Hooklying Reps/Duration contract relax contract end ROM Heel slide position PT-OP-R Modalities Start: 08/31/24 16:40 Freq: Status: Active Protocol: Document 10/18/24 13:04 SAK (Rec: 10/18/24 15:38 SAK [id number]) Hot Pack/Cold Pack Treatment left knee Location top and bottom Patient Position Hooklying Comments leg elevated via table and bolster elevation above her heart PT-OP-T Assessment and Plan Start: 08/31/24 16:40 Freq: Status: Active Protocol: Document 01/10/25 13:00 AB (Rec: 01/10/25 16:22 AB [id number]) Physical Therapy Assessment Goals squat Vessel Welder Goal (LTG) Pt will be able to do sit to stand w/good form and no knee pain w/o cueing to show improved LE strength. 12/21/24: goal progress, able to do from 24 height, any lower patient requires use of hands and uses excessive hip abduction positioning for sit to stand LTG Duration 01/30/25 Three Impairment gait dysfunction Short Term Goal (STG) Patient will be able to ambulate on level surfaces without assistive device safely demonstrating normal flexion of knee and no limp 10/05/2024 Patient ambulates into session without device STG Duration goal met Vessel Welder Goal (LTG) Patient will be able to ambulate on stairs with alternating pattern Patient ascends and descends 6 inch stairs with 2 rails using a reciprocal pattern ( quad dominant pattern) Patient ambulates without device increased knee flexion on heel strike and toe off bilaterally. 10/18/24: good goal progress; can do on 4 stairs, requires heavy UE use on 6 stairs. 11/17-able to reciprocate w/ rails for balance minimally LTG Duration goal met Two Impairment Lower extremity functional scale 24% Short Term Goal (STG) Improve LEFS score to at least 50% as measure of improved left knee function and activity tolerance 10/05/2024 LEFS 56% 10/18/24: goal met STG Duration goal met Vessel Welder Goal (LTG) Improve LEFS score to at least 75% as measure of improved left knee function and activity tolerance 10/18/24: good goal progress to 64% 11/17-55% 12/22/24: 65% LTG Duration 12/22/24 One Impairment limited ROM and strength left knee Short Term Goal (STG) Patient to be instructed in HEP for purposes of ROM and strengthening left knee 10/05/24: goal met STG Duration goal met Vessel Welder Goal (LTG) Patient to be independent and compliant with HEP and demonstrate full AROM 0-125, and strength at least 4+/5 left knee and fucntionally be able to transfer sit to stand with neutral alignment without use of UE's 10/05/2024 AROM left knee 0 to 106 start of session to 120 deg post manual and exercise ) left quad 4-/5 HS (seated 3+ within limited ROM ) 10/18/24: left knee AROM end of session 0-118, AAROM 0-130 deg. Decreased but still requires use of UE's for sit to stand transfers 11/07-0-111 at start progressed to 0-122 AROM 12/22/24: AROM0-115 start of session, 0-123AAROM end of session. Still requires use of UE's for sit to stand LTG Duration 12/22/24 Assessment Summary Assessment 120 deg AROM left knee flexion post contract relax. Katerina rates pain 0/10 end of session left knee. Physical Therapy Plan Frequency and Duration Frequency of Treatment 1x/Week Duration of treatment (weeks) 5 Plan of Care Start Date 12/21/24 Plan of Care End Date 01/30/25 Next Visit Focus/Plan Next Note Type Treatment Note Next Visit Plan scar mobilization, distal quad mobilization, knee joint mobs , LE strengthening. Do stairs in hallway for functional strengthening.
--- NOTE | 2025-01-19 13:57 | PT.OTN ---
Current Diagnoses Unilateral primary osteoarthritis, left knee (01/19/25) Soft tissue disorder, unspecified (01/19/25) Difficulty in walking, not elsewhere classified (01/19/25) Physical Therapy Treatment Note PT-OP-A Visit Information Start: 08/31/24 16:40 Freq: Status: Active Protocol: Document 01/19/25 13:05 AB (Rec: 01/19/25 13:49 AB [id number]) Out-Patient Physical Therapy Visit Information Visit Information Visit Type Treatment Note Visit Start Time 13:05 Visit Stop Time 01:48 Visit Number 29 Number of HANGING FLAGS DECORATOR Visits 2 Evaluation Information Evaluation Date 09/01/24 PT-OP-B Current Condition Start: 08/31/24 16:40 Freq: Status: Active Protocol: Document 01/04/25 13:02 SAK (Rec: 01/04/25 13:47 SAK [id number]) Current Condition History of Current Condition Onset Date 08/31/24 Current Complaints concern for left knee recovery . History of Current Condition arthroscopy for scar tissue removal yesterday left knee approx 1 year since TKA, states surgeon reported especially significant scarring proximal patella and lateral and medial knee. Before surgery 110 deg flexion , under anesthesia 130 deg. Taking Hydrocodone q 6 hrs and added baby aspirin 1 2x/day as instructed by physician. Minimal pain. Walking with cane mostly due to medication for stability. Has done a little exercise so far. Has iced a couple times. Denies N /T. 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, complicated recovery with continued pain, limited motion due to scar tissue Future Testing and Treatments Planned follow up with physician PT-OP-C Subjective Start: 08/31/24 16:40 Freq: Status: Active Protocol: Document 01/19/25 13:05 AB (Rec: 01/19/25 13:49 AB [id number]) OP-PT Subjective Patient Comments Patient Comments Patient reports having an injection for AMD around 4 PM yesterday. 0 to 116 deg AROM left knee PT-OP-G Mobility & Gait Start: 08/31/24 16:40 Freq: Status: Active Protocol: Document 09/01/24 13:45 SAK (Rec: 09/01/24 16:56 SAK [id number]) OP Mobility Evaluation Transfers Sit to Stand very wide JEANNINE OP Gait Assessment Gait Gait Assistance Required: Independent Assistive Devices Assistive Device Straight Cane Orthotic/Prosthetic Devices or Brace: No Gait Deviations General Gait Pattern Decreased Stride Length, Decreased Feet Clearance Factors Limiting Gait Function Factors Limiting Gait Function Decreased Strength,Pain PT-OP-H Neuro Start: 08/31/24 16:40 Freq: Status: Active Protocol: Document 09/01/24 13:45 SAK (Rec: 09/01/24 16:56 SAK [id number]) Sensation Evaluation Gross Sensation Gross Sensation WNL PT-OP-J Posture/Palpation/Skin Start: 08/31/24 16:40 Freq: Status: Active Protocol: Document 09/01/24 13:45 SAK (Rec: 09/01/24 16:56 SAK [id number]) Skin Assessment Edema Assessment left knee Edema Degree 2+ Edema Appearance Puffy Subjective Edema Description Tightness Incisional Assessment Incision Appearance/Comments left knee arthroscopy incisions present, sutures in place, no signs or symptoms of infection Other Assessments Skin Assessment Comments Patient had blood on outer elastic bandage, soaked through post-op cast padding and gauze, removed and rebandaged by PT. PT-OP-K Range of Motion Start: 08/31/24 16:40 Freq: Status: Active Protocol: Document 10/05/24 11:02 AB (Rec: 10/05/24 12:56 AB [id number]) Knee Goniometric Range of Motion Knee Left Knee ROM WFL No Patient Position Supine Flexion Active (degrees) 120 Extension Active (degrees) 0 Comments Patient into session with 106 deg AROM PT-OP-M Strength Start: 08/31/24 16:40 Freq: Status: Active Protocol: Document 10/05/24 11:02 AB (Rec: 10/05/24 12:56 AB [id number]) Knee Strength Knee Manual Muscle Testing Left Flexion (S2) 3+ Fair+ Extension (L3) 4- Good- Comments flexion tested seated 3+ within limited ROM PT-OP-Q Treatments Start: 08/31/24 16:40 Freq: Status: Active Protocol: Document 01/19/25 13:05 AB (Rec: 01/19/25 13:49 AB [id number]) Therapeutic Exercises Supine Exercises hip add Side bilateral Resistance small blue ball Reps/Minutes X10 for 5 sec Comments verbal cues hip flexor stretch edge of bend Side left Reps/Minutes 60 sec X2 Comments with AROM knee flexion HS stretch Supine Exercise Name from hooklying Side left Reps/Minutes 60 sec X 2 Comments verbal cues heel slide Supine Exercise Name AROM Side left Equipment Used X20 on ball X 10 off ball Comments verbal cues for full knee flexion Sitting Exercises long arc Side left Reps/Minutes X10 Comments verbal cues Manual Therapy Treatment Consent Patient gave verbal consent for manual Yes treatment Soft Tissue Mobilization 1 Body Location left knee Mobilization Type Cross-Friction,Instrument Assisted,Myofascial Release, Rolling,Strumming Intensity/Depth Moderate Body Position Hooklying Joint Mobilizations patellar Joint left Direction inf, sup, med, CW and CCW Grade III Body Position Supine PT-OP-R Modalities Start: 08/31/24 16:40 Freq: Status: Active Protocol: Document 10/18/24 13:04 SAK (Rec: 10/18/24 15:38 SAK [id number]) Hot Pack/Cold Pack Treatment left knee Location top and bottom Patient Position Hooklying Comments leg elevated via table and bolster elevation above her heart PT-OP-T Assessment and Plan Start: 08/31/24 16:40 Freq: Status: Active Protocol: Document 01/19/25 13:05 AB (Rec: 01/19/25 13:49 AB [id number]) Physical Therapy Assessment Goals squat Longterm Goal (LTG) Pt will be able to do sit to stand w/good form and no knee pain w/o cueing to show improved LE strength. 12/21/24: goal progress, able to do from 24 height, any lower patient requires use of hands and uses excessive hip abduction positioning for sit to stand LTG Duration 01/30/25 Three Impairment gait dysfunction Short Term Goal (STG) Patient will be able to ambulate on level surfaces without assistive device safely demonstrating normal flexion of knee and no limp 10/05/2024 Patient ambulates into session without device STG Duration goal met Exploration Manager Goal (LTG) Patient will be able to ambulate on stairs with alternating pattern Patient ascends and descends 6 inch stairs with 2 rails using a reciprocal pattern ( quad dominant pattern) Patient ambulates without device increased knee flexion on heel strike and toe off bilaterally. 10/18/24: good goal progress; can do on 4 stairs, requires heavy UE use on 6 stairs. 11/17-able to reciprocate w/ rails for balance minimally LTG Duration goal met Two Impairment Lower extremity functional scale 24% Short Term Goal (STG) Improve LEFS score to at least 50% as measure of improved left knee function and activity tolerance 10/05/2024 LEFS 56% 10/18/24: goal met STG Duration goal met Longterm Goal (LTG) Improve LEFS score to at least 75% as measure of improved left knee function and activity tolerance 10/18/24: good goal progress to 64% 11/17-55% 12/22/24: 65% LTG Duration 12/22/24 One Impairment limited ROM and strength left knee Short Term Goal (STG) Patient to be instructed in HEP for purposes of ROM and strengthening left knee 10/05/24: goal met STG Duration goal met Longterm Goal (LTG) Patient to be independent and compliant with HEP and demonstrate full AROM 0-125, and strength at least 4+/5 left knee and fucntionally be able to transfer sit to stand with neutral alignment without use of UE's 10/05/2024 AROM left knee 0 to 106 start of session to 120 deg post manual and exercise ) left quad 4-/5 HS (seated 3+ within limited ROM ) 10/18/24: left knee AROM end of session 0-118, AAROM 0-130 deg. Decreased but still requires use of UE's for sit to stand transfers 11/07-0-111 at start progressed to 0-122 AROM 12/22/24: AROM0-115 start of session, 0-123AAROM end of session. Still requires use of UE's for sit to stand LTG Duration 12/22/24 Assessment Summary Assessment Patient into session post injection R eye not yet 24 hours, session limited to manual and gentle exercise. AROM left knee 121 deg flexion during session. Physical Therapy Plan Frequency and Duration Frequency of Treatment 1x/Week Duration of treatment (weeks) 5 Plan of Care Start Date 12/21/24 Plan of Care End Date 01/30/25 Next Visit Focus/Plan Next Note Type Treatment Note Next Visit Plan scar mobilization, distal quad mobilization, knee joint mobs , LE strengthening. Do stairs in hallway for functional strengthening.
--- NOTE | 2025-01-25 16:00 | PT.OTN ---
Current Diagnoses Unilateral primary osteoarthritis, left knee (01/25/25) Soft tissue disorder, unspecified (01/25/25) Difficulty in walking, not elsewhere classified (01/25/25) Physical Therapy Treatment Note PT-OP-A Visit Information Start: 08/31/24 16:40 Freq: Status: Active Protocol: Document 01/25/25 13:07 [facility] (Rec: 01/25/25 13:50 [facility] [id number]) Out-Patient Physical Therapy Visit Information Visit Information Visit Type Treatment Note Visit Start Time 13:05 Visit Stop Time 01:48 Visit Number 30 Number of INSTRUCTIONAL TECHNOLOGY FACILITATOR Visits 0 PT-OP-B Current Condition Start: 08/31/24 16:40 Freq: Status: Active Protocol: Document 01/04/25 13:02 [facility] (Rec: 01/04/25 13:47 [facility] [id number]) Current Condition History of Current Condition Onset Date 08/31/24 Current Complaints concern for left knee recovery . History of Current Condition arthroscopy for scar tissue removal yesterday left knee approx 1 year since TKA, states surgeon reported especially significant scarring proximal patella and lateral and medial knee. Before surgery 110 deg flexion , under anesthesia 130 deg. Taking Hydrocodone q 6 hrs and added baby aspirin 1 2x/day as instructed by physician. Minimal pain. Walking with cane mostly due to medication for stability. Has done a little exercise so far. Has iced a couple times. Denies N /T. 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, complicated recovery with continued pain, limited motion due to scar tissue Future Testing and Treatments Planned follow up with physician PT-OP-C Subjective Start: 08/31/24 16:40 Freq: Status: Active Protocol: Document 01/25/25 13:07 [facility] (Rec: 01/25/25 13:50 [facility] [id number]) OP-PT Subjective Patient Comments Patient Comments ER Thursday night/Thursday am for heart; irregular heartbeats, pulse was 181, treated with magnesium, HR decreased. 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 Sees Dr. Mendez this afternoon at 3:00. 2 nights ago, HR increased again, enough to wake her. Last night in bed did same thing, and was having right sided neck pain, poor sleep for several days. Sees Dr. Meyer for persistent patellar pain next Tuesdays. KT tape last time didn't work well, caught on clothes, thinner strips work better. Gave up chair scoot, thinks may be irritating her knee. PT-OP-G Mobility & Gait Start: 08/31/24 16:40 Freq: Status: Active Protocol: Document 09/01/24 13:45 [facility] (Rec: 09/01/24 16:56 [facility] [id number]) OP Mobility Evaluation Transfers Sit to Stand very wide JEANNINE OP Gait Assessment Gait Gait Assistance Required: Independent Assistive Devices Assistive Device Straight Cane Orthotic/Prosthetic Devices or Brace: No Gait Deviations General Gait Pattern Decreased Stride Length, Decreased Feet Clearance Factors Limiting Gait Function Factors Limiting Gait Function Decreased Strength,Pain PT-OP-H Neuro Start: 08/31/24 16:40 Freq: Status: Active Protocol: Document 09/01/24 13:45 [facility] (Rec: 09/01/24 16:56 [facility] [id number]) Sensation Evaluation Gross Sensation Gross Sensation WNL PT-OP-J Posture/Palpation/Skin Start: 08/31/24 16:40 Freq: Status: Active Protocol: Document 09/01/24 13:45 [facility] (Rec: 09/01/24 16:56 [facility] [id number]) Skin Assessment Edema Assessment left knee Edema Degree 2+ Edema Appearance Puffy Subjective Edema Description Tightness Incisional Assessment Incision Appearance/Comments left knee arthroscopy incisions present, sutures in place, no signs or symptoms of infection Other Assessments Skin Assessment Comments Patient had blood on outer elastic bandage, soaked through post-op cast padding and gauze, removed and rebandaged by PT. PT-OP-K Range of Motion Start: 08/31/24 16:40 Freq: Status: Active Protocol: Document 10/05/24 11:02 AB (Rec: 10/05/24 12:56 AB [id number]) Knee Goniometric Range of Motion Knee Left Knee ROM WFL No Patient Position Supine Flexion Active (degrees) 120 Extension Active (degrees) 0 Comments Patient into session with 106 deg AROM PT-OP-M Strength Start: 08/31/24 16:40 Freq: Status: Active Protocol: Document 10/05/24 11:02 AB (Rec: 10/05/24 12:56 AB [id number]) Knee Strength Knee Manual Muscle Testing Left Flexion (S2) 3+ Fair+ Extension (L3) 4- Good- Comments flexion tested seated 3+ within limited ROM PT-OP-Q Treatments Start: 08/31/24 16:40 Freq: Status: Active Protocol: Document 01/25/25 13:07 [facility] (Rec: 01/25/25 13:50 [facility] [id number]) Therapeutic Exercises Supine Exercises hip flexor stretch edge of bend Side left Reps/Minutes 60 sec X2 Comments with AROM knee flexion HS stretch Supine Exercise Name from hooklying Side left Reps/Minutes 60 sec X 2 Comments verbal cues Therapeutic Activity Therapeutic Activity sit to stand Comments emphasis knee tracking toward foot, left knee consistently moves medially, torquing knee; reviewed importance of alignment and tracking for knee health. Patient noted she could see knee going in during sit >stand and verbalized understanding of importance. Manual Therapy Treatment Soft Tissue Mobilization 1 Body Location left knee Mobilization Type Cross-Friction,Instrument Assisted,Myofascial Release, Rolling,Strumming Intensity/Depth Moderate Body Position Hooklying Joint Mobilizations patellar Joint left Direction inf, sup, med, CW and CCW Grade III Body Position Supine Taping left knee Treatment Focus edema reduction, patellar tracking and support Type of Tape Kinesio Tape Skin Inspection WNL Comments 1 fan strip to dec medial knee edema, 2 Y strips one starting superiorly and one inferiorly with 50% stretch , and one Y strip to improve tracking medially. PT-OP-R Modalities Start: 08/31/24 16:40 Freq: Status: Active Protocol: Document 01/25/25 13:07 [facility] (Rec: 01/26/25 11:40 [facility] [id number]) Hot Pack/Cold Pack Treatment left knee Location top and bottom Patient Position Hooklying Comments leg elevated via table and bolster elevation above her heart PT-OP-T Assessment and Plan Start: 08/31/24 16:40 Freq: Status: Active Protocol: Document 01/25/25 13:07 [facility] (Rec: 01/25/25 13:50 [facility] [id number]) Physical Therapy Assessment Goals squat Hammer Operator Goal (LTG) Pt will be able to do sit to stand w/good form and no knee pain w/o cueing to show improved LE strength. 12/21/24: goal progress, able to do from 24 height, any lower patient requires use of hands and uses excessive hip abduction positioning for sit to stand LTG Duration 01/30/25 Three Impairment gait dysfunction Short Term Goal (STG) Patient will be able to ambulate on level surfaces without assistive device safely demonstrating normal flexion of knee and no limp 10/05/2024 Patient ambulates into session without device STG Duration goal met Long-Term Goal (LTG) Patient will be able to ambulate on stairs with alternating pattern Patient ascends and descends 6 inch stairs with 2 rails using a reciprocal pattern ( quad dominant pattern) Patient ambulates without device increased knee flexion on heel strike and toe off bilaterally. 10/18/24: good goal progress; can do on 4 stairs, requires heavy UE use on 6 stairs. 11/17-able to reciprocate w/ rails for balance minimally LTG Duration goal met Two Impairment Lower extremity functional scale 24% Short Term Goal (STG) Improve LEFS score to at least 50% as measure of improved left knee function and activity tolerance 10/05/2024 LEFS 56% 10/18/24: goal met STG Duration goal met Hammer Operator Goal (LTG) Improve LEFS score to at least 75% as measure of improved left knee function and activity tolerance 10/18/24: good goal progress to 64% 11/17-55% 12/22/24: 65% LTG Duration 01/30/25 One Impairment limited ROM and strength left knee Short Term Goal (STG) Patient to be instructed in HEP for purposes of ROM and strengthening left knee 10/05/24: goal met STG Duration goal met Hammer Operator Goal (LTG) Patient to be independent and compliant with HEP and demonstrate full AROM 0-125, and strength at least 4+/5 left knee and fucntionally be able to transfer sit to stand with neutral alignment without use of UE's 10/05/2024 AROM left knee 0 to 106 start of session to 120 deg post manual and exercise ) left quad 4-/5 HS (seated 3+ within limited ROM ) 10/18/24: left knee AROM end of session 0-118, AAROM 0-130 deg. Decreased but still requires use of UE's for sit to stand transfers 11/07-0-111 at start progressed to 0-122 AROM 12/22/24: AROM0-115 start of session, 0-123AAROM end of session. Still requires use of UE's for sit to stand LTG Duration 01/30/25 Assessment Summary Assessment Patient with low ehsan for activity due cardiac issues, lack of sleep. PT consisted of reassessment, patient education, and manual. Feel patient knee irritation largely due to altered mechanics with sit to stand with moderate torque to medial knee with poor tracking of knee toward foot; due to patient long legs tendency to have feet wide, but let especially left knee adduct. She demonstrated improved understanding of this today after review of concept of need for knee tracking toward foot. She sees surgeon next week. Due to knee discomfort and other medical issues would like to put PT on hold. PT in agreement. Physical Therapy Plan Hold Physical Therapy Reason For Hold pending pt. appointment with Dr. Meyer.
== END 2025-04-12 14:31 | disposition home or self-care (01) ==
LOC: PHYS 13:00
PROVIDERS: Family Provider Family Medicine; PCP Family Medicine; Referring Provider Student in an Organized Health Care Education/Training Program; Visit Provider Student in an Organized Health Care Education/Training Program
DX: M17.12 Unilateral primary osteoarthritis, left knee (principal); R26.2 Difficulty in walking, not elsewhere classified; M79.9 Soft tissue disorder, unspecified
CPT/HCPCS: 97010; 97110; 97112; 97140; 97162; 97530; 97535

== ENCOUNTER 2025-02-08 14:33 | Emergency (ER) | payer MEDICARE, OTHER, SELFPAY ==
[2025-02-08] VITALS (27 sets, daily range): BP systolic 116–135; BP diastolic 55–81; PULSE 86–121; RESP 14–43; TEMP 36.9; O2SAT 94–97; BMI 19.4
[2025-02-08] MEDS: ONDANSETRON 4 MG/2 ML INJ IV (15:08)
--- NOTE | 2025-02-08 15:11 | EKG_ITS ---
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
[2025-02-08 15:36] LABS: Add Manual Diff / Slide Review NO; Basophils Absolute Auto 0 /uL (0-100); Basophils Percent Auto 0.2 % (0-2); Eosinophils Absolute Auto 0 /uL (0-450); Eosinophils Percent Auto 0.1 % (2-4); Hematocrit 42.3 % (36-46); Hemoglobin 14.4 g/dL (12.0-16.0); Lymphocytes Absolute Auto 200 /uL (1100-4500); Lymphocytes Percent Auto 2.9 % (25-40); Mean Corpuscular HGB Conc 34.2 % (30-36); Mean Corpuscular Hemoglobin 30.7 PG (26-34); Mean Corpuscular Volume 89.7 fL (80-100); Monocytes Absolute Auto 300 /uL (0-900); Monocytes Percent Auto 5.2 % (3-14); Neutrophils Absolute Auto 6100 /uL (1500-7000); Neutrophils Percent Auto 91.6 % (50-75); Platelet Count 202 X10^3/uL (150-400); Red Blood Cell Count 4.71 X10^6/uL (4.0-5.2); Red Cell Distribution Width 14.2 % (11.6-14.8); White Blood Cell Count 6.7 X10^3/uL (4.5-11.0)
[2025-02-08 15:41] LABS: Alanine Aminotransferase 22 IU/L (<35); Albumin 4.3 g/dL (3.5-5.0); Albumin Globulin Ratio 1.5 (1.0-2.8); Alkaline Phosphatase 107 U/L (38-126); Aspartate Aminotransferase 42 IU/L (14-36); BUN Creatinine Ratio 32.7 (6-22); Bilirubin Total 1.3 mg/dL (0.2-1.3); Blood Urea Nitrogen 17 mg/dL (7-17); Carbon Dioxide 19 mmol/L (22-32); Chloride 102 mmol/L (98-107); Estimated Glomerular Filt Rate > 60 mL/min (>60); Globulin 2.8 g/dL (1.7-4.1); Glucose 142 mg/dL (80-110); HEMOLYSIS < 15 (0-50); Lipase 15 U/L (23-300); Potassium 3.4 mmol/L (3.4-5.1); Sodium 134 mmol/L (137-145); Total Protein 7.1 g/dL (6.3-8.2)
--- NOTE | 2025-02-08 16:26 | ED.NAVMDI ---
HPI - Nausea/Vomiting/Diarrhea <Grayson Pearl MD - Last Filed: 02/10/25 20:36> General Chief complaint: Nausea/Vomiting/Diarrhea Stated complaint: N/V Time Seen by Provider: 02/08/25 16:18 History of Present Illness HPI Narrative: Patient denies any chest pain abdominal pain or back pain. No urinary complaints. Patient has intractable vomiting since yesterday. She thinks she may have eaten bad can chicken noodle soup. No others are sick. She lives alone. No fever chills. Related Data Home Medications Medication Instructions Recorded Confirmed ascorbic acid (vitamin C) (Vitamin 1 g PO BID ##0 04/07/11 01/25/25 C oral powder) denosumab 60 mg/mL subcutaneous 60 mg SQ DIRECTED ##0 07/20/13 01/25/25 syringe (Prolia) vit C 250 mg-E 90 mg-zinc 40 1 tab PO QAM AND QPM 04/15/22 01/25/25 mg-copper 1 [id number] chew tablet (PreserVision AREDS-2) calcium carbonate 600 mg PO BID 05/11/24 01/25/25 cholecalciferol (vitamin D3) 25 25 mcg PO DAILY 05/11/24 01/25/25 mcg (1,000 unit) capsule [id number] 8 mg-folic 400 1 tab PO DAILY 05/11/24 01/25/25 mcg-K 50 mcg-lutein 300 mcg tablet (Centrum Silver Women) vitamin K2 45 mcg capsule 45 mcg PO DAILY 05/11/24 01/25/25 boswellia 2 cap PO BID 06/29/24 01/25/25 turmeric (bulk) [Curcumin] 1 ea miscellaneous 06/29/24 01/25/25 Saccharomyces boulardii [Daily PO 08/18/24 01/25/25 Probiotic (S. boulardii)] methotrexate 2.5 mg PO 6XW 01/19/25 01/25/25 Previous Rx's Medication Instructions Recorded LEFT KNEE BRACE #1 ea 04/03/23 cyanocobalamin (vitamin B-12) 1,000 mcg IM QWEEK #12 mL 03/30/24 1,000 mcg/mL injection solution doxycycline hyclate 100 mg tablet 100 mg PO BID #16 tabs 08/18/24 albuterol sulfate 90 mcg/actuation 2 puff inhalation Q4-6H PRN 09/27/24 aerosol inhaler (Ventolin HFA) shortness of breath or wheezing #17 grams fluocinolone acetonide oil 0.01 % 5 drp otic (ear) BID #20 mL 10/06/24 ear drops gabapentin 300 mg capsule See Rx Instructions .Route 10/14/24 .COMPLEX #270 caps montelukast 10 mg tablet See Rx Instructions .Route 11/14/24 .COMPLEX #90 tabs fluticasone fur. 200 mcg-umeclid 1 inh inhalation DAILY #90 ea 01/04/25 62.5 mcg-vilant 25 mcg inhalat.powder (Trelegy Ellipta) metoprolol succinate 25 mg 25 mg PO DAILY #30 tabs 01/25/25 tablet,extended release 24 hr amlodipine 2.5 mg tablet 2.5 mg PO DAILY #90 tabs 02/09/25 fluticasone propionate 50 1 spray intranasal BID PRN for 02/09/25 mcg/actuation nasal allergies #16 grams spray,suspension Allergies Allergy/AdvReac Type Severity Reaction Status Date / Time adhesive Allergy Intermediate HIVES Verified 01/25/25 15:17 erythromycin base Allergy Mild RASH Verified 01/25/25 15:17 cefuroxime AdvReac Intermediate Abdominal Verified 01/25/25 15:17 Pain colchicine AdvReac Intermediate Diarrhea Verified 01/25/25 15:17 hydroxychloroquine AdvReac Intermediate Diarrhea Verified 01/25/25 15:17 levofloxacin AdvReac Mild ANXIETY Verified 01/25/25 15:17 Review of Systems <Grayson Pearl MD - Last Filed: 02/10/25 20:36> Review of Systems Narrative: GENERAL: Negative chills, fatigue, malaise, fever, sweats. HEENT: Negative sinus pain, ear pain, sore throat RESPIRATORY: Negative dyspnea, cough CARDIOVASCULAR: Negative chest pain, palpitations GASTROINTESTINAL: Positive vomiting, nausea, negative abdominal pain : Negative dysuria, frequency, hematuria MUSCULOSKELETAL: Negative muscle or bony pain SKIN: Negative rash, skin lesions NEUROLOGIC: Negative weakness, numbness ROS Unobtainable: All systems reviewed & are unremarkable except as noted in HPI and below Patient History <Grayson Pearl MD - Last Filed: 02/10/25 20:36> Medical History (Updated 02/08/25 @ 21:06 by Higinio Vasquez DO) 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 Left elbow pain Rib pain Meralgia paraesthetica Acute right hip pain Tension headache Postoperative pain of left knee Strain of right shoulder Sacral back pain Cellulitis Medication side effect Constipation Has end of life care plan Chronic cough Postoperative edema Abdominal wall hernia Weight loss, unintentional Nausea in adult patient Diarrhea due to drug Chronic GERD Choking due to phlegm Phlegm in throat Chronic pain of left knee Hemorrhoid Vagina itching Low serum creatinine Hyponatremia Lymphopenia Pure hypercholesterolemia Discoloration of skin of lower leg Edema of left lower extremity Somatic dysfunction of lower extremity Edema of right lower extremity Oral candidiasis Right lower quadrant abdominal pain Lichen planus Arthralgia Fatigue Coronary artery disease All medications reviewed SVT (supraventricular tachycardia) Premature atrial contractions Chronic diarrhea Cervical radiculopathy Cranial somatic dysfunction Stiff neck Pelvic somatic dysfunction Sacral region somatic dysfunction Lumbar region somatic dysfunction COVID-19 vaccine series completed Leg cramps, sleep related Osteoarthritis cervical spine Problems related to lack of adequate sleep Memory changes Cervical somatic dysfunction Body posture problem Thoracic region somatic dysfunction Ear drainage right H/O supraventricular tachycardia High serum high density lipoprotein (HDL) Abnormal heart rhythms Upper extremity somatic dysfunction Segmental and somatic dysfunction of rib cage Bilateral hand pain Blood pressure instability Rib fractures Compression fracture (2002) Easy bruisability Breast cancer Sinus drainage Arthritis Former smoker History of transfusion () Symptomatic cholelithiasis Osteoporosis History of breast cancer Osteoarthritis Asthma Surgical History Status post total left knee replacement Status post laparoscopic cholecystectomy Hx of appendectomy (1961) Hx of tonsillectomy (1948) Hx of toe surgery Hx of lumpectomy (04/2001) Hx of arthroscopy of shoulder (03/2005) Hx of repair of right rotator cuff (06/2006) History of surgery (04/2019) Status post tonsillectomy Status post appendectomy History of foot surgery Status post breast reconstruction (07/2019) Status post replacement of both shoulder joints Status post right knee replacement (10/2012) S/P bilateral mastectomy (12/2001) Social History household members: none Smoking Status: Former smoker Smoking Status: Former smoker alcohol intake frequency: 0-2 drinks per day Exam <Grayson Pearl MD - Last Filed: 02/10/25 20:36> Narrative Exam Narrative: GENERAL: in no distress, not toxic not dyspneic HEAD: Normocephalic. EYES: Pupils equal round ENT: Slightly dry lips and tongue. NECK: Trachea midline. CARDIOVASCULAR: Regular rate and rhythm RESPIRATORY: Clear to auscultation. Breath sounds equal bilaterally. No wheezes, rales, or rhonchi. GASTROINTESTINAL: Abdomen soft, non-tender, abdomen is soft flat nontender no peritoneal signs no guarding or rebound. Bowel sounds are present. No CVA tenderness. EXTREMITIES: No gross deformities. BACK: No flank tenderness. NEURO: AOx4. Clear speech SKIN: Warm and dry PSYCH: Not anxious, is cooperative Initial Vital Signs Initial Vital Signs: Vital Signs Temperature 98.5 F 02/08/25 14:46 Pulse Rate 121 H 02/08/25 14:46 Blood Pressure 128/81 02/08/25 14:46 Pulse Oximetry 96 02/08/25 14:46 Oxygen Delivery Method Room Air 02/08/25 14:46 <Higinio Vasquez DO - Last Filed: 02/08/25 21:06> Initial Vital Signs Initial Vital Signs: Vital Signs Temperature 98.5 F 02/08/25 14:46 Pulse Rate 121 H 02/08/25 14:46 Blood Pressure 128/81 02/08/25 14:46 Pulse Oximetry 96 02/08/25 14:46 Oxygen Delivery Method Room Air 02/08/25 14:46 Course <Grayson Pearl MD - Last Filed: 02/10/25 20:36> Orders Ordered: Discontinued Medications Sodium Chloride (Normal Saline 0.9%) 1,000 mls @ 1,000 mls/hr IV BOLUS ONE Stop: 02/08/25 17:24 Last Infusion: 02/08/25 18:51 Dose: Infused Documented By: Admin: 02/08/25 17:00 Dose: 1,000 mls/hr Documented By: DONALD Ondansetron HCl (Ondansetron 4 Mg/2 Ml Inj) 4 mg IV NOW PRN PRN Reason: Nausea And Vomiting Last Admin: 02/08/25 15:08 Dose: 4 mg Documented By: DONALD Ondansetron HCl (Ondansetron 4 Mg Odt) 4 mg PO NOW PRN PRN Reason: Nausea And Vomiting Last Admin: 02/08/25 20:58 Dose: 4 mg Documented By: ROMARIO Ondansetron HCl (Ondansetron 4 Mg Odt Prepack) 1 bottle MISC DIRECTED ONE Stop: 02/08/25 21:04 Last Admin: 02/08/25 21:18 Dose: 1 bottle Documented By: ROMARIO Vital Signs Vital signs: Vital Signs - 8 hr 02/08/25 14:46 02/08/25 14:51 02/08/25 15:08 Temperature 98.5 F Pulse Rate 121 H 117 H 106 H Respiratory Rate 20 28 H Blood Pressure 128/81 120/68 Pulse Oximetry 96 96 95 Oxygen Delivery Method Room Air Room Air 02/08/25 15:15 02/08/25 15:15 02/08/25 15:16 Temperature Pulse Rate 104 H Respiratory Rate 27 H Blood Pressure 129/60 126/59 L Pulse Oximetry 95 Oxygen Delivery Method 02/08/25 15:16 02/08/25 15:30 02/08/25 15:30 Temperature Pulse Rate 105 H 103 H Respiratory Rate 26 H 30 H Blood Pressure 123/59 L Pulse Oximetry 95 94 Oxygen Delivery Method 02/08/25 15:45 02/08/25 15:45 02/08/25 16:00 Temperature Pulse Rate 105 H 101 H Respiratory Rate 32 H 34 H Blood Pressure 132/60 Pulse Oximetry 96 95 Oxygen Delivery Method 02/08/25 16:00 02/08/25 16:15 02/08/25 16:15 Temperature Pulse Rate 109 H Respiratory Rate 37 H Blood Pressure 126/60 124/60 Pulse Oximetry 97 Oxygen Delivery Method 02/08/25 16:30 02/08/25 16:30 02/08/25 16:45 Temperature Pulse Rate 101 H 99 H Respiratory Rate 34 H 34 H Blood Pressure 124/59 L Pulse Oximetry 96 95 Oxygen Delivery Method 02/08/25 16:45 02/08/25 17:00 02/08/25 17:15 Temperature Pulse Rate 97 H Respiratory Rate Blood Pressure 132/60 116/56 L Pulse Oximetry 96 Oxygen Delivery Method 02/08/25 17:15 02/08/25 17:30 02/08/25 17:30 Temperature Pulse Rate 96 H 92 H Respiratory Rate 24 14 Blood Pressure 118/56 L Pulse Oximetry 96 94 Oxygen Delivery Method 02/08/25 17:45 02/08/25 17:45 02/08/25 18:00 Temperature Pulse Rate 91 H 90 Respiratory Rate 19 21 Blood Pressure 121/59 L Pulse Oximetry 95 94 Oxygen Delivery Method 02/08/25 18:00 02/08/25 18:15 02/08/25 18:15 Temperature Pulse Rate 89 Respiratory Rate 18 Blood Pressure 125/58 L 128/59 L Pulse Oximetry 94 Oxygen Delivery Method 02/08/25 18:41 02/08/25 19:00 02/08/25 19:36 Temperature Pulse Rate 104 H 89 90 Respiratory Rate 16 26 H Blood Pressure Pulse Oximetry 96 96 Oxygen Delivery Method 02/08/25 19:36 02/08/25 19:45 02/08/25 19:45 Temperature Pulse Rate 88 Respiratory Rate 16 Blood Pressure 119/58 L 124/60 Pulse Oximetry 94 Oxygen Delivery Method 02/08/25 20:00 02/08/25 20:00 Temperature Pulse Rate 86 Respiratory Rate 20 Blood Pressure 120/58 L Pulse Oximetry 94 Oxygen Delivery Method <Higinio Vasquez, - Last Filed: 02/08/25 21:06> Orders Ordered: Discontinued Medications Sodium Chloride (Normal Saline 0.9%) 1,000 mls @ 1,000 mls/hr IV BOLUS ONE Stop: 02/08/25 17:24 Last Infusion: 02/08/25 18:51 Dose: Infused Documented By: Admin: 02/08/25 17:00 Dose: 1,000 mls/hr Documented By: DONALD Ondansetron HCl (Ondansetron 4 Mg/2 Ml Inj) 4 mg IV NOW PRN PRN Reason: Nausea And Vomiting Last Admin: 02/08/25 15:08 Dose: 4 mg Documented By: DONALD Ondansetron HCl (Ondansetron 4 Mg Odt) 4 mg PO NOW PRN PRN Reason: Nausea And Vomiting Last Admin: 02/08/25 20:58 Dose: 4 mg Documented By: ROMARIO Ondansetron HCl (Ondansetron 4 Mg Odt Prepack) 1 bottle MISC DIRECTED ONE Stop: 02/08/25 21:04 Last Admin: 02/08/25 21:18 Dose: 1 bottle Documented By: ROMARIO Vital Signs Vital signs: Vital Signs - 8 hr 02/08/25 14:46 02/08/25 14:51 02/08/25 15:08 Temperature 98.5 F Pulse Rate 121 H 117 H 106 H Respiratory Rate 20 28 H Blood Pressure 128/81 120/68 Pulse Oximetry 96 96 95 Oxygen Delivery Method Room Air Room Air 02/08/25 15:15 02/08/25 15:15 02/08/25 15:16 Temperature Pulse Rate 104 H Respiratory Rate 27 H Blood Pressure 129/60 126/59 L Pulse Oximetry 95 Oxygen Delivery Method 02/08/25 15:16 02/08/25 15:30 02/08/25 15:30 Temperature Pulse Rate 105 H 103 H Respiratory Rate 26 H 30 H Blood Pressure 123/59 L Pulse Oximetry 95 94 Oxygen Delivery Method 02/08/25 15:45 02/08/25 15:45 02/08/25 16:00 Temperature Pulse Rate 105 H 101 H Respiratory Rate 32 H 34 H Blood Pressure 132/60 Pulse Oximetry 96 95 Oxygen Delivery Method 02/08/25 16:00 02/08/25 16:15 02/08/25 16:15 Temperature Pulse Rate 109 H Respiratory Rate 37 H Blood Pressure 126/60 124/60 Pulse Oximetry 97 Oxygen Delivery Method 02/08/25 16:30 02/08/25 16:30 02/08/25 16:45 Temperature Pulse Rate 101 H 99 H Respiratory Rate 34 H 34 H Blood Pressure 124/59 L Pulse Oximetry 96 95 Oxygen Delivery Method 02/08/25 16:45 02/08/25 17:00 02/08/25 17:15 Temperature Pulse Rate 97 H Respiratory Rate Blood Pressure 132/60 116/56 L Pulse Oximetry 96 Oxygen Delivery Method 02/08/25 17:15 02/08/25 17:30 02/08/25 17:30 Temperature Pulse Rate 96 H 92 H Respiratory Rate 24 14 Blood Pressure 118/56 L Pulse Oximetry 96 94 Oxygen Delivery Method 02/08/25 17:45 02/08/25 17:45 02/08/25 18:00 Temperature Pulse Rate 91 H 90 Respiratory Rate 19 21 Blood Pressure 121/59 L Pulse Oximetry 95 94 Oxygen Delivery Method 02/08/25 18:00 02/08/25 18:15 02/08/25 18:15 Temperature Pulse Rate 89 Respiratory Rate 18 Blood Pressure 125/58 L 128/59 L Pulse Oximetry 94 Oxygen Delivery Method 02/08/25 18:41 02/08/25 19:00 02/08/25 19:36 Temperature Pulse Rate 104 H 89 90 Respiratory Rate 16 26 H Blood Pressure Pulse Oximetry 96 96 Oxygen Delivery Method 02/08/25 19:36 02/08/25 19:45 02/08/25 19:45 Temperature Pulse Rate 88 Respiratory Rate 16 Blood Pressure 119/58 L 124/60 Pulse Oximetry 94 Oxygen Delivery Method 02/08/25 20:00 02/08/25 20:00 Temperature Pulse Rate 86 Respiratory Rate 20 Blood Pressure 120/58 L Pulse Oximetry 94 Oxygen Delivery Method MDM - Nausea/Vomiting/Diarrhea <Grayson Pearl MD - Last Filed: 02/10/25 20:36> Lab Data 02/08/25 14:10 02/08/25 14:10 Labs: Lab Results 02/08/25 02/08/25 02/08/25 Range/Units 14:10 17:05 18:38 WBC 6.7 (4.5-11.0) X10^3/uL RBC 4.71 (4.0-5.2) X10^6/uL Hgb 14.4 (12.0-16.0) g/dL Hct 42.3 (36-46) % MCV 89.7 (80-100) fL MCH 30.7 (26-34) PG MCHC 34.2 (30-36) % RDW 14.2 (11.6-14.8) % Plt Count 202 (150-400) X10^3/uL Neut % (Auto) 91.6 H (50-75) % Lymph % (Auto) 2.9 L (25-40) % [place] % (Auto) 5.2 (3-14) % Eos % (Auto) 0.1 L (2-4) % Baso % (Auto) 0.2 (0-2) % Neut # (Auto) 6100 (2912-0590) /uL Lymph # (Auto) 200 L (9948-4560) /uL [place] # (Auto) 300 (0-900) /uL Eos # (Auto) 0 (0-450) /uL Baso # (Auto) 0 (0-100) /uL Sodium 134 L (137-145) mmol/L Potassium 3.4 (3.4-5.1) mmol/L Chloride 102 (98-107) mmol/L Carbon Dioxide 19 L (22-32) mmol/L BUN 17 (7-17) mg/dL Creatinine 0.52 (0.52-1.04) mg/dL Estimated GFR > 60 (>60) mL/min BUN/Creatinine Ratio 32.7 H (6-22) Glucose 142 H (80-110) mg/dL Calcium 9.0 (8.4-10.2) mg/dL Total Bilirubin 1.3 (0.2-1.3) mg/dL AST 42 H (14-36) IU/L ALT 22 (<35) IU/L Alkaline Phosphatase 107 (38-126) U/L Total Protein 7.1 (6.3-8.2) g/dL Albumin 4.3 (3.5-5.0) g/dL Globulin 2.8 (1.7-4.1) g/dL Albumin/Globulin Ratio 1.5 (1.0-2.8) Lipase 15 L (23-300) U/L Urine RBC 1-5/hpf (0-5/HPF) Urine WBC 5-10/hpf H (0-5/HPF) Ur Squamous Epith Cells 5-10 /hpf H (0-5/HPF) Amorphous Sediment 2+ Urine Bacteria Moderate (10-30) H (None) Vol Urine Centrifuged 10ml (spun) SARS-CoV-2 (PCR) Negative (Negative) Influenza A (RT-PCR) Flu a negative (NEGATIVE) Influenza B (RT-PCR) Flu b negative (NEGATIVE) RSV (PCR) Negative (Negative) Urine Dip Bedside Urine Glucose Negative Bedside Urine Bilirubin - Negative Bedside Urine Ketone + 15 Urine Specific [place] 1.015 Bedside Urine Occult Blood + Bedside Urine pH 6.0 Bedside Urine Protein - Negative Bedside Urine Urobilinogen - Negative Bedside Urine Nitrite - Negative Bedside Urine Leukocytes + 70 Esterase [facility] Narrative Medical decision making narrative: Patient denies any chest pain abdominal pain or back pain. No urinary complaints. Patient has intractable vomiting since yesterday. She thinks she may have eaten bad can chicken noodle soup. No others are sick. She lives alone. No fever chills. After history and exam, CBC CMP respiratory panel urinalysis Zofran normal saline CT chest abdomen pelvis [facility] Medical records reviewed: No recent visit for this complaint Differential considered: Includes but not limited to viral gastroenteritis bowel obstruction UTI Lab Test results independently reviewed as above. Pertinent findings: WBC 6.7 hemoglobin 14.4 sodium 134 potassium 3.4 BUN 17 creatinine 0.52 glucose 142 AST 42 ALT 22, respiratory panel negative Independently reviewed EKG sinus tachycardia rate 109 Imaging studies independently reviewed: CT chest abdomen and pelvis Consultations: Treatments: Zofran normal saline Re-evaluations: Updated patient results. She does agree for CT imaging. Currently symptom free no nausea or vomiting. Feeling much better with IV hydration. Discussion: Appropriate for discharge home exam is reassuring. Heart rate did improve at time of discharge. Diagnosis: Nausea vomiting diarrhea 6:[address] Pearl: Sign out to Dr. Vasquez, CT imaging has not been done yet. Patient feeling much better. Will need re-evaluation. Awaiting urinalysis results 2100: Patient was re-evaluated by me, patient not complaining of any symptoms at this time, complete resolution of symptoms after administration of 2 L normal saline and Zofran. Patient with out urinalysis consistent with acute urinary tract infection. CT scan without any acute findings. Patient will be sent home with symptomatic relief was given strict return precautions verbalized understanding of this and agrees to being discharged home with outpatient follow up. <Higinio Vasquez, DO - Last Filed: 02/08/25 21:06> Lab Data Labs: Lab Results 02/08/25 02/08/25 02/08/25 Range/Units 14:10 17:05 18:38 WBC 6.7 (4.5-11.0) X10^3/uL RBC 4.71 (4.0-5.2) X10^6/uL Hgb 14.4 (12.0-16.0) g/dL Hct 42.3 (36-46) % MCV 89.7 (80-100) fL MCH 30.7 (26-34) PG MCHC 34.2 (30-36) % RDW 14.2 (11.6-14.8) % Plt Count 202 (150-400) X10^3/uL Neut % (Auto) 91.6 H (50-75) % Lymph % (Auto) 2.9 L (25-40) % [place] % (Auto) 5.2 (3-14) % Eos % (Auto) 0.1 L (2-4) % Baso % (Auto) 0.2 (0-2) % Neut # (Auto) 6100 (2323-0903) /uL Lymph # (Auto) 200 L (1029-2263) /uL [place] # (Auto) 300 (0-900) /uL Eos # (Auto) 0 (0-450) /uL Baso # (Auto) 0 (0-100) /uL Sodium 134 L (137-145) mmol/L Potassium 3.4 (3.4-5.1) mmol/L Chloride 102 (98-107) mmol/L Carbon Dioxide 19 L (22-32) mmol/L BUN 17 (7-17) mg/dL Creatinine 0.52 (0.52-1.04) mg/dL Estimated GFR > 60 (>60) mL/min BUN/Creatinine Ratio 32.7 H (6-22) Glucose 142 H (80-110) mg/dL Calcium 9.0 (8.4-10.2) mg/dL Total Bilirubin 1.3 (0.2-1.3) mg/dL AST 42 H (14-36) IU/L ALT 22 (<35) IU/L Alkaline Phosphatase 107 (38-126) U/L Total Protein 7.1 (6.3-8.2) g/dL Albumin 4.3 (3.5-5.0) g/dL Globulin 2.8 (1.7-4.1) g/dL Albumin/Globulin Ratio 1.5 (1.0-2.8) Lipase 15 L (23-300) U/L Urine RBC 1-5/hpf (0-5/HPF) Urine WBC 5-10/hpf H (0-5/HPF) Ur Squamous Epith Cells 5-10 /hpf H (0-5/HPF) Amorphous Sediment 2+ Urine Bacteria Moderate (10-30) H (None) Vol Urine Centrifuged 10ml (spun) SARS-CoV-2 (PCR) Negative (Negative) Influenza A (RT-PCR) Flu a negative (NEGATIVE) Influenza B (RT-PCR) Flu b negative (NEGATIVE) RSV (PCR) Negative (Negative) Urine Dip Bedside Urine Glucose Negative Bedside Urine Bilirubin - Negative Bedside Urine Ketone + 15 Urine Specific [place] 1.015 Bedside Urine Occult Blood + Bedside Urine pH 6.0 Bedside Urine Protein - Negative Bedside Urine Urobilinogen - Negative Bedside Urine Nitrite - Negative Bedside Urine Leukocytes + [address] chest abdomen pelvis: Radiologist's Impression: [address] [address] [address] Scan Report Signed Patient: Katerina Sylvester MR#: [id number] : 1940 Acct:[id number] Age/Sex: 84 / F Date of Service: 02/08/25 Loc: ED Accession Number: [id number] Procedure: CT chest abd pel w con Ordering Provider: Grayson Pearl MD PROCEDURE: CT CHEST ABD PEL W CON INDICATIONS: Sepsis TECHNIQUE: After the administration of intravenous contrast, 5 mm thick sections acquired from the lung apices to the symphysis. 5 mm coronal and sagittal reformats were performed, with additional 7 mm MIP reformats through the lungs. For radiation dose reduction, the following was used: automated exposure control, adjustment of mA and/or kV according to patient size. COMPARISON: None. FINDINGS: Image quality: Excellent. CHEST: Lower Neck: No enlarged lymph nodes. Thyroid: Normal CT appearance. Axillae: No enlarged lymph nodes. Chest Wall: Unremarkable. Lungs and Pleura: Minor bibasilar ground-glass opacities and septal thickening. A tiny ground-glass opacity anteriorly in the right upper lobe. Central and peripheral airways are normal without bronchial wall thickening or bronchiectasis. No pleural effusion. Heart: Moderate cardiomegaly. No pericardial effusion. Heavy atherosclerotic calcification. Thoracic Vessels: The aorta and pulmonary arteries demonstrate normal size. Mediastinum and [place]: No enlarged lymph nodes. Esophagus: No wall thickening. No hiatal hernia. ABDOMEN: Liver: Several low-density liver lesions consistent with cysts. Gallbladder: Surgically absent. Biliary ducts: No biliary dilation. Pancreas: No ductal dilation. Spleen: Size is within normal limits. Adrenal Glands: No adrenal nodules. Kidneys and Ureters: Symmetric enhancement. No nephrolithiasis or hydronephrosis. No hydroureter. Stomach and Bowel: Several mildly prominent loops of air and fluid-filled small bowel are present. No transition point to suggest obstruction. The stomach is decompressed. Prominent diverticula in the sigmoid colon. Peritoneum: No abnormal intraperitoneal fluid. No free air. Ventral Wall: No significant ventral hernia. Abdominal Nodes: No retroperitoneal or mesenteric adenopathy by size criteria. Vessels: The abdominal aorta, IVC, and portal vein are of normal caliber. Moderate abdominal aortic atherosclerotic calcification. PELVIS: Pelvic Organs: Age-appropriate. Bladder: No wall thickening or stones. Pelvic Nodes: No enlarged lymph nodes. Miscellaneous: Tiny left fluid containing inguinal hernia. Surgical changes in both inguinal regions. Bones: Scoliosis and chronic appearing lower thoracic degenerative wedge deformities. No displaced fractures. Bilateral shoulder arthroplasties. IMPRESSION: Prominent small bowel loops without transition point. Consider gastroenteritis or ileus. Tiny focus of pneumonitis anteriorly in the right upper lung, most likely infection or inflammation. Chronic appearing bibasilar ground-glass opacity and scarring suggesting hypoinflation. Colonic diverticulosis without acute diverticulitis. [facility] Narrative Medical decision making narrative: Patient denies any chest pain abdominal pain or back pain. No urinary complaints. Patient has intractable vomiting since yesterday. She thinks she may have eaten bad can chicken noodle soup. No others are sick. She lives alone. No fever chills. After history and exam, CBC CMP respiratory panel urinalysis Zofran normal saline CT chest abdomen pelvis [facility] Medical records reviewed: No recent visit for this complaint Differential considered: Includes but not limited to viral gastroenteritis bowel obstruction UTI Lab Test results independently reviewed as above. Pertinent findings: WBC 6.7 hemoglobin 14.4 sodium 134 potassium 3.4 BUN 17 creatinine 0.52 glucose 142 AST 42 ALT 22, respiratory panel negative Independently reviewed EKG sinus tachycardia rate 109 Imaging studies independently reviewed: CT chest abdomen and pelvis Consultations: Treatments: Zofran normal saline Re-evaluations: Updated patient results. She does agree for CT imaging. Currently symptom free no nausea or vomiting. Feeling much better with IV hydration. Discussion: Diagnosis: 6:[address] Pearl: Sign out to Dr. Vasquez, CT imaging has not been done yet. Patient feeling much better. Will need re-evaluation. Awaiting urinalysis results 2100: Patient was re-evaluated by me, patient not complaining of any symptoms at this time, complete resolution of symptoms after administration of 2 L normal saline and Zofran. Patient with out urinalysis consistent with acute urinary tract infection. CT scan without any acute findings. Patient will be sent home with symptomatic relief was given strict return precautions verbalized understanding of this and agrees to being discharged home with outpatient follow up. Discharge Plan Departure Patient Disposition: Home Clinical Impression: Nausea vomiting and diarrhea Instructions: DI for Nausea -- Adult, Nausea and Vomiting-Adult Activity Restrictions/Additional Instructions: Please follow up with your primary care doctor Please read the discharge instructions sheet carefully and bring all papers to all doctor follow-up visits, as it may contain information that your doctor may want to see. Disease processes change and evolve, if your symptoms worsen or if you develop any new symptoms that are concerning to you please return for evaluation. Your evaluation today does not show any evidence of any life-threatening/serious illnesses requiring admission to the hospital or surgery. Please follow-up with your doctor for re-evaluation in approximately 1 day. Seek immediate medical attention for any worrisome symptoms. *If you do not have a primary care provider please contact the [facility] Resource line at [phone]. They will ask some questions about your medical history and help get you set up with a doctor in the community. Prescriptions: No Action Vitamin C Powder 1 g PO BID Qty: 0 Prolia 60 MG/1 ML syringe 60 mg SQ DIRECTED Qty: 0 Rx Instructions: Twice yearly (DME) LEFT KNEE BRACE See Rx Instructions .Route .MEDSUPPLY Qty: 1 0RF Rx Instructions: left knee OA unloading brace, Donjoy brand cyanocobalamin (vitamin B-12) 1,000 mcg/mL solution 1,000 mcg IM QWEEK Qty: 12 12RF albuterol sulfate [Ventolin HFA] 90 mcg/actuation HFA aerosol inhaler 2 puff inhalation Q4-6H PRN (Reason: shortness of breath or wheezing) Qty: 17 3RF fluocinolone acetonide oil 0.01 % drops 5 drp otic (ear) BID Qty: 20 3RF gabapentin 300 mg capsule See Rx Instructions .ROUTE .COMPLEX Qty: 270 3RF Dose Instruction: take 1 capsule by mouth every morning and 2 capsules every evening Rx Instructions: take 1 capsule by mouth every morning and 2 capsules every evening montelukast 10 mg tablet See Rx Instructions .ROUTE .COMPLEX Qty: 90 3RF Dose Instruction: take 1 tablet by mouth every evening Rx Instructions: take 1 tablet by mouth every evening fluticasone propionate 50 mcg/actuation spray,suspension 1 spray intranasal BID PRN (Reason: for allergies) Qty: 16 0RF amlodipine 2.5 mg tablet 2.5 mg PO DAILY Qty: 90 0RF turmeric (bulk) [Curcumin] 1 ea miscellaneous Rx Instructions: 665mg po daily boswellia 500 mg 2 cap PO BID metoprolol succinate 25 mg tablet extended release 24 hr 25 mg PO DAILY Qty: 30 0RF cholecalciferol (vitamin D3) 25 mcg (1,000 unit) capsule 25 mcg PO DAILY vitamin K2 45 mcg capsule 45 mcg PO DAILY calcium carbonate 600 mg calcium (1,500 mg) tablet 600 mg PO BID Centrum Silver Women 8 mg iron-400 mcg-50 mcg tablet 1 tab PO DAILY Saccharomyces boulardii [Daily Probiotic (S. boulardii)] PO doxycycline hyclate 100 mg tablet 100 mg PO BID Qty: 16 0RF Trelegy Ellipta 200-62.5-25 mcg blister with device 1 inh inhalation DAILY Qty: 90 3RF Rx Instructions: Stop Advair. Take 1 puff daily methotrexate 2.5 mg PO 6XW PreserVision AREDS-2 250-90-40-1 mg tablet,chewable 1 tab PO QAM AND QPM Referrals: Henry Mendez DO [Primary Care Provider] - Stand Alone Forms: Patient Portal/API/Survey
[2025-02-08] MEDS: SODIUM CHLORIDE 0.9% 1,000 ML 1000 ML IV (17:00)
[2025-02-08 17:50] LABS: COVID-19 CEPHEID 4-PLEX PCR Negative (Negative); Influenza A - CEPHEID Flu A NEGATIVE (NEGATIVE); Influenza B - CEPHEID Flu B NEGATIVE (NEGATIVE); Respiratory Syncytial Virus Negative (Negative)
[2025-02-08 19:18] LABS: RBC Urine 1-5/HPF (0-5/HPF); Urine Volume 10mL (spun); WBC Urine 5-10/HPF (0-5/HPF)
[2025-02-08 19:19] LABS: Amorphous Sediment Urine 2+; Bacteria Urine Moderate (10-30); Squamous Epithelial Cell Urine 5-10 /HPF (0-5/HPF)
[2025-02-08] MEDS: ONDANSETRON 4 MG ODT PO (20:58)
--- NOTE | 2025-02-08 20:58 | PC.NURSE ---
Pt noted with runs of a fib HR 150. Pt states she's due for her evening metoprolol and she would like to take her own. States her stomach is feeling better, no vomiting since early this morning and tolerating sips and chips. Dr Vasquez notified, OK for pt to take home meds. Pt took PO metoprolol and amlodipine with chicken broth.
[2025-02-08] MEDS: ONDANSETRON 4 MG ODT PREPACK 1 BOTTLE MISC (21:18)
== END 2025-02-08 21:29 | disposition home or self-care (01) ==
PROVIDERS: Emergency Medicine; Emergency Provider Student in an Organized Health Care Education/Training Program; Family Provider Family Medicine; PCP Family Medicine
DX: R11.2 Nausea with vomiting, unspecified (principal); R19.7 Diarrhea, unspecified; R00.0 Tachycardia, unspecified
CPT/HCPCS: 0241U; 71260; 74177; 80053; 81003; 81015; 83690; 85025; 87086; 93005; 93010; 96361; 96374; 99284; J2405

== ENCOUNTER 2025-02-23 15:17 | Outpatient (RCR) | payer MEDICARE, OTHER, SELFPAY ==
--- NOTE | 2025-02-23 15:44 | PT.OPPOC ---
Physical, Occupational & Speech Therapy At [facility] Current Diagnoses Other chronic pain (02/23/25) Pain in left knee (02/23/25) Other specified postprocedural states (02/23/25) Visit Care Team Role Provider Type Henry Mendez DO Family Provider Physician Primary Care Provider Specialty: Family Practice Address: [address] [place] [address], [id number] Email: Danie Meyer MD Attending Provider Non-Staff Referring Provider Specialty: Orthopedic Surgery Address: [facility] [address]anna [address], [place], [address] Email: Plan Of Care PT-OP-T Assessment and Plan Start: 02/23/25 15:09 Freq: Status: Active Protocol: Document 02/23/25 15:41 SAK (Rec: 02/23/25 15:44 [facility] [id number]) Physical Therapy Assessment Assessment Summary Assessment Patient arrived for PT evaluation for left knee as ordered but reporting she doesn't feel like she can do PT right now due to multiple medical issues, most importantly cardiac issues which are not stable, severe fatigue and lack of activity tolerance. Awaiting call back from material disposition inspector today due to worsening symptoms. Has been to ER 1x over past month. At this time agreed no PT at this time until medical issues stabilized. Electronically Signed by: Angie Frias, PT 02/23/25 [id number] If you are in agreement with this Plan of Care, please return a signed and dated copy. I have reviewed this Plan of Care and certify that the skilled therapy services above are required to meet the patient?s needs. Physician Signature Date Printed Name and Credentials Clinical Instructor Signature Printed Name and Credentials
== END 2025-03-03 12:47 | disposition home or self-care (01) ==
LOC: PHYS 15:17
PROVIDERS: Family Provider Family Medicine; PCP Family Medicine; Referring Provider Student in an Organized Health Care Education/Training Program; Visit Provider Student in an Organized Health Care Education/Training Program
DX: Z98.890 Other specified postprocedural states (principal); M25.562 Pain in left knee; G89.29 Other chronic pain

== ENCOUNTER → 2025-03-09 13:48 | Outpatient (CLI) | payer MEDICARE, OTHER, SELFPAY ==
[2025-03-09 14:31] LABS: Add Manual Diff / Slide Review NO; Basophils Absolute Auto 0 /uL (0-100); Basophils Percent Auto 0.6 % (0-2); Eosinophils Absolute Auto 100 /uL (0-450); Eosinophils Percent Auto 1.5 % (2-4); Hematocrit 41.3 % (36-46); Hemoglobin 13.8 g/dL (12.0-16.0); Lymphocytes Absolute Auto 800 /uL (1100-4500); Lymphocytes Percent Auto 12.1 % (25-40); Mean Corpuscular HGB Conc 33.4 % (30-36); Mean Corpuscular Hemoglobin 30.7 PG (26-34); Mean Corpuscular Volume 91.8 fL (80-100); Monocytes Absolute Auto 600 /uL (0-900); Monocytes Percent Auto 9.3 % (3-14); Neutrophils Absolute Auto 5300 /uL (1500-7000); Neutrophils Percent Auto 76.5 % (50-75); Platelet Count 218 X10^3/uL (150-400); Red Cell Distribution Width 16.9 % (11.6-14.8); White Blood Cell Count 6.9 X10^3/uL (4.5-11.0)
[2025-03-09 14:55] LABS: Alanine Aminotransferase 20 IU/L (<35); Albumin 4.4 g/dL (3.5-5.0); Albumin Globulin Ratio 2.1 (1.0-2.8); Alkaline Phosphatase 89 U/L (38-126); Aspartate Aminotransferase 30 IU/L (14-36); BUN Creatinine Ratio 37.3 (6-22); Bilirubin Total 0.7 mg/dL (0.2-1.3); Blood Urea Nitrogen 22 mg/dL (7-17); C-Reactive Protein Quant < 0.5 mg/dL (<1.0); Calcium 9.7 mg/dL (8.4-10.2); Carbon Dioxide 29 mmol/L (22-32); Chloride 101 mmol/L (98-107); Estimated Glomerular Filt Rate > 60 mL/min (>60); Globulin 2.1 g/dL (1.7-4.1); Glucose 89 mg/dL (80-110); HEMOLYSIS < 15 (0-50); Sodium 137 mmol/L (137-145); Total Protein 6.5 g/dL (6.3-8.2)
[2025-03-09 15:33] LABS: Erythrocyte Sedimentation Rate 12 MM/HR (0-20)
== END ==
PROVIDERS: Family Provider Family Medicine; PCP Family Medicine; Referring Provider Internal Medicine Rheumatology; Visit Provider Internal Medicine Rheumatology
DX: M11.20 Other chondrocalcinosis, unspecified site (principal)
CPT/HCPCS: 36415; 80053; 85025; 85651; 86140

== ENCOUNTER → 2025-03-21 14:23 | Outpatient (CLI) | payer MEDICARE, OTHER, SELFPAY ==
--- NOTE | 2025-03-21 14:24 | DI.CT.S_ITS ---
PROCEDURE: CT CHEST WO CON INDICATIONS: lung nodule TECHNIQUE: Noncontrast 2.0-2.5 mm thick sections acquired from the pulmonary apices to the posterior costophrenic angles. 7 mm thick axial MIP and 5 mm coronal and sagittal reformats were then acquired. For radiation dose reduction, the following was used: automated exposure control, adjustment of mA and/or kV according to patient size. COMPARISON: [facility], CT, CT CHEST WO CON, 01/10/2025, 14:09. [facility], CT, CT CHEST WO CON, 07/27/2024, 11:25. [facility], CT, CT CHEST WO CON, 04/22/2024, 11:06. FINDINGS: Image quality: Diagnostic. Thyroid: Within normal limits. Cardiac: Heart size within normal limits, although there is borderline left atrial enlargement. No pericardial effusion. Severe left main and anterior descending coronary artery calcifications. Aorta: Thoracic aortic diameter within normal limits. Pulmonary Artery: Main pulmonary artery diameter within normal limits. Lungs: No focal lung consolidation. Unchanged left upper lobe 7 mm pulmonary solid nodule (3/176). Scattered bilateral pulmonary granulomas. Biapical scarring (4/36). Linear parenchymal banding/scarring at the lung bases (3/215). Pleura: No pneumothorax or pleural effusion. Airways: The trachea and mainstem bronchi are patent. Lymph Nodes: No mediastinal, hilar, or axillary lymphadenopathy. Esophagus: Within normal limits. Bones: Diffuse osseous demineralization. Exaggerated thoracic kyphosis. Chronic T12 superior endplate compression fracture with up to 10% height loss. Bilateral shoulder arthroplasties. Upper Abdomen: Within normal limits. IMPRESSION: 1. Unchanged left upper lobe 7 [address]ule. Consider CT chest without contrast follow-up per the below guidelines for low risk versus high risk patients. 2. Severe left main and left anterior descending coronary artery calcifications. Fleischner Society criteria for SOLID lung nodule followup. Nodule size (mm)Low-risk patientHigh-risk patient<6 (single or multiple)No routine followup.Optional CT at 12 months. 6-8 (single or multiple)CT at 6-12 months, then optional CT at 18-24 mo.CT at 6-12 months, then CT at 18-24 months. >8 (single)CT at 3 months, PET-CT, or biopsy. Same as for low-risk pts. >8 (multiple)CT at 3-6 months, then optional CT at 18-24 mo.CT at 3-6 months, then CT at 18-24 months. Fleischner Society criteria for SUB-SOLID lung nodule followup. Solitary pure ground-glass nodules<6 mm (ground glass or part solid)No followup needed. 6 mm or larger (ground glass)CT at 6-12 months to confirm persistence, then CT every 2 years until 5 years.6 mm or larger (part solid)CT at 3-6 months to confirm persistence, then annual CT until 5 years if unchanged and solid component remains <6 mm. Multiple sub-solid nodules<6 mmCT at 3-6 months, then CT consider at 2 & 4 years for high risk patients. [address] at 3-6 months. Subsequent management based on most suspicious lesions. Recommendations do not apply to lung cancer screening, patients with immunosuppression, or patients with known primary cancer. Dictated by: Gopi Bonilla M.D. on 03/21/2025 at 16:35 Approved by: Gopi Bonilla M.D. on 03/21/2025 at 16:42
== END ==
LOC: CT 14:23
PROVIDERS: Family Provider Family Medicine; PCP Family Medicine; Referring Provider Internal Medicine Pulmonary Disease; Visit Provider Internal Medicine Pulmonary Disease
DX: I25.10 Atherosclerotic heart disease of native coronary artery without angina pectoris (principal); R91.1 Solitary pulmonary nodule
CPT/HCPCS: 71250

== ENCOUNTER 2025-05-15 14:18 | Emergency (ER) | payer MEDICARE, OTHER, SELFPAY ==
[2025-05-15] VITALS (16 sets, daily range): BP systolic 122–178; BP diastolic 59–92; PULSE 57–77; RESP 12–22; TEMP 36.5; O2SAT 94–99; BMI 18.8
--- NOTE | 2025-05-15 14:35 | DI.RAD.S_ITS ---
PROCEDURE: XR CHEST 1V INDICATIONS: Chest Pain TECHNIQUE: One view of the chest was acquired. COMPARISON: [facility], CR, XR CHEST 1V, 01/22/2025, 2:43. [facility], CR, XR CHEST 2V, 04/15/2024, 18:41. FINDINGS AND IMPRESSION: Mild diffuse interstitial prominence possibly atypical infection versus edema. Trace effusions versus pleural thickening also present. Normal heart size. Degenerative osseous changes and bilateral shoulder arthroplasties. Scattered chest wall and left upper quadrant surgical clips. Dictated by: Conner Cheng M.D. on 05/15/2025 at 15:16 Approved by: Conner Cheng M.D. on 05/15/2025 at 15:17
--- NOTE | 2025-05-15 14:40 | EKG_ITS ---
[place] [address] [place] [id number] Test Date: 2025-05-15 Pat Name: Katerina Sylvester Department: [facility] Room: Gender: Female Women Specialist: CESAR : 1940 Requested By: Order Number: [id number] Reading MD: Rai Vázquez MD Measurements Intervals Philipp Rate: 55 P: 60 CT: 160 QRS: -22 QRSD: 86 T: 23 QT: 420 QTc: 401 Interpretive Statements Sinus bradycardia Minimal voltage criteria for LVH, may be normal variant ( Echo product ) Electronically Signed On 05-15-2025 17:47:38 PDT by Rai Vázquez MD
[2025-05-15 14:57] LABS: Add Manual Diff / Slide Review NO; Basophils Absolute Auto 0 /uL (0-100); Basophils Percent Auto 0.7 % (0-2); Eosinophils Absolute Auto 100 /uL (0-450); Eosinophils Percent Auto 1.3 % (2-4); Hematocrit 41.7 % (36-46); Lymphocytes Absolute Auto 800 /uL (1100-4500); Lymphocytes Percent Auto 14.1 % (25-40); Mean Corpuscular HGB Conc 33.6 % (30-36); Mean Corpuscular Volume 92.2 fL (80-100); Monocytes Absolute Auto 400 /uL (0-900); Monocytes Percent Auto 7.6 % (3-14); Neutrophils Absolute Auto 4300 /uL (1500-7000); Neutrophils Percent Auto 76.3 % (50-75); Platelet Count 187 X10^3/uL (150-400); Red Blood Cell Count 4.53 X10^6/uL (4.0-5.2); Red Cell Distribution Width 15.1 % (11.6-14.8); White Blood Cell Count 5.7 X10^3/uL (4.5-11.0)
[2025-05-15 15:02] LABS: INR 1.1 (0.9-1.3); Prothrombin Time 12.7 SECONDS (9.4-12.5)
[2025-05-15 15:05] LABS: PTT Partial Thromboplastin Tim 38 SECONDS (25.1-36.5)
[2025-05-15 15:08] LABS: Alanine Aminotransferase 21 IU/L (<35); Albumin 4.4 g/dL (3.5-5.0); Albumin Globulin Ratio 1.7 (1.0-2.8); Alkaline Phosphatase 85 U/L (38-126); Aspartate Aminotransferase 31 IU/L (14-36); BUN Creatinine Ratio 33.3 (6-22); Bilirubin Total 0.9 mg/dL (0.2-1.3); Blood Urea Nitrogen 16 mg/dL (7-17); Calcium 9.3 mg/dL (8.4-10.2); Carbon Dioxide 27 mmol/L (22-32); Chloride 103 mmol/L (98-107); Creatine Kinase 40 U/L (30-135); Estimated Glomerular Filt Rate > 60 mL/min (>60); Globulin 2.6 g/dL (1.7-4.1); Glucose 105 mg/dL (70-99); HEMOLYSIS < 15 (0-50); Lipase 26 U/L (23-300); Magnesium 1.8 mg/dL (1.6-2.3); Potassium 4.1 mmol/L (3.4-5.1); Sodium 137 mmol/L (137-145)
[2025-05-15 15:20] LABS: NT-proBNP (BNP-Adult 18+) 1590 pg/mL (<450); Troponin I < 0.012 ng/mL (0.01-0.034)
[2025-05-15 17:20] LABS: Troponin I 0.029 ng/mL (0.01-0.034)
[2025-05-15 19:55] LABS: Troponin I 0.054 ng/mL (0.01-0.034)
--- NOTE | 2025-05-15 19:59 | PC.NURSE ---
Patient has a closed over wound on her LEFT lower lower capps with redness and a clear, line marked around the redness. Patient states that her dog scratched her and she has seen her PCP last Thursday, who said if the redness grew beyond the line then to call back for antibiotics. The redness remains within the marked line.
--- NOTE | 2025-05-15 22:21 | DI.CT.S_ITS ---
PROCEDURE: CT ANGIO CHEST PE PROTOCOL INDICATIONS: chest pain, dyspnea TECHNIQUE: After the administration of intravenous contrast, 2 mm thick sections acquired from the pulmonary apices to the posterior costophrenic angles. 3-dimensional maximum intensity projection (MIP) coronal and sagittal reformats were then acquired through the thorax. For radiation dose reduction, the following was used: automated exposure control, adjustment of mA and/or kV according to patient size. COMPARISON: [facility], CT, CT CHEST WO [facility], 03/21/2025, 14:32. FINDINGS: Image quality: Portions of the chest are suboptimally evaluated secondary to metallic streak artifact from shoulder arthroplasty. Pulmonary arteries: Pulmonary arteries are normal in size, and demonstrate no intraluminal filling defects to suggest central pulmonary embolism. Lower Neck: No enlarged lymph nodes. Thyroid: No thyroid nodules which require sonographic follow up, per consensus guidelines. Axillae: No enlarged lymph nodes. Chest Wall: Unremarkable. Bones: Unremarkable. Lungs and Pleura: No pneumothorax or pleural effusions. No consolidation or suspicious nodules. Heart: Heart size is normal. No pericardial effusion. Thoracic Vessels: No aortic aneurysm. Mediastinum and Tiffany: No enlarged lymph nodes. Esophagus: No wall thickening. No hiatal hernia. Upper Abdomen: Visualized upper abdomen solid organs and bowel loops appear normal. IMPRESSION: No pulmonary embolus. No acute cardiopulmonary process. Dictated by: Zari Cat M.D. on 05/15/2025 at 22:48 Approved by: Zari Cat M.D. on 05/15/2025 at 22:49
--- NOTE | 2025-05-15 22:28 | ED.CHESTPAIN ---
HPI - Chest Pain General Chief Complaint: Chest Pain Stated Complaint: having heart issues Time Seen by Provider: 05/15/25 22:21 Source: patient Mode of arrival: Ambulatory Limitations: no limitations History of Present Illness HPI narrative: 85-year-old female complains of productive cough, bilateral anterior chest discomfort. History of remote smoking, none since . Also has swelling to the left anterior foreleg, scratch from a dog, small scar 6 days ago, some increasing redness outlined by her provider Dr. Woods, not started on any oral antibiotics so far. Related Data Home Medications ?Medication ?Instructions ?Recorded ?Confirmed ascorbic acid (vitamin C) (Vitamin 1 g PO BID ##0 04/07/11 05/11/25 C oral powder) denosumab 60 mg/mL subcutaneous 60 mg SQ DIRECTED ##0 07/20/13 05/11/25 syringe (Prolia) vit C 250 mg-E 90 mg-zinc 40 1 tab PO QAM AND QPM 04/15/22 05/11/25 mg-copper 1 qr-lbhlmi-zdfwht chew tablet (PreserVision AREDS-2) calcium carbonate 600 mg PO BID 05/11/24 05/11/25 cholecalciferol (vitamin D3) 25 25 mcg PO DAILY 05/11/24 05/11/25 mcg (1,000 unit) capsule zydcznyq-itwv-fgtz 8 mg-folic 400 1 tab PO DAILY 05/11/24 05/11/25 mcg-K 50 mcg-lutein 300 mcg tablet (Centrum Silver Women) vitamin K2 45 mcg capsule 45 mcg PO DAILY 05/11/24 05/11/25 turmeric (bulk) [Curcumin] 1 ea miscellaneous 06/29/24 05/11/25 boswellia 1 cap PO BID 03/03/25 05/11/25 fluocinolone acetonide oil 0.01 % 5 drp otic (ear) BID PRN 03/03/25 05/11/25 ear drops metoprolol succinate 25 mg See Rx Instructions PO DAILY 03/21/25 05/11/25 tablet,extended release 24 hr rivaroxaban 20 mg tablet (Xarelto) 20 mg PO QPM 03/21/25 05/11/25 methotrexate See Rx Instructions PO 6XW 04/20/25 05/11/25 Previous Rx's ?Medication ?Instructions ?Recorded gabapentin 300 mg capsule See Rx Instructions .Route 10/14/24 .COMPLEX #270 caps montelukast 10 mg tablet See Rx Instructions .Route 11/14/24 .COMPLEX #90 tabs fluticasone fur. 200 mcg-umeclid 1 inh inhalation DAILY #90 ea 01/04/25 62.5 mcg-vilant 25 mcg inhalat.powder (Trelegy Ellipta) aspirin 81 mg tablet,delayed See Rx Instructions PO DAILY PRN 02/13/25 release (Adult Aspirin Regimen) pain #120 tabs dronabinol 2.5 mg capsule 2.5 mg PO BID #20 caps 03/03/25 folic acid 1 mg tablet 1 mg PO BID #60 tabs 03/21/25 fluticasone propionate 50 1 spray intranasal BID PRN for 03/23/25 mcg/actuation nasal allergies #16 grams spray,suspension atenolol 50 mg tablet 50 mg PO DAILY #90 tabs 04/19/25 cyanocobalamin (vitamin B-12) 1,000 mcg IM QWEEK #12 mL 04/20/25 1,000 mcg/mL injection solution clobetasol 0.05 % scalp solution 1 applic topical DAILY #50 mL 04/26/25 amlodipine 2.5 mg tablet 2.5 mg PO DAILY #90 tabs 05/08/25 Allergies Allergy/AdvReac Type Severity Reaction Status Date / Time adhesive Allergy Intermediate HIVES Verified 05/15/25 14:33 erythromycin base Allergy Mild RASH Verified 05/15/25 14:33 cefuroxime AdvReac Intermediate Abdominal Verified 05/15/25 14:33 Pain colchicine AdvReac Intermediate Diarrhea Verified 05/15/25 14:33 hydroxychloroquine AdvReac Intermediate Diarrhea Verified 05/15/25 14:33 levofloxacin AdvReac Mild ANXIETY Verified 05/15/25 14:33 Patient History Medical History (Updated 05/15/25 @ 23:57 by Alex Herrera MD) Situational anxiety Skin tear Change in consistency of stool Atrial fibrillation Post viral debility Dehydration 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 Left elbow pain Rib pain Meralgia paraesthetica Acute right hip pain Tension headache Postoperative pain of left knee Strain of right shoulder Sacral back pain Cellulitis Medication side effect Constipation Has end of life care plan Chronic cough Postoperative edema Abdominal wall hernia Weight loss, unintentional Nausea in adult patient Diarrhea due to drug Chronic GERD Choking due to phlegm Phlegm in throat Chronic pain of left knee Hemorrhoid Vagina itching Low serum creatinine Hyponatremia Lymphopenia Pure hypercholesterolemia Discoloration of skin of lower leg Edema of left lower extremity Somatic dysfunction of lower extremity Edema of right lower extremity Oral candidiasis Right lower quadrant abdominal pain Lichen planus Arthralgia Fatigue Coronary artery disease All medications reviewed SVT (supraventricular tachycardia) Premature atrial contractions Chronic diarrhea Cervical radiculopathy Cranial somatic dysfunction Stiff neck Pelvic somatic dysfunction Sacral region somatic dysfunction Lumbar region somatic dysfunction COVID-19 vaccine series completed Leg cramps, sleep related Osteoarthritis cervical spine Problems related to lack of adequate sleep Memory changes Cervical somatic dysfunction Body posture problem Thoracic region somatic dysfunction Ear drainage right H/O supraventricular tachycardia High serum high density lipoprotein (HDL) Abnormal heart rhythms Upper extremity somatic dysfunction Segmental and somatic dysfunction of rib cage Bilateral hand pain Blood pressure instability Rib fractures Compression fracture (2002) Easy bruisability Breast cancer Sinus drainage Arthritis Former smoker History of transfusion (~2001) Symptomatic cholelithiasis Osteoporosis History of breast cancer Osteoarthritis Asthma Surgical History Status post total left knee replacement Status post laparoscopic cholecystectomy Hx of appendectomy (1961) Hx of tonsillectomy (1948) Hx of toe surgery Hx of lumpectomy (04/2001) Hx of arthroscopy of shoulder (03/2005) Hx of repair of right rotator cuff (06/2006) History of surgery (04/2019) Status post tonsillectomy Status post appendectomy History of foot surgery Status post breast reconstruction (07/2019) Status post replacement of both shoulder joints Status post right knee replacement (10/2012) S/P bilateral mastectomy (12/2001) Social History household members: none alcohol intake frequency: 0-2 drinks per day Exam Narrative Exam Narrative: GENERAL: Well-developed patient, in mild distress. HEAD: Atraumatic. Normocephalic. EYES: Pupils equal round and reactive. Extraocular motions intact. No scleral icterus. No injection or drainage. ENT: Nose without bleeding, purulent drainage. Throat without erythema, tonsillar hypertrophy or exudate. Airway patent. NECK: Trachea midline. Non tender CARDIOVASCULAR: Regular rate and rhythm without murmurs, gallops, or rubs. RESPIRATORY: Clear to auscultation. Breath sounds equal bilaterally. No wheezes, rales, or rhonchi. GASTROINTESTINAL: Abdomen soft, non-tender, nondistended. EXTREMITIES: No edema or joint tenderness. Left anterior distal foreleg with 6 x 8 cm patch of erythema non fluctuant, with cephalad small non crepitant eschar, no fluctuance. BACK: Nontender without deformity or crepitance. No flank tenderness. NEURO: AOx3. Motor functions grossly nonfocal. SKIN: No rash or erythema of visible areas Initial Vital Signs Initial Vital Signs: Vital Signs Temperature 97.7 F 05/15/25 14:30 Pulse Rate 66 05/15/25 14:30 Respiratory Rate 18 05/15/25 14:30 Blood Pressure 135/63 05/15/25 14:30 Pulse Oximetry 97 05/15/25 14:30 Oxygen Delivery Method Room Air 05/15/25 14:30 Course Orders Ordered: ED Orders 05/15/25 22:47 Troponin I Stat 05/16/25 06:30 Hemoglobin and Hematocrit DAILY PTT Partial Thromboplastin Gordon Q6H Platelet Count DAILY 05/16/25 13:00 PTT Partial Thromboplastin Gordon Q6H 05/16/25 19:00 PTT Partial Thromboplastin Gordon Q6H 05/17/25 05:00 Hemoglobin and Hematocrit DAILY Platelet Count DAILY Heparin Sodium/Dextrose (Heparin Drip) 25,000 unit in 500 mls @ 13.063 mls/hr IV CONT MIKE; Protocol Last Admin: 05/16/25 01:01 Dose: 12 units/kg/hr, 13.063 mls/hr Documented By: AVA Co-signed By: LS Discontinued Medications Albuterol/Ipratropium (Albuterol/Ipratropium 3 Ml Ampul) 3 ml INH NOW ONE Stop: 05/15/25 22:26 Last Admin: 05/15/25 22:49 Dose: 3 ml Documented By: DEVORAH Aspirin (Aspirin 81 Mg Chew Tab) 324 mg PO NOW ONE Stop: 05/15/25 23:56 Last Admin: 05/16/25 00:19 Dose: 324 mg Documented By: SB Doxycycline Hyclate (Doxycycline Hyclate 100 Mg Tablet) 100 mg PO NOW ONE Stop: 05/15/25 22:29 Last Admin: 05/15/25 22:40 Dose: 100 mg Documented By: ELEANOR Heparin Sodium (Porcine) (Heparin 5,000 Unit/Ml Vial) 3,500 unit 60 unit/kg (3500 unit) IV NOW ONE Stop: 05/15/25 23:57 Last Admin: 05/16/25 01:00 Dose: 3,500 unit Documented By: AVA Vital Signs Vital signs: Vital Signs - 8 hr 05/15/25 23:50 05/15/25 23:50 05/16/25 00:00 Pulse Rate 70 71 Respiratory Rate Blood Pressure 129/60 Pulse Oximetry 95 95 Oxygen Delivery Method 05/16/25 00:01 05/16/25 00:01 05/16/25 00:30 Pulse Rate 73 Respiratory Rate 22 Blood Pressure 123/79 139/67 Pulse Oximetry 95 Oxygen Delivery Method Room Air 05/16/25 00:30 05/16/25 01:00 05/16/25 01:01 Pulse Rate 69 73 72 Respiratory Rate 22 Blood Pressure Pulse Oximetry 95 97 98 Oxygen Delivery Method Room Air 05/16/25 01:01 05/16/25 01:30 05/16/25 01:30 Pulse Rate 63 Respiratory Rate Blood Pressure 139/79 112/60 Pulse Oximetry 95 Oxygen Delivery Method 05/16/25 02:00 05/16/25 02:00 05/16/25 02:30 Pulse Rate 65 Respiratory Rate 35 H Blood Pressure 121/64 117/56 L Pulse Oximetry 95 Oxygen Delivery Method Room Air 05/16/25 02:30 05/16/25 03:00 05/16/25 03:01 Pulse Rate 64 66 63 Respiratory Rate 44 H 41 H 48 H Blood Pressure Pulse Oximetry 94 95 95 Oxygen Delivery Method Room Air Room Air Room Air 05/16/25 03:01 05/16/25 03:30 05/16/25 03:30 Pulse Rate 66 Respiratory Rate 33 H Blood Pressure 96/55 L 108/64 Pulse Oximetry 95 Oxygen Delivery Method Room Air 05/16/25 04:00 05/16/25 04:00 05/16/25 04:30 Pulse Rate 60 Respiratory Rate 31 H Blood Pressure 111/57 L 116/56 L Pulse Oximetry 95 Oxygen Delivery Method Room Air 05/16/25 04:30 05/16/25 05:00 05/16/25 05:00 Pulse Rate 58 L 58 L Respiratory Rate 32 H 51 H Blood Pressure 114/66 Pulse Oximetry 94 96 Oxygen Delivery Method 05/16/25 05:30 05/16/25 05:31 05/16/25 05:31 Pulse Rate 63 64 Respiratory Rate 18 18 Blood Pressure 113/57 L Pulse Oximetry 96 96 Oxygen Delivery Method 05/16/25 06:20 05/16/25 06:30 05/16/25 07:01 Pulse Rate 64 63 65 Respiratory Rate 47 H 37 H 33 H Blood Pressure Pulse Oximetry 97 95 96 Oxygen Delivery Method MDM - Chest Pain Lab Data Attestation: I reviewed the patient's lab results. Lab results narrative: White blood cell count 5700, hemoglobin 14.0, platelets 187,000. Glucose 105. Normal renal function. Normal electrolytes, normal serum CO2. Liver functions normal. Lipase normal. Serial troponins initially negative unmeasurable, subsequently measurable but low, then indeterminate, then 0.116 further elevated. BNP 1590. 05/16/25 06:30 05/15/25 14:41 Labs: Lab Results 05/15/25 05/15/25 05/15/25 Range/Units 14:41 16:42 19:23 WBC 5.7 (4.5-11.0) X10^3/uL RBC 4.53 (4.0-5.2) X10^6/uL Hgb 14.0 (12.0-16.0) g/dL Hct 41.7 (36-46) % MCV 92.2 (80-100) fL MCH 31.0 (26-34) PG MCHC 33.6 (30-36) % RDW 15.1 H (11.6-14.8) % Plt Count 187 (150-400) X10^3/uL Neut % (Auto) 76.3 H (50-75) % Lymph % (Auto) 14.1 L (25-40) % Payette % (Auto) 7.6 (3-14) % Eos % (Auto) 1.3 L (2-4) % Baso % (Auto) 0.7 (0-2) % Neut # (Auto) 4300 (3182-9497) /uL Lymph # (Auto) 800 L (9595-8044) /uL Payette # (Auto) 400 (0-900) /uL Eos # (Auto) 100 (0-450) /uL Baso # (Auto) 0 (0-100) /uL PT 12.7 H (9.4-12.5) SECONDS INR 1.1 (0.9-1.3) APTT 38 H (25.1-36.5) SECONDS Sodium 137 (137-145) mmol/L Potassium 4.1 (3.4-5.1) mmol/L Chloride 103 (98-107) mmol/L Carbon Dioxide 27 (22-32) mmol/L BUN 16 (7-17) mg/dL Creatinine 0.48 L (0.52-1.04) mg/dL Estimated GFR > 60 (>60) mL/min BUN/Creatinine Ratio 33.3 H (6-22) Glucose 105 H (70-99) mg/dL Calcium 9.3 (8.4-10.2) mg/dL Magnesium 1.8 (1.6-2.3) mg/dL Total Bilirubin 0.9 (0.2-1.3) mg/dL AST 31 (14-36) IU/L ALT 21 (<35) IU/L Alkaline Phosphatase 85 (38-126) U/L Total Creatine Kinase 40 (30-135) U/L Troponin I < 0.012 0.029 0.054 H (0.01-0.034) ng/mL NT-Pro-B Natriuret Pep 1590 H (<450) pg/mL Total Protein 7.0 (6.3-8.2) g/dL Albumin 4.4 (3.5-5.0) g/dL Globulin 2.6 (1.7-4.1) g/dL Albumin/Globulin Ratio 1.7 (1.0-2.8) Lipase 26 (23-300) U/L 05/15/25 05/16/25 Range/Units 22:47 06:30 WBC (4.5-11.0) X10^3/uL RBC (4.0-5.2) X10^6/uL Hgb 14.0 (12.0-16.0) g/dL Hct 40.5 (36-46) % MCV (80-100) fL MCH (26-34) PG MCHC (30-36) % RDW (11.6-14.8) % Plt Count 168 (150-400) X10^3/uL Neut % (Auto) (50-75) % Lymph % (Auto) (25-40) % Payette % (Auto) (3-14) % Eos % (Auto) (2-4) % Baso % (Auto) (0-2) % Neut # (Auto) (8952-9105) /uL Lymph # (Auto) (9797-1358) /uL Payette # (Auto) (0-900) /uL Eos # (Auto) (0-450) /uL Baso # (Auto) (0-100) /uL PT (9.4-12.5) SECONDS INR (0.9-1.3) APTT 51 H D (25.1-36.5) SECONDS Sodium (137-145) mmol/L Potassium (3.4-5.1) mmol/L Chloride (98-107) mmol/L Carbon Dioxide (22-32) mmol/L BUN (7-17) mg/dL Creatinine (0.52-1.04) mg/dL Estimated GFR (>60) mL/min BUN/Creatinine Ratio (6-22) Glucose (70-99) mg/dL Calcium (8.4-10.2) mg/dL Magnesium (1.6-2.3) mg/dL Total Bilirubin (0.2-1.3) mg/dL AST (14-36) IU/L ALT (<35) IU/L Alkaline Phosphatase (38-126) U/L Total Creatine Kinase (30-135) U/L Troponin I 0.116 H (0.01-0.034) ng/mL NT-Pro-B Natriuret Pep (<450) pg/mL Total Protein (6.3-8.2) g/dL Albumin (3.5-5.0) g/dL Globulin (1.7-4.1) g/dL Albumin/Globulin Ratio (1.0-2.8) Lipase (23-300) U/L Imaging Data Chest x-ray: Radiologist's Impression: [address] [address] XRay Report Signed Patient: Katerina Sylvester MR#: [id number] : 1940 Acct:[id number] Age/Sex: 85 / F Date of Service: 05/15/25 Loc: ED Accession Number: [id number] Procedure: XR chest 1V Ordering Provider: Kathe Huff D.O. PROCEDURE: XR CHEST 1V INDICATIONS: Chest Pain TECHNIQUE: One view of the chest was acquired. COMPARISON: [facility], CR, XR CHEST 1V, 01/22/2025, 2:43. [facility], CR, XR CHEST 2V, 04/15/2024, 18:41. FINDINGS AND IMPRESSION: Mild diffuse interstitial prominence possibly atypical infection versus edema. Trace effusions versus pleural thickening also present. Normal heart size. Degenerative osseous changes and bilateral shoulder arthroplasties. Scattered chest wall and left upper quadrant surgical clips. Dictated by: Conner Cheng M.D. on 05/15/2025 at 15:16 Approved by: Conner Cheng M.D. on 05/15/2025 at 15:17 CT angiogram chest: Radiologist's Impression: [place] [address] CT Scan Report Signed Patient: Katerina Sylvester MR#: [id number] : 1940 Acct:[id number] Age/Sex: 85 / F Date of Service: 05/15/25 Loc: ED Accession Number: [id number] Procedure: CT angio chest PE protocol Ordering Provider: Alex Herrera MD PROCEDURE: CT ANGIO CHEST PE PROTOCOL INDICATIONS: chest pain, dyspnea TECHNIQUE: After the administration of intravenous contrast, 2 mm thick sections acquired from the pulmonary apices to the posterior costophrenic angles. 3-dimensional maximum intensity projection (MIP) coronal and sagittal reformats were then acquired through the thorax. For radiation dose reduction, the following was used: automated exposure control, adjustment of mA and/or kV according to patient size. COMPARISON: [facility], CT, CT CHEST WO CON, 03/21/2025, 14:32. FINDINGS: Image quality: Portions of the chest are suboptimally evaluated secondary to metallic streak artifact from shoulder arthroplasty. Pulmonary arteries: Pulmonary arteries are normal in size, and demonstrate no intraluminal filling defects to suggest central pulmonary embolism. Lower Neck: No enlarged lymph nodes. Thyroid: No thyroid nodules which require sonographic follow up, per consensus guidelines. Axillae: No enlarged lymph nodes. Chest Wall: Unremarkable. Bones: Unremarkable. Lungs and Pleura: No pneumothorax or pleural effusions. No consolidation or suspicious nodules. Heart: Heart size is normal. No pericardial effusion. Thoracic Vessels: No aortic aneurysm. Mediastinum and Tiffany: No enlarged lymph nodes. Esophagus: No wall thickening. No hiatal hernia. Upper Abdomen: Visualized upper abdomen solid organs and bowel loops appear normal. IMPRESSION: No pulmonary embolus. No acute cardiopulmonary process. Dictated by: Zari Cat M.D. on 05/15/2025 at 22:48 Approved by: Zari Cat M.D. on 05/15/2025 at 22:49 ECG Data Attestation: I personally reviewed and interpreted this ECG as follows: Interpretation: 1440, sinus bradycardia with rate of 55, no obvious ST segment elevation or depression changes. NJ 160. QRS 86. QTC 401. MDM Narrative Medical decision making narrative: 85-year-old female with history of remote smoking, has productive cough and bilateral anterior chest discomfort, also some redness to an abrasion/scab left anterior foreleg, not currently on any oral antibiotics, outlined by recent clinic medical provider. Chest x-ray possible atypical pneumonia. See radiology report. We will give oral doxycycline, for atypical pneumonia coverage and hopefully skin ritesh coverage. Lab studies: White blood cell count 5700, hemoglobin 14.0, platelets 187,000. Glucose 105. Normal renal function. Normal electrolytes, normal serum CO2. Liver functions normal. Lipase normal. Serial troponins initially negative unmeasurable, subsequently measurable but low, then indeterminate, then 0.116 further elevated. BNP 1590. Troponin initially measurable but low, indeterminate on repeat. BNP elevated. CT angiogram chest ordered. CT angiogram showed no pulmonary embolus some, no acute cardiopulmonary changes. See radiology report. Interval 3rd troponin now essentially positive at 0.116 further increased, no PE confirmed, we will treat as non STEMI, IV heparin bolus/infusion initiated. Oral aspirin. Transfer to Cardiology capable facility. 0030, case discussed with [facility] cardiology Dr. Kevin, aware patient on Xarelto with last dose yesterday, agrees with heparin bolus/infusion. Advises further trending out of troponin. If patient is still here later this morning consider echocardiogram look for wall motion abnormalities, otherwise transfer to Cardiology capable facility. No beds [facility], [facility], [facility], bed search in progress, widened search area. 0300, case discussed with cardiology Litzy Taveras, he will consult, await call back from hospitalist service. 0320, case discussed with hospitalist Litzy Rebollar, accepts patient for transfer. Await bed assignment. 0500, bed assigned [facility]. Transportation to be arranged. ALS transportation should be available by 0 700. 0715, departing via ALS transport to [facility] as scheduled. Critical Care Time Critical Care Time Critical Care Time: Yes Total Critical Care Time: 35 Attestation: The high probability of a clinically significant, sudden or life threatening deterioration of the [cardiopulmonary] system(s) required my full and direct attention, intervention and personal management. The aggregate critical care time was [35] minutes. This time is in addition to time spent performing reported procedures but includes the following: [x] Data Review and interpretation [x] Patient assessment and monitoring of vital signs [x] Documentation [x] Medication orders and management Discharge Plan Departure Patient Disposition: [facility] Clinical Impression: Cellulitis of lower extremity, Chest pain, Non-ST elevated myocardial infarction (non-STEMI), Atypical pneumonia Prescriptions: No Action Vitamin C Powder 1 g PO BID Qty: 0 Prolia 60 MG/1 ML syringe 60 mg SQ DIRECTED Qty: 0 Rx Instructions: Twice yearly gabapentin 300 mg capsule See Rx Instructions .ROUTE .COMPLEX Qty: 270 3RF Dose Instruction: take 1 capsule by mouth every morning and 2 capsules every evening Rx Instructions: take 1 capsule by mouth every morning and 2 capsules every evening montelukast 10 mg tablet See Rx Instructions .ROUTE .COMPLEX Qty: 90 3RF Dose Instruction: take 1 tablet by mouth every evening Rx Instructions: take 1 tablet by mouth every evening fluticasone propionate 50 mcg/actuation spray,suspension 1 spray intranasal BID PRN (Reason: for allergies) Qty: 16 1RF atenolol 50 mg tablet 50 mg PO DAILY Qty: 90 3RF Rx Instructions: take 1 50mg tab PO nightly cyanocobalamin (vitamin B-12) 1,000 mcg/mL solution 1,000 mcg IM QWEEK Qty: 12 0RF clobetasol 0.05 % solution 1 applic topical DAILY Qty: 50 1RF amlodipine 2.5 mg tablet 2.5 mg PO DAILY Qty: 90 3RF turmeric (bulk) [Curcumin] 1 ea miscellaneous Rx Instructions: 665mg po daily boswellia 500 mg 1 cap PO BID aspirin [Adult Aspirin Regimen] 81 mg tablet,delayed release (DR/EC) See Rx Instructions PO DAILY PRN (Reason: pain) Qty: 120 3RF Rx Instructions: q4-6h orally daily PRN; Xarelto 20 mg tablet 20 mg PO QPM Rx Instructions: must administer with evening meal folic acid 1 mg tablet 1 mg PO BID Qty: 60 11RF methotrexate See Rx Instructions PO 6XW Rx Instructions: 4 in AM 4 in PM 1x weekly orally cholecalciferol (vitamin D3) 25 mcg (1,000 unit) capsule 25 mcg PO DAILY vitamin K2 45 mcg capsule 45 mcg PO DAILY calcium carbonate 600 mg calcium (1,500 mg) tablet 600 mg PO BID Centrum Silver Women 8 mg iron-400 mcg-50 mcg tablet 1 tab PO DAILY Trelegy Ellipta 200-62.5-25 mcg blister with device 1 inh inhalation DAILY Qty: 90 3RF Rx Instructions: Stop Advair. Take 1 puff daily fluocinolone acetonide oil 0.01 % drops 5 drp otic (ear) BID PRN dronabinol 2.5 mg capsule 2.5 mg PO BID Qty: 20 5RF Rx Instructions: administer before lunch and evening meal/dinner metoprolol succinate 25 mg tablet extended release 24 hr See Rx Instructions PO DAILY Rx Instructions: 1 tab am and .5 tabs in pm orally daily; PreserVision AREDS-2 250-90-40-1 mg tablet,chewable 1 tab PO QAM AND QPM Referrals: Henry Mendez DO [Primary Care Provider, Family Practice]
[2025-05-15] MEDS: DOXYCYCLINE HYCLATE 100 MG TABLET PO (22:40)
[2025-05-15] MEDS: ALBUTEROL/IPRATROPIUM 3 ML AMPUL INH (22:49)
[2025-05-15 23:19] LABS: Troponin I 0.116 ng/mL (0.01-0.034)
--- NOTE | 2025-05-15 23:36 | PC.NURSE ---
Provider made aware of patient's most recent troponin. No new orders at this time.
[2025-05-16] VITALS (19 sets, daily range): BP systolic 96–139; BP diastolic 55–79; PULSE 58–73; RESP 18–51; O2SAT 94–98
--- NOTE | 2025-05-16 00:14 | PC.NURSE ---
Provider Javier says to hold heparin and heparin drip at this time until he speaks with cardiology. This RN holds heparin and heparin drip and makes dry charge process attendant Gina aware.
[2025-05-16] MEDS: ASPIRIN 81 MG CHEW TAB 324 MG PO (00:19)
[2025-05-16] MEDS: HEPARIN 5,000 UNIT/ML VIAL 3500 UNIT IV (01:00)
[2025-05-16] MEDS: HEPARIN DRIP 25,000 UNIT/500 ML IV.SOLN 13.063 UNIT IV (01:01)
--- NOTE | 2025-05-16 01:08 | PC.NURSE ---
Provider Javier directs talks with cardiology and tells this RN to give push dose heparin and heparin infusion as per MAR. This RN begins heparin drip at 0101 on 05/16/25.
--- NOTE | 2025-05-16 02:38 | PC.NURSE ---
SOLAR SYSTEMS DESIGNER note: Attempting to find placement for patient. Called the following hospitals with the following responses: [facility]: 0055 spoke with Sendy. They currently have no beds, patient is on their waitlist, faxed over a facesheet. [facility]: 0100 spoke with [place]. They have no beds (no teley, cardiac, or step down), boarding in the ED. Faxed over a facesheet. Patient is on their wait list. [place]: 0111 spoke with [facility]. Currently have no beds, told me to look elsewhere. Faxed facesheet over because [facility] needs that to even think of taking a patient. [facility]: 0129 spoke with Rachelle. She took patient information, had images and a facesheet faxed over. Rachelle is looking into it.
[2025-05-16 06:49] LABS: Hematocrit 40.5 % (36-46); Platelet Count 168 X10^3/uL (150-400)
[2025-05-16 06:58] LABS: PTT Partial Thromboplastin Tim 51 SECONDS (25.1-36.5)
== END 2025-05-16 07:39 | disposition short-term general hospital (02) ==
PROVIDERS: Emergency Medicine; Emergency Provider Emergency Medicine; Family Provider Family Medicine; PCP Family Medicine
DX: I21.4 Non-ST elevation (NSTEMI) myocardial infarction (principal); R07.9 Chest pain, unspecified; J18.9 Pneumonia, unspecified organism; L03.116 Cellulitis of left lower limb; R06.00 Dyspnea, unspecified
CPT/HCPCS: 36415; 71045; 71275; 80053; 82550; 83690; 83735; 83880; 84484; 85014; 85018; 85025; 85049; 85610; 85730; 93005; 93010; 96365; 96366; 96375; 99285; 99291; J1644; Q9967

== ENCOUNTER → 2025-05-16 08:33 | Outpatient (ROUT) | payer MEDICARE, OTHER, SELFPAY ==
[2025-05-16 08:50] LABS: Alanine Aminotransferase 18 IU/L (<35); Albumin 4.1 g/dL (3.5-5.0); Albumin Globulin Ratio 1.8 (1.0-2.8); Alkaline Phosphatase 101 U/L (38-126); Aspartate Aminotransferase 41 IU/L (14-36); BUN Creatinine Ratio 29.3 (6-22); Bilirubin Total 1.1 mg/dL (0.2-1.3); Blood Urea Nitrogen 12 mg/dL (7-17); C-Reactive Protein Quant 0.9 mg/dL (<1.0); Calcium 9.2 mg/dL (8.4-10.2); Carbon Dioxide 21 mmol/L (22-32); Chloride 104 mmol/L (98-107); Estimated Glomerular Filt Rate > 60 mL/min (>60); Globulin 2.3 g/dL (1.7-4.1); Glucose 98 mg/dL (70-99); Potassium 4.2 mmol/L (3.4-5.1); Sodium 134 mmol/L (137-145); Total Protein 6.4 g/dL (6.3-8.2)
[2025-05-16 08:51] LABS: Add Manual Diff / Slide Review NO; Basophils Absolute Auto 100 /uL (0-100); Basophils Percent Auto 1.3 % (0-2); Eosinophils Absolute Auto 100 /uL (0-450); Eosinophils Percent Auto 2.2 % (2-4); Hematocrit 40.8 % (36-46); Lymphocytes Absolute Auto 1100 /uL (1100-4500); Lymphocytes Percent Auto 17.8 % (25-40); Mean Corpuscular HGB Conc 34.2 % (30-36); Mean Corpuscular Hemoglobin 31.4 PG (26-34); Mean Corpuscular Volume 91.7 fL (80-100); Monocytes Absolute Auto 600 /uL (0-900); Monocytes Percent Auto 10.6 % (3-14); Neutrophils Absolute Auto 4100 /uL (1500-7000); Neutrophils Percent Auto 68.1 % (50-75); Platelet Count 173 X10^3/uL (150-400); Red Blood Cell Count 4.45 X10^6/uL (4.0-5.2); Red Cell Distribution Width 14.6 % (11.6-14.8)
[2025-05-16 08:52] LABS: HEMOLYSIS 69 (0-50)
[2025-05-16 10:49] LABS: Erythrocyte Sedimentation Rate 11 MM/HR (0-20)
== END ==
PROVIDERS: Family Provider Family Medicine; PCP Family Medicine; Visit Provider Internal Medicine Rheumatology
DX: M11.20 Other chondrocalcinosis, unspecified site (principal)
CPT/HCPCS: 80053; 85025; 85651; 86140

== ENCOUNTER 2025-05-22 23:44 | Emergency (ER) | payer MEDICARE, OTHER, SELFPAY ==
[2025-05-22 23:52] VITALS: PULSE 102; RESP 21; O2SAT 94
[2025-05-22 23:53] VITALS: BP 117/56; PULSE 63; RESP 18; O2SAT 97
--- NOTE | 2025-05-22 23:53 | EKG_ITS ---
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
--- NOTE | 2025-05-22 23:55 | DI.RAD.S_ITS ---
PROCEDURE: XR CHEST 1V INDICATIONS: Chest Pain TECHNIQUE: One view of the chest was acquired. COMPARISON: None. FINDINGS: Surgical changes and devices: Bilateral shoulder arthroplasty and bilateral axillary clips.. Lungs and pleura: Lungs are clear. No pleural effusions or pneumothorax. Mediastinum: Mediastinal contours appear normal. Heart size is normal. Bones and chest wall: No suspicious bony lesions. Overlying soft tissues appear unremarkable. IMPRESSION: No acute cardiopulmonary abnormality is seen. Approved by: Fatou Marcial M.D.,Ph.D. on 05/23/2025 at 0:44
[2025-05-22 23:56] VITALS: BP 117/56; PULSE 62; RESP 22; TEMP 36.8; O2SAT 99; BMI 18.3
[2025-05-23] VITALS (10 sets, daily range): BP systolic 98–129; BP diastolic 54–61; PULSE 51–65; RESP 16–21; O2SAT 94–99
[2025-05-23 00:09] LABS: Add Manual Diff / Slide Review NO; Hematocrit 41.9 % (36-46); Hemoglobin 14.0 g/dL (12.0-16.0); Lymphocytes Absolute Auto 900 /uL (1100-4500); Mean Corpuscular HGB Conc 33.4 % (30-36); Mean Corpuscular Hemoglobin 30.7 PG (26-34); Mean Corpuscular Volume 92.0 fL (80-100); Platelet Count 210 X10^3/uL (150-400)
[2025-05-23 00:16] LABS: INR 2.5 (0.9-1.3); Prothrombin Time 27.3 SECONDS (9.4-12.5)
[2025-05-23 00:19] LABS: PTT Partial Thromboplastin Tim 48 SECONDS (25.1-36.5)
[2025-05-23 00:20] LABS: Alanine Aminotransferase 23 IU/L (<35); Albumin 4.7 g/dL (3.5-5.0); Albumin Globulin Ratio 1.7 (1.0-2.8); Alkaline Phosphatase 93 U/L (38-126); Blood Urea Nitrogen 22 mg/dL (7-17); Calcium 9.9 mg/dL (8.4-10.2); Carbon Dioxide 21 mmol/L (22-32); Chloride 103 mmol/L (98-107); Creatine Kinase 37 U/L (30-135); Estimated Glomerular Filt Rate > 60 mL/min (>60); Globulin 2.8 g/dL (1.7-4.1); Glucose 111 mg/dL (70-99); HEMOLYSIS < 15 (0-50); Lipase 57 U/L (23-300); Magnesium 1.8 mg/dL (1.6-2.3); Potassium 3.8 mmol/L (3.4-5.1); Sodium 138 mmol/L (137-145); Total Protein 7.5 g/dL (6.3-8.2)
[2025-05-23 00:31] LABS: NT-proBNP (BNP-Adult 18+) 1720 pg/mL (<450); Troponin I < 0.012 ng/mL (0.01-0.034)
--- NOTE | 2025-05-23 00:39 | ED.CHESTPAIN ---
HPI - Chest Pain General Chief Complaint: Chest Pain Stated Complaint: chest pain, thinks possible heart attack Time Seen by Provider: 05/22/25 23:50 Source: patient Mode of arrival: Ambulatory Limitations: no limitations History of Present Illness HPI narrative: 85-year-old female history of paroxysmal atrial fibrillation on Xarelto, pseudogout, osteoporosis, breast ca s/p b/l masectomy, gerd, asthma, former smoker, coronary vasospasm, recently diagnosed with NSTEMI sent to [facility] where they did a catheterization which showed no blockage at the time and was sent home the next day. Patient reports tonight she would have no chest pain or shortness of breath when she is at rest but when she starts to ambulate she started to have chest tightness that radiates to the back. She denies any leg pain leg swelling and is pain-free at this moment but only when she starts to move that she becomes symptomatic. Patient denies fever, chills, nausea, vomiting, diaphoresis, cough, sore throat, or any radiating symptoms other than to the back. Other than what is stated 14 point review of system is negative. Related Data Home Medications ?Medication ?Instructions ?Recorded ?Confirmed ascorbic acid (vitamin C) (Vitamin 1 g PO BID ##0 04/07/11 05/11/25 C oral powder) denosumab 60 mg/mL subcutaneous 60 mg SQ DIRECTED ##0 07/20/13 05/11/25 syringe (Prolia) vit C 250 mg-E 90 mg-zinc 40 1 tab PO QAM AND QPM 04/15/22 05/11/25 mg-copper 1 eh-kgjxfk-akhtol chew tablet (PreserVision AREDS-2) calcium carbonate 600 mg PO BID 05/11/24 05/11/25 cholecalciferol (vitamin D3) 25 25 mcg PO DAILY 05/11/24 05/11/25 mcg (1,000 unit) capsule gabgzblf-wwkr-kvgp 8 mg-folic 400 1 tab PO DAILY 05/11/24 05/11/25 mcg-K 50 mcg-lutein 300 mcg tablet (Centrum Silver Women) vitamin K2 45 mcg capsule 45 mcg PO DAILY 05/11/24 05/11/25 turmeric (bulk) [Curcumin] 1 ea miscellaneous 06/29/24 05/11/25 boswellia 1 cap PO BID 03/03/25 05/11/25 fluocinolone acetonide oil 0.01 % 5 drp otic (ear) BID PRN 03/03/25 05/11/25 ear drops metoprolol succinate 25 mg See Rx Instructions PO DAILY 03/21/25 05/11/25 tablet,extended release 24 hr rivaroxaban 20 mg tablet (Xarelto) 20 mg PO QPM 03/21/25 05/11/25 methotrexate See Rx Instructions PO 6XW 04/20/25 05/11/25 Previous Rx's ?Medication ?Instructions ?Recorded gabapentin 300 mg capsule See Rx Instructions .Route 10/14/24 .COMPLEX #270 caps montelukast 10 mg tablet See Rx Instructions .Route 11/14/24 .COMPLEX #90 tabs fluticasone fur. 200 mcg-umeclid 1 inh inhalation DAILY #90 ea 01/04/25 62.5 mcg-vilant 25 mcg inhalat.powder (Trelegy Ellipta) aspirin 81 mg tablet,delayed See Rx Instructions PO DAILY PRN 02/13/25 release (Adult Aspirin Regimen) pain #120 tabs dronabinol 2.5 mg capsule 2.5 mg PO BID #20 caps 03/03/25 folic acid 1 mg tablet 1 mg PO BID #60 tabs 03/21/25 fluticasone propionate 50 1 spray intranasal BID PRN for 03/23/25 mcg/actuation nasal allergies #16 grams spray,suspension atenolol 50 mg tablet 50 mg PO DAILY #90 tabs 04/19/25 cyanocobalamin (vitamin B-12) 1,000 mcg IM QWEEK #12 mL 04/20/25 1,000 mcg/mL injection solution clobetasol 0.05 % scalp solution 1 applic topical DAILY #50 mL 04/26/25 amlodipine 2.5 mg tablet 2.5 mg PO DAILY #90 tabs 05/08/25 Allergies Allergy/AdvReac Type Severity Reaction Status Date / Time adhesive Allergy Intermediate HIVES Verified 05/22/25 23:56 erythromycin base Allergy Mild RASH Verified 05/22/25 23:56 cefuroxime AdvReac Intermediate Abdominal Verified 05/22/25 23:56 Pain colchicine AdvReac Intermediate Diarrhea Verified 05/22/25 23:56 hydroxychloroquine AdvReac Intermediate Diarrhea Verified 05/22/25 23:56 levofloxacin AdvReac Mild ANXIETY Verified 05/22/25 23:56 Review of Systems Review of Systems ROS Unobtainable: All systems reviewed & are unremarkable except as noted in HPI and below Patient History Medical History (Updated 05/23/25 @ 02:54 by Rai Alcantara, ) Situational anxiety Skin tear Change in consistency of stool Atrial fibrillation Post viral debility Dehydration 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 Left elbow pain Rib pain Meralgia paraesthetica Acute right hip pain Tension headache Postoperative pain of left knee Strain of right shoulder Sacral back pain Cellulitis Medication side effect Constipation Has end of life care plan Chronic cough Postoperative edema Abdominal wall hernia Weight loss, unintentional Nausea in adult patient Diarrhea due to drug Chronic GERD Choking due to phlegm Phlegm in throat Chronic pain of left knee Hemorrhoid Vagina itching Low serum creatinine Hyponatremia Lymphopenia Pure hypercholesterolemia Discoloration of skin of lower leg Edema of left lower extremity Somatic dysfunction of lower extremity Edema of right lower extremity Oral candidiasis Right lower quadrant abdominal pain Lichen planus Arthralgia Fatigue Coronary artery disease All medications reviewed SVT (supraventricular tachycardia) Premature atrial contractions Chronic diarrhea Cervical radiculopathy Cranial somatic dysfunction Stiff neck Pelvic somatic dysfunction Sacral region somatic dysfunction Lumbar region somatic dysfunction COVID-19 vaccine series completed Leg cramps, sleep related Osteoarthritis cervical spine Problems related to lack of adequate sleep Memory changes Cervical somatic dysfunction Body posture problem Thoracic region somatic dysfunction Ear drainage right H/O supraventricular tachycardia High serum high density lipoprotein (HDL) Abnormal heart rhythms Upper extremity somatic dysfunction Segmental and somatic dysfunction of rib cage Bilateral hand pain Blood pressure instability Rib fractures Compression fracture (2002) Easy bruisability Breast cancer Sinus drainage Arthritis Former smoker History of transfusion (~2001) Symptomatic cholelithiasis Osteoporosis History of breast cancer Osteoarthritis Asthma Surgical History Status post total left knee replacement Status post laparoscopic cholecystectomy Hx of appendectomy (1961) Hx of tonsillectomy (1948) Hx of toe surgery Hx of lumpectomy (04/2001) Hx of arthroscopy of shoulder (03/2005) Hx of repair of right rotator cuff (06/2006) History of surgery (04/2019) Status post tonsillectomy Status post appendectomy History of foot surgery Status post breast reconstruction (07/2019) Status post replacement of both shoulder joints Status post right knee replacement (10/2012) S/P bilateral mastectomy (12/2001) Social History household members: none Smoking Status: Unknown if ever smoked Smoking Status: Unknown if ever smoked alcohol intake frequency: 0-2 drinks per day Exam Narrative Exam Narrative: GENERAL: [85] year old patient appears stated age. Well-developed patient, in mild distress. HEAD: Atraumatic. Normocephalic. EYES: Pupils equal round and reactive. Extraocular motions intact. No scleral icterus. No injection or drainage. ENT: Nose without bleeding, purulent drainage. Throat without erythema, tonsillar hypertrophy or exudate. Airway patent. NECK: Trachea midline. Non tender CARDIOVASCULAR: Regular rate and rhythm without murmurs, gallops, or rubs. RESPIRATORY: Clear to auscultation. Breath sounds equal bilaterally. No wheezes, rales, or rhonchi. GASTROINTESTINAL: Abdomen soft, non-tender, nondistended. EXTREMITIES: No edema or joint tenderness. BACK: Nontender without deformity or crepitance. No flank tenderness. NEURO: AOx3. SKIN: No rash or erythema of visible areas Initial Vital Signs Initial Vital Signs: Vital Signs Pulse Rate 102 H 05/22/25 23:52 Respiratory Rate 21 05/22/25 23:52 Pulse Oximetry 94 05/22/25 23:52 Scores HEART Score Heart Score history: Moderately Suspicious Heart Score EKG: Non-Specific repolarization disturbance Heart Score Age: > or = 65 years old Heart Score risk factors: 1-2 risk factors Heart Score troponin: < or = to normal limit Heart Score Total: 5 Course Orders Ordered: ED Orders 05/22/25 23:47 EKG-12 Lead Stat 05/22/25 23:55 XR chest 1V Stat 05/23/25 02:08 Troponin I Stat Discontinued Medications Aspirin (Aspirin 81 Mg Chew Tab) 324 mg PO NOW ONE Stop: 05/23/25 02:12 Last Admin: 05/23/25 02:25 Dose: 324 mg Documented By: AILYN Vital Signs Vital signs: Vital Signs - 8 hr 05/22/25 23:52 05/22/25 23:53 05/22/25 23:53 Temperature Pulse Rate 102 H 63 Respiratory Rate 21 18 Blood Pressure 117/56 L Pulse Oximetry 94 97 Oxygen Delivery Method 05/22/25 23:56 05/23/25 00:00 05/23/25 00:00 Temperature 98.2 F Pulse Rate 62 65 Respiratory Rate 22 17 Blood Pressure 117/56 L 103/54 L Pulse Oximetry 99 98 Oxygen Delivery Method Room Air Room Air 05/23/25 00:30 05/23/25 00:30 05/23/25 01:00 Temperature Pulse Rate 65 60 Respiratory Rate 18 17 Blood Pressure 106/56 L Pulse Oximetry 97 96 Oxygen Delivery Method Room Air Room Air 05/23/25 01:00 Temperature Pulse Rate Respiratory Rate Blood Pressure 105/54 L Pulse Oximetry Oxygen Delivery Method MDM - Chest Pain Lab Data 05/22/25 00:02 05/22/25 00:02 Labs: Lab Results 05/22/25 05/23/25 Range/Units 00:02 02:08 WBC 7.4 (4.5-11.0) X10^3/uL RBC 4.55 (4.0-5.2) X10^6/uL Hgb 14.0 (12.0-16.0) g/dL Hct 41.9 (36-46) % MCV 92.0 (80-100) fL MCH 30.7 (26-34) PG MCHC 33.4 (30-36) % RDW 14.7 (11.6-14.8) % Plt Count 210 (150-400) X10^3/uL Neut % (Auto) 76.3 H (50-75) % Lymph % (Auto) 12.8 L (25-40) % [place] % (Auto) 8.3 (3-14) % Eos % (Auto) 2.0 (2-4) % Baso % (Auto) 0.6 (0-2) % Neut # (Auto) 5700 (1424-4477) /uL Lymph # (Auto) 900 L (3257-4926) /uL [place] # (Auto) 600 (0-900) /uL Eos # (Auto) 100 (0-450) /uL Baso # (Auto) 0 (0-100) /uL PT 27.3 H D (9.4-12.5) SECONDS INR 2.5 H (0.9-1.3) APTT 48 H (25.1-36.5) SECONDS Sodium 138 (137-145) mmol/L Potassium 3.8 (3.4-5.1) mmol/L Chloride 103 (98-107) mmol/L Carbon Dioxide 21 L (22-32) mmol/L BUN 22 H (7-17) mg/dL Creatinine 0.54 (0.52-1.04) mg/dL Estimated GFR > 60 (>60) mL/min BUN/Creatinine Ratio 40.7 H (6-22) Glucose 111 H (70-99) mg/dL Calcium 9.9 (8.4-10.2) mg/dL Magnesium 1.8 (1.6-2.3) mg/dL Total Bilirubin 0.5 (0.2-1.3) mg/dL AST 32 (14-36) IU/L ALT 23 (<35) IU/L Alkaline Phosphatase 93 (38-126) U/L Total Creatine Kinase 37 (30-135) U/L Troponin I < 0.012 < 0.012 (0.01-0.034) ng/mL NT-Pro-B Natriuret Pep 1720 H (<450) pg/mL Total Protein 7.5 (6.3-8.2) g/dL Albumin 4.7 (3.5-5.0) g/dL Globulin 2.8 (1.7-4.1) g/dL Albumin/Globulin Ratio 1.7 (1.0-2.8) Lipase 57 D (23-300) U/L Imaging Data Chest x-ray: Radiologist's Impression: [address] [address] XRay Report Signed Patient: Katerina Sylvester MR#: [id number] : 1940 Acct:[id number] Age/Sex: 85 / F Date of Service: 05/22/25 Loc: ED Accession Number: [id number] Procedure: XR chest 1V Ordering Provider: Rai Alcantara D.O. PROCEDURE: XR CHEST 1V INDICATIONS: Chest Pain TECHNIQUE: One view of the chest was acquired. COMPARISON: None. FINDINGS: Surgical changes and devices: Bilateral shoulder arthroplasty and bilateral axillary clips.. Lungs and pleura: Lungs are clear. No pleural effusions or pneumothorax. Mediastinum: Mediastinal contours appear normal. Heart size is normal. Bones and chest wall: No suspicious bony lesions. Overlying soft tissues appear unremarkable. IMPRESSION: No acute cardiopulmonary abnormality is seen. ECG Data Interpretation: NSR HR 65 NV 146 QRS [address] depression V4-5 Unchanged from 05/17/25 from EKG MDM Narrative Medical decision making narrative: All lab work EKG sinus rhythm with ST depressions in V4 and 5 unchanged from 05/17/2025, vital signs, nurse triage note, medication list, previous ER visits, and all imaging studies reviewed. Patient chest pain-free, heart score 5 from 05/17/25. Patient given aspirin 325mg PO x 1. Patient had 2 sets of troponins that were negative. [facility] report reviewed extensively for which patient had NSTEMI to continue home atenolol and to start rosuvastatin and start aspirin 81 mg daily and to follow up with Dr. Malik rosales [facility] cable engineer in [place] and to consider cardiac MRI to evaluate for myocarditis. Patient had cardiac catheterization which showed less than 30% stenosis in the RCA mild nonobstructive CAD. Patient had echo done which showed mildly reduced left ventricular ejection fraction of 50% moderately enlarged left atrium and moderate tricuspid regurgitation. Differental dx STEMI, NSTEMI, anxiety, GERD, myocarditis Discharge Plan Departure Patient Disposition: Home Clinical Impression: Chest pain Qualifiers: Chest pain type: chest pain on breathing Qualified Code(s): R07.1 - Chest pain on breathing Instructions: DI for Chest Pain Activity Restrictions/Additional Instructions: Return with new or worsening symptoms. Take your medicines as directed. Follow up for cardiac MRI. Follow up with PCP and/or cable engineer within 1-2 weeks. Prescriptions: No Action Vitamin C Powder 1 g PO BID Qty: 0 Prolia 60 MG/1 ML syringe 60 mg SQ DIRECTED Qty: 0 Rx Instructions: Twice yearly gabapentin 300 mg capsule See Rx Instructions .ROUTE .COMPLEX Qty: 270 3RF Dose Instruction: take 1 capsule by mouth every morning and 2 capsules every evening Rx Instructions: take 1 capsule by mouth every morning and 2 capsules every evening montelukast 10 mg tablet See Rx Instructions .ROUTE .COMPLEX Qty: 90 3RF Dose Instruction: take 1 tablet by mouth every evening Rx Instructions: take 1 tablet by mouth every evening fluticasone propionate 50 mcg/actuation spray,suspension 1 spray intranasal BID PRN (Reason: for allergies) Qty: 16 1RF atenolol 50 mg tablet 50 mg PO DAILY Qty: 90 3RF Rx Instructions: take 1 50mg tab PO nightly cyanocobalamin (vitamin B-12) 1,000 mcg/mL solution 1,000 mcg IM QWEEK Qty: 12 0RF clobetasol 0.05 % solution 1 applic topical DAILY Qty: 50 1RF amlodipine 2.5 mg tablet 2.5 mg PO DAILY Qty: 90 3RF turmeric (bulk) [Curcumin] 1 ea miscellaneous Rx Instructions: 665mg po daily boswellia 500 mg 1 cap PO BID aspirin [Adult Aspirin Regimen] 81 mg tablet,delayed release (DR/EC) See Rx Instructions PO DAILY PRN (Reason: pain) Qty: 120 3RF Rx Instructions: q4-6h orally daily PRN; Xarelto 20 mg tablet 20 mg PO QPM Rx Instructions: must administer with evening meal folic acid 1 mg tablet 1 mg PO BID Qty: 60 11RF methotrexate See Rx Instructions PO 6XW Rx Instructions: 4 in AM 4 in PM 1x weekly orally cholecalciferol (vitamin D3) 25 mcg (1,000 unit) capsule 25 mcg PO DAILY vitamin K2 45 mcg capsule 45 mcg PO DAILY calcium carbonate 600 mg calcium (1,500 mg) tablet 600 mg PO BID Centrum Silver Women 8 mg iron-400 mcg-50 mcg tablet 1 tab PO DAILY Trelegy Ellipta 200-62.5-25 mcg blister with device 1 inh inhalation DAILY Qty: 90 3RF Rx Instructions: Stop Advair. Take 1 puff daily fluocinolone acetonide oil 0.01 % drops 5 drp otic (ear) BID PRN dronabinol 2.5 mg capsule 2.5 mg PO BID Qty: 20 5RF Rx Instructions: administer before lunch and evening meal/dinner metoprolol succinate 25 mg tablet extended release 24 hr See Rx Instructions PO DAILY Rx Instructions: 1 tab am and .5 tabs in pm orally daily; PreserVision AREDS-2 250-90-40-1 mg tablet,chewable 1 tab PO QAM AND QPM Referrals: Henry Mendez DO [Primary Care Provider, Family Practice] Stand Alone Forms: Patient Portal/API
[2025-05-23] MEDS: ASPIRIN 81 MG CHEW TAB 324 MG PO (02:25)
[2025-05-23 02:49] LABS: Troponin I < 0.012 ng/mL (0.01-0.034)
--- NOTE | 2025-05-23 02:59 | EKG_ITS ---
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
== END 2025-05-23 04:05 | disposition home or self-care (01) ==
PROVIDERS: Emergency Provider Family Medicine; Family Provider Family Medicine; PCP Family Medicine
DX: R07.1 Chest pain on breathing (principal); I48.0 Paroxysmal atrial fibrillation; Z79.01 Long term (current) use of anticoagulants; Z87.891 Personal history of nicotine dependence
CPT/HCPCS: 36415; 71045; 80053; 82550; 83690; 83735; 83880; 84484; 85025; 85610; 85730; 93005; 93010; 99284

== ENCOUNTER 2025-07-02 13:18 | Emergency (ER) | payer MEDICARE, OTHER, SELFPAY ==
[2025-07-02] VITALS (10 sets, daily range): BP systolic 97–132; BP diastolic 51–59; PULSE 48–59; RESP 14–18; TEMP 36.8; O2SAT 95–98; BMI 18.6
--- NOTE | 2025-07-02 05:04 | EKG_ITS ---
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
--- NOTE | 2025-07-02 13:30 | EKG_ITS ---
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
--- NOTE | 2025-07-02 13:30 | DI.RAD.S_ITS ---
PROCEDURE: XR CHEST 1V INDICATIONS: Chest Pain TECHNIQUE: One view of the chest was acquired. COMPARISON: [facility], CR, XR CHEST 1V, 05/22/2025, 23:52. FINDINGS: Surgical changes and devices: Surgical clips over the left adnexa and chest wall. A few surgical clips of the right adnexa chest wall. Bilateral shoulder prosthesis. Lungs and pleura: Lungs are clear. No pleural effusions or pneumothorax. Mediastinum: Mediastinal contours appear normal. Heart size is normal. Bones and chest wall: No suspicious bony lesions. Overlying soft tissues appear unremarkable. IMPRESSION: No acute cardiopulmonary abnormality is seen. Dictated by: Grayson Caldera M.D. on 07/02/2025 at 12:48 Approved by: Grayson Caldera M.D. on 07/02/2025 at 12:52
--- NOTE | 2025-07-02 13:34 | ED_ITS ---
HPI - Chest Pain <Tri Crespo PA-C - Last Filed: 07/02/25 17:33> General Chief Complaint: Chest Pain Stated Complaint: Chest Pain Time Seen by Provider: 07/02/25 13:19 History of Present Illness HPI narrative: Ms. Sylvester is a very pleasant 85-year-old female with a past medical history of CAD w/ NSTEMI 05/15/25 (determined vasospams/myocarditis, managed medically at [facility]), pAFib on Xarelto, asthma, osteoporosis, breast cancer s/p BL mastectomy, GERD, former smoker who presents to the emergency department via EMS from home for chest pain since 10:00 a.m. this morning. Patient states around 10:00 a.m. she develop sharp stabbing chest pain radiating across the entire chest to the mid back region that went away after some deep breathing. She then proceeded to make breakfast and the chest pain returned and started to get worse. She called EMS and was given aspirin and nitroglycerin and reports complete resolution of her pain at this time and would like to go home. States she is seeing her wood boring machine operator, Dr. Castaneda, tomorrow and may be getting a prescription of Nitro. She denies shortness of breath, diaphoresis, nausea, vomiting, abdominal pain, coughing, fevers, chills, or LE edema. Patient saw wood boring machine operator Dr. Malik Chase, with [facility] on 06/21/25 to follow up on NSTEMI/cardiac MRI which revealed resolving myocarditis. Related Data Home Medications ?Medication ?Instructions ?Recorded ?Confirmed ascorbic acid (vitamin C) (Vitamin 1 g PO BID ##0 03/2306/28/25 C oral powder) denosumab 60 mg/mL subcutaneous 60 mg SQ DIRECTED # #0 07/20/13 06/28/25 syringe (Prolia) vit C 250 mg-E 90 mg-zinc 40 1 tab PO QAM AND QPM 03/2406/28/25 mg-copper 1 [id number]-pqnvhu chew tablet (PreserVision AREDS-2) calcium carbonate 600 mg PO BID 05/11/2406/28 cholecalciferol (vitamin D3) 25 25 mcg PO DAILY 06/28/25 mcg (1,000 unit) capsule uxiekiko-gemq-fywh 8 mg-folic 400 1 tab PO DAILY 05/1106/28/25 mcg-K 50 mcg-lutein 300 mcg tablet (Centrum Silver Women) vitamin K2 45 mcg capsule 45 mcg PO DAILY 05/11/2405/17 turmeric (bulk) [Curcumin] 1 ea miscellaneous 06/29/24 06/28/25 boswellia 1 cap PO BID 03/03/25 fluocinolone acetonide oil 0.01 % 5 drp otic (ear) BID PRN 03/03/25 06/28/25 ear drops metoprolol succinate 25 mg See Rx Instructions PO NAHOMI Y 03/21/25 06/28/25 tablet,extended release 24 hr rivaroxaban 20 mg tablet (Xarelto) 20 mg PO QPM 06/28/25 methotrexate See Rx Instructions PO 6XW 0 04/20/25 06/28/25 Previous Rx's ?Medication ?Instructions ?Recorded gabapentin 300 mg capsule See Rx Instructions .Route 1 12/14/23 .COMPLEX #270 caps montelukast 10 mg tablet See Rx Instructions .Route 1 01/15/24 .COMPLEX #90 tabs fluticasone fur. 200 mcg-umeclid 1 inh inhalation NAHOMI Y #90 ea 01/04/25 62.5 mcg-vilant 25 mcg inhalat.powder (Trelegy Ellipta) aspirin 81 mg tablet,delayed See Rx Instructions PO DA SHASHI PRN 02/13/25 release (Adult Aspirin Regimen) pain #120 tabs dronabinol 2.5 mg capsule 2.5 mg PO BID #20 caps 03/03 folic acid 1 mg tablet 1 mg PO BID #60 tabs 5 atenolol 50 mg tablet 50 mg PO DAILY #90 tabs 03/24 07/17 cyanocobalamin (vitamin B-12) 1,000 mcg IM QWEEK #12 m L 04/20/25 1,000 mcg/mL injection solution clobetasol 0.05 % scalp solution 1 applic topical NAHOMI Y #50 mL 04/26/25 amlodipine 2.5 mg tablet 2.5 mg PO DAILY #90 tabs albuterol sulfate 2.5 mg/3 mL 2.5 mg (3 mL) inhalation TID PRN 05/25/25 (0.083 %) solution for nebulization shortness of breat h or wheezing #90 mL amoxicillin 875 mg-potassium 1 tab PO BID #6 tabs 05/23 12/17 clavulanate 125 mg tablet fluticasone propionate 50 1 spray intranasal BID PRN f or 06/08/25 mcg/actuation nasal allergies #16 grams spray,suspension Allergies Allergy/AdvReac Type Severity Reaction Status Date / Time adhesive Allergy Intermediate HIVES Verified 07/02/25 13:37 erythromycin base Allergy Mild RASH Verified 07/02/25 13:37 cefuroxime AdvReac Intermediate Abdominal Verified 07/02/25 13:37 Pain colchicine AdvReac Intermediate Diarrhea Verified 07/02/25 13:37 hydroxychloroquine AdvReac Intermediate Diarrhea Verified 07/02/25 13:37 levofloxacin AdvReac Mild ANXIETY Verified 07/02/25 13:37 Review of Systems <Tri Crespo PA-C - Last Filed: 07/02/25 17:33> Review of Systems ROS Unobtainable: All systems reviewed & are unremarkable except as noted in HPI and below Patient History <Tri Crespo PA-C - Last Filed: 07/02/25 17:33> Medical History Physical deconditioning Anxiety about health Dilated cardiomyopathy Physician orders for life-sustaining treatment (POLST) form indicates patient wish for ip-gaj-ipdpfqjzwxl status Situational anxiety Skin tear Change in consistency of stool Atrial fibrillation Post viral debility Dehydration 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 Left elbow pain Rib pain Meralgia paraesthetica Acute right hip pain Tension headache Postoperative pain of left knee Strain of right shoulder Sacral back pain Cellulitis Medication side effect Constipation Has end of life care plan Chronic cough Postoperative edema Abdominal wall hernia Weight loss, unintentional Nausea in adult patient Diarrhea due to drug Chronic GERD Choking due to phlegm Phlegm in throat Chronic pain of left knee Hemorrhoid Vagina itching Low serum creatinine Hyponatremia Lymphopenia Pure hypercholesterolemia Discoloration of skin of lower leg Edema of left lower extremity Somatic dysfunction of lower extremity Edema of right lower extremity Oral candidiasis Right lower quadrant abdominal pain Lichen planus Arthralgia Fatigue Coronary artery disease All medications reviewed SVT (supraventricular tachycardia) Premature atrial contractions Chronic diarrhea Cervical radiculopathy Cranial somatic dysfunction Stiff neck Pelvic somatic dysfunction Sacral region somatic dysfunction Lumbar region somatic dysfunction COVID-19 vaccine series completed Leg cramps, sleep related Osteoarthritis cervical spine Problems related to lack of adequate sleep Memory changes Cervical somatic dysfunction Body posture problem Thoracic region somatic dysfunction Ear drainage right H/O supraventricular tachycardia High serum high density lipoprotein (HDL) Abnormal heart rhythms Upper extremity somatic dysfunction Segmental and somatic dysfunction of rib cage Bilateral hand pain Blood pressure instability Rib fractures Compression fracture (2002) Easy bruisability Breast cancer Sinus drainage Arthritis Former smoker History of transfusion (~2001) Symptomatic cholelithiasis Osteoporosis History of breast cancer Osteoarthritis Asthma Surgical History Status post total left knee replacement Status post laparoscopic cholecystectomy Hx of appendectomy (1961) Hx of tonsillectomy (1948) Hx of toe surgery Hx of lumpectomy (04/2001) Hx of arthroscopy of shoulder (03/2005) Hx of repair of right rotator cuff (06/2006) History of surgery (04/2019) Status post tonsillectomy Status post appendectomy History of foot surgery Status post breast reconstruction (07/2019) Status post replacement of both shoulder joints Status post right knee replacement (10/2012) S/P bilateral mastectomy (12/2001) Social History household members: none alcohol intake frequency: 0-2 drinks per day Exam <Tri Crespo PA-C - Last Filed: 07/02/25 17:33> Narrative Exam Narrative: GENERAL: 85 year old patient appears stated age. Thin elderly patient, in no acute distress, very pleasant and making jokes. HEAD: Atraumatic. Normocephalic. EYES: No scleral icterus. No injection or drainage. NECK: Trachea midline. Cervical ROM intact. CARDIOVASCULAR: Regular rate and rhythm. RESPIRATORY: ?Nonlabored respirations. ?Speaking in clear, full sentences. ?Clear to auscultation. Breath sounds equal bilaterally. No wheezes, rales, or rhonchi. ? GASTROINTESTINAL: Abdomen soft, non-tender, nondistended. EXTREMITIES: No LE edema. NEURO: AOx3. ?Clear speech. ?Moves all 4 extremities appropriately. SITLT BL UE and LE. SKIN: No rash or erythema of visible areas Initial Vital Signs Initial Vital Signs: Vital Signs Temperature 98.2 F 07/02/25 13:20 Pulse Rate 59 L 07/02/25 13:20 Respiratory Rate 18 07/02/25 13:20 Blood Pressure 112/56 L 07/02/25 13:20 Pulse Oximetry 97 07/02/25 13:20 Oxygen Delivery Method Room Air 07/02/25 13:20 <Brenna Austin MD - Last Filed: 07/02/25 17:51> Initial Vital Signs Initial Vital Signs: Vital Signs Temperature 98.2 F 07/02/25 13:20 Pulse Rate 59 L 07/02/25 13:20 Respiratory Rate 18 07/02/25 13:20 Blood Pressure 112/56 L 07/02/25 13:20 Pulse Oximetry 97 07/02/25 13:20 Oxygen Delivery Method Room Air 07/02/25 13:20 Scores <Tri Crespo PA-C - Last Filed: 07/02/25 17:33> HEART Score Heart Score history: Moderately Suspicious Heart Score EKG: Normal Heart Score Age: > or = 65 years old Heart Score risk factors: > 3 risk factors or hx of atherosclerotic disease Heart Score troponin: < or = to normal limit Heart Score Total: 5 <Brenna Austin MD - Last Filed: 07/02/25 17:51> HEART Score Heart Score Total: 5 Course <Tri Crespo PA-C - Last Filed: 07/02/25 17:33> Orders Ordered: ED Orders 07/02/25 13:30 XR chest 1V Stat EKG-12 Lead Stat 07/02/25 13:31 Complete Blood Count AUTO DIFF Stat Comprehensive Metabolic Panel Stat Lipase Stat Magnesium Stat NT-proBNP (BNP-Adult 18+) Stat PTT Partial Thromboplastin Gordon Stat Prothrombin Time INR Stat Troponin & CK Cardiac Panel Stat 07/02/25 15:34 Troponin I Stat Vital Signs Vital signs: Vital Signs - 8 hr 07/02/25 13:20 07/02/25 13:33 07/02/25 14:00 Temperature 98.2 F Pulse Rate 59 L 58 L Respiratory Rate 18 Blood Pressure 112/56 L 99/51 L Pulse Oximetry 97 96 Oxygen Delivery Method Room Air 07/02/25 14:00 07/02/25 14:30 07/02/25 14:30 Temperature Pulse Rate 51 L 48 L Respiratory Rate Blood Pressure 97/54 L Pulse Oximetry 95 95 Oxygen Delivery Method 07/02/25 15:00 07/02/25 15:00 07/02/25 15:30 Temperature Pulse Rate 48 L 51 L Respiratory Rate 18 Blood Pressure 107/54 L Pulse Oximetry 95 96 Oxygen Delivery Method 07/02/25 15:43 07/02/25 15:43 07/02/25 16:00 Temperature Pulse Rate 50 L Respiratory Rate Blood Pressure 116/59 L 116/58 L Pulse Oximetry 97 Oxygen Delivery Method 07/02/25 16:00 07/02/25 16:30 07/02/25 16:31 Temperature Pulse Rate 56 L Respiratory Rate 14 Blood Pressure 132/58 L Pulse Oximetry 96 97 Oxygen Delivery Method 07/02/25 16:31 Temperature Pulse Rate 54 L Respiratory Rate 18 Blood Pressure Pulse Oximetry 98 Oxygen Delivery Method <Brenna Austin MD - Last Filed: 07/02/25 17:51> Orders Ordered: ED Orders 07/02/25 13:30 XR chest 1V Stat EKG-12 Lead Stat 07/02/25 13:31 Complete Blood Count AUTO DIFF Stat Comprehensive Metabolic Panel Stat Lipase Stat Magnesium Stat NT-proBNP (BNP-Adult 18+) Stat PTT Partial Thromboplastin Gordon Stat Prothrombin Time INR Stat Troponin & CK Cardiac Panel Stat 07/02/25 15:34 Troponin I Stat Vital Signs Vital signs: Vital Signs - 8 hr 07/02/25 13:20 07/02/25 13:33 07/02/25 14:00 Temperature 98.2 F Pulse Rate 59 L 58 L Respiratory Rate 18 Blood Pressure 112/56 L 99/51 L Pulse Oximetry 97 96 Oxygen Delivery Method Room Air 07/02/25 14:00 07/02/25 14:30 07/02/25 14:30 Temperature Pulse Rate 51 L 48 L Respiratory Rate Blood Pressure 97/54 L Pulse Oximetry 95 95 Oxygen Delivery Method 07/02/25 15:00 07/02/25 15:00 07/02/25 15:30 Temperature Pulse Rate 48 L 51 L Respiratory Rate 18 Blood Pressure 107/54 L Pulse Oximetry 95 96 Oxygen Delivery Method 07/02/25 15:43 07/02/25 15:43 07/02/25 16:00 Temperature Pulse Rate 50 L Respiratory Rate Blood Pressure 116/59 L 116/58 L Pulse Oximetry 97 Oxygen Delivery Method 07/02/25 16:00 07/02/25 16:30 07/02/25 16:31 Temperature Pulse Rate 56 L Respiratory Rate 14 Blood Pressure 132/58 L Pulse Oximetry 96 97 Oxygen Delivery Method 07/02/25 16:31 Temperature Pulse Rate 54 L Respiratory Rate 18 Blood Pressure Pulse Oximetry 98 Oxygen Delivery Method MDM - Chest Pain <Tri C MAMIE Crespo - Last Filed: 07/02/25 17:33> Medical Records Data Attestation: I reviewed the patient's medical records. Lab Data 07/02/25 13:31 07/02/25 13:31 Labs: Lab Results 07/02/25 07/02/25 Range/Units 13:31 15:34 WBC 7.0 (4.5-11.0) X10^3/uL RBC 4.26 (4.0-5.2) X10^6/uL Hgb 13.0 (12.0-16.0) g/dL Hct 38.3 (36-46) % MCV 89.8 (80-100) fL MCH 30.5 (26-34) PG MCHC 34.0 (30-36) % RDW 15.3 H (11.6-14.8) % Plt Count 236 (150-400) X10^3/uL Neut % (Auto) 77.7 H (50-75) % Lymph % (Auto) 13.1 L (25-40) % [place] % (Auto) 5.6 (3-14) % Eos % (Auto) 2.5 (2-4) % Baso % (Auto) 1.1 (0-2) % Neut # (Auto) 5400 (9159-3733) /uL Lymph # (Auto) 900 L (6194-5396) /uL [place] # (Auto) 400 (0-900) /uL Eos # (Auto) 200 (0-450) /uL Baso # (Auto) 100 (0-100) /uL PT 14.7 H (9.4-12.5) SECONDS INR 1.3 (0.9-1.3) APTT 35 (25.1-36.5) SECONDS Sodium 137 (137-145) mmol/L Potassium 4.1 (3.4-5.1) mmol/L Chloride 101 (98-107) mmol/L Carbon Dioxide 26 (22-32) mmol/L BUN 13 (7-17) mg/dL Creatinine 0.48 L (0.52-1.04) mg/dL Estimated GFR > 60 (>60) mL/min BUN/Creatinine Ratio 27.1 H (6-22) Glucose 142 H (70-99) mg/dL Calcium 9.1 (8.4-10.2) mg/dL Magnesium 1.8 (1.6-2.3) mg/dL Total Bilirubin 0.7 (0.2-1.3) mg/dL AST 32 (14-36) IU/L ALT 22 (<35) IU/L Alkaline Phosphatase 100 (38-126) U/L Total Creatine Kinase 39 (30-135) U/L Troponin I < 0.012 < 0.012 (0.01-0.034) ng/mL NT-Pro-B Natriuret Pep 1260 H (<450) pg/mL Total Protein 6.4 (6.3-8.2) g/dL Albumin 3.9 (3.5-5.0) g/dL Globulin 2.5 (1.7-4.1) g/dL Albumin/Globulin Ratio 1.6 (1.0-2.8) Lipase 27 (23-300) U/L Imaging Data Chest x-ray: Radiologist's Impression: PROCEDURE: XR CHEST 1V INDICATIONS: Chest Pain TECHNIQUE: One view of the chest was acquired. COMPARISON: [facility], , XR CHEST 1V, 05/22/2025, 23:52. FINDINGS: Surgical changes and devices: Surgical clips over the left adnexa and chest wall. A few surgical clips of the right adnexa chest wall. Bilateral shoulder prosthesis. Lungs and pleura: Lungs are clear. No pleural effusions or pneumothorax. Mediastinum: Mediastinal contours appear normal. Heart size is normal. Bones and chest wall: No suspicious bony lesions. Overlying soft tissues appear unremarkable. IMPRESSION: No acute cardiopulmonary abnormality is seen. Dictated by: Grayson Caldera M.D. on 07/02/2025 at 12:48 Approved by: Grayson Caldera M.D. on 07/02/2025 at 12:52 MDM Narrative Medical decision making narrative: 85-year-old female with a past medical history of CAD w/ NSTEMI 05/15/25 (determined vasospams/myocarditis, managed medically at [facility]), pAFib on Xarelto, asthma, osteoporosis, breast cancer s/p BL mastectomy, GERD, former smoker who presents to the emergency department via EMS from home for chest pain since 10:00 a.m. this morning. Differential diagnosis includes but isn't limited to ACS/CA, angina, myocarditis, pneumonia, etc. On exam the patient is in no acute distress, nontoxic-appearing, all vital signs within normal limits, she is pain-free very pleasant and joking with staff. Reviewed her recent cardiology records which revealed a cardiac MRI with improving myocarditis which was likely the cause of her NSTEMI in April. She has been compliant with all of her medications. She received aspirin and nitroglycerin via EMS with complete resolution of the pain. Chest pain order set initiated by triage nurse, initial EKG reviewed by attending physician reveals normal sinus rhythm with a rate of 54 beats per minute at this time. Labs reveal normal WBC count 7.1, hemoglobin 13.0 hematocrit 38.3. Normal sodium 137, potassium 4.1 BUN 13 creatinine 0.48. Glucose is 142. Normal LFTs. Normal CK 39. Initial troponin is negative/undetectable. BNP is elevated at 1260 which is down from her priors. Normal lipase 27. Heart Score 5. 1420: Checked on patient, updated her of initial negative troponin, she still is chest pain-free. Awaiting 2 hour repeat trop. Repeat EKG and troponin reassuring, negative troponin. Patient remained chest pain-free. Discussed case with the attending ED physician. Patient is eagerly requesting discharge home. Discussed follow up with PCP, Cardiology and ED return precautions. She verbalized understanding of all information agreeable with the plan. She is stable for discharge home. <Brenna Austin MD - Last Filed: 07/02/25 17:51> Lab Data Labs: Lab Results 07/02/25 07/02/25 Range/Units 13:31 15:34 WBC 7.0 (4.5-11.0) X10^3/uL RBC 4.26 (4.0-5.2) X10^6/uL Hgb 13.0 (12.0-16.0) g/dL Hct 38.3 (36-46) % MCV 89.8 (80-100) fL MCH 30.5 (26-34) PG MCHC 34.0 (30-36) % RDW 15.3 H (11.6-14.8) % Plt Count 236 (150-400) X10^3/uL Neut % (Auto) 77.7 H (50-75) % Lymph % (Auto) 13.1 L (25-40) % [place] % (Auto) 5.6 (3-14) % Eos % (Auto) 2.5 (2-4) % Baso % (Auto) 1.1 (0-2) % Neut # (Auto) 5400 (4691-2756) /uL Lymph # (Auto) 900 L (2887-0010) /uL [place] # (Auto) 400 (0-900) /uL Eos # (Auto) 200 (0-450) /uL Baso # (Auto) 100 (0-100) /uL PT 14.7 H (9.4-12.5) SECONDS INR 1.3 (0.9-1.3) APTT 35 (25.1-36.5) SECONDS Sodium 137 (137-145) mmol/L Potassium 4.1 (3.4-5.1) mmol/L Chloride 101 (98-107) mmol/L Carbon Dioxide 26 (22-32) mmol/L BUN 13 (7-17) mg/dL Creatinine 0.48 L (0.52-1.04) mg/dL Estimated GFR > 60 (>60) mL/min BUN/Creatinine Ratio 27.1 H (6-22) Glucose 142 H (70-99) mg/dL Calcium 9.1 (8.4-10.2) mg/dL Magnesium 1.8 (1.6-2.3) mg/dL Total Bilirubin 0.7 (0.2-1.3) mg/dL AST 32 (14-36) IU/L ALT 22 (<35) IU/L Alkaline Phosphatase 100 (38-126) U/L Total Creatine Kinase 39 (30-135) U/L Troponin I < 0.012 < 0.012 (0.01-0.034) ng/mL NT-Pro-B Natriuret Pep 1260 H (<450) pg/mL Total Protein 6.4 (6.3-8.2) g/dL Albumin 3.9 (3.5-5.0) g/dL Globulin 2.5 (1.7-4.1) g/dL Albumin/Globulin Ratio 1.6 (1.0-2.8) Lipase 27 (23-300) U/L Discharge Plan Departure Patient Disposition: Home Clinical Impression: Chest pain Qualifiers: Chest pain type: unspecified Qualified Code(s): R07.9 - Chest pain, unspecified Instructions: DI for Chest Pain Activity Restrictions/Additional Instructions: Dear Ms. Sylvester, Thank you for coming to the emergency department. It was a pleasure to meet you. Today you were evaluated for chest pain and I am very glad that your chest pain remained resolved while you were in the emergency department. Your EKG and troponin x2 today were both reassuring. Please follow up with your primary care doctor and your wood boring machine operator as soon as possible for further evaluation. Please return to the emergency department if you develop chest pain, difficulty breathing, vomiting or any other concerns. Please follow up with your primary care doctor within the next 2-3 days for ER follow-up. (If you do not have a PCP you can call [phone]. ?to schedule an appointment with an [facility] Primary Care Provider) IF YOU DEVELOP ANY NEW OR WORSENING SYMPTOMS, RETURN TO THE ER! Please read the attached instructions, they highlight more specific treatments and interventions for you at home. Thank you for letting me participate in your care, Tri Crespo PA-C Prescriptions: No Action Vitamin C Powder 1 g PO BID Qty: 0 Prolia 60 MG/1 ML syringe 60 mg SQ DIRECTED Qty: 0 Rx Instructions: Twice yearly gabapentin 300 mg capsule See Rx Instructions .ROUTE .COMPLEX Qty: 270 3RF Dose Instruction: take 1 capsule by mouth every morning and 2 capsules every evening Rx Instructions: take 1 capsule by mouth every morning and 2 capsules every evening montelukast 10 mg tablet See Rx Instructions .ROUTE .COMPLEX Qty: 90 3RF Dose Instruction: take 1 tablet by mouth every evening Rx Instructions: take 1 tablet by mouth every evening atenolol 50 mg tablet 50 mg PO DAILY Qty: 90 3RF Rx Instructions: take 1 50mg tab PO nightly cyanocobalamin (vitamin B-12) 1,000 mcg/mL solution 1,000 mcg IM QWEEK Qty: 12 0RF clobetasol 0.05 % solution 1 applic topical DAILY Qty: 50 1RF amlodipine 2.5 mg tablet 2.5 mg PO DAILY Qty: 90 3RF albuterol sulfate 2.5 mg /3 mL (0.083 %) solution for nebulization 2.5 mg inhalation TID PRN (Reason: shortness of breath or wheezing) Qty: 90 0RF Rx Instructions: Inhale contents via nebulizer up to three times a day as needed for shortness of breath. amoxicillin-pot clavulanate 875-125 mg tablet 1 tab PO BID Qty: 6 0RF fluticasone propionate 50 mcg/actuation spray,suspension 1 spray intranasal BID PRN (Reason: for allergies) Qty: 16 0RF turmeric (bulk) [Curcumin] 1 ea miscellaneous Rx Instructions: 665mg po daily boswellia 500 mg 1 cap PO BID aspirin [Adult Aspirin Regimen] 81 mg tablet,delayed release (DR/EC) See Rx Instructions PO DAILY PRN (Reason: pain) Qty: 120 3RF Rx Instructions: q4-6h orally daily PRN; Xarelto 20 mg tablet 20 mg PO QPM Rx Instructions: must administer with evening meal folic acid 1 mg tablet 1 mg PO BID Qty: 60 11RF methotrexate See Rx Instructions PO 6XW Rx Instructions: 4 in AM 4 in PM 1x weekly orally cholecalciferol (vitamin D3) 25 mcg (1,000 unit) capsule 25 mcg PO DAILY vitamin K2 45 mcg capsule 45 mcg PO DAILY calcium carbonate 600 mg calcium (1,500 mg) tablet 600 mg PO BID Centrum Silver Women 8 mg iron-400 mcg-50 mcg tablet 1 tab PO DAILY Trelegy Ellipta 200-62.5-25 mcg blister with device 1 inh inhalation DAILY Qty: 90 3RF Rx Instructions: Stop Advair. Take 1 puff daily fluocinolone acetonide oil 0.01 % drops 5 drp otic (ear) BID PRN dronabinol 2.5 mg capsule 2.5 mg PO BID Qty: 20 5RF Rx Instructions: administer before lunch and evening meal/dinner metoprolol succinate 25 mg tablet extended release 24 hr See Rx Instructions PO DAILY Rx Instructions: 1 tab am and .5 tabs in pm orally daily; PreserVision AREDS-2 250-90-40-1 mg tablet,chewable 1 tab PO QAM AND QPM Referrals: Henry Mendez, [Primary Care Provider, Family Practice] Stand Alone Forms: Patient Portal/API ED Sign-out <Brenna Austin MD - Last Filed: 07/02/25 17:51> Cosign ED Attending Cosdemetriaature Attestation: I was immediately available in the department for consultation throughout this patient's visit. Brenna Austin MD
[2025-07-02 13:40] LABS: Add Manual Diff / Slide Review NO; Hematocrit 38.3 % (36-46); Hemoglobin 13.0 g/dL (12.0-16.0); Lymphocytes Absolute Auto 900 /uL (1100-4500); Mean Corpuscular HGB Conc 34.0 % (30-36); Mean Corpuscular Hemoglobin 30.5 PG (26-34); Mean Corpuscular Volume 89.8 fL (80-100); Platelet Count 236 X10^3/uL (150-400)
[2025-07-02 13:45] LABS: INR 1.3 (0.9-1.3); Prothrombin Time 14.7 SECONDS (9.4-12.5)
[2025-07-02 13:47] LABS: PTT Partial Thromboplastin Tim 35 SECONDS (25.1-36.5)
[2025-07-02 14:03] LABS: Alanine Aminotransferase 22 IU/L (<35); Albumin 3.9 g/dL (3.5-5.0); Albumin Globulin Ratio 1.6 (1.0-2.8); Alkaline Phosphatase 100 U/L (38-126); Blood Urea Nitrogen 13 mg/dL (7-17); Calcium 9.1 mg/dL (8.4-10.2); Carbon Dioxide 26 mmol/L (22-32); Chloride 101 mmol/L (98-107); Estimated Glomerular Filt Rate > 60 mL/min (>60); Globulin 2.5 g/dL (1.7-4.1); Glucose 142 mg/dL (70-99); HEMOLYSIS < 15 (0-50); Lipase 27 U/L (23-300); Magnesium 1.8 mg/dL (1.6-2.3); Potassium 4.1 mmol/L (3.4-5.1); Sodium 137 mmol/L (137-145); Total Protein 6.4 g/dL (6.3-8.2)
[2025-07-02 14:07] LABS: NT-proBNP (BNP-Adult 18+) 1260 pg/mL (<450); Troponin I < 0.012 ng/mL (0.01-0.034)
[2025-07-02 14:11] LABS: Creatine Kinase 39 U/L (30-135)
[2025-07-02 16:08] LABS: Troponin I < 0.012 ng/mL (0.01-0.034)
== END 2025-07-02 16:56 | disposition home or self-care (01) ==
PROVIDERS: Emergency Provider Physician Assistant; Family Provider Family Medicine; PCP Family Medicine
DX: R07.9 Chest pain, unspecified (principal); I25.10 Atherosclerotic heart disease of native coronary artery without angina pectoris; I25.2 Old myocardial infarction; I48.0 Paroxysmal atrial fibrillation; Z79.01 Long term (current) use of anticoagulants; Z87.891 Personal history of nicotine dependence
CPT/HCPCS: 36415; 71045; 80053; 82550; 83690; 83735; 83880; 84484; 85025; 85610; 85730; 93005; 99283; 99284

== ENCOUNTER → 2025-08-21 15:45 | Outpatient (CLI) | payer MEDICARE, OTHER, SELFPAY ==
[2025-08-21 16:38] LABS: Add Manual Diff / Slide Review NO; Hematocrit 37.9 % (36-46); Hemoglobin 12.7 g/dL (12.0-16.0); Lymphocytes Absolute Auto 800 /uL (1100-4500); Mean Corpuscular HGB Conc 33.5 % (30-36); Mean Corpuscular Hemoglobin 30.1 PG (26-34); Mean Corpuscular Volume 89.9 fL (80-100); Platelet Count 190 X10^3/uL (150-400)
[2025-08-21 17:07] LABS: Alanine Aminotransferase 20 IU/L (<35); Albumin 4.2 g/dL (3.5-5.0); Albumin Globulin Ratio 1.8 (1.0-2.8); Alkaline Phosphatase 96 U/L (38-126); Blood Urea Nitrogen 20 mg/dL (7-17); Calcium 9.6 mg/dL (8.4-10.2); Carbon Dioxide 28 mmol/L (22-32); Chloride 99 mmol/L (98-107); Estimated Glomerular Filt Rate > 60 mL/min (>60); Globulin 2.3 g/dL (1.7-4.1); Glucose 123 mg/dL (70-99); HEMOLYSIS < 15 (0-50); Potassium 4.3 mmol/L (3.4-5.1); Sodium 136 mmol/L (137-145); Total Protein 6.5 g/dL (6.3-8.2)
== END ==
PROVIDERS: Family Provider Family Medicine; PCP Family Medicine; Referring Provider Internal Medicine Rheumatology; Visit Provider Internal Medicine Rheumatology
DX: M11.20 Other chondrocalcinosis, unspecified site (principal)
CPT/HCPCS: 36415; 80053; 85025; 85651; 86140

== ENCOUNTER → 2025-09-28 12:12 | Outpatient (CLI) | payer MEDICARE, OTHER, SELFPAY ==
--- NOTE | 2025-09-28 12:14 | DI.RAD.S_ITS ---
PROCEDURE: XR KNEE RT 3V
== END ==
PROVIDERS: Family Provider Family Medicine; PCP Family Medicine; Referring Provider Family Medicine; Visit Provider Family Medicine
DX: M25.461 Effusion, right knee (principal); Z96.651 Presence of right artificial knee joint; M25.569 Pain in unspecified knee
CPT/HCPCS: 73562

== ENCOUNTER → 2025-10-09 12:58 | Outpatient (CLI) | payer MEDICARE, OTHER, SELFPAY ==
--- NOTE | 2025-10-09 12:59 | DI.CT.S_ITS ---
PROCEDURE: CT CHEST WO CON INDICATIONS: LUNG NODULE TECHNIQUE: Noncontrast 5 mm thick sections acquired from the pulmonary apices to the posterior costophrenic angles. 1 mm lung window, 5 mm thick coronal and sagittal and 7 mm axial MIP reformats were then acquired. For radiation dose reduction, the following was used: automated exposure control, adjustment of mA and/or kV according to patient size. COMPARISON: [facility], CT, CT CHEST WO CON, 07/10/2025, 13:22. FINDINGS: Image quality: Diagnostic. Lower Neck: No enlarged lymph nodes. Thyroid: No thyroid nodules which require sonographic follow up, per consensus guidelines. Axillae: No enlarged lymph nodes. Chest Wall: Postoperative changes are noted in the left breast and axillary region. No concerning soft tissue mass or pathologic lymphadenopathy. Bones: No suspicious bony abnormalities. Soft tissues appear unremarkable. Multilevel degenerative disc disease noted. Lungs and Pleura: No pneumothorax or pleural effusions. No consolidation or suspicious pulmonary nodules. Interval decrease in the size of multiple previously noted lung nodules. No concerning new lung mass or enlarging nodule. Interventional Physician nodules include the following: * Bandlike density in anterior lateral right lower lobe measures 5 x 10 mm on image 3, 128 free previously measuring 19 x 20 mm. * 4 x 3 mm central left upper lobe nodule on image 171. Previously measuring 10 x 7 mm. * 4 x 2 mm central left lower lobe nodule on image 220. Previously measuring 11 x 7 mm. Heart: Heart size is normal. No pericardial effusion. Coronary artery calcifications are noted. Thoracic Vessels: The aorta and pulmonary arteries demonstrate normal size. Calcifications are noted in the thoracic arch. Mediastinum and Tiffany: No enlarged lymph nodes. Esophagus: No wall thickening. No hiatal hernia. Upper Abdomen: Visualized upper abdomen solid organs and bowel loops appear normal. IMPRESSION: Decreasing size of multiple pulmonary nodules demonstrated on the prior study. No new concerning lung mass or enlarging pulmonary nodule. No pathologic lymphadenopathy. Coronary artery calcifications. No cardiomegaly or pericardial effusion. Dictated by: Lillian Ruiz M.D. on 10/10/2025 at 19:33 Approved by: Lillian Ruiz M.D. on 10/10/2025 at 19:46
== END ==
PROVIDERS: Family Provider Family Medicine; PCP Family Medicine; Referring Provider Family Medicine; Visit Provider Internal Medicine Pulmonary Disease
DX: R91.8 Other nonspecific abnormal finding of lung field (principal); I25.10 Atherosclerotic heart disease of native coronary artery without angina pectoris; I70.0 Atherosclerosis of aorta
CPT/HCPCS: 71250